=== PATIENT | female | born 1985 | race African-American/Black ===

== ENCOUNTER 2017-04-29 23:27 | Emergency (ER) | payer MEDICAID ==
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
[2017-04-30] MEDS ORDERED: HYDROCODONE/APAP 5/325 MG TAB ONE (00:54)
[2017-04-30 02:04] VITALS: O2SAT 99
[2017-04-30 02:06] VITALS: BP 116/67; TEMP 98
--- NOTE | 2017-04-30 08:13 | RAD REPORT ---
EXAM DESCRIPTION: RAD - Hand Left 3 View - 04/30/2017 12:04 am CLINICAL HISTORY: Trauma, hand pain COMPARISON: None. FINDINGS: Fracture is present involving the fourth metacarpal shaft. No dislocation seen.
== END 2017-04-30 01:21 | disposition home or self-care (01) ==
LOC: ER 23:27
PROC: 2W3DX1Z Immobilization of Left Lower Arm using Splint (ICD-10-PCS; principal; 2017-04-30)
DX: S62.325A Displaced fracture of shaft of fourth metacarpal bone, left hand, initial encounter for closed fracture (principal); X58.XXXA Exposure to other specified factors, initial encounter; Y92.89 Other specified places as the place of occurrence of the external cause; I10 Essential (primary) hypertension; Z91.040 Latex allergy status; Z91.048 Other nonmedicinal substance allergy status; F17.210 Nicotine dependence, cigarettes, uncomplicated
CPT/HCPCS: 99283

== ENCOUNTER 2017-06-17 23:06 | Emergency (ER) | payer MEDICAID, OTHER ==
[2017-06-18] MEDS ORDERED: NA CHLORIDE 0.9% 1,000 ML ONE (00:12)
[2017-06-18] MEDS ORDERED: GENTAMICIN 0.3% OPTH DROP 5ML ONE (00:12)
[2017-06-18 01:38] LABS: Calcium Oxalate Crystals- Ur FEW (NONE SEEN); Urine Bacteria 20-50 /HPF (<20); Urine Culture Reflex Order REFLEXED; Urine Mucus 1+ /HPF (NONE SEEN); Urine RBC <5 /HPF (NONE SEEN)
[2017-06-18 01:42] LABS: Urine Blood TRACE (NEG); Urine Glucose NEGATIVE (NEG); Urine Protein NEGATIVE (NEG); Urine Specific Gravity >1.030 (1.005-1.030)
[2017-06-18 02:16] LABS: BUN Blood Urea Nitrogen 10 mg/dL (6-20); Bicarbonate 24 mEq/L (21-31); Glucose Level 85 mg/dL (65-120); Potassium 3.7 mEq/L (3.6-5.0); Sodium Level 137 mEq/L (135-145)
[2017-06-18 02:17] LABS: Absolute Lymphocytes (CBC) 2.6 K/uL (0.7-4.9); Absolute Monocytes 0.6 K/uL (0.1-1.3); Absolute Neutrophil 6.3 K/uL (1.8-8.0); Basophils % 0.3 % (0-1.3); Eosinophils % 1.1 % (0-4.4); Hematocrit 35.6 % (36.0-45.0); MCH 29.3 pg (27.0-35.0); MCV 89.6 fL (80-100); MPV 8.6 fL (7.6-11.3); RBC Red Blood Cell Count 3.97 M/uL (3.86-4.86)
--- NOTE | 2017-06-18 02:23 | EDPHYS ---
Physician Documentation [facility] Name: Paola Castano Age: 31 yrs Sex: Female : 1985 Arrival Date: 06/17/2017 Time: 23:10 Bed 13 Private MD: ED Physician Kasey Villalobos HPI: 06/17 23:59 This 31 yrs old Black Female presents to ER via Ambulatory with complaints of Headache, snw Eye Problem. 23:59 The patient complains of pain to the top of head. The patient describes the headache as snw constant, throbbing. Associated signs and symptoms: Pertinent positives: nausea, diarrhea. Severity of symptoms: At its worst the pain was moderate. The symptoms are alleviated by nothing. It is unknown whether or not the patient has had similar symptoms in the past. 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 Notes "bumps" on eyelids x 1-2 months. 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 - Social history:: Smoking status: Patient uses tobacco products, 3-4 cigarettes a day. ROS: 23:51 ENT: Negative for injury, pain, and discharge, Neck: Negative for injury, pain, and snw swelling, Cardiovascular: Negative for chest pain, palpitations, and edema, Respiratory: Negative for shortness of breath, cough, wheezing, and pleuritic chest pain, Back: Negative for injury and pain, : Negative for injury, bleeding, discharge, and swelling, MS/Extremity: Negative for injury and deformity, Skin: Negative for injury, rash, and discoloration, Neuro: Negative for headache, weakness, numbness, tingling, and seizure. 23:51 Constitutional: Positive for malaise. 23:51 Eyes: Positive for bumps on eyelids. 23:51 Abdomen/GI: Positive for nausea and vomiting, diarrhea. Exam: 23:51 Constitutional: This is a well developed, well nourished patient who is awake, alert, snw and in no acute distress. Head/Face: Normocephalic, atraumatic. ENT: Nares patent. No nasal discharge, no septal abnormalities noted. Tympanic membranes are normal and external auditory canals are clear. Oropharynx with no redness, swelling, or masses, exudates, or evidence of obstruction, uvula midline. Mucous membranes moist. Neck: Trachea midline, no thyromegaly or masses palpated, and no cervical lymphadenopathy. Supple, full range of motion without nuchal rigidity, or vertebral point tenderness. No Meningismus. Chest/axilla: Normal chest wall appearance and motion. Nontender with no deformity. No lesions are appreciated. Cardiovascular: Regular rate and rhythm with a normal S1 and S2. No gallops, murmurs, or rubs. Normal PMI, no JVD. No pulse deficits. Respiratory: Lungs have equal breath sounds bilaterally, clear to auscultation and percussion. No rales, rhonchi or wheezes noted. No increased work of breathing, no retractions or nasal flaring. Abdomen/GI: Soft, non-tender, with normal bowel sounds. No distension or tympany. No guarding or rebound. No evidence of tenderness throughout. Back: No spinal tenderness. No costovertebral tenderness. Full range of motion. Skin: Warm, dry with normal turgor. Normal color with no rashes, no lesions, and no evidence of cellulitis. MS/ Extremity: Pulses equal, no cyanosis. Neurovascular intact. Full, normal range of motion. Neuro: Awake and alert, GCS 15, oriented to person, place, time, and situation. Cranial nerves II-XII grossly intact. Motor strength 5/5 in all extremities. Sensory grossly intact. Cerebellar exam normal. Normal gait. 23:51 Eyes: Periorbital structures: chalazion x 1 to each upper eyelid (x 1 month). Vital Signs: 23:34 BP 113 / 66; Pulse 80; Resp 18; Temp 98.7(O); Pulse Ox 98% on R/A; Weight 131.54 kg fc (R); Height 5 ft. 7 in. (170.18 cm) (R); Pain 6/10; 0507 00:00 BP 120 / 63; Pulse 67; Resp 16; Pulse Ox 100% on 15% Non-rebreather mask; bs1 01:20 BP 119 / 63; Pulse 68; Resp 17; Pulse Ox 99% on R/A; bs1 02:30 BP 115 / 63; Pulse 66; Resp 16; Temp 98.0(O); Pulse Ox 98% on R/A; Pain 0/10; bs1 06/17 23:34 Body Mass Index 45.42 (131.54 kg, 170.18 cm) fc MDM: 06/17 23:44 Patient medically screened. snw 06/18 03:42 Data reviewed: vital signs. ma2 06/17 23:57 Order name: Urine Culture snw 06/17 23:57 Order name: Urine Microscopic Only; Complete Time: 01:57 snw 06/17 23:57 Order name: CBC with Diff snw 06/17 23:57 Order name: Chem 7 snw 06/17 23:57 Order name: Urine Culture EDOR 06/18 01:01 Order name: Urine Dipstick--Ancillary (enter results); Complete Time: 01:57 em1 06/17 23:57 Order name: O2: 15L x 15 min (placed at 2356); Complete Time: 00:15 snw 06/17 23:57 Order name: Urine Dipstick-Ancillary (obtain specimen); Complete Time: 00:39 snw Administered Medications: 00:23 Drug: Gentamicin Drops 0.3 % 2 drops Route: Ophthalmic; Site: both eyes; bs1 00:39 Not Given (verbal order by ria, oral rehydration, unable to get IV access): NS bs1 0.9% 1000 ml IV at 1 bolus Per protocol; 1000 mL bolus Disposition: 03:41 Co-signature as Attending Physician, Kasey Villalobos MD. ma2 03:42 Co-signature as Attending Physician, Kasey Villalobos MD. ma2 Disposition: 06/18/17 02:22 Discharged to Home. Impression: Vomiting, unspecified, Diarrhea, unspecified, state, Chalazion right upper eyelid, Chalazion left upper eyelid. - Condition is Stable. - Discharge Instructions: Food Choices to Help Relieve Diarrhea, Adult, Chalazion, Diarrhea, Clear Liquid Diet, Nausea and Vomiting. - Prescriptions for Vigamox 0.5 % Ophthalmic Drops - instill 1 drop by OPHTHALMIC route every 8 hours for 7 days; 5 milliliter. - Work release form, Medication Reconciliation Form, Thank You Letter, Antibiotic Education, Prescription Opioid Use form. - Follow up: Emergency Department; When: As needed; Reason: Worsening of condition. Follow up: Private Physician; When: 1 - 2 days; Reason: Recheck today's complaints, Continuance of care, Re-evaluation by your physician. Signatures: Dispatcher [employer] EDMS Nataliia Lucas, ROCHELLE-C CITY BUS DRIVER-Csnw Caryl Bahena, RN RN Lexi Daly RN RN bs1 Kasey Villalobos MD MD ma2 Corrections: (The following items were deleted from the chart) 06/17 23:59 23:51 Abdomen/GI: Positive for nausea and vomiting, snw snw 06/18 02:45 02:22 06/18/2017 02:22 Discharged to Home. Impression: Vomiting, unspecified; Diarrhea, bs1 unspecified; state; Chalazion right upper eyelid; Chalazion left upper eyelid. Condition is Stable. Discharge Instructions: Food Choices to Help Relieve Diarrhea, Adult, Chalazion, Diarrhea, Clear Liquid Diet, Nausea and Vomiting. Prescriptions for Vigamox 0.5 % Ophthalmic Drops - instill 1 drop by OPHTHALMIC route every 8 hours for 7 days; 5 milliliter. and Forms are Work release form, Medication Reconciliation Form, Thank You Letter, Antibiotic Education, Prescription Opioid Use. Follow up: Emergency Department; When: As needed; Reason: Worsening of condition. Follow up: Private Physician; When: 1 - 2 days; Reason: Recheck today's complaints, Continuance of care, Re-evaluation by your physician. bs1
--- NOTE | 2017-06-18 02:23 | ER ---
Nurse's Notes [facility] Name: Paola Castano Age: 31 yrs Sex: Female : 1985 Arrival Date: 06/17/2017 Time: 23:10 Bed 13 Private MD: Diagnosis: Vomiting, unspecified;Diarrhea, unspecified; state;Chalazion right upper eyelid;Chalazion left upper eyelid Presentation: 06/17 23:30 Presenting complaint: Patient states: that she has had a headache since yesterday and fc has some "bumps" on both her eye lids. Positive for nausea and vomiting. Pt is 23 weeks preg and is seen by [facility] in [place]. Transition of care: patient was not received from another setting of care. Onset of symptoms was June 16, 2017. Care prior to arrival: Medication(s) given: Tylenol, last at 1100. 23:30 Method Of Arrival: Ambulatory 23:30 Acuity: LEWIS 3 fc 06/18 00:25 Initial Sepsis Screen: Does the patient meet any 2 criteria? No. Patient's initial bs1 sepsis screen is negative. Does the patient have a suspected source of infection? No. Patient's initial sepsis screen is negative. 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 - Social history:: Smoking status: Patient uses tobacco products, 3-4 cigarettes a day. Screenin/07 01:07 Abuse screen: Denies threats or abuse. Denies injuries from another. Nutritional bs1 screening: No deficits noted. Tuberculosis screening: No symptoms or risk factors identified. Fall Risk None identified. Assessment: 00:25 General: Appears in no apparent distress. uncomfortable, Behavior is anxious. Pain: bs1 Complains of pain in bilateral eyelids, head Pain does not radiate. Neuro: Level of Consciousness is awake, alert, obeys commands, Oriented to person, place, time, situation, Appropriate for age Personal Fitness Trainer are equal bilaterally Moves all extremities. Gait is steady. Neuro: Speech is normal, Facial symmetry appears normal, Pupils are PERRLA, Reports blurred vision dizziness, headache Denies difficulty swallowing, numbness. Neuro: Reports a syncopal episode. Cardiovascular: Denies chest pain, Heart tones S1 S2 present Capillary refill < 3 seconds Patient's skin is warm and dry. Respiratory: Airway is patent Trachea midline Respiratory effort is even, unlabored, Respiratory pattern is regular, symmetrical, Breath sounds are clear bilaterally. GI: Bowel sounds present X 4 quads. Reports nausea. : No deficits noted. No signs and/or symptoms were reported regarding the genitourinary system. EENT: Eyes bump noted to bilateral eyelids. Derm: Skin is intact, Skin is pink, warm \\T\\ dry. Musculoskeletal: Circulation, motion, and sensation intact. Capillary refill < 3 seconds, Range of motion: intact in all extremities. 01:10 Reassessment: Patient appears in no apparent distress at this time. Patient and/or bs1 family updated on plan of care and expected duration. Pain level reassessed. Patient is alert, oriented x 3, equal unlabored respirations, skin warm/dry/pink. Pending lab results, patient Drank 2 cups of water. 01:15 Reassessment: Called Inside lab, transferred to outside lab, spoke with Harpal in bs1 outside lab to page inside lab to come draw blood. 01:35 Reassessment: Called Job medical secretary to page inside lab again due to no one coming bs1 to draw labs. Patient does not want anyone to stick her again but will allow lab to come and draw with a butterfly needle. 01:45 Reassessment: Called inside lab again, transferred to outside lab, Harpal answered, bs1 paged lab again to come draw. 02:44 Reassessment: Patient appears in no apparent distress at this time. Patient and/or bs1 family updated on plan of care and expected duration. Pain level reassessed. Patient is alert, oriented x 3, equal unlabored respirations, skin warm/dry/pink. Patient states feeling better. Vital Signs: 06/17 23:34 BP 113 / 66; Pulse 80; Resp 18; Temp 98.7(O); Pulse Ox 98% on R/A; Weight 131.54 kg fc (R); Height 5 ft. 7 in. (170.18 cm) (R); Pain 6/10; 06/18 00:00 BP 120 / 63; Pulse 67; Resp 16; Pulse Ox 100% on 15% Non-rebreather mask; bs1 01:20 BP 119 / 63; Pulse 68; Resp 17; Pulse Ox 99% on R/A; bs1 02:30 BP 115 / 63; Pulse 66; Resp 16; Temp 98.0(O); Pulse Ox 98% on R/A; Pain 0/10; bs1 06/17 23:34 Body Mass Index 45.42 (131.54 kg, 170.18 cm) fc ED Course: 06/17 23:10 Patient arrived in ED. al2 23:32 Triage completed. fc 23:33 Arm band placed on Patient placed in an exam room, on a stretcher. fc 23:41 Lexi Daly, RN is Primary Nurse. bs1 23:41 Nataliia Lucas FNP-C [facility]. snw 23:41 Kasey Villalobos MD is Attending Physician. snw 06/18 00:39 Urine Culture Sent. bs1 01:08 Patient has correct armband on for positive identification. Bed in low position. Call bs1 light in reach. Side rails up X 1. Pulse ox on. NIBP on. 01:08 No provider procedures requiring assistance completed. Missed attempt(s): 22 gauge in bs1 right antecubital area. By Nurse Elliott. Missed attempt(s): 20 gauge in left antecubital area. By Sergio Reed. 02:44 Patient did not have IV access during this emergency room visit. bs1 Administered Medications: 00:23 Drug: Gentamicin Drops 0.3 % 2 drops Route: Ophthalmic; Site: both eyes; bs1 00:39 Not Given (verbal order by ria, oral rehydration, unable to get IV access): NS bs1 0.9% 1000 ml IV at 1 bolus Per protocol; 1000 mL bolus Outcome: 02:22 Discharge ordered by . bs1 02:44 Discharged to home ambulatory. bs1 02:44 Condition: stable 02:44 Discharge instructions given to patient, Instructed on discharge instructions, follow up and referral plans. medication usage, Demonstrated understanding of instructions, follow-up care, medications, Prescriptions given X 1. 02:45 Patient left the ED. bs1 Signatures: Nataliia Lucas, MATTHEWC AUTOCLAVE OPERATOR-Csnw Caryl Bahena RN RN Lexi Daly RN RN bs1 Colette Shoemaker Corrections: (The following items were deleted from the chart) 06/17 23:33 23:30 Presenting complaint: Patient states: that she has had a headache since yesterday fc and has some "bumps" on both her eye lids. Positive for nausea and vomiting. fc
[2017-06-18 03:05] VITALS: BP 115/63; TEMP 98; O2SAT 98
== END 2017-06-18 02:45 | disposition home or self-care (01) ==
LOC: ER 23:06
DX: O21.2 Late vomiting of pregnancy (principal); R19.7 Diarrhea, unspecified; H00.14 Chalazion left upper eyelid; H00.11 Chalazion right upper eyelid; O16.2 Unspecified maternal hypertension, second trimester; O99.332 Smoking (tobacco) complicating pregnancy, second trimester; Z3A.23 23 weeks gestation of pregnancy; Z91.040 Latex allergy status; Z91.048 Other nonmedicinal substance allergy status
CPT/HCPCS: 36415; 80048; 81003; 81015; 85025; 87086; 87088; 99284; J7030

== ENCOUNTER 2017-10-27 16:10 | Emergency (ER) | payer MEDICAID ==
--- OUTSIDE RECORDS SUMMARY | 2017-10-27 16:12 | XMS REPORT | Continuity of Care Document ---
:1985 Author Organization Interface Problems Problem Status Onset Classification Date Comments Source Date Reported Discharge 09/04/2016 [facility] Diagnosis: 7 [facility] bleeding Discharge 09/04/2016 [facility] Diagnosis: 7 [facility] Abdominal Center pain ABDOMINAL Active [facility] PAIN 7 [facility] Center Medications Medication Details Route Status Patient Ordering Order Source Instructions Provider Date Allergies, Adverse Reactions, Alerts Substance Category Reaction Severity Reaction Status Date Comments Source type Reported Latex Assertion Drug Active [facility] NKDA Assertion Drug Active [facility] Immunizations Immunization Date Given Site Status Last Comments Source Updated measles/mumps/rub 09/27/2010 [facility] Results Order Name Results Value Reference Date Interpretation Comments Source Range ENDOCRINOLOGY hCG Tot 13 mIU/mL 09/02 [facility] HEMATOLOGY WBC 9.2 K/CMM 3.7 - 10.4 09/02 [facility] HEMATOLOGY RBC 4.54 M/CMM 4.20 - 09/02 [facility] 5.40 /2016 [facility] HEMATOLOGY Hgb 12.6 g/dL 12.0 - 09/02 [facility] 16.0 [facility] HEMATOLOGY MCV 85.1 fL 80.0 - 09/02 [facility] 98.0 [facility] HEMATOLOGY Hct 38.6 % 36.0 - 09/02 [facility] 48.0 [facility] HEMATOLOGY MCHC 32.6 g/dL 32.0 - 09/02 [facility] 36.0 [facility] HEMATOLOGY MCH 27.7 pg 27.0 - 09/02 [facility] 31.0 [facility] HEMATOLOGY RDW 14.0 % 11.5 - 09/02 [facility] 14.5 [facility] HEMATOLOGY Platelet 238 K/CMM 133 - 450 09/[address] [place] [address] HEMATOLOGY MPV 8.0 fL 7.4 - 10.4 09/[address] [place] [address] HEMATOLOGY Monocytes 6.5 % 2.0 - 12.0 09/02 [facility] HEMATOLOGY Basophils 0.4 % 0.0 - 1.0 09/02 [facility] HEMATOLOGY Eosinophils 1.2 % 0.0 - 4.0 09/[address] HEMATOLOGY Segs-Bands # 6.0 K/CMM 1.5 - 8.1 09/02 [facility]2016 [facility] HEMATOLOGY Lymphocytes # 2.4 K/CMM 1.0 - 5.5 09/[address] HEMATOLOGY Monocytes # 0.6 K/CMM 0.0 - 0.8 09/02 [facility] HEMATOLOGY Eosinophils # 0.1 K/CMM 0.0 - 0.5 09/[address] HEMATOLOGY Segs 65.5 % 45.0 - 09/02 [facility] 75.0 [facility] HEMATOLOGY Lymphocytes 26.4 % 20.0 - 09/02 [facility] 40.0 [facility] URINE AND UA Sq Epi Few /LPF Few /LPF 09/[address] URINE AND UA WBC 6-10 /HPF None Seen 09/02 [facility] /HPF [address] [place] [address] URINE AND UA RBC >100 /HPF 0 - 2 09/02 [facility] [address] [place] [address] URINE AND UA Bacteria Occasional None Seen 09/02 [facility] /HPF /HPF [address] [place] [address] URINE AND Micro? Performed 09/02 [facility] (09/01/16 8:00 PM) [place] URINE AND UA Color Yellow Yellow 09/02 [facility] *NA* [place] (09/01/16 8:00 PM) URINE AND UA Spec Grav 1.030 <=1.030 09/02 [facility] [address] [place] [address] URINE AND UA Turbidity Cloudy Clear 09/02 [facility] Medical *ABN* Center (09/01/16 8:00 PM) URINE AND UA Leuk Est Trace Negative 09/02 [facility] *ABN* Center (09/01/16 8:00 PM) URINE AND UA Nitrite Negative Negative 09/02 [facility] (09/01/16 8:00 PM) [place] URINE AND UA 0.2 EU/dL 0.1 - 1.0 09/02 [facility] Urobilinogen /[address] [place] [address] URINE AND UA Ketones Negative Negative 09/02 [facility] Medical *NA* Center (09/01/16 8:00 PM) URINE AND UA Bili Small Negative 09/02 [facility] Medical *ABN* Center (09/01/16 8:00 PM) URINE AND UA Blood Large Negative 09/02 [facility] *ABN* Center (09/01/16 8:00 PM) URINE AND UA pH 6.0 5.0 - 8.0 09/[address] URINE AND UA Protein Trace Negative 09/02 [facility] Medical *ABN* [place] (09/01/16 8:00 PM) URINE AND UA Glucose Negative Negative 09/02 [facility] (09/01/16 8:00 PM) [place] URINE CHEM U Preg Negative Negative 09/02 [facility] (09/01/16 8:00 PM) [place] Vital Signs Vital Sign Value Date Comments Source Temperature Oral (F) 98.2 F 09/02/2016 [facility] Systolic (mm Hg) 124 09/02/2016 [facility] Diastolic (mm Hg) 71 09/02/2016 [facility] Heart Rate 79 09/02/2016 [facility] Respitory Rate 18 09/02/2016 [facility] Weight 129.008 09/02/2016 [facility] Systolic (mm Hg) 132 09/02/2016 [facility] Diastolic (mm Hg) 64 09/02/2016 [facility] Temperature Oral (F) 98.5 F 09/02/2016 [facility] Respitory Rate 20 09/02/2016 [facility] Heart Rate 85 09/02/2016 [facility] Encounters Location Location Encounter Encounter Reason Attending ADM DC Status Source Details Type Number For Provider Date Date [facility] [id number] [facility] 09/01 09/02 [facility] Rayo Mina /2016 [facility] Procedures Procedure Code Date Perfomer Comments Source
[2017-10-27 16:59] LABS: Absolute Monocytes 0.4 K/uL (0.1-1.3); Basophils % 0.5 % (0-1.3); Eosinophils % 1.6 % (0-4.4); Hematocrit 34.4 % (36.0-45.0); Lymphocytes % 30.6 % (15.3-44.8); MCH 29.9 pg (27.0-35.0); MCV 88.7 fL (80-100); MPV 8.1 fL (7.6-11.3); Monocytes % 6.5 % (3.3-12.3); RBC Red Blood Cell Count 3.88 M/uL (3.86-4.86)
[2017-10-27] MEDS ORDERED: MORPHINE 4 MG/ML SYR ONE ×3 (17:16→19:01)
[2017-10-27] MEDS ORDERED: ONDANSETRON 4 MG/2 ML VIAL ONE (17:17)
[2017-10-27 17:19] LABS: ALT/SGPT 14 U/L (12-78); AST/SGOT 12 U/L (15-37); Alkaline Phosphatase 85 U/L (45-117); BUN Blood Urea Nitrogen 17 mg/dL (7-18); Bicarbonate 28 mmol/L (21-32); Bilirubin Direct < 0.1 mg/dL (0-0.2); Bilirubin Total 0.2 mg/dL (0.2-1.0); Glucose Level 87 mg/dL (74-106); Lipase 174 U/L (73-393); Potassium 4.1 mmol/L (3.5-5.1); Protein, Total 7.1 g/dL (6.4-8.2); Sodium Level 140 mmol/L (136-145)
--- NOTE | 2017-10-27 17:50 | RAD REPORT ---
EXAM DESCRIPTION: CT - Abdomen Pelvis W Contrast - 10/27/2017 5:33 pm CLINICAL HISTORY: Abdominal pain with vomiting. section 16 days ago COMPARISON: none. TECHNIQUE: Computed axial tomography of the abdomen pelvis was obtained. 100 cc Isovue-300 was admin istered intravenously. Oral contrast was not requested which limits evaluation of bowel. All CT scans are performed using dose optimization technique as appropriate and may include automated exposure control or mA/KV adjustment according to patient size. FINDINGS: The liver, spleen, pancreas, adrenal and kidneys appear unremarkable. There is no evidence of diverticulitis. A uterus is seen without visualization of a significant abnormality. 3.7 centimeter fluid collection is present within the anterior subcutaneous fat of the periumbilical region midline. A loop of small bowel abuts the anterior abdominal wall just posterior to this Minimal amount free fluid is present within the pelvis IMPRESSION: 3.7 centimeter fluid collection within the anterior subcutaneous fat of the periumbilica l region may represent a small hematoma. Less likely this represents a dilated loop of small bowel wi thin a hernia. This should be correlated clinically. If the diagnosis remains uncertain then CT scan would with oral contrast and opacification of the small bowel would be recommended for further evalua tion uterus
--- NOTE | 2017-10-27 18:45 | EDPHYS ---
Physician Documentation [facility] Name: Paola Castano Age: 32 yrs Sex: Female : 1985 Arrival Date: 10/27/2017 Time: 16:19 Bed 20 Private MD: ED Physician Dallas Abbasi HPI: 10/27 16:45 This 32 yrs old Black Female presents to ER via EMS with complaints of Abdominal pain, pm1 Hernia. 16:45 The patient presents with abdominal pain in the periumbilical area. The symptoms do not pm1 radiate. Associated signs and symptoms: Pertinent negatives: nausea, vomiting, and diarrhea, chest pain, dysuria, fever, headache, shortness of breath. The symptoms are described as achy. Modifying factors: The symptoms are alleviated by nothing, the symptoms are aggravated by coughing. Severity of pain: in the emergency department the pain is actually worse. Patient presents to the emergency department with complaints of hernia pain. Delivered baby 16 days ago by at [facility]. Hernia was present prior to . 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 - Social history:: Smoking status: Patient/guardian denies using tobacco. - Ebola Screening: : Patient negative for fever greater than or equal to 101.5 degrees Fahrenheit, and additional compatible Ebola Virus Disease symptoms Patient denies exposure to infectious person Patient denies travel to an Ebola-affected area in the 21 days before illness onset No symptoms or risks identified at this time. ROS: 16:45 Constitutional: Negative for fever, chills, and weight loss, Eyes: Negative for injury, pm1 pain, redness, and discharge, ENT: Negative for injury, pain, and discharge, Neck: Negative for injury, pain, and swelling, Cardiovascular: Negative for chest pain, palpitations, and edema, Respiratory: Negative for shortness of breath, cough, wheezing, and pleuritic chest pain. 16:45 Back: Negative for injury and pain, : Negative for injury, bleeding, discharge, and swelling, MS/Extremity: Negative for injury and deformity, Skin: Negative for injury, rash, and discoloration, Neuro: Negative for headache, weakness, numbness, tingling, and seizure. 16:45 Abdomen/GI: Positive for abdominal pain, Negative for nausea, vomiting, and diarrhea. Exam: 16:45 Constitutional: This is a well developed, well nourished patient who is awake, alert, pm1 and in no acute distress. Head/Face: Normocephalic, atraumatic. Eyes: Pupils equal round and reactive to light, extra-ocular motions intact. Lids and lashes normal. Conjunctiva and sclera are non-icteric and not injected. Cornea within normal limits. Periorbital areas with no swelling, redness, or edema. ENT: Nares patent. No nasal discharge, no septal abnormalities noted. Tympanic membranes are normal and external auditory canals are clear. Oropharynx with no redness, swelling, or masses, exudates, or evidence of obstruction, uvula midline. Mucous membranes moist. Neck: Trachea midline, no thyromegaly or masses palpated, and no cervical lymphadenopathy. Supple, full range of motion without nuchal rigidity, or vertebral point tenderness. No Meningismus. Chest/axilla: Normal chest wall appearance and motion. Nontender with no deformity. No lesions are appreciated. Cardiovascular: Regular rate and rhythm with a normal S1 and S2. No gallops, murmurs, or rubs. No pulse deficits. Respiratory: Lungs have equal breath sounds bilaterally, clear to auscultation and percussion. No rales, rhonchi or wheezes noted. No increased work of breathing, no retractions or nasal flaring. 16:45 Back: No spinal tenderness. No costovertebral tenderness. Full range of motion. Skin: Warm, dry with normal turgor. Normal color with no rashes, no lesions, and no evidence of cellulitis. MS/ Extremity: Pulses equal, no cyanosis. Neurovascular intact. Full, normal range of motion. 16:45 Abdomen/GI: Inspection: obese Bowel sounds: normal, Palpation: soft, mild abdominal tenderness, paraumbilical hernia, rebound tenderness, is not appreciated, Hernia: noted in the paraumbilical area, incarceration, is not appreciated, tenderness, that is mild. 16:45 Neuro: Orientation: is normal, Motor: moves all fours. Vital Signs: 16:23 BP 135 / 71; Pulse 56; Resp 16; Pulse Ox 100% on R/A; Weight 135.17 kg; Height 5 ft. 9 em in. (175.26 cm); 16:27 Temp 98.9(O); em 19:23 BP 124 / 65; Pulse 57; Resp 16; Temp 98.6; Pulse Ox 100% ; Pain 0/10; tl1 16:23 Body Mass Index 44.01 (135.17 kg, 175.26 cm) em MDM: 16:21 Patient medically screened. pm1 18:30 ED course: Patient evaluated by Dr. Abbasi and reduction of possible hernia. After pm1 evaluation recommended admission to hospital with evaluation by general surgeon.. 18:30 Counseling: I had a detailed discussion with the patient and/or guardian regarding: the pm1 historical points, exam findings, and any diagnostic results supporting the discharge/admit diagnosis, lab results, radiology results, the need for further work-up and treatment in the hospital. 19:00 Physician consultation: Carlos Butler MD was contacted at 19:00, regarding consult, pm1 patient's condition, Patient can be discharged to follow up in the office with him. Viewed CT scan and radiologist impression. His impression is a small hematoma because there is no bowel involvement before or after the area of the paraumbilical hematoma. Patient can follow up in his office next week. 19:21 ED course: Patient's hematoma fully reduced on reexamination. I did not have to reduce pm1 it, patient likely relaxed after second dose of morphine and the hematoma self reduced. 19:22 Data reviewed: vital signs. Data interpreted: Pulse oximetry: on room air is 100 %. pm1 Interpretation: normal. Counseling: I had a detailed discussion with the patient and/or guardian regarding: the historical points, exam findings, and any diagnostic results supporting the discharge/admit diagnosis, lab results, radiology results, the need for outpatient follow up, Dr. Butler. 10/27 16:28 Order name: Basic Metabolic Panel; Complete Time: 17:22 pm1 10/27 16:28 Order name: CBC with Diff; Complete Time: 17:22 pm1 10/27 16:28 Order name: Creatinine for Radiology; Complete Time: 17:22 pm1 10/27 16:28 Order name: Hepatic Function; Complete Time: 17:22 pm1 10/27 16:28 Order name: Lipase; Complete Time: 17:22 pm1 10/27 18:26 Order name: Urine Dipstick--Ancillary (enter results); Complete Time: 19:37 ag 10/27 16:28 Order name: IV Saline Lock; Complete Time: 16:40 pm1 10/27 16:28 Order name: Labs collected and sent; Complete Time: 16:40 pm1 10/27 16:28 Order name: Urine Dipstick-Ancillary (obtain specimen); Complete Time: 18:25 pm1 10/27 16:28 Order name: CT Abd/Pelvis - W/Contrast; Complete Time: 18:07 pm1 Administered Medications: 17:28 Drug: morphine 4 mg Route: IVP; Site: right forearm; aa5 18:02 Follow up: Response: No adverse reaction; Pain is decreased em 17:28 Drug: Zofran 4 mg Route: IVP; Site: right forearm; aa5 18:02 Follow up: Response: No adverse reaction em 18:58 Drug: morphine 4 mg Route: IVP; Infused Over: 2 mins; Site: right forearm; em 19:26 Follow up: Response: No adverse reaction; Marked relief of symptoms; Pain is decreased tl1 Disposition: 10/27/17 19:14 Discharged to Home. Impression: Subcutaneous abdominal hematoma. - Condition is Stable. - Discharge Instructions: Abdominal Pain, Adult, Hematoma. - Medication Reconciliation Form, Thank You Letter, Prescription Opioid Use form. - Follow up: Emergency Department; When: As needed; Reason: Worsening of condition. Follow up: Carlos Butler MD; When: 2 - 3 days; Reason: Recheck today's complaints, Continuance of care, Re-evaluation by your physician. - Problem is new. - Symptoms have improved. Addendum: 10/29/2017 07:59 Co-signature as Attending Physician, Dallas Abbasi MD I agree with the assessment and w a plan of care. Signatures: Dispatcher [employer] EDAbner Cotton, CURVE CLEANER CURVE CLEANER Lisa Villeda RN RN aa5 China Lemus RN RN tl1 Jonathan Phillips, CLINIC COORDINATOR CLINIC COORDINATOR pm1 Dallas Abbasi MD MD pr Corrections: (The following items were deleted from the chart) 10/27 19:11 18:45 Hospitalization Ordered by Kasey Najera MD for Observation. Preliminary rg2 diagnosis is Unspecified abdominal pain - hernia versus hematoma. Bed requested for Telemetry/MedSurg (observation). Status is Observation. Condition is Stable. Problem is new. Symptoms have improved. UTI on Admission? No. pm1 19:42 19:14 10/27/2017 19:14 Discharged to Home. Impression: Subcutaneous abdominal hematoma. tl1 Condition is Stable. Forms are Medication Reconciliation Form, Thank You Letter, Antibiotic Education, Prescription Opioid Use. Follow up: Emergency Department; When: As needed; Reason: Worsening of condition. Follow up: Carlos Butler; When: 2 - 3 days; Reason: Recheck today's complaints, Continuance of care, Re-evaluation by your physician. Problem is new. Symptoms have improved. pm1
--- NOTE | 2017-10-27 18:45 | ER ---
Nurse's Notes [facility] Name: Paola Castano Age: 32 yrs Sex: Female : 1985 Arrival Date: 10/27/2017 Time: 16:19 Bed 20 Private MD: Diagnosis: Subcutaneous abdominal hematoma Presentation: 10/27 16:19 Presenting complaint: EMS states: ABD pain and nausea since 1000 today, pt is s/p em 16 days ago, developed hernia after , denies fever and vomiting, site healing well, no redness or drainage noted. Presenting complaint: EMS states: ABD pain and nausea since 1000 today, pt is s/p 16 days ago, developed hernia after , denies fever and vomiting, site healing well, no redness or drainage noted. Transition of care: patient was not received from another setting of care. Onset of symptoms was October 27, 2017. Risk Assessment: Do you want to hurt yourself or someone else? Patient reports no desire to harm self or others. Initial Sepsis Screen: Does the patient meet any 2 criteria? No. Patient's initial sepsis screen is negative. Does the patient have a suspected source of infection? No. Patient's initial sepsis screen is negative. Care prior to arrival: None. 16:19 Method Of Arrival: EMS: [facility] em 16:19 Acuity: LEWIS 3 aa5 Triage Assessment: 16:23 General: Appears in no apparent distress. uncomfortable, Behavior is calm, cooperative. em Pain: Complains of pain in umbilical area. RUG SIZER: 16:23 LMP N/A - Recent em Historical: - Allergies: 16:23 Latex, Natural Rubber; em - PMHx: 16:23 Hypertension; em - PSHx: 16:23 ; em - Immunization history:: Adult Immunizations up to date. - Social history:: Smoking status: Patient/guardian denies using tobacco. - Ebola Screening: : Patient negative for fever greater than or equal to 101.5 degrees Fahrenheit, and additional compatible Ebola Virus Disease symptoms Patient denies exposure to infectious person Patient denies travel to an Ebola-affected area in the 21 days before illness onset No symptoms or risks identified at this time. Screenin:26 Abuse screen: Denies threats or abuse. Nutritional screening: No deficits noted. em Tuberculosis screening: No symptoms or risk factors identified. Fall Risk None identified. Assessment: 16:27 General: Appears in no apparent distress. uncomfortable, obese, Behavior is em cooperative, anxious. Pain: Complains of pain in umbilical area Pain currently is 7 out of 10 on a pain scale. Neuro: Level of Consciousness is awake, alert, obeys commands, Oriented to person, place, time, situation. Cardiovascular: Capillary refill < 3 seconds Patient's skin is warm and dry. Respiratory: Airway is patent Respiratory effort is even, unlabored, Respiratory pattern is regular, symmetrical. GI: Abdomen is obese, Bowel sounds present X 4 quads. Abd is soft X 4 quads Abdomen is tender to palpation in umbilical area, right upper quadrant and left upper quadrant Reports nausea, Patient currently denies vomiting. : No signs and/or symptoms were reported regarding the genitourinary system. EENT: No signs and/or symptoms were reported regarding the EENT system. Derm: Skin is intact, Skin is pink, warm \T\ dry. Musculoskeletal: Range of motion: intact in all extremities. 16:27 Reassessment: I agree with assessment completed by Abner Avilez LVN . aa5 17:20 Reassessment: radiology dept. called and notified pt IV was not functioning and that pt em was in pain crying, provider notified, new medications ordered, inserted new IV site in right forearm, old IV d/c, taped and bleeding controlled, pt tolerated CT well. Reassessment: Patient appears in no apparent distress at this time. 18:07 Reassessment: Patient appears in no apparent distress at this time. Patient and/or em family updated on plan of care and expected duration. Pain level reassessed. Patient is alert, oriented x 3, equal unlabored respirations, skin warm/dry/pink. rates pain 2/10 Patient states feeling better. 18:38 Reassessment: Patient appears in no apparent distress at this time. Patient and/or em family updated on plan of care and expected duration. Pain level reassessed. Patient is alert, oriented x 3, equal unlabored respirations, skin warm/dry/pink. pt currently refuses pain medication, rates pain a 4/10, provider notified, medication will be on hold. Vital Signs: 16:23 BP 135 / 71; Pulse 56; Resp 16; Pulse Ox 100% on R/A; Weight 135.17 kg; Height 5 ft. 9 em in. (175.26 cm); 16:27 Temp 98.9(O); em 19:23 BP 124 / 65; Pulse 57; Resp 16; Temp 98.6; Pulse Ox 100% ; Pain 0/10; tl1 16:23 Body Mass Index 44.01 (135.17 kg, 175.26 cm) em ED Course: 16:19 Patient arrived in ED. em 16:21 Jonathan Phillips NP is PHCP. pm1 16:21 Dallas Abbasi MD is Attending Physician. pm1 16:23 Arm band placed on. em 16:26 Patient has correct armband on for positive identification. Placed in gown. Bed in low em position. Call light in reach. 16:26 No provider procedures requiring assistance completed. em 16:31 Abner Avilez LVN is Primary Nurse. em 16:37 Initial lab(s) drawn, by ia, sent to lab. Inserted saline lock: 20 gauge in right 5 antecubital area, using aseptic technique. Blood collected. 16:38 Warm blanket given. Pulse ox on. NIBP on. 5 16:39 Basic Metabolic Panel Sent. 5 16:40 CBC with Diff Sent. 5 16:40 Creatinine for Radiology Sent. 5 16:40 Hepatic Function Sent. 5 16:40 Lipase Sent. 5 16:43 Triage completed. aa5 17:20 IV discontinued, intact, bleeding controlled, No redness/swelling at site. Pressure em dressing applied. 17:25 Inserted saline lock: 22 gauge in right forearm, using aseptic technique. em 17:33 CT Abd/Pelvis - W/Contrast In Process Unspecified. EDMS 17:33 CT completed. Patient tolerated procedure well. Patient moved back from CT. sj 18:25 Urine collected: clean catch specimen, clear. em 18:43 Kasey Najera MD is Hospitalizing Provider. pm1 19:12 Carlos Butler MD is Referral Physician. pm1 19:25 IV discontinued, intact, bleeding controlled, No redness/swelling at site. Pressure tl1 dressing applied. Administered Medications: 17:28 Drug: morphine 4 mg Route: IVP; Site: right forearm; aa5 18:02 Follow up: Response: No adverse reaction; Pain is decreased em 17:28 Drug: Zofran 4 mg Route: IVP; Site: right forearm; aa5 18:02 Follow up: Response: No adverse reaction em 18:58 Drug: morphine 4 mg Route: IVP; Infused Over: 2 mins; Site: right forearm; em 19:26 Follow up: Response: No adverse reaction; Marked relief of symptoms; Pain is decreased tl1 Outcome: 18:45 Decision to Hospitalize by Provider. pm1 19:14 Discharge ordered by MD. pm1 19:25 Discharged to home ambulatory, with family. tl1 19:25 Condition: good 19:25 Discharge instructions given to patient, family, Instructed on discharge instructions, follow up and referral plans. Demonstrated understanding of instructions, follow-up care. 19:42 Patient left the ED. tl1 Signatures: Dispatcher [employer] Savannah Winter Edgar, AUTOMOBILE MECHANIC SUPERVISOR AUTOMOBILE MECHANIC SUPERVISOR em Lisa Keene RN RN aa5 China Lemus RN RN tl1 Jonathan Phillips NP HOTHOUSE WORKER pm1 Kassie Rodriguez [facility] Corrections: (The following items were deleted from the chart) 17:07 16:19 Presenting complaint: EMS states: ABD pain and nausea since 1000 today, pt is s/p aa5 16 days ago, developed hernia after bitch, denies fever and vomiting, site healing well, no redness or drainage noted em 18:07 17:30 Reassessment: Patient appears in no apparent distress at this time. Patient em and/or family updated on plan of care and expected duration. Pain level reassessed. Patient is alert, oriented x 3, equal unlabored respirations, skin warm/dry/pink. em
[2017-10-27 19:35] LABS: Urine Blood TRACE (NEG); Urine Glucose NEGATIVE (NEG); Urine Protein NEGATIVE (NEG); Urine Specific Gravity 1.015 (1.005-1.030)
[2017-10-27 19:56] VITALS: O2SAT 100
[2017-10-27 19:58] VITALS: BP 124/65; TEMP 98.6
== END 2017-10-27 19:42 | disposition home or self-care (01) ==
LOC: ER 16:10
DX: O99.43 Diseases of the circulatory system complicating the puerperium (principal); I62.00 Nontraumatic subdural hemorrhage, unspecified; Z91.040 Latex allergy status
CPT/HCPCS: 36415; 74177; 80048; 80076; 81003; 83690; 85025; 96374; 96375; 99284; J2405; Q9967

== ENCOUNTER 2018-01-06 18:50 | Emergency (ER) | payer MEDICAID ==
--- OUTSIDE RECORDS SUMMARY | 2018-01-06 18:51 | XMS REPORT | Continuity of Care Document ---
:1985 Author Organization Interface Problems Problem Status Onset Classification Date Comments Source Date Reported Discharge 09/04/2016 [facility] Diagnosis: [facility] bleeding Discharge 09/04/2016 [facility] Diagnosis: [facility] pain ABDOMINAL Active [facility] PAIN [facility] Medications Medication Details Route Status Patient Ordering Order Source Instructions Provider Date Allergies, Adverse Reactions, Alerts Substance Category Reaction Severity Reaction Status Date Comments Source type Reported Latex Assertion Drug Active [facility] Immunizations Immunization Date Given Site Status Last Comments Source Updated measles/mumps/rub 09/27/2010 [facility] Results Order Name Results Value Reference Date Interpretation Comments Source Range ENDOCRINOLOGY hCG Tot 13 mIU/mL 09/02 [facility] HEMATOLOGY WBC 9.2 K/CMM 3.7 - 10.4 09/02 [facility] HEMATOLOGY RBC 4.54 M/CMM 4.20 - 09/02 [facility] 5.40 /2016 [facility] HEMATOLOGY Hgb 12.6 g/dL 12.0 - 09/02 [facility] [address] [facility] HEMATOLOGY MCV 85.1 fL 80.0 - 09/02 [facility] [address] [facility] HEMATOLOGY Hct 38.6 % 36.0 - 09/[address] [facility] HEMATOLOGY MCHC 32.6 g/dL 32.0 - 09/02 [facility] [address] [facility] HEMATOLOGY MCH 27.7 pg 27.0 - 09/02 [facility] [address] [facility] HEMATOLOGY RDW 14.0 % 11.5 - 09/02 [facility] [address] [facility] HEMATOLOGY Platelet 238 K/CMM 133 - 450 09/[address] [place] [address] HEMATOLOGY MPV 8.0 fL 7.4 - 10.4 09/[address] [place] [address] HEMATOLOGY Monocytes 6.5 % 2.0 - 12.0 09/[address] [place] [address] HEMATOLOGY Basophils 0.4 % 0.0 - 1.0 09/[address] HEMATOLOGY Eosinophils 1.2 % 0.0 - 4.0 09/[address] HEMATOLOGY Segs-Bands # 6.0 K/CMM 1.5 - 8.1 09/[address] HEMATOLOGY Lymphocytes # 2.4 K/CMM 1.0 - 5.5 09/[address] HEMATOLOGY Monocytes # 0.6 K/CMM 0.0 - 0.8 09/[address] HEMATOLOGY Eosinophils # 0.1 K/CMM 0.0 - 0.5 09/[address] HEMATOLOGY Segs 65.5 % 45.0 - 09/02 [facility] [address] [facility] HEMATOLOGY Lymphocytes 26.4 % 20.0 - 09/02 [facility] [address] [facility] URINE AND UA Sq Epi Few /LPF Few /LPF 09/[address] URINE AND UA WBC 6-10 /HPF None Seen 09/02 [facility] /HPF /[address] [place] [address] URINE AND UA RBC >100 /HPF 0 - 2 09/[address] URINE AND UA Bacteria Occasional None Seen 09/02 [facility] /HPF /HPF [address] [place] [address] URINE AND Micro? Performed 09/[address] (09/01/16 8:00 PM) [place] URINE AND UA Color Yellow Yellow 09/02 [facility] [address] [place] [address] *NA* [place] (09/01/16 8:00 PM) URINE AND UA Spec Grav 1.030 <=1.030 09/[address] URINE AND UA Turbidity Cloudy Clear 09/02 [facility] [address] [place] [address] *ABN* Center (09/01/16 8:00 PM) URINE AND UA Leuk Est Trace Negative 09/02 [facility] *ABN* [place] (09/01/16 8:00 PM) URINE AND UA Nitrite Negative Negative 09/[address] (09/01/16 8:00 PM) [place] URINE AND UA 0.2 EU/dL 0.1 - 1.0 09/02 [facility] Urobilinogen /[address] [place] [address] URINE AND UA Ketones Negative Negative 09/02 [place] [address] Medical *NA* Center (09/01/16 8:00 PM) URINE AND UA Bili Small Negative 09/02 [facility] *ABN* Center (09/01/16 8:00 PM) URINE AND UA Blood Large Negative 09/02 [facility]* [place] (09/01/16 8:00 PM) URINE AND UA pH 6.0 5.0 - 8.0 09/[address] [facility] URINE AND UA Protein Trace Negative 09/02 [facility] *[facility]* [place] (09/01/16 8:00 PM) URINE AND UA Glucose Negative Negative 09/02 [facility] (09/01/16 8:00 PM) [place] URINE CHEM U Preg Negative Negative 09/02 [facility] (09/01/16 8:00 PM) [place] Vital Signs Vital Sign Value Date Comments Source Temperature Oral (F) 98.2 F 09/02/2016 [facility] Systolic (mm Hg) 124 09/02/2016 [facility] Diastolic (mm Hg) 71 09/02/2016 [facility] Heart Rate 79 09/02/2016 [facility] Respitory Rate 18 09/02/2016 [facility] Weight 129.008 09/02/2016 [facility] Systolic (mm Hg) 132 09/02/2016 [facility] Diastolic (mm Hg) 64 09/02/2016 [facility] Temperature Oral (F) 98.5 F 09/02/2016 [facility] Respitory Rate 20 09/02/2016 [facility] Heart Rate 85 09/02/2016 [facility] Encounters Location Location Encounter Encounter Reason Attending ADM DC Status Source Details Type Number For Provider Date Date [facility] [id number] [facility] 09/01 09/02 [facility] Rayo Goyal /2016 [facility] Procedures Procedure Code Date Perfomer Comments Source
[2018-01-06 20:24] LABS: Urine Blood TRACE (NEG); Urine Glucose TRACE (NEG); Urine Protein NEGATIVE (NEG); Urine Specific Gravity >1.030 (1.005-1.030); Urine pH 5.5 (5.0-7.0)
--- NOTE | 2018-01-06 20:31 | RAD REPORT ---
EXAM DESCRIPTION: RAD - Lumbar Spine 3 Views - 01/06/2018 8:26 pm CLINICAL HISTORY: PAIN Radiculopathy COMPARISON: No comparisons FINDINGS: Vertebral body heights appear maintained. No compression fracture noted. Disc spaces are m aintained. No spondylolysis or spondylolisthesis. IMPRESSION: Negative study.
--- NOTE | 2018-01-06 20:50 | ER ---
Nurse's Notes [facility] Name: Paola Castano Age: 32 yrs Sex: Female : 1985 Arrival Date: 01/06/2018 Time: 18:51 Bed 11 Private MD: Yaneth Peck Diagnosis: Low back pain;Sciatica, left side;Urinary tract infection, site not specified;Obesity, unspecified Presentation: 01/06 19:08 Presenting complaint: Patient states: Back pain for the past week and a half. She's aj1 taking ibuprofen and Tylenol but they aren't helping. Patient denies injury. Transition of care: patient was not received from another setting of care. Onset of symptoms was December 2017. Risk Assessment: Do you want to hurt yourself or someone else? Patient reports no desire to harm self or others. Initial Sepsis Screen: Does the patient meet any 2 criteria? No. Patient's initial sepsis screen is negative. Does the patient have a suspected source of infection? No. Patient's initial sepsis screen is negative. Care prior to arrival: None. 19:08 Method Of Arrival: Ambulatory aj1 19:08 Acuity: LEWIS 4 aj1 Triage Assessment: 19:09 General: Appears in no apparent distress. uncomfortable, Behavior is calm, cooperative, aj1 appropriate for age. Pain: Complains of pain in back Pain currently is 5 out of 10 on a pain scale. Neuro: Level of Consciousness is awake, alert, obeys commands. Cardiovascular: Patient's skin is warm and dry. Respiratory: Airway is patent Respiratory effort is even, unlabored, Respiratory pattern is regular, symmetrical. Musculoskeletal: Range of motion: intact in all extremities. 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 - Social history:: Smoking status: Patient uses tobacco products, smokes one-half pack cigarettes per day. - Ebola Screening: : Patient denies travel to an Ebola-affected area in the 21 days before illness onset. - Family history:: not pertinent. Screenin:11 Abuse screen: none noted. Nutritional screening: No deficits noted. Tuberculosis jl3 screening: No symptoms or risk factors identified. Fall Risk None identified. Assessment: 19:55 General: Appears uncomfortable, obese, unkempt, Behavior is calm, cooperative. General: jl3 Pt states has pain in lower left side of back/flank 1.5 weeks. Pt had baby 3 months ago, no complications. Area over L. flank is tender to touch.. Pain: Complains of pain in right low back. Neuro: No deficits noted. Level of Consciousness is awake, alert, obeys commands, Oriented to person, place, time, situation, Drafter Refrigeration are equal bilaterally Moves all extremities. Gait is shuffling, Speech is normal, Facial symmetry appears normal, Pupils are PERRLA, Intact. Vital Signs: 19:09 BP 122 / 86; Pulse 80; Resp 18; Temp 97.2; Pulse Ox 100% on R/A; Height 5 ft. 7 in. aj1 (170.18 cm) (R); Pain 5/10; 19:41 BP 130 / 84; Pulse 83; Resp 16; Pulse Ox 99% on R/A; mt ED Course: 18:51 Patient arrived in ED. mr 18:52 Yaneth Peck is Private Physician. mr 19:09 Triage completed. aj1 19:09 Arm band placed on Patient placed in an exam room. aj1 19:39 Juan Castro MD is Attending Physician. agustin 19:55 Abdon Horowitz, FRANCIA is Primary Nurse. jl3 20:26 Lumbar Spine (3 Views) XRAY In Process Unspecified. EDMS 20:26 X-ray completed. Patient tolerated procedure well. Patient moved back from radiology. sg4 20:48 Yaneth Peck is Referral Physician. agustin 21:11 No provider procedures requiring assistance completed. Patient did not have IV access jl3 during this emergency room visit. 21:12 Patient has correct armband on for positive identification. jl3 Administered Medications: 20:52 Drug: Motrin 600 mg Route: PO; jl3 21:10 Follow up: Response: No adverse reaction; Pain is decreased jl3 20:52 Drug: Carroll 10 mg-325 mg 1 tabs Route: PO; jl3 21:10 Follow up: Response: No adverse reaction; Pain is decreased jl3 20:53 Drug: Bactrim (160 mg-800 mg (DS) 1 tablet Route: PO; jl3 21:10 Follow up: Response: No adverse reaction; Pain is decreased jl3 Outcome: 20:49 Discharge ordered by MD. velez 21:12 Discharged to home ambulatory, with family. jl3 21:12 Condition: stable 21:12 Discharge instructions given to patient, family. 21:12 Patient left the ED. jl3 Signatures: Dispatcher [employer] EDAllison Sprague RN RN aj1 Juan Castro MD MD cha Rivera, Mary mr Lowman, John, RN RN jl3 Jabier, Brigitte Murphy [facility]
--- NOTE | 2018-01-06 20:50 | EDPHYS ---
Physician Documentation [facility] Name: Paola Castano Age: 32 yrs Sex: Female : 1985 Arrival Date: 01/06/2018 Time: 18:51 Bed 11 Private MD: Yaneth Peck ED Physician Juan Castro HPI: 01/06 20:45 This 32 yrs old Black Female presents to ER via Ambulatory with complaints of Back Pain.agustin 20:45 The patient presents with pain that is acute. The symptoms are located in the low back. agustin Onset: The symptoms/episode began/occurred 2 day(s) ago. The pain radiates to the left low back. Associated signs and symptoms: The patient has no apparent associated signs or symptoms. Modifying factors: The patient symptoms are alleviated by remaining still, rest. Severity of symptoms: At their worst the symptoms were mild, moderate, in the emergency department the symptoms are unchanged. The patient has not experienced similar symptoms in the past. 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 - Social history:: Smoking status: Patient uses tobacco products, smokes one-half pack cigarettes per day. - Ebola Screening: : Patient denies travel to an Ebola-affected area in the 21 days before illness onset. - Family history:: not pertinent. ROS: 20:45 Constitutional: Negative for fever, chills, and weight loss, Eyes: Negative for injury, agustin pain, redness, and discharge, ENT: Negative for injury, pain, and discharge, Neck: Negative for injury, pain, and swelling, Cardiovascular: Negative for chest pain, palpitations, and edema, Respiratory: Negative for shortness of breath, cough, wheezing, and pleuritic chest pain, Abdomen/GI: Negative for abdominal pain, nausea, vomiting, diarrhea, and constipation, : Negative for injury, bleeding, discharge, and swelling, MS/Extremity: Negative for injury and deformity, Skin: Negative for injury, rash, and discoloration, Neuro: Negative for headache, weakness, numbness, tingling, and seizure, Psych: Negative for depression, anxiety, suicide ideation, homicidal ideation, and hallucinations, Allergy/Immunology: Negative for hives, rash, and allergies, Endocrine: Negative for neck swelling, polydipsia, polyuria, polyphagia, and marked weight changes, Hematologic/Lymphatic: Negative for swollen nodes, abnormal bleeding, and unusual bruising. 20:45 Back: Positive for decreased range of motion, pain at rest, pain with movement, radiated pain, of the left low back. Exam: 20:45 Constitutional: This is a well developed, well nourished patient who is awake, alert, agustin and in no acute distress. Head/Face: Normocephalic, atraumatic. Eyes: Pupils equal round and reactive to light, extra-ocular motions intact. Lids and lashes normal. Conjunctiva and sclera are non-icteric and not injected. Cornea within normal limits. Periorbital areas with no swelling, redness, or edema. ENT: Nares patent. No nasal discharge, no septal abnormalities noted. Tympanic membranes are normal and external auditory canals are clear. Oropharynx with no redness, swelling, or masses, exudates, or evidence of obstruction, uvula midline. Mucous membranes moist. Neck: Trachea midline, no thyromegaly or masses palpated, and no cervical lymphadenopathy. Supple, full range of motion without nuchal rigidity, or vertebral point tenderness. No Meningismus. Chest/axilla: Normal chest wall appearance and motion. Nontender with no deformity. No lesions are appreciated. Cardiovascular: Regular rate and rhythm with a normal S1 and S2. No gallops, murmurs, or rubs. Normal PMI, no JVD. No pulse deficits. Respiratory: Lungs have equal breath sounds bilaterally, clear to auscultation and percussion. No rales, rhonchi or wheezes noted. No increased work of breathing, no retractions or nasal flaring. Abdomen/GI: Soft, non-tender, with normal bowel sounds. No distension or tympany. No guarding or rebound. No evidence of tenderness throughout. Skin: Warm, dry with normal turgor. Normal color with no rashes, no lesions, and no evidence of cellulitis. MS/ Extremity: Pulses equal, no cyanosis. Neurovascular intact. Full, normal range of motion. Neuro: Awake and alert, GCS 15, oriented to person, place, time, and situation. Cranial nerves II-XII grossly intact. Motor strength 5/5 in all extremities. Sensory grossly intact. Cerebellar exam normal. Normal gait. 20:45 Back: pain, that is mild, ROM is painful, normal spinal alignment noted, CVA tenderness, is absent, muscle spasm, is appreciated in the left low back. Vital Signs: 19:09 BP 122 / 86; Pulse 80; Resp 18; Temp 97.2; Pulse Ox 100% on R/A; Height 5 ft. 7 in. aj1 (170.18 cm) (R); Pain 5/10; 19:41 BP 130 / 84; Pulse 83; Resp 16; Pulse Ox 99% on R/A; mt MDM: 19:39 Patient medically screened. [facility] 01/06 19:41 Order name: Urine Culture [facility] 01/06 20:13 Order name: Urine Dipstick--Ancillary (enter results); Complete Time: 20:41 [facility] 01/06 19:41 Order name: Lumbar Spine (3 Views) XRAY; Complete Time: 20:41 [facility] 01/06 19:41 Order name: Urine Dipstick-Ancillary (obtain specimen); Complete Time: 19:58 [facility] 01/06 19:41 Order name: Urine Test (obtain specimen); Complete Time: 19:58 [facility] Administered Medications: 20:52 Drug: Motrin 600 mg Route: PO; jl3 21:10 Follow up: Response: No adverse reaction; Pain is decreased jl3 20:52 Drug: Lowell 10 mg-325 mg 1 tabs Route: PO; jl3 21:10 Follow up: Response: No adverse reaction; Pain is decreased jl3 20:53 Drug: Bactrim (160 mg-800 mg (DS) 1 tablet Route: PO; jl3 21:10 Follow up: Response: No adverse reaction; Pain is decreased jl3 Disposition: 01/06/18 20:49 Discharged to Home. Impression: Low back pain, Sciatica, left side, Urinary tract infection, site not specified, Obesity, unspecified. - Condition is Stable. - Discharge Instructions: Back Pain, Adult, Musculoskeletal Pain, Obesity, Adult, Sciatica, Urinary Tract Infection, Adult, Back Injury Prevention, Lgri-ko-Iiyw, Urinary Tract Infection, Adult, Grxq-nr-Fvqj, Back Pain, Adult, Wogo-nb-Njem, Sciatica, Asan-se-Kopb, Back Exercises, Akaf-uf-Mnzt, Back Exercises. - Prescriptions for Ibuprofen 600 mg Oral Tablet - take 1 tablet by ORAL route every 8 hours As needed take with food; 21 tablet. Skelaxin 800 mg Oral Tablet - take 1 tablet by ORAL route every 8 hours As needed; 21 tablet. Tylenol- Codeine #3 300-30 mg Oral Tablet - take 2 tablets by ORAL route every 6 hours As needed; 24 tablet. Bactrim DS 800- 160 mg Oral Tablet - take 1 tablet by ORAL route every 12 hours for 7 days; 14 tablet. - Work release form, Medication Reconciliation Form, Thank You Letter, Antibiotic Education, Prescription Opioid Use form. - Follow up: Yaneth Peck; When: 2 - 3 days; Reason: Recheck today's complaints, Continuance of care, Re-evaluation by your physician. - Problem is new. - Symptoms have improved. Signatures: Dispatcher [employer] EDAllison Sprague RN RN aj1 Juan Castro MD MD cha Lowman, John, RN RN jl3 Corrections: (The following items were deleted from the chart) 21:12 20:49 01/06/2018 20:49 Discharged to Home. Impression: Low back pain; Sciatica, left jl3 side; Urinary tract infection, site not specified; Obesity, unspecified. Condition is Stable. Forms are Medication Reconciliation Form, Thank You Letter, Antibiotic Education, Prescription Opioid Use. Follow up: Yaneth Peck; When: 2 - 3 days; Reason: Recheck today's complaints, Continuance of care, Re-evaluation by your physician. Problem is new. Symptoms have improved. agustin
[2018-01-06] MEDS ORDERED: SMZ./TMP. 800/160 MG TABLET ONE (20:59)
[2018-01-06] MEDS ORDERED: HYDROCODONE/APAP 10/325 TAB ONE (20:59)
[2018-01-06] MEDS ORDERED: IBUPROFEN 200 MG TAB PO ONE (21:00)
[2018-01-06 22:19] VITALS: TEMP 97.2
[2018-01-06 22:20] VITALS: BP 130/84; O2SAT 99
== END 2018-01-06 21:12 | disposition home or self-care (01) ==
LOC: ER 18:50
DX: M54.42 Lumbago with sciatica, left side (principal); N39.0 Urinary tract infection, site not specified; E66.9 Obesity, unspecified; F17.210 Nicotine dependence, cigarettes, uncomplicated
CPT/HCPCS: 72100; 81003; 87086; 87088; 99283

== ENCOUNTER 2018-12-14 16:48 | Emergency (ER) | payer MEDICAID ==
[2018-12-14] MEDS ORDERED: ONDANSETRON 4 MG/2 ML VIAL ONE (17:42)
[2018-12-14 17:53] LABS: Urine Blood 3+ (NEG); Urine Glucose NEGATIVE (NEG); Urine Protein NEGATIVE (NEG); Urine Specific Gravity 1.025 (1.005-1.030)
[2018-12-14 18:16] LABS: Basophils % 0.4 % (0-1.3); Lymphocytes % 25.5 % (15.3-44.8); MPV 8.1 fL (7.6-11.3); RBC Red Blood Cell Count 4.77 M/uL (3.86-4.86)
[2018-12-14 18:32] LABS: ALT/SGPT 12 U/L (12-78); AST/SGOT 8 U/L (15-37); Albumin 3.3 g/dL (3.4-5.0); Alkaline Phosphatase 79 U/L (45-117); BUN Blood Urea Nitrogen 10 mg/dL (7-18); Bicarbonate 25 mmol/L (21-32); Bilirubin Direct < 0.1 mg/dL (0-0.2); Bilirubin Total 0.2 mg/dL (0.2-1.0); Glucose Level 87 mg/dL (74-106); HCG, Quantitative 8 mIU/mL (1-3); Lipase 209 U/L (73-393); Potassium 3.8 mmol/L (3.5-5.1); Protein, Total 7.5 g/dL (6.4-8.2); Sodium Level 142 mmol/L (136-145)
[2018-12-14 18:42] LABS: Urine Bacteria 20-50 /HPF (<20)
[2018-12-14 18:43] LABS: Urine Culture Reflex Order REFLEXED; Urine Mucus 2+ /HPF (NONE SEEN); Urine RBC >50 /HPF (NONE SEEN)
--- NOTE | 2018-12-14 20:50 | RAD REPORT ---
EXAM DESCRIPTION: US - 1St Trimest Single 1St Fetus - 12/14/2018 8:30 pm CLINICAL HISTORY: with vaginal bleeding and abdominal pain COMPARISON: None. FINDINGS: The uterus is retroverted measuring 8 x 7 x 8 centimeters. The endometrial stripe measure s 3 millimeters. . A gestational sac is not seen. The right ovary is normal in size and echotexture. Left ovary was not seen secondary to overlying bow el gas An adnexal mass is not noted. No significant free fluid IMPRESSION: Nonvisualization of a gestational sac within the endometrium. These findings could represent an early intrauterine in which the gestational sac is not se en. and even an ectopic can also result in this appearance. This all should be cor related clinically and with serial beta HCG levels. Followup endovaginal sonogram in 1 week recommend ed
--- NOTE | 2018-12-14 21:09 | EDPHYS ---
Physician Documentation [facility] Name: Paola Castano Age: 33 yrs Sex: Female : 1985 Arrival Date: 12/14/2018 Time: 16:51 Bed 19 Private MD: ED Physician Leonid Miller HPI: 12/14 17:53 This 33 yrs old Black Female presents to ER via Ambulatory with complaints of Abdominal jmm Pain, Vaginal Bleeding. 17:53 The patient presents with abdominal pain left flank. Onset: The symptoms/episode jmm began/occurred gradually, 2 week(s) ago. The symptoms radiate to suprapubic area and left lower quadrant. The symptoms are described as achy. Modifying factors: The symptoms are alleviated by nothing, the symptoms are aggravated by movement. This is a 33 year old with a history of htn that presents to the ED with complaints of vomiting, left flank pain beginning approx 2 week ago. Patient states back pain has worsened today. Patient is currently on abx for UTI with no relief of symptoms. . 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 - Social history:: Smoking status: Patient uses tobacco products, smokes one-half pack cigarettes per day. - Ebola Screening: : No symptoms or risks identified at this time. ROS: 17:53 Constitutional: Negative for fever, chills, and weight loss, Cardiovascular: Negative jmm for chest pain, palpitations, and edema, Respiratory: Negative for shortness of breath, cough, wheezing, and pleuritic chest pain. 17:53 Abdomen/GI: Positive for abdominal pain. 17:53 Abdomen/GI: Positive for nausea and vomiting. 17:53 : Positive for urinary symptoms. 17:53 All other systems are negative. Exam: 17:53 Constitutional: This is a well developed, well nourished patient who is awake, alert, jmm and in no acute distress. Head/Face: atraumatic. Eyes: EOMI, no conjunctival erythema appreciated ENT: Moist Mucus Membranes Neck: Trachea midline, Supple Chest/axilla: Normal chest wall appearance and motion. Cardiovascular: Regular rate and rhythm. No edema appreciated Respiratory: Normal respirations, no respiratory distress appreciated 17:53 Abdomen/GI: Inspection: abdomen appears normal, Bowel sounds: normal, Palpation: abdomen is soft and non-tender, in all quadrants. 17:53 Back: pain, that is moderate, of the left low back and left mid back. 17:53 Skin: Appearance: Color: normal in color. 17:53 Neuro: Orientation: is normal, Mentation: is normal, Memory: is normal. 17:53 Psych: Behavior/mood is pleasant, cooperative. Vital Signs: 17:04 BP 134 / 76; Pulse 87; Resp 16; Temp 97.6; Pulse Ox 100% on R/A; Weight 152.86 kg; la1 18:58 BP 152 / 95; Pulse 89; Resp 18; Pulse Ox 99% on R/A; em 19:25 BP 118 / 63; Pulse 62; Resp 16 S; Temp 98.5(O); Pulse Ox 100% on R/A; Pain 0/10; cc3 21:10 BP 125 / 67; Pulse 68; Resp 15 S; Pulse Ox 100% on R/A; Pain 0/10; cc3 MDM: 17:27 Patient medically screened. [facility] 21:07 Data reviewed: vital signs, nurses notes. Counseling: I had a detailed discussion with shannan the patient and/or guardian regarding: the historical points, exam findings, and any diagnostic results supporting the discharge/admit diagnosis, lab results, radiology results, the need for outpatient follow up, to return to the emergency department if symptoms worsen or persist or if there are any questions or concerns that arise at home. ED course: Patient is alert and non toxic in appearance in the ED. Patient is advised to follow up with pcp and otherwise given strict return precautions. Patient understood and agrees with the plan of care. . 12/14 17:26 Order name: Urine Dipstick--Ancillary (enter results); Complete Time: 18:15 ms 12/14 17:26 Order name: Urine --Ancillary (enter results); Complete Time: 18:15 ms 12/14 17:32 Order name: Basic Metabolic Panel; Complete Time: 18:[address] [facility] 12/14 17:32 Order name: CBC with Diff; Complete Time: 18:[address] [facility] 12/14 17:32 Order name: Creatinine for Radiology; Complete Time: 18:[address] [facility] 12/14 17:32 Order name: Hepatic Function; Complete Time: 18:[address] [facility] 12/14 17:08 Order name: Urine Dipstick-Ancillary (obtain specimen); Complete Time: 17:[address] [facility] 12/14 17:08 Order name: Urine Test (obtain specimen); Complete Time: 17:[address] [facility] 12/14 17:32 Order name: Lipase; Complete Time: 18:[address] [facility] 12/14 17:32 Order name: HCG-Quantitative; Complete Time: 18:[address] [facility] 12/14 17:33 Order name: Urine Microscopic Only; Complete Time: 18:[address] [facility] 12/14 18:38 Order name: US 1st Trimest Single 1st Fetus; Complete Time: 21:[address] [facility] 12/14 20:04 Order name: Urine Culture [facility] 12/14 17:32 Order name: IV Saline Lock; Complete Time: 17:[address] [facility] 12/14 17:32 Order name: Labs collected and sent; Complete Time: 17:[address] [facility] Administered Medications: 17:50 Drug: Zofran 4 mg Route: IVP; Site: right antecubital; 18:21 Follow up: Response: No adverse reaction; Nausea is decreased jl7 Disposition: 12/15 07:06 Co-signature as Attending Physician, Leonid Miller MD. rn Disposition: 12/14/18 21:08 Discharged to Home. Impression: Threatened , Urinary tract infection, site not specified. - Condition is Stable. - Discharge Instructions: Threatened Miscarriage, Urinary Tract Infection, Adult. - Prescriptions for Zofran ODT 4 mg Oral tablet,disintegrating - place 1 tablet by TRANSLINGUAL route every 4-6 hours; 20 tablet. Augmentin 875- 125 mg Oral Tablet - take 1 tablet by ORAL route every 12 hours for 10 days; 20 tablet. - Medication Reconciliation Form, Thank You Letter, Antibiotic Education, Prescription Opioid Use form. - Follow up: Private Physician; When: 2 - 3 days; Reason: Recheck today's complaints, Continuance of care, Re-evaluation by your physician. Signatures: Dispatcher [employer] EDMS Arturo Murray PA PA m Jonelle Ugalde RN RN iw Leonid Miller MD MD rn Attema, Lee, RN RN la1 Halley Sears 3 Roxie Rivera RN jl7 Corrections: (The following items were deleted from the chart) 12/14 21:27 21:08 12/14/2018 21:08 Discharged to Home. Impression: Threatened ; Urinary cc3 tract infection, site not specified. Condition is Stable. Forms are Medication Reconciliation Form, Thank You Letter, Antibiotic Education, Prescription Opioid Use. Follow up: Private Physician; When: 2 - 3 days; Reason: Recheck today's complaints, Continuance of care, Re-evaluation by your physician. shannan
--- NOTE | 2018-12-14 21:09 | ER ---
Nurse's Notes [facility] Name: Paola Castano Age: 33 yrs Sex: Female : 1985 Arrival Date: 12/14/2018 Time: 16:51 Bed 19 Private MD: Diagnosis: Threatened ;Urinary tract infection, site not specified Presentation: 12/14 17:03 Presenting complaint: Patient states: I have been having LLQ abd pain, had a + la1 test and have had some spotting today. Transition of care: patient was not received from another setting of care. Onset of symptoms was December 14, 2018. Risk Assessment: Do you want to hurt yourself or someone else? Patient reports no desire to harm self or others. Initial Sepsis Screen: Does the patient meet any 2 criteria? No. Patient's initial sepsis screen is negative. Does the patient have a suspected source of infection? No. Patient's initial sepsis screen is negative. Care prior to arrival: None. 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 - Social history:: Smoking status: Patient uses tobacco products, smokes one-half pack cigarettes per day. - Ebola Screening: : No symptoms or risks identified at this time. Screenin:33 Abuse screen: Denies threats or abuse. Nutritional screening: No deficits noted. em Tuberculosis screening: No symptoms or risk factors identified. Fall Risk None identified. Assessment: 17:33 General: Appears in no apparent distress. comfortable, Behavior is calm, cooperative. em Pain: Complains of pain in left lower quadrant Pain currently is 7 out of 10 on a pain scale. Neuro: Level of Consciousness is awake, alert, obeys commands, Oriented to person, place, time, situation, Appropriate for age. Cardiovascular: Capillary refill < 3 seconds Patient's skin is warm and dry. Respiratory: Airway is patent Respiratory effort is even, unlabored, Respiratory pattern is regular, symmetrical, GI: Abdomen is round non-distended, obese, Bowel sounds present X 4 quads. Abd is soft X 4 quads Abdomen is tender to palpation in left lower quadrant. : Urine is cloudy. Derm: Skin is intact, is healthy with good turgor, Skin is pink, warm \T\ dry. Musculoskeletal: Capillary refill < 3 seconds, Range of motion: intact in all extremities. 18:22 Reassessment: Patient appears in no apparent distress at this time. Patient and/or em family updated on plan of care and expected duration. Pain level reassessed. Patient is alert, oriented x 3, equal unlabored respirations, skin warm/dry/pink. Patient states feeling better. Patient states symptoms have improved. 19:26 Reassessment: Patient appears in no apparent distress at this time. Patient and/or cc3 family updated on plan of care and expected duration. Pain level reassessed. Patient is alert, oriented x 3, equal unlabored respirations, skin warm/dry/pink. Received this female patient from morning shift [facility] as a case of vaginal bleeding, with IV cannula gauge 22 at the right ACV saline locked. Still for ultrasound as endorsed. Patient denies pain at this time. General: Appears in no apparent distress. comfortable, Behavior is calm, cooperative, appropriate for age. Pain: Complains of pain in suprapubic area. Neuro: Level of Consciousness is awake, alert, obeys commands, Oriented to person, place, time, situation, Appropriate for age. Cardiovascular: Denies chest pain, Heart tones S1 S2 present Capillary refill < 3 seconds in bilateral fingers Patient's skin is warm and dry. Respiratory: Airway is patent Respiratory effort is even, unlabored, Respiratory pattern is regular, symmetrical, Breath sounds are clear bilaterally. GI: Abdomen is round non-distended, obese, Bowel sounds present X 4 quads. Abd is soft X 4 quads Abdomen is tender to palpation in suprapubic area. : No signs and/or symptoms were reported regarding the genitourinary system. EENT: No signs and/or symptoms were reported regarding the EENT system. Derm: Skin is intact, is healthy with good turgor, Skin is normal, black. Musculoskeletal: Circulation, motion, and sensation intact. Range of motion: intact in all extremities. 19:45 Reassessment: Patient taken by plastic eye technician to their department by wheelchair. cc3 20:23 Reassessment: Patient appears in no apparent distress at this time. Patient and/or cc3 family updated on plan of care and expected duration. Pain level reassessed. Patient is alert, oriented x 3, equal unlabored respirations, skin warm/dry/pink. Patient came back from ultrasound department, awaiting result. Patient denies pain at this time. 21:20 Reassessment: Patient appears in no apparent distress at this time. Patient and/or cc3 family updated on plan of care and expected duration. Pain level reassessed. Patient is alert, oriented x 3, equal unlabored respirations, skin warm/dry/pink. JUSTIN Murray discharged the patient home with prescriptions given. IV cannula removed and patient left ER vitally stable and ambulatory with her friend. No valuables left in the patient's room. Patient denies pain at this time. Patient states feeling better. Patient states symptoms have improved. Vital Signs: 17:04 BP 134 / 76; Pulse 87; Resp 16; Temp 97.6; Pulse Ox 100% on R/A; Weight 152.86 kg; la1 18:58 BP 152 / 95; Pulse 89; Resp 18; Pulse Ox 99% on R/A; em 19:25 BP 118 / 63; Pulse 62; Resp 16 S; Temp 98.5(O); Pulse Ox 100% on R/A; Pain 0/10; cc3 21:10 BP 125 / 67; Pulse 68; Resp 15 S; Pulse Ox 100% on R/A; Pain 0/10; cc3 ED Course: 16:51 Patient arrived in ED. as 16:53 [facility] Murray [facility] 16:53 Leonid Miller MD is Attending Physician. [facility] 17:04 Triage completed. la1 17:05 Arm band placed on right wrist. la1 17:08 Abner Avilez LVN is Primary Nurse. em 17:33 Patient has correct armband on for positive identification. Bed in low position. Adult em w/ patient. 20:30 US 1st Trimest Single 1st Fetus In Process Unspecified. EDMS 21:20 No provider procedures requiring assistance completed. IV discontinued, intact, cc3 bleeding controlled, No redness/swelling at site. Pressure dressing applied. Administered Medications: 17:50 Drug: Zofran 4 mg Route: IVP; Site: right antecubital; iw 18:21 Follow up: Response: No adverse reaction; Nausea is decreased jl7 Outcome: 21:08 Discharge ordered by . shannan 21:20 Discharged to home ambulatory, with friend. cc3 21:20 Condition: stable 21:20 Discharge instructions given to patient, Instructed on discharge instructions, follow up and referral plans. medication usage, Demonstrated understanding of instructions, follow-up care, medications, Prescriptions given X 2. 21:27 Patient left the ED. cc3 Addendum: 12/18/2018 07:59 Addendum: Culture Results: Positive urine culture. No further action required. Bacteria i w sensitive to prescribed antibiotic. Signatures: Dispatcher [employer] EDMS Arturo Murray PA PA jmm Abner Avilez, EQUIPMENT MAINT TECH EQUIPMENT MAINT TECH Lydia Childers Irene, RN FRANCIA iw Eleazar Mancilla, RN RN Roxie Paez RN RN jl7 Halley Sears cc3 Corrections: (The following items were deleted from the chart) 08:03 07:59 Addendum: Culture Results: Positive urine culture. [facility]
[2018-12-14 21:35] VITALS: BP 118/63; TEMP 98.5; O2SAT 100
== END 2018-12-14 21:27 | disposition home or self-care (01) ==
LOC: ER 16:48
DX: O20.0 Threatened abortion (principal); O23.41 Unspecified infection of urinary tract in pregnancy, first trimester; F17.210 Nicotine dependence, cigarettes, uncomplicated; Z91.040 Latex allergy status
CPT/HCPCS: 87088; 85025; 87086; 80048; 36415; 81025; 80076; 84702; 87077; 87186; 83690; 76801; 96374; 99283; J2405; 81003; 81015

== ENCOUNTER 2019-01-19 15:28 | Emergency (ER) | payer MEDICAID ==
--- OUTSIDE RECORDS SUMMARY | 2019-01-19 15:30 | XMS REPORT ---
:1985 [facility] Address [address] [place] [address] Dr. Villarreal. [address] [place] [id number] Care Team Providers Name Role Phone Unavailable Unavailable Unavailable Problems This patient has no known problems. Allergies, Adverse Reactions, Alerts This patient has no known allergies or adverse reactions. Medications This patient has no known medications.
--- NOTE | 2019-01-19 16:24 | ER ---
Nurse's Notes [facility] Name: Paola Castano Age: 33 yrs Sex: Female : 1985 Arrival Date: 01/19/2019 Time: 15:35 Bed 28 Private MD: Yaneth Peck Diagnosis: Insect bite (nonvenomous) of lower back and pelvis;Insect bite (nonvenomous) of right hand Presentation: 01/19 15:35 Presenting complaint: EMS states: pt reports feeling burning and stinging sensation on sg middle of lower back, EMS state visualized a red linear line on the patient back, looks to be from an Asp but no visualization of the insect, VSS. Transition of care: patient was not received from another setting of care. Onset of symptoms was January 19, 2019. Risk Assessment: Do you want to hurt yourself or someone else? Patient reports no desire to harm self or others. Initial Sepsis Screen: Does the patient meet any 2 criteria? No. Patient's initial sepsis screen is negative. Does the patient have a suspected source of infection? No. Patient's initial sepsis screen is negative. Care prior to arrival: None. 15:35 Method Of Arrival: EMS: [facility] 15:35 Acuity: LEWIS 4 sg NURSING RESIDENT: 16:15 LMP N/A - iw Historical: - Allergies: 15:38 Latex, Natural Rubber; sg - PMHx: 15:38 Hypertension; sg - Immunization history:: Adult Immunizations unknown. - Social history:: Smoking status: Patient/guardian denies using tobacco. - Ebola Screening: : Patient negative for fever greater than or equal to 101.5 degrees Fahrenheit, and additional compatible Ebola Virus Disease symptoms Patient denies exposure to infectious person Patient denies travel to an Ebola-affected area in the 21 days before illness onset No symptoms or risks identified at this time. Screenin:00 Fall Risk None identified. iw 16:04 Abuse screen: Denies threats or abuse. Denies injuries from another. Nutritional iw screening: No deficits noted. Tuberculosis screening: No symptoms or risk factors identified. Assessment: 16:04 General: Appears in no apparent distress. Behavior is calm, cooperative. Pain: Denies iw pain. Neuro: Level of Consciousness is awake, alert, obeys commands, Oriented to person, place, time, situation. Derm: Skin is intact, is healthy with good turgor, Skin is pink, warm \T\ dry. Vital Signs: 15:36 BP 142 / 60; Pulse 77; Resp 17; Temp 98.2; Pulse Ox 100% on R/A; Pain 10/10; sg 15:54 BP 122 / 82; Pulse 78; Resp 18; Pulse Ox 99% on R/A; sg ED Course: 15:35 Patient arrived in ED. sg 15:35 Yaneth Peck is Private Physician. sg 15:36 Triage completed. sg 15:38 Arm band placed on. sg 15:51 Jonelle Ugalde, RN is Primary Nurse. 15:53 Arturo Murray PA is PHCP. [facility] 15:53 Karlo Kiser MD is Attending Physician. [facility] 16:11 PHCP role handed off by Arturo Murray PA pm1 16:11 Jonathan Phillips NP is PHCP. pm1 16:30 Patient has correct armband on for positive identification. iw 16:32 No provider procedures requiring assistance completed. Patient did not have IV access iw during this emergency room visit. Administered Medications: No medications were administered Outcome: 16:23 Discharge ordered by MD. pm1 16:32 Discharged to home ambulatory, with family. iw 16:32 Condition: good 16:32 Discharge instructions given to patient, Instructed on discharge instructions, follow up and referral plans. Demonstrated understanding of instructions, follow-up care. 16:33 Patient left the ED. iw Signatures: Varinder Young RN RN Arturo Murray PA PA [facility] Jonelle Ugalde RN RN Jonathan Phillips NP CORROSION CONTROL TECHNICIAN pm1
--- NOTE | 2019-01-19 16:24 | EDPHYS ---
Physician Documentation [facility] Name: Paola Castano Age: 33 yrs Sex: Female : 1985 Arrival Date: 01/19/2019 Time: 15:35 Bed 28 Private MD: Yaneth Peck ED Physician Karlo Kiser HPI: 01/19 16:22 This 33 yrs old Black Female presents to ER via EMS with complaints of Insect Bite. pm1 16:22 The patient's rash thought to be caused by insect bites. The rash is located on the pm1 right low back. The rash can be described as raised. Onset: The symptoms/episode began/occurred just prior to arrival. Associated signs and symptoms: Pertinent positives: burning sensation, Pertinent negatives: difficulty breathing, fever, itching, nausea, swelling of lips, swelling of throat, swelling of tongue, vomiting. Severity of symptoms: in the emergency department the symptoms have improved markedly, Pain is currently a 0 / 10. Treatment given at home: none. The patient has not experienced similar symptoms in the past. The patient has not recently seen a physician. 16:22 possible asp sting to right lower back causing electric-like searing pain radiating pm1 down right leg. Pain has now resolved. 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 - Social history:: Smoking status: Patient/guardian denies using tobacco. - Ebola Screening: : Patient negative for fever greater than or equal to 101.5 degrees Fahrenheit, and additional compatible Ebola Virus Disease symptoms Patient denies exposure to infectious person Patient denies travel to an Ebola-affected area in the 21 days before illness onset No symptoms or risks identified at this time. ROS: 16:22 Constitutional: Negative for fever, chills, and weight loss, Eyes: Negative for injury, pm1 pain, redness, and discharge, ENT: Negative for injury, pain, and discharge, Neck: Negative for injury, pain, and swelling, Cardiovascular: Negative for chest pain, palpitations, and edema, Respiratory: Negative for shortness of breath, cough, wheezing, and pleuritic chest pain, Abdomen/GI: Negative for abdominal pain, nausea, vomiting, diarrhea, and constipation, Back: Negative for injury and pain, MS/Extremity: Negative for injury and deformity. 16:22 Neuro: Negative for headache, weakness, numbness, tingling, and seizure. 16:22 Skin: Positive for rash, of the right low back. Exam: 16:22 Constitutional: This is a well developed, well nourished patient who is awake, alert, pm1 and in no acute distress. Head/Face: Normocephalic, atraumatic. Chest/axilla: Normal chest wall appearance and motion. Nontender with no deformity. No lesions are appreciated. Cardiovascular: Regular rate and rhythm with a normal S1 and S2. No gallops, murmurs, or rubs. Normal PMI, no JVD. No pulse deficits. Respiratory: Lungs have equal breath sounds bilaterally, clear to auscultation and percussion. No rales, rhonchi or wheezes noted. No increased work of breathing, no retractions or nasal flaring. Back: No spinal tenderness. No costovertebral tenderness. Full range of motion. 16:22 Skin: Appearance: normal except for affected area, consistent with single 2 cm x 1 cm wheal, on the right low back. 16:22 Neuro: Orientation: is normal, Motor: is normal, moves all fours, Sensation: is normal, no obvious gross deficits, Gait: is steady, at a normal pace, without difficulty. Vital Signs: 15:36 BP 142 / 60; Pulse 77; Resp 17; Temp 98.2; Pulse Ox 100% on R/A; Pain 10/10; sg 15:54 BP 122 / 82; Pulse 78; Resp 18; Pulse Ox 99% on R/A; sg MDM: 16:22 Patient medically screened. pm1 16:22 Data reviewed: vital signs. Data interpreted: Pulse oximetry: on room air is 99 %. pm1 Interpretation: normal. Counseling: I had a detailed discussion with the patient and/or guardian regarding: the historical points, exam findings, and any diagnostic results supporting the discharge/admit diagnosis, the need for outpatient follow up, to return to the emergency department if symptoms worsen or persist or if there are any questions or concerns that arise at home. Administered Medications: No medications were administered Disposition: 01/20 09:04 Co-signature as Attending Physician, Karlo Kiser MD I agree with the assessment and kdr plan of care. Disposition: 01/19/19 16:23 Discharged to Home. Impression: Insect bite (nonvenomous) of lower back and pelvis, Insect bite (nonvenomous) of right hand. - Condition is Stable. - Discharge Instructions: Insect Bite. - Medication Reconciliation Form, Thank You Letter, Antibiotic Education, Prescription Opioid Use form. - Follow up: Emergency Department; When: As needed; Reason: Worsening of condition. Follow up: Private Physician; When: 2 - 3 days; Reason: Recheck today's complaints, Continuance of care, Re-evaluation by your physician. - Problem is new. - Symptoms have improved. Signatures: Varinder Young RN RN sg Karlo Kiser MD MD kdr Jonelle Ugalde RN RN iw Jonathan Phillips, LINE PILOT LINE PILOT pm1 Corrections: (The following items were deleted from the chart) 01/19 16:33 16:23 01/19/2019 16:23 Discharged to Home. Impression: Insect bite (nonvenomous) of iw lower back and pelvis; Insect bite (nonvenomous) of right hand. Condition is Stable. Forms are Medication Reconciliation Form, Thank You Letter, Antibiotic Education, Prescription Opioid Use. Follow up: Emergency Department; When: As needed; Reason: Worsening of condition. Follow up: Private Physician; When: 2 - 3 days; Reason: Recheck today's complaints, Continuance of care, Re-evaluation by your physician. Problem is new. Symptoms have improved. pm1
[2019-01-19 18:27] VITALS: TEMP 98.2
[2019-01-19 18:30] VITALS: BP 122/82; O2SAT 99
== END 2019-01-19 16:33 | disposition home or self-care (01) ==
LOC: ER 15:28
DX: S30.860A Insect bite (nonvenomous) of lower back and pelvis, initial encounter (principal); S60.561A Insect bite (nonvenomous) of right hand, initial encounter; I10 Essential (primary) hypertension; Z91.040 Latex allergy status; Z91.048 Other nonmedicinal substance allergy status
CPT/HCPCS: 99283

== ENCOUNTER 2019-02-07 14:27 | Emergency (ER) | payer MEDICAID ==
--- OUTSIDE RECORDS SUMMARY | 2019-02-07 14:29 | XMS REPORT ---
:1985 [facility] Address [address] [place] [address] Dr. Horner [address] [place] [id number] Care Team Providers Name Role Phone Unavailable Unavailable Unavailable Problems This patient has no known problems. Allergies, Adverse Reactions, Alerts This patient has no known allergies or adverse reactions. Medications This patient has no known medications.
[2019-02-07 15:44] LABS: Urine Blood NEGATIVE (NEG); Urine Glucose NEGATIVE (NEG); Urine Protein NEGATIVE (NEG)
--- NOTE | 2019-02-07 16:55 | RAD REPORT ---
EXAM DESCRIPTION: Dre Nicole (2 Views)02/07/2019 4:04 pm CLINICAL HISTORY: Chest pain COMPARISON: 2017 FINDINGS: The lungs appear clear of acute infiltrate. The heart is normal size IMPRESSION: No acute abnormalities displayed
--- NOTE | 2019-02-07 17:04 | ER ---
Nurse's Notes [facility] Name: Paola Castano Age: 33 yrs Sex: Female : 1985 Arrival Date: 02/07/2019 Time: 14:29 Bed 11 Private MD: Diagnosis: Cough Presentation: 02/07 14:31 Presenting complaint: Substernal chest pain, productive cough with brownish sputum, hb nausea, and SOB x 3-4 days. Vomit x 1 yesterday. Denies fever. Transition of care: patient was not received from another setting of care. Onset of symptoms was February 04, 2019. Risk Assessment: Do you want to hurt yourself or someone else? Patient reports no desire to harm self or others. Initial Sepsis Screen: Does the patient meet any 2 criteria? No. Patient's initial sepsis screen is negative. Does the patient have a suspected source of infection? No. Patient's initial sepsis screen is negative. Care prior to arrival: None. 14:31 Method Of Arrival: Ambulatory hb 14:31 Acuity: LEWIS 3 hb PLATE HANGER: 14:34 LMP 01/31/2019 hb Historical: - Allergies: 14:34 Latex, Natural Rubber; hb - Home Meds: 14:34 None [Active]; hb - PMHx: 14:34 Hypertension; hb - PSHx: 14:34 ; hb - Immunization history:: Adult Immunizations up to date. - Social history:: Smoking status: Patient uses tobacco products, smokes one pack cigarettes per day. - Ebola Screening: : No symptoms or risks identified at this time. Screenin:18 Abuse screen: Denies threats or abuse. Denies injuries from another. Nutritional ch screening: No deficits noted. Tuberculosis screening: No symptoms or risk factors identified. Fall Risk None identified. Assessment: 15:18 Reassessment: Patient appears in no apparent distress at this time. Patient and/or ch family updated on plan of care and expected duration. Pain level reassessed. Patient is alert, oriented x 3, equal unlabored respirations, skin warm/dry/pink. General: Appears in no apparent distress. comfortable, Behavior is calm, cooperative, appropriate for age. Pain: Complains of pain in mid-sternal area Pain does not radiate. Pain currently is 9 out of 10 on a pain scale. Pain began gradually, 2-3 days ago. Neuro: No deficits noted. Cardiovascular: Heart tones S1 S2 present Capillary refill < 3 seconds in bilateral fingers Clubbing of nail beds is absent Pulses are all present. Edema is absent. Respiratory: Reports cough that is productive, brown sputum pain with cough Airway is patent Respiratory effort is even, unlabored, pt lungs are slightly dminished, pt will not take a deep breath, states it hurts too much. GI: No signs and/or symptoms were reported involving the gastrointestinal system. : No deficits noted. Reports possible , just ended her period but home tests came back positive. 16:15 Reassessment: Patient appears in no apparent distress at this time. Patient and/or hb family updated on plan of care and expected duration. Pain level reassessed. Patient is alert, oriented x 3, equal unlabored respirations, skin warm/dry/pink. 17:32 Reassessment: Patient appears in no apparent distress at this time. Patient and/or hb family updated on plan of care and expected duration. Pain level reassessed. Patient is alert, oriented x 3, equal unlabored respirations, skin warm/dry/pink. Vital Signs: 14:33 BP 132 / 90; Pulse 86; Resp 16; Temp 97.4; Pulse Ox 100% on R/A; Weight 145.15 kg; hb Height 5 ft. 7 in. (170.18 cm); Pain 4/10; 14:33 Body Mass Index 50.12 (145.15 kg, 170.18 cm) hb ED Course: 14:29 Patient arrived in ED. as 14:33 Triage completed. hb 14:33 Arm band placed on. hb 14:38 EKG completed in triage. Results shown to MD. hb 15:11 Lucina Reardon, FRANCIA is Primary Nurse. ch 15:12 Eleazar Mancilla FNP-C is PHCP. la1 15:12 Karlo Kiser MD is Attending Physician. la1 15:18 No apparent distress. Resting quietly. ch 15:18 Patient has correct armband on for positive identification. Bed in low position. Call light in reach. Adult w/ patient. 15:18 No provider procedures requiring assistance completed. Patient maintains SpO2 ch saturation greater than 95% on room air. 16:03 Chest Pa And Lat (2 Views) XRAY In Process Unspecified. EDMS 17:32 Patient did not have IV access during this emergency room visit. hb Administered Medications: 17:31 Drug: Tylenol #3 (300 mg-30 mg) 1 tablet Route: PO; hb 17:32 Follow up: Response: Medication administered at discharge. hb 17:31 Drug: Motrin 600 mg Route: PO; hb 17:32 Follow up: Response: Medication administered at discharge. hb Outcome: 16:59 Discharge ordered by . la1 17:32 Discharged to home ambulatory, with family. hb 17:32 Condition: stable 17:32 Discharge instructions given to patient, Instructed on discharge instructions, follow up and referral plans. medication usage, Demonstrated understanding of instructions, follow-up care, medications. 17:32 Patient left the ED. hb Signatures: Dispatcher [employer] EDDC Lucina Reardon, RN RN Lydia Juarez Lee, RUG DESIGNER-C RUG DESIGNER-Cla1 Fani Colon RN RN hb
--- NOTE | 2019-02-07 17:04 | EDPHYS ---
Physician Documentation [facility] Name: Paola Castano Age: 33 yrs Sex: Female : 1985 Arrival Date: 02/07/2019 Time: 14:29 Bed 11 Private MD: ED Physician Karlo Kiser HPI: 02/07 15:49 This 33 yrs old Black Female presents to ER via Ambulatory with complaints of Chest la1 Pain, Shortness Of Breath. 15:49 The patient or guardian reports cough, that is intermittent. Onset: The la1 symptoms/episode began/occurred 4 day(s) ago. Severity of symptoms: At their worst the symptoms were mild. Modifying factors: The symptoms are alleviated by nothing, the symptoms are aggravated by nothing. Associated signs and symptoms: Pertinent positives: vomiting, Pertinent negatives: diarrhea, ear ache, fever. The patient has not experienced similar symptoms in the past. son and also ill with similar symptoms. 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 - Social history:: Smoking status: Patient uses tobacco products, smokes one pack cigarettes per day. - Ebola Screening: : No symptoms or risks identified at this time. ROS: 15:50 Constitutional: + chills la1 15:50 Eyes: Negative for injury, pain, redness, and discharge, ENT: Negative for injury, pain, and discharge, Neck: Negative for injury, pain, and swelling, Cardiovascular: Negative for chest pain, palpitations, and edema, Respiratory: Negative for shortness of breath, cough, wheezing, and pleuritic chest pain, Back: Negative for injury and pain, : Negative for injury, bleeding, discharge, and swelling, MS/Extremity: Negative for injury and deformity, Neuro: Negative for headache, weakness, numbness, tingling, and seizure. 15:50 Respiratory: Positive for cough. 15:50 Abdomen/GI: Positive for vomiting. Exam: 15:50 Constitutional: This is a well developed, well nourished patient who is awake, alert, la1 and in no acute distress. Head/Face: Normocephalic, atraumatic. Eyes: Pupils equal round and reactive to light, extra-ocular motions intact. Periorbital areas with no swelling, redness, or edema. ENT: Mucous membranes moist. Neck: Trachea midline, no thyromegaly or masses palpated, and no cervical lymphadenopathy. Supple, full range of motion without nuchal rigidity, or vertebral point tenderness. No Meningismus. Chest/axilla: Normal chest wall appearance and motion. Nontender with no deformity. Small hard, elevated bump above sternum without surrounding cellulitis or erythema, not painful. Cardiovascular: Regular rate and rhythm with a normal S1 and S2. No gallops, murmurs, or rubs. Normal PMI, no JVD. No pulse deficits. Respiratory: Lungs have equal breath sounds bilaterally, clear to auscultation and No rales, rhonchi or wheezes noted. No increased work of breathing, no retractions or nasal flaring. Abdomen/GI: Soft, non-tender, with normal bowel sounds. No distension or tympany. No guarding or rebound. No evidence of tenderness throughout. Back: No spinal tenderness. No costovertebral tenderness. Full range of motion. MS/ Extremity: Pulses equal, no cyanosis. Neurovascular intact. Full, normal range of motion. Vital Signs: 14:33 BP 132 / 90; Pulse 86; Resp 16; Temp 97.4; Pulse Ox 100% on R/A; Weight 145.15 kg; hb Height 5 ft. 7 in. (170.18 cm); Pain 4/10; 14:33 Body Mass Index 50.12 (145.15 kg, 170.18 cm) hb MDM: 15:12 Patient medically screened. la1 16:59 Data reviewed: vital signs, nurses notes, lab test result(s), EKG, radiologic studies, la1 I have discussed the patient's presentation/case with the attending Emergency Department Physician; and as a result, I will discharge patient. Data interpreted: Pulse oximetry: on room air is 100 %. Interpretation: normal. Test interpretation: by ED physician or midlevel provider: ECG, plain radiologic studies. Counseling: I had a detailed discussion with the patient and/or guardian regarding: the historical points, exam findings, and any diagnostic results supporting the discharge/admit diagnosis, lab results, radiology results, the need for outpatient follow up, a family practitioner, to return to the emergency department if symptoms worsen or persist or if there are any questions or concerns that arise at home, smoking cessation. 17:00 Special discussion: Based on the patient's history, exam, and Dx evaluation, there is la1 no indication for emergent intervention or inpatient Tx. It is understood by the patient/guardian that if the Sx's persist or worsen they need to return immediately for re-evaluation. Based on the history and exam findings, there is no indication for further emergent testing or inpatient evaluation. I discussed with the patient/guardian the need to see the primary care provider for further evaluation of the symptoms. I discussed with the patient/guardian that the patient's current presentation does not indicate dosing of antibiotics. They should follow-up with their primary care provider and return if the symptoms persist or progress. 02/07 15:30 Order name: Flu; Complete Time: 16:10 la1 02/07 15:37 Order name: Urine Dipstick--Ancillary (enter results); Complete Time: 16:10 hb 02/07 15:37 Order name: Urine --Ancillary (enter results); Complete Time: 16:10 hb 02/07 15:40 Order name: Chest Pa And Lat (2 Views) XRAY; Complete Time: 16:58 la1 02/07 15:38 Order name: EKG Electrocardiogram EDMS Administered Medications: 17:31 Drug: Tylenol #3 (300 mg-30 mg) 1 tablet Route: PO; hb 17:32 Follow up: Response: Medication administered at discharge. hb 17:31 Drug: Motrin 600 mg Route: PO; hb 17:32 Follow up: Response: Medication administered at discharge. hb Disposition: 17:51 Co-signature as Attending Physician, Karlo Kiser MD I agree with the assessment and kdr plan of care. Disposition: 02/07/19 16:59 Discharged to Home. Impression: Cough. - Condition is Stable. - Discharge Instructions: Acute Bronchitis, Adult, Allergies, Adult, Cough, Adult. - Medication Reconciliation Form, Thank You Letter form. - Follow up: Private Physician; When: 2 - 3 days; Reason: Recheck today's complaints, Re-evaluation by your physician. Follow up: Emergency Department; When: As needed; Reason: Trouble breathing, Worsening of condition. - Problem is new. - Symptoms are unchanged. Signatures: Dispatcher [employer] EDMS Karlo Kiser MD MD kdr Attema, Lee, WIG DRESSER-C WIG DRESSER-Cla1 Fani Colon, RN RN hb Corrections: (The following items were deleted from the chart) 17:32 16:59 02/07/2019 16:59 Discharged to Home. Impression: Cough. Condition is Stable. hb Forms are Medication Reconciliation Form, Thank You Letter, Antibiotic Education, Prescription Opioid Use. Follow up: Private Physician; When: 2 - 3 days; Reason: Recheck today's complaints, Re-evaluation by your physician. Follow up: Emergency Department; When: As needed; Reason: Trouble breathing, Worsening of condition. Problem is new. Symptoms are unchanged. la1
[2019-02-07] MEDS ORDERED: IBUPROFEN 200 MG TAB PO ONE (17:30)
[2019-02-07] MEDS ORDERED: CODEINE 30MG/APAP 300MG TAB ONE (17:31)
[2019-02-07 17:57] VITALS: BP 132/90; TEMP 97.4; O2SAT 100
--- NOTE | 2019-02-09 11:48 | EKG ---
Test Date: 2019-02-07 Test Time: 14:39:03 Gelatin Maker Utility: NIKITA MEASUREMENT RESULTS: Intervals: Rate: 85 SD: 152 QRSD: 92 QT: 368 QTc: 437 [place]: P: 17 SD: 152 QRS: 10 T: 10 INTERPRETIVE STATEMENTS: Normal sinus rhythm Normal ECG Compared to ECG 03/30/2016 14:56:09 No significant changes Electronically Signed On 02-09-19 11:42:37 HORSEBACK EXCAVATOR by Juan Turk
== END 2019-02-07 17:32 | disposition home or self-care (01) ==
LOC: ER 14:27
DX: R05 Cough (principal); I10 Essential (primary) hypertension; F17.210 Nicotine dependence, cigarettes, uncomplicated; Z91.040 Latex allergy status; Z91.048 Other nonmedicinal substance allergy status
CPT/HCPCS: 71046; 81003; 81025; 87804; 93005; 99284

== ENCOUNTER 2019-04-23 04:42 | Emergency (ER) | payer MEDICAID ==
--- OUTSIDE RECORDS SUMMARY | 2019-04-23 04:44 | XMS REPORT ---
:1985 [facility] Address [address] [place] [address] Dr. Horner [address] [place] [id number] Care Team Providers Name Role Phone Unavailable Unavailable Unavailable Problems This patient has no known problems. Allergies, Adverse Reactions, Alerts This patient has no known allergies or adverse reactions. Medications This patient has no known medications.
--- OUTSIDE RECORDS SUMMARY | 2019-04-23 04:46 | XMS REPORT | Summary of Care ---
:1985 Author Organization [facility] Address [address] [place] [id number] Care Team Providers Name Role Phone Eleazar Mancilla Medicaid Hmo Chuyita Mendosa SYSTEMS SECURITY CONSULTANT Primary Care Provider Eleazar Mancilla Insurance Hmo Reason for Referral MRI/CAT Scan (STAT) Status Reason Specialty Diagnoses / Referred By Referred To Procedures Contact Contact New Request Diagnostic Diagnoses Left-sided chest wall pain Acute left flank pain Benton Price, Radiology Procedures CT ABDOMEN PELVIS WO CONTRAST MD March [facility] [id number] [place] [id number] Reason for Visit Reason Comments Rib Pain Auth/Cert Status Reason Specialty Diagnoses / Referred By Referred To Procedures Contact Contact Emergency [facility] [address] [place] [address] [place] [address] Encounter Details Date Type Department Care Team Description 02/26/2019 - Emergency [facility] Benton Price, Urinary tract infection without hematuria, site unspecified (Primary Dx); 02/27/2019 Department Left-sided chest wall pain; [address] [place] [address] Dr [facility] [place] [address] [id number] [place] [address] [phone] Allergies Active Allergy Reactions Severity Noted Date Comments Latex Swelling Medium 10/04/2013 Genital area swelling and hives documented as of this encounter (statuses as of 02/27/2019) Medications Medication Sig Dispensed Refills Start Date End Date Status multivitamin Take 1 tablet by 0 05/29/2018 Active tabletIndications: mouth daily. ASCUS with positive high risk HPV cervical Nitrofurantoin&Nit. Take 1 capsule 14 capsule 0 12/11/2018 Active Macrocryst (MACROBID) by mouth 2 (two) 100 mg times daily. capsuleIndications: Generalized abdominal pain, Urinary tract infection without hematuria, site unspecified cephALEXin (KEFLEX) Take 1 capsule 14 capsule 0 02/27/2019 03/06/2019 Active 500 mg by mouth 2 (two) capsuleIndications: times daily for Acute left flank 7 days. pain, Urinary tract infection without hematuria, site unspecified documented as of this encounter (statuses as of 02/27/2019) Active Problems Problem Noted Date Class 3 obesity due to excess calories with body mass index (BMI) of 45.0 to 49.9 in adult Trichomonal vaginitis during 03/29/2017 Cervical high risk human papillomavirus (HPV) DNA test positive 03/14/2017 Overview: Needs Colposcopy ASCUS and HPV+ Atypical squamous cells of undetermined significance (ASCUS) on 03/08/2017 Papanicolaou smear of cervix Overview: Needs Colposcopy ASCUS and HPV+ Chlamydia 03/05/2017 Overview: NERIS neg HSV-2 infection complicating , third trimester 10/03/2013 Overview: Patient notified clinic of history of HSV with possible out break starting on due date (was seen on initial visit then at [id number] - no lesions noted on exam). Advised patient to start suppressive therapy but if she goes into labor with lesions she will need a c/s. Tobacco use disorder 04/01/2013 documented as of this encounter (statuses as of 02/27/2019) Resolved Problems Problem Noted Date Resolved Date care and examination immediately after delivery 10/31/20172017 Disruption of wound, 10/22/2017 10/31/2017 delivery delivered 10/10/2017 10/22/2017 39 weeks gestation of 10/09/2017 10/22/2017 Desires (vaginal after ) trial 10/04/2017 10/22/2017 Threatened labor at term 10/04/2017 10/22/2017 Supervision of high risk in third trimester 09/18/2017 10/22/2017 30 weeks gestation of 08/10/2017 08/16/2017 Pelvic pressure in , antepartum, third trimester 08/10/20172017 27 weeks gestation of 07/19/2017 08/07/2017 Depression affecting in third trimester, 07/19/2017 08/16/2017 antepartum Nausea & vomiting 07/19/2017 08/16/2017 Multiparity 05/07/2017 10/22/2017 Supervision of high risk , antepartum, first 03/05/2017 05/07/2017 trimester Previous delivery affecting , antepartum 03/05/20172017 Overview: Due to outbreak of HSV at term Morbid obesity 01/06/2014 03/02/2017 Depression 01/06/2014 09/18/2017 Screening for STDs (sexually transmitted diseases) 01/06/2014 03/02/2017 Encounter for routine gynecological examination 01/06/2014 03/02/2017 Overview: ICD10 Diagnosis 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 HSV-2 infection 01/06/2014 08/16/2017 General counseling and advice for contraceptive management 01/06/20142017 Overview: ICD10 Diagnosis 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 [employer] History of trauma 01/06/2014 09/18/2017 Anemia of mother in , condition 10/27/2013 01/06/2014 HSV (herpes simplex virus) anogenital infection 10/04/2013 01/06/2014 Chronic hypertension complicating or reason for care during 10/04/20132013 Insufficient care 10/04/2013 10/10/2013 delivery delivered 10/04/2013 01/06/2014 Maternal gonorrhea, antepartum 04/02/2013 01/06/2014 Chlamydia trachomatis infection of lower genitourinary sites 04/02/201301/06 Obese 04/01/2013 01/06/2014 documented as of this encounter (statuses as of 02/27/2019) Immunizations Name Administration Dates Next Due Influenza Virus Vaccine 10/15/2017 Rubella 02/21/2010 TDAP (ADACEL) VACCINE 07/24/2017 Td 02/12/2002 Tdap 10/06/2013 Varicella (varivax)(chicken pox) 09/08/2008 documented as of this encounter Social History Tobacco Use Types Packs/Day Years Used Date Current Every Day Smoker Cigarettes 0.5 14 Smokeless Tobacco: Never Used Comments: has smoked 2 cigarettes since delivery-trying to quit Alcohol Use Drinks/Week oz/Week Comments Yes quit drinking on new years tory Sex Assigned at Date Recorded Not on file Job Start Date Occupation Industry Not on file Not on file Not on file Travel History Travel Start Travel End No recent travel history available. documented as of this encounter Last Filed Vital Signs Vital Sign Reading Time Taken Comments Blood Pressure 118/55 02/27/2019 12:00 AM FORGE OPERATOR HELPER Pulse 80 02/27/2019 12:00 AM FORGE OPERATOR HELPER Temperature 37.9 C (100.3 F) 02/26/2019 9:47 PM FORGE OPERATOR HELPER Respiratory Rate 16 02/27/2019 12:00 AM FORGE OPERATOR HELPER Oxygen Saturation 98% 02/27/2019 12:00 AM FORGE OPERATOR HELPER Inhaled Oxygen Concentration - - Weight 154.2 kg (340 lb) 02/26/2019 9:47 PM FORGE OPERATOR HELPER Height 170.2 cm (5' 7") 02/26/2019 9:47 PM FORGE OPERATOR HELPER Body Mass Index 53.25 02/26/2019 9:47 PM FORGE OPERATOR HELPER documented in this encounter Discharge Instructions Benton Coreas MD - 02/27/2019 DIAGNOSIS Diagnoses that have been ruled out: None Diagnoses that are still under consideration: None Final diagnoses: Acute left flank pain NO LIFE-THREATENING FINDINGS ON TODAY'S EXAM. PROCEDURES IN THE ER TODAY: Orders Placed This Encounter Procedures CT ABDOMEN PELVIS WO CONTRAST URINALYSIS POCT TEST CBC WITH DIFF BASIC METABOLIC PANEL (NA, K, CL, CO2, GLUCOSE, BUN, CREATININE, CA) CBC WITH DIFFERENTIAL MEDICATIONS ADMINISTERED IN THE ER TODAY: Orders Placed This Encounter Medications cefTRIAXone (ROCEPHIN) 1,000 mg in NaCl 0.9% (NS) 50 mL MINI-BAG YOUR PRESCRIPTIONS AND [id number] MEDICATION RECOMMENDATIONS: Keflex SPECIAL CARE INSTRUCTIONS: Follow up with PCP Return to the ED if worsening of symptoms. FOLLOW-UP RECOMMENDATIONS: RECOMMEND FOLLOW-UP WITH A PRIMARY CARE PROVIDER OR SPECIALIST IN 2-5 DAYS, ESPECIALLY IF NO IMPROVEMENT IN SYMPTOMS. TO FOLLOW-UP WITHIN THE [facility], TRY THESE OPTIONS (CLINIC APPOINTMENTS AVAILABLE ON EGIO-RL-RILT BASIS): 1. SCHEDULE AN APPOINTMENT ONLINE AT [email or web address] 2. OR CALL THE [facility] AT OR 3. OR CALL YOUR [facility] PHYSICIAN'S OFFICE DIRECTLY IF YOU ARE ALREADY AN ESTABLISHED [facility] PATIENT. OR, YOU MAY FOLLOW-UP WITH A PROVIDER OF YOUR CHOICE, SUCH : 1. A PHYSICIAN OF YOUR CHOICE 2. [facility], . LOCATIONS IN [facility] 3. [facility], [address] [place], [place]; RETURN TO ER FOR WORSENING OF SYMPTOMS. AttachmentsThe following attachments cannot be sent through Care Everywhere.Bladder Infection, Female (Adult) (Tanzanian)documented in this encounter Plan of Treatment Date Type Specialty Care Team Description 06/02/2019 Office Visit OB Satellites G[place] [place], [facility] [address] [place] [address] Health Maintenance Due Date Last Done Comments PNEUMOCOCCAL 0-64 YEARS COMBINED 09/21/1993 SERIES (1 of 1 - PPSV23) INFLUENZA VACCINE (#1) 2018 10/15/2017 PAP SMEAR 05/29/2021 05/29/2018, 03/02/2017, 04/01/2013, Additional history exists DTaP,Tdap,and Td Vaccines (4 - Td) 07/25/2027 07/24/2017, 10/06/2013, 02/12/2002 documented as of this encounter Procedures Procedure Name Priority Date/Time Associated Comments Diagnosis CBC WITH DIFFERENTIAL STAT 02/26/2019 11:50 Left-sided chest Results for this PM FORGE OPERATOR HELPER wall pain procedure are in Acute left flank the results pain section. CBC WITH DIFFERENTIAL STAT 02/26/2019 11:50 Left-sided chest Results for this PM FORGE OPERATOR HELPER wall pain procedure are in Acute left flank the results pain section. BASIC METABOLIC PANEL STAT 02/26/2019 11:50 Left-sided chest Results for this (NA, K, CL, CO2, PM FORGE OPERATOR HELPER wall pain procedure are in GLUCOSE, BUN, Acute left flank the results CREATININE, CA) pain section. CT ABDOMEN PELVIS WO STAT 02/26/2019 11:40 Left-sided chest Results for this CONTRAST PM FORGE OPERATOR HELPER wall pain procedure are in Acute left flank the results pain section. POCT TEST NIKI 02/26/2019 10:07 Left-sided chest Results for this PM FORGE OPERATOR HELPER wall pain procedure are in the results section. URINALYSIS STAT 02/26/2019 10:07 Left-sided chest Results for this PM FORGE OPERATOR HELPER wall pain procedure are in the results section. CONSENT/REFUSAL FOR Routine 02/26/2019 9:37 DIAGNOSIS AND PM FORGE OPERATOR HELPER TREATMENT documented in this encounter Results CBC WITH DIFFERENTIAL (02/26/2019 11:50 PM FORGE OPERATOR HELPER) WBC 8.58 4.30 - 11.10 [facility] 10*3/L [facility] RBC 4.72 3.93 - 5.25 [facility] 10*6/L [facility] HGB 12.3 11.6 - 15.0 [facility] g/dL [facility] HCT 40.3 35.7 - 45.2 % [facility] MCV 85.4 80.6 - 95.5 fL [facility] MCH 26.1 25.9 - 32.8 pg [facility] MCHC 30.5 (L) 31.6 - 35.1 [facility] g/dL [facility] RDW-SD 43.3 39.0 - 49.9 fL [facility] RDW-CV 13.8 12.0 - 15.5 % [facility] PLT 219 166 - 358 [facility] 10*3/L [facility] MPV 9.8 9.5 - 12.9 fL [facility] NRBC/100 WBC 0.0 0.0 - 10.0 /100 [facility] WBCs [facility] NRBC x10^3 <0.01 10*3/L [facility] GRAN MAT (NEUT) % 74.7 % [facility] IMM GRAN % 0.30 % [facility] LYMPH % 19.3 % [facility] MONO % 4.8 % [facility] EOS % 0.7 % [facility] BASO % 0.2 % [facility] GRAN MAT x10^3(ANC) 6.40 1.88 - 7.09 [facility] 10*3/uL [facility] IMM GRAN x10^3 0.03 0.00 - 0.06 [facility] 10*3/uL [facility] LYMPH x10^3 1.66 1.32 - 3.29 [facility] 10*3/uL [facility] MONO x10^3 0.41 0.33 - 0.92 [facility] 10*3/uL [facility] EOS x10^3 0.06 0.03 - 0.39 [facility] 10*3/uL [facility] BASO x10^3 <0.03 0.01 - 0.07 [facility] 10*3/uL [facility] Specimen Blood - VENOUS Performing Organization Address City/State/Zipcode Phone Number [facility] CLIA: [id number], [address] [place] [address] BASIC METABOLIC PANEL (NA, K, CL, CO2, GLUCOSE, BUN, CREATININE, CA) (2019 11:50 PM FORGE OPERATOR HELPER) NA 140 135 - 145 [facility] mmol/L [facility] K 3.8 3.5 - 5.0 [facility] mmol/L [facility] CL 107 98 - 108 mmol/L [facility] CO2 TOTAL 22 (L) 23 - 31 mmol/L [facility] AGAP 11 2 - 16 [facility] BUN 10 7 - 23 mg/dL [facility] GLUCOSE 94 70 - 110 mg/dL [facility] CREATININE 0.94 0.50 - 1.04 [facility] mg/dL [facility] CALCIUM 9.2 8.6 - 10.6 [facility] mg/dL [facility] eGFR Calculation 69.5 mL/min/1.73m2 [facility] (Non-) [facility] eGFR Calculation 84.2 mL/min/1.73m2 [facility] () [facility] Specimen Blood - VENOUS Narrative Performed At Association of Glomerular Filtration Rate (GFR) [facility] and Staging of Kidney Disease* + + +- + | GFR (mL/min/1.73 m2) | With Kidney Damage | Without Kidney Damage + + +- + | >90 | Stage one | Normal + + +- + | 60-89 | Stage two | Decreased GFR + + +- + | 30-59 | Stage three | Stage three + + +- + | 15-29 | Stage four | Stage four + + +- + | <15 (or dialysis) | Stage five | Stage five + + +- + *Each stage assumes the associated GFR level has been in effect for at least three months. Stages 1 to 5, with or without kidney disease, indicate chronic kidney disease. Notes: Determination of stages one and two (with eGFR >59mL/min/1.73 m2) requires estimation of kidney damage for at least three months as defined by structural or functional abnormalities of the kidney, manifested by either: Pathological abnormalities or Markers of kidney damage (including abnormalities in the composition of the blood or urine or abnormalities in imaging tests). Performing Organization Address City/State/Zipcode Phone Number [facility] CLIA: [id number], [address] [place] [address] ABDOMEN PELVIS WO CONTRAST (02/26/2019 11:40 PM FORGE OPERATOR HELPER) Specimen Impressions Performed At 1. No acute intraabdominal pathology. PACS/VR/DOSE 2. Small fat-containing umbilical hernia with some stranding of the fat noted within the hernia. Correlate for symptoms of pain at this site. RL: [id number] AFC: [id number] End of Report Narrative Performed At EXAM: CT ABDOMEN PELVIS WO CONTRAST PACS/VR/DOSE ORDERING PHYSICIAN: BENTON PRICE HISTORY: Abdominal Pain. COMPARISON: none TECHNIQUE: CT of the abdomen and pelvis without IV contrast. Coronal and sagittal reformatted images were obtained. CT performed according to ALARA principles. CT OF THE ABDOMEN WITHOUT CONTRAST: Minimal left basilar atelectasis present. Evaluation of the solid organs is limited by the lack of IV contrast. Calcified granulomas are seen in the liver and the spleen. The gallbladder is normal. The pancreas is normal. The adrenals are normal. No renal or ureteral stone. No hydronephrosis. The intraabdominal large and small bowel are normal. Appendix is not visualized. The intra-abdominal vasculature is normal. There is no free air, free fluid, or pathologic lymphadenopathy. CT OF THE PELVIS WITHOUT CONTRAST: The rectum and sigmoid are normal. The distal ureters and bladder are normal. There is no free fluid or pathologic lymphadenopathy in the pelvis. Uterus and adnexa appear unremarkable. Fat-containing umbilical hernia with minimal stranding noted. There is some nonspecific soft tissue attenuation at the base of the hernia. Neck of the hernia measures approximately 14 mm in transverse diameter and 17 mm in the craniocaudal dimension. Osseous structures are unremarkable. Procedure Note [facility], Radiant Results Inft User - 02/26/2019 11:55 PM FORGE OPERATOR HELPER EXAM: CT ABDOMEN PELVIS WO CONTRAST ORDERING PHYSICIAN: BENTON PRICE HISTORY: Abdominal Pain. COMPARISON: none TECHNIQUE: CT of the abdomen and pelvis without IV contrast. Coronal and sagittal reformatted images were obtained. CT performed according to ALARA principles. CT OF THE ABDOMEN WITHOUT CONTRAST: Minimal left basilar atelectasis present. Evaluation of the solid organs is limited by the lack of IV contrast. Calcified granulomas are seen in the liver and the spleen. The gallbladder is normal. The pancreas is normal. The adrenals are normal. No renal or ureteral stone. No hydronephrosis. The intraabdominal large and small bowel are normal. Appendix is not visualized. The intra-abdominal vasculature is normal. There is no free air, free fluid, or pathologic lymphadenopathy. CT OF THE PELVIS WITHOUT CONTRAST: The rectum and sigmoid are normal. The distal ureters and bladder are normal. There is no free fluid or pathologic lymphadenopathy in the pelvis. Uterus and adnexa appear unremarkable. Fat-containing umbilical hernia with minimal stranding noted. There is some nonspecific soft tissue attenuation at the base of the hernia. Neck of the hernia measures approximately 14 mm in transverse diameter and 17 mm in the craniocaudal dimension. Osseous structures are unremarkable. IMPRESSION 1. No acute intraabdominal pathology. 2. Small fat-containing umbilical hernia with some stranding of the fat noted within the hernia. Correlate for symptoms of pain at this site. RL: [id number] AFC: [id number] End of Report Performing Organization Address City/State/Zipcode Phone Number PACS/VR/DOSE POCT TEST (02/26/2019 10:07 PM FORGE OPERATOR HELPER) POCT PREG negative On board controls acceptable present with C Line POCT PREG LOT # [id number] POCT PREG TEST DATE 09/11/2020 Specimen Urine - URINE, CLEAN CATCH URINALYSIS (02/26/2019 10:07 PM FORGE OPERATOR HELPER) APPEARANCE Slightly Cloudy (A) Clear [facility] COLOR Yellow Yellow [facility] PH 6.0 4.8 - 8.0 [facility] SP GRAVITY 1.015 1.003 - 1.030 [facility] GLU U QUAL Negative Negative [facility] BLOOD Large (A) Negative [facility] KETONES Negative Negative [facility] PROTEIN Trace (A) Negative [facility] UROBILIN 0.2 mg/dL 0-1.0 mg/dL [facility] BILIRUBIN Negative Negative [facility] NITRITE Positive (A) Negative [facility] LEUK BREANA Large (A) Negative [facility] RBC/HPF 50 (H) 0 - 3 HPF [facility] WBC/HPF 150 (H) 0 - 5 HPF [facility] BACTERIA Many (A) Negative [facility] AMORPHOUS Few (A) Rare HPF [facility] Specimen Urine - URINE, CLEAN CATCH Performing Organization Address City/State[facility] Phone Number [facility] CLIA: [id number], [address] [place] [address] documented in this encounter Visit Diagnoses Diagnosis Urinary tract infection without hematuria, site unspecified - Primary Left-sided chest wall pain Painful respiration Acute left flank pain Abdominal pain, unspecified site documented in this encounter Administered Medications Medication Order MAR Action Action Date Dose Rate Site cefTRIAXone (ROCEPHIN) 1,000 mg Given 02/27/2019 12:01 AM FORGE OPERATOR HELPER 1,000 mg in NaCl 0.9% (NS) 50 mL MINI-BAG 1,000 mg, IV Piggyback, ONCE, 1 dose, Nicole 02/27/19 at 0015, 50 mL, Reason for Anti-Infective: Documented Infection, Documented Infection Site: Urine, Duration of Therapy: 7 days documented in this encounter Insurance Payer Benefit Plan / Subscriber ID Effective Phone Address Type Group Dates FERNANDEZ PRESLEY xxxxxxxxx 2017-Bk [place] [id number] MANAGED MEDICAID [place], [place] (Home) [address] [place] [address] documented as of this encounter Advance Directives Name Relationship Healthcare Agent Communication Relationship Ramya Cherylosvaldo Sepulveda Mother Primary healthcare agent
--- NOTE | 2019-04-23 05:23 | ER ---
Nurse's Notes [facility] Name: Paola Castano Age: 33 yrs Sex: Female : 1985 Arrival Date: 04/23/2019 Time: 04:44 Bed 13 Private MD: Diagnosis: Dental caries Presentation: 04/22 04:58 Chief complaint: Patient states: i have foul smelling vaginal discharge, LLQ pain, mg2 diarrhea and nausea for 3 days, i also have toothache for awhile now, i took motrin 600 mg \T\ 1200 mn but its not helping. Coronavirus screen: The patient has NOT traveled to a country currently being monitored by the [facility] within the last 14 days. Proceed with normal triage procedures. The patient has NOT had contact with any known and/or suspected case of coronavirus. Proceed with normal triage procedures. Ebola Screen: No symptoms or risks identified at this time. Initial Sepsis Screen: Does the patient meet any 2 criteria? No. Patient's initial sepsis screen is negative. Does the patient have a suspected source of infection? No. Patient's initial sepsis screen is negative. Risk Assessment: Do you want to hurt yourself or someone else? Patient reports no desire to harm self or others. 04:58 Method Of Arrival: Ambulatory mg2 04:58 Acuity: LEWIS 4 mg2 05:20 Onset of symptoms was April 2019. 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 - Social history:: Smoking status: Patient reports the use of cigarette tobacco products, smokes one-half pack cigarettes per day, Patient/guardian denies using alcohol, street drugs, IV drugs. Screenin:04 Abuse screen: Denies threats or abuse. Denies injuries from another. Nutritional mg2 screening: No deficits noted. Tuberculosis screening: No symptoms or risk factors identified. Fall Risk None identified. Assessment: 05:02 General: Appears in no apparent distress. comfortable, Behavior is calm, cooperative. mg2 Pain: Complains of pain in abdomen. Neuro: Level of Consciousness is awake, alert, obeys commands, Oriented to person, place, time, situation. Cardiovascular: Capillary refill < 3 seconds Patient's skin is warm and dry. Respiratory: Airway is patent Respiratory effort is even, unlabored, Respiratory pattern is regular, symmetrical. GI: Bowel sounds Abd is soft and non tender Reports lower abdominal pain, diarrhea, nausea. : Reports vaginal dc. EENT: No signs and/or symptoms were reported regarding the EENT system. Derm: Skin is intact, is healthy with good turgor, Skin is pink, warm \T\ dry. normal. Musculoskeletal: Circulation, motion, and sensation intact. Capillary refill < 3 seconds. Vital Signs: 04:58 BP 135 / 86; Pulse 88; Resp 18; Temp 98.4; Pulse Ox 100% on R/A; Weight 146.96 kg; mg2 Height 5 ft. 7 in. (170.18 cm); 04:58 Body Mass Index 50.75 (146.96 kg, 170.18 cm) mg2 ED Course: 04:44 Patient arrived in ED. ds1 04:58 Allan Mccall MD is Attending Physician. tw4 04:58 Robbie Lee, FRANCIA is Primary Nurse. mg2 05:01 Triage completed. mg2 05:01 Arm band placed on. mg2 05:04 Patient has correct armband on for positive identification. Door closed. Warm blanket mg2 given. 05:21 No provider procedures requiring assistance completed. Patient did not have IV access mg2 during this emergency room visit. Administered Medications: No medications were administered Outcome: 05:21 Discharge ordered by . tw4 05:21 Medical screen evaluation completed per provider. Patient declined treatment. mg2 05:21 Condition: stable 05:21 Discharge instructions given to patient, Instructed on discharge instructions, Demonstrated understanding of instructions. 05:22 Patient left the ED. mg2 Signatures: Vanessa Cooper ds1 Allan Mccall MD MD tw4 Robbie Lee, RN RN mg2 Corrections: (The following items were deleted from the chart) 05:21 04:58 Acuity: LEWIS 3 mg2 mg2
--- NOTE | 2019-04-23 05:24 | EDPHYS ---
Physician Documentation [facility] Name: Paola Castano Age: 33 yrs Sex: Female : 1985 Arrival Date: 04/23/2019 Time: 04:44 Bed 13 Private MD: ED Physician Allan Mccall HPI: 04/22 05:10 This 33 yrs old Black Female presents to ER via Ambulatory with complaints of Abdominal tw4 Pain, Toothache. 05:10 The patient presents with broken tooth/teeth, pain. The problem is located in the lower tw4 right third molar. Onset: The symptoms/episode began/occurred 3 day(s) ago. Duration: The symptoms are continuous. Modifying factors: The symptoms are alleviated by nothing, the symptoms are aggravated by nothing. Associated signs and symptoms: The patient has no apparent associated signs or symptoms. Severity of symptoms: At their worst the symptoms were moderate, in the emergency department the symptoms. The patient has not experienced similar symptoms in the past. 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 - Social history:: Smoking status: Patient reports the use of cigarette tobacco products, smokes one-half pack cigarettes per day, Patient/guardian denies using alcohol, street drugs, IV drugs. ROS: 05:10 Constitutional: Negative for fever, chills, and weight loss, Eyes: Negative for injury, tw4 pain, redness, and discharge. 05:10 Cardiovascular: Negative for chest pain, palpitations, and edema, Respiratory: Negative for shortness of breath, cough, wheezing, and pleuritic chest pain, Back: Negative for injury and pain, MS/Extremity: Negative for injury and deformity, Skin: Negative for injury, rash, and discoloration, Neuro: Negative for headache, weakness, numbness, tingling, and seizure. 05:10 ENT: Positive for dental pain. 05:10 Abdomen/GI: Positive for abdominal pain, Negative for nausea and vomiting, nausea, vomiting, and diarrhea, nausea, vomiting, diarrhea, constipation, abdominal cramps, abdominal distension, anorexia, dysphagia, hematemesis, black/tarry stool, rectal pain, rectal bleeding. 05:10 : Positive for vaginal discharge. Exam: 05:10 Constitutional: This is a well developed, well nourished patient who is awake, alert, tw4 and in no acute distress. Head/Face: Normocephalic, atraumatic. 05:10 Chest/axilla: Normal chest wall appearance and motion. Nontender with no deformity. No lesions are appreciated. Cardiovascular: Regular rate and rhythm with a normal S1 and S2. No gallops, murmurs, or rubs. Normal PMI, no JVD. No pulse deficits. Respiratory: Lungs have equal breath sounds bilaterally, clear to auscultation and percussion. No rales, rhonchi or wheezes noted. No increased work of breathing, no retractions or nasal flaring. Abdomen/GI: Soft, non-tender, with normal bowel sounds. No distension or tympany. No guarding or rebound. No evidence of tenderness throughout. Skin: Warm, dry with normal turgor. Normal color with no rashes, no lesions, and no evidence of cellulitis. MS/ Extremity: Pulses equal, no cyanosis. Neurovascular intact. Full, normal range of motion. Neuro: Awake and alert, GCS 15, oriented to person, place, time, and situation. Cranial nerves II-XII grossly intact. Motor strength 5/5 in all extremities. Sensory grossly intact. Cerebellar exam normal. Normal gait. 05:10 ENT: Mouth: Dental exam: dental caries, that is moderate, specifically in the lower right second molar (#31) and lower right third molar (#32). Vital Signs: 04:58 BP 135 / 86; Pulse 88; Resp 18; Temp 98.4; Pulse Ox 100% on R/A; Weight 146.96 kg; mg2 Height 5 ft. 7 in. (170.18 cm); 04:58 Body Mass Index 50.75 (146.96 kg, 170.18 cm) mg2 MDM: 04:58 Patient medically screened. tw4 05:20 Differential diagnosis: dental caries, gingivitis. Data reviewed: vital signs, nurses tw4 notes. Medical screen evaluation completed. EMTALA emergency medical condition absent. Special discussion: I discussed with the patient/guardian in detail that at this point there is no indication for admission to the hospital. It is understood, however, that if the symptoms persist or worsen the patient needs to return immediately for re-evaluation. Based on the history and exam findings, there is no indication for further emergent testing or inpatient evaluation. I discussed with the patient/guardian the need to see a dentist for further evaluation of the symptoms. Administered Medications: No medications were administered Disposition: 04/23/19 05:21 Discharged to Home. Impression: Dental caries. - Condition is Stable. - Discharge Instructions: Dental Pain. - Medication Reconciliation Form, Thank You Letter, Antibiotic Education, Prescription Opioid Use form. - Follow up: Private Physician; When: Upon discharge from the Emergency Department; Reason: Recheck today's complaints, Continuance of care. - Problem is new. - Symptoms are unchanged. Signatures: Allan Mccall MD MD tw4 Robbie Lee, RN RN mg2 Corrections: (The following items were deleted from the chart) 05:22 05:21 04/23/2019 05:21 Discharged to Home. Impression: Dental caries. Condition is mg2 Stable. Forms are Medication Reconciliation Form, Thank You Letter, Antibiotic Education, Prescription Opioid Use. Follow up: Private Physician; When: Upon discharge from the Emergency Department; Reason: Recheck today's complaints, Continuance of care. Problem is new. Symptoms are unchanged. tw4
[2019-04-23 05:29] VITALS: BP 135/86; TEMP 98.4; O2SAT 100
== END 2019-04-23 05:22 | disposition home or self-care (01) ==
LOC: ER 04:42
DX: K02.9 Dental caries, unspecified (principal); Z91.040 Latex allergy status
CPT/HCPCS: 99281

== ENCOUNTER 2019-08-07 23:37 | Emergency (ER) | payer MEDICAID ==
--- OUTSIDE RECORDS SUMMARY | 2019-08-07 23:40 | XMS REPORT | Continuity of Care Document ---
:1985 Author Organization [facility] Care Team Providers Name Role Phone [facility] Unavailable Un available Problems Problem Status Onset Classification Date Comments Sourc e Date Reported Abnormal 09/04/2016 [facility] uterine and 7 [facility] vaginal [facility] bleeding, unspecified Un[place] [facility] [place]OM[place] [facility] Medications No Data Provided for This Section Allergies, Adverse Reactions, Alerts Substance Category Reaction Severity Reaction Status Date Comments S ource type Reported Latex Assertion Drug Active [facility] Immunizations Immunization Date Given Site Status Last Comments Source Updated measles/mumps/rub 09/27/2010 Right arm completed Asa Hanson [place] shaylee virus [facility] vaccine Center Results Order Name Results Value Reference Date Interpretation Comments Claudine rce Range ENDOCRINOLOGY hCG Tot 13 09/02 [facility] HEMATOLOGY WBC 9.2 3.7 - 10.4 09/02 [facility] HEMATOLOGY RBC 4.54 4.20 - 09/02 [facility] 5.40 /2016 [facility] HEMATOLOGY Hgb 12.6 12.0 - 09/02 [facility] 16.0 [facility] HEMATOLOGY MCV 85.1 80.0 - 09/02 [facility] 98.0 [facility] HEMATOLOGY Hct 38.6 36.0 - 09/02 [place] 48.0 [facility] HEMATOLOGY MCHC 32.6 32.0 - 09/02 [place] 36.0 [facility] HEMATOLOGY MCH 27.7 27.0 - 09/02 [facility] 31.0 [facility] HEMATOLOGY RDW 14.0 11.5 - 09/02 [facility] 14.5 [facility] HEMATOLOGY Platelet 238 133 - 450 09/02 2016 [facility] HEMATOLOGY MPV 8.0 7.4 - 10.4 09/[address] HEMATOLOGY Monocytes 6.5 2.0 - 12.0 09/[address] HEMATOLOGY Basophils 0.4 0.0 - 1.0 09/02 [facility] HEMATOLOGY Eosinophils 1.2 0.0 - 4.0 09/02 [place] [facility] HEMATOLOGY Segs-Bands # 6.0 1.5 - 8.1 09/02 [place] [facility] HEMATOLOGY Lymphocytes # 2.4 1.0 - 5.5 09/02 [facility] HEMATOLOGY Monocytes # 0.6 0.0 - 0.8 09/02 [facility] HEMATOLOGY Eosinophils # 0.1 0.0 - 0.5 09/02 [place] [facility] HEMATOLOGY Segs 65.5 45.0 - 09/02 [place] 75.0 [facility] HEMATOLOGY Lymphocytes 26.4 20.0 - 09/02 [facility] 40.0 [facility] URINE AND UA Sq Epi Few /LPF Few /LPF 09/02 [facility] [address] [place] [address] URINE AND UA WBC 6-10 /HPF None Seen 09/02 [facility] /HPF /[address] [place] [address] URINE AND UA RBC >100 /HPF 0 - 2 09/02 [facility] STOOL [address] [place] [address] URINE AND UA Bacteria Occasional None Seen 09/02 [facility] STOOL /HPF /HPF /2016 [facility] URINE AND Micro? Performed 09/02 [facility] (09/01/16 8:00 PM) [facility] URINE AND UA Color Yellow Yellow 09/02 [facility] *NA* /2016 [facility] (09/01/16 8:00 PM) [place] URINE AND UA Spec Grav 1.030 <=1.030 09/02 [facility] [address] [place] [address] URINE AND UA Turbidity Cloudy Clear 09/02 [facility] *ABN* /2016 [facility] (09/01/16 8:00 PM) [place] URINE AND UA Leuk Est Trace Negative 09/02 [facility] *ABN* /2016 [facility] (09/01/16 8:00 PM) [place] URINE AND UA Nitrite Negative Negative 09/02 [facility] (09/01/16 8:00 PM) [facility] URINE AND UA 0.2 0.1 - 1.0 09/02 [facility] Urobilinogen /[address] [place] [address] URINE AND UA Ketones Negative Negative 09/02 [facility] *NA* /2016 [facility] (09/01/16 8:00 PM) Center URINE AND UA Bili Small Negative 09/02 [facility] STOOL *ABN* /2016 Medical (09/01/16 8:00 PM) Center URINE AND UA Blood Large Negative 09/02 [facility] *ABN* Medical (09/01/16 8:00 PM) [place] URINE AND UA pH 6.0 5.0 - 8.0 09/02 [facility] /2016 [facility] Center URINE AND UA Protein Trace Negative 09/02 [facility] *ABN* Medical (09/01/16 8:00 PM) [place] URINE AND UA Glucose Negative Negative 09/02 [facility] (09/01/16 8:00 PM) [facility] URINE CHEM U Preg Negative Negative 09/02 [facility] (09/01/16 8:00 PM) /2016 [facility] Pathology Reports No Data Provided for This Section Diagnostic Reports No Data Provided for This Section Consultation Notes No Data Provided for This Section Discharge Summaries No Data Provided for This Section History and Physicals No Data Provided for This Section Vital Signs Vital Sign Value Date Comments Source Temperature Oral (F) 98.2 F 09/02/2016 [facility] Systolic (mm Hg) 124 09/02/[address] [facility] Diastolic (mm Hg) 71 09/02/2016 [facility] Heart Rate 79 09/02/2016 [facility] Respitory Rate 18 09/02/2016 [facility] Weight 129.008 09/02/2016 [facility] Systolic (mm Hg) 132 09/02/[address] [facility] Diastolic (mm Hg) 64 09/02/2016 [facility] Temperature Oral (F) 98.5 F 09/02/2016 [facility] Respitory Rate 20 09/02/2016 [facility] Heart Rate 85 09/02/2016 [facility] Encounters Location Location Encounter Encounter Reason Attending ADM DC Stat us Source Details Type Number For Provider Date [facility] [id number] [facility] 09/01 09/02 [facility] Rayo Minali /2016 [facility] Procedures No Data Provided for This Section Assessment and Plan No Data Provided for This Section Plan of Care No Data Provided for This Section Social History Social History Date Source Social History TypeResponse 09/02/2016 [facility] Smoking Status Never smoker; Exposure to Tobacco Smoke None; Cigarette Smoking Last 365 Days No; Reg Smoking Cessation Counseling No Family History No Data Provided for This Section Advance Directives No Data Provided for This Section Functional Status No Data Provided for This Section
--- OUTSIDE RECORDS SUMMARY | 2019-08-07 23:41 | XMS REPORT | Continuity of Care Document ---
:1985 Author Organization [facility] t Address [address] [place] [address] Care Team Providers Name Role Phone Fred Lord Attending Clinician Lexus Goyal Attending Clinician Problems Condition Condition Condition Status Onset Resolution Last Treating Co mments Source Name Details Category Date Date Treatment Clinician Date ABDOMINAL Diagnosis Active 2016-09-03 [facility] PAIN 09-01 05:29:00 l 00:00: Rayo ABDOMINAL 00 PAIN Active 09/01/2016 [facility] Abnormal Problem 2016-09-04 2016-09-04 Mem[facility] uterine 09-01 05:32:09 05:32:09 l and Abnormal 05:00: Filipe n vaginal uterine 00 bleeding, and unspecifie vaginal d bleeding, unspecifie d 09/01/2016 09/04/2016 [facility] Unspecifie Problem 2016-09-04 2016-09-04 Memoria d 09-01 05:32:09 05:32:09 l abdominal 05:00: Rayo pain Unspecifie 00 d abdominal pain 09/01/2016 09/04/2016 [facility] Allergies, Adverse Reactions, Alerts Allergy Allergy Status Severity Reaction(s) Onset Inactive Treating Comm ents Source Name Type Date Date Clinician Latex Latex Active Katherine Cade Social History Smoking Status Start Date Stop Date Source Social History [facility] Medications This patient has no known medications. Vital Signs Vital Name Observation Time Observation Value Comments Source Temperature Oral (F) 2016-09-02 02:19:00 98.2 F [facility] Systolic (mm Hg) 2016-09-02 02:19:00 [place] Diastolic (mm Hg) 2016-09-02 02:19:00 [facility] [place] Heart Rate 2016-09-02 02:19:00 [facility] Respitory Rate 2016-09-02 02:19:00 [facility] Weight 2016-09-02 00:00:00 [facility] Systolic (mm Hg) 2016-09-02 00:00:00 Kris [facility] [place] Diastolic (mm Hg) 2016-09-02 00:00:00 [facility] [place] Temperature Oral (F) 2016-09-02 00:00:00 98.5 F [facility] Respitory Rate 2016-09-02 00:00:00 [facility] [place] Heart Rate 2016-09-02 00:00:00 [facility] Procedures This patient has no known procedures. 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 [id number] MATERNAL [id number] & CHILD 107 [facility] 2016-09-01 2016-09-01 Outpatient MATI Goyal [facility] [id number] 18:55:00 21:20:00 Alonzo Alberts 00 Results Test Description Test Time Test Comments Results Result Comments Source ENDOCRINOLOGY 2016-09-02 13 [facility] 01:16:00 HEMATOLOGY 2016-09-02 9.2 [facility] 01:16:00 HEMATOLOGY 2016-09-02 4.54 [facility] 01:16:00 HEMATOLOGY 2016-09-02 12.6 [facility] 01:16:00 HEMATOLOGY 2016-09-02 85.1 [facility] 01:16:00 HEMATOLOGY 2016-09-02 38.6 [facility] 01:16:00 HEMATOLOGY 2016-09-02 32.6 [facility] 01:16:00 HEMATOLOGY 2016-09-02 01:16:00 Test Item Value Reference Range Interpretation Comme nts MCH (test code = MCH) 27.7 pg 27.0-31.0 [facility] [id number] 01:16:0014.0[facility] 2016-09-02 01:16:78958Dxnwxnrh PkgfvupHMPGRPDUBV1190-50-94 01:16:008.0[facility] DcivuhhSDTYQRASKM0977-90-01 01:16:006.5[facility] BjhlztsNUXAKRVLNC5005-01-92 01:16:000.4[facility] PewxwbaVOZRTVCSZN1189-92-21 01:16:001.2[facility] [id number] 01:16:006.0[facility] HjnxytvVAYVWJQUPT5034-71-80 01:16:002.4 [facility] [id number] 01:16:000.6[facility] 2016-09-02 01:16:000.1[facility] BnupmsaBUHQKUNLIU6983-97-09 01:16:0065.5[facility] XjcgggdLDGAFRZCNM2281-59-73 01:16:0026.4[facility] 2016-09-02 01:00:00Performed (09/01/16 8:00 PM)[facility] 2016-09-02 01:00:00Yellow *NA*(09/01/16 8:00 PM)[facility] 2016-09-02 01:00:00 Test Item Value Reference Range Interpretation Comments UA Spec Grav (test code = UA Spec 1.030 1 Grav) [facility] [id number] 01:00:00Cloudy *ABN*(09/01/16 8:00 PM) [facility] [id number] 01:00:00Trace *ABN*(09/01/16 8:00 PM) [facility] [id number] 01:00:00Negative (09/01/16 8:00 PM) [facility] [id number] 01:00:000.2[facility] [id number] 01:00:00Negative *NA*(09/01/16 8:00 PM)[facility] [id number] 01:00:00Small *ABN*(09/01/16 8:00 PM)[facility] [id number] 01:00:00Large *ABN*(09/01/16 8:00 PM)[facility] [id number] 01:00:00 Test Item Value Reference Range Interpretation Comments UA pH (test code = UA pH) 6.0 1 5.0-8.0 [facility] [id number] 01:00:00Trace *ABN*(09/01/16 8:00 PM) [facility] [id number] 01:00:00Negative (09/01/16 8:00 PM) [facility] [id number] 01:00:00Negative (09/01/16 8:00 PM)[facility]
[2019-08-08 00:18] LABS: Urine Blood NEGATIVE (NEG); Urine Glucose NEGATIVE (NEG); Urine Protein TRACE (NEG); Urine Specific Gravity >1.030 (1.005-1.030)
[2019-08-08] MEDS ORDERED: PROMETHAZINE INJ 25 MG/ML AMP ONE (00:35)
[2019-08-08] MEDS ORDERED: NA CHLORIDE 0.9% 1,000 ML ONE (00:35)
[2019-08-08 00:42] LABS: Absolute Lymphocytes (CBC) 2.7 K/uL (0.7-4.9); Basophils % 0.6 % (0-1.3); Hematocrit 40.8 % (36.0-45.0); Lymphocytes % 22.5 % (15.3-44.8); RBC Red Blood Cell Count 4.92 M/uL (3.86-4.86)
[2019-08-08 00:55] LABS: Potassium 3.4 mmol/L (3.5-5.1)
--- NOTE | 2019-08-08 01:36 | ER ---
Nurse's Notes [facility] Name: Paola Castano Age: 33 yrs Sex: Female : 1985 Arrival Date: 08/07/2019 Time: 23:40 Bed 15 Private MD: Diagnosis: Other abdominal pain;Discomfort of ;Nausea Presentation: 08/06 23:46 Chief complaint: Patient states: left sided pain and lower pelvic pain that began lp1 yesterday; States having positive test at home; Denies any vaginal bleeding or discharge at this time; States similar symptoms with previous miscarriage. Coronavirus screen: Patient denies a cough. Patient denies shortness of breath or difficulty breathing. Patient denies measured and/or subjective temperature greater than 100.4F prior to today's visit. Patient denies travel on a cruise ship or to a country the [facility] currently lists as an affected area. Patient denies contact with known and/or suspected case of COVID-19. Ebola Screen: No symptoms or risks identified at this time. Risk Assessment: Do you want to hurt yourself or someone else? Patient reports no desire to harm self or others. Onset of symptoms was August 06, 2019. 23:46 Method Of Arrival: Ambulatory lp1 23:46 Acuity: LEWIS 3 lp1 23:49 Initial Sepsis Screen: Does the patient meet any 2 criteria? No. Patient's initial lp1 sepsis screen is negative. Does the patient have a suspected source of infection? No. Patient's initial sepsis screen is negative. 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 - Social history:: Smoking status: Patient reports the use of cigarette tobacco products, smokes one-half pack cigarettes per day. Screenin:49 Abuse screen: Denies threats or abuse. Denies injuries from another. Nutritional lp1 screening: No deficits noted. Tuberculosis screening: No symptoms or risk factors identified. Fall Risk None identified. Assessment: 08/07 00:15 General: Appears in no apparent distress. comfortable, Behavior is calm, cooperative. mg2 Pain: Complains of pain in left lower quadrant Pain does not radiate. Pain currently is 5 out of 10 on a pain scale. Quality of pain is described as aching, Pain began gradually, 2-3 days ago. Is intermittent. Neuro: Level of Consciousness is awake, alert, obeys commands, Oriented to person, place, time, situation. Cardiovascular: Capillary refill < 3 seconds Patient's skin is warm and dry. Respiratory: Airway is patent Respiratory effort is even, unlabored, Respiratory pattern is regular, symmetrical. GI: Bowel sounds present X 4 quads. Abd is soft Reports lower abdominal pain, nausea. EENT: No signs and/or symptoms were reported regarding the EENT system. Derm: Skin is intact, is healthy with good turgor, Skin is pink, warm \T\ dry. normal. Musculoskeletal: Circulation, motion, and sensation intact. Capillary refill < 3 seconds. Vital Signs: 08/06 23:49 BP 130 / 81; Pulse 94; Resp 18; Temp 98.6(O); Pulse Ox 98% on R/A; Weight 146.96 kg lp1 (R); Height 5 ft. 7 in. (170.18 cm); Pain 6/10; 08/07 00:40 Pulse 79; Resp 18; Pulse Ox 100% on R/A; mg2 00:56 BP 133 / 80; mg2 02:03 BP 125 / 78; Pulse 80; Resp 18; Temp 98.5; Pulse Ox 100% on R/A; mg2 08/06 23:49 Body Mass Index 50.75 (146.96 kg, 170.18 cm) lp1 ED Course: 08/06 23:40 Patient arrived in ED. cf2 23:48 Triage completed. lp1 23:48 Arm band placed on left wrist. lp1 23:54 Meme Cardona FNP-C [facility] kb 23:54 Allan Mccall MD is Attending Physician. kb 08/07 00:02 Robbie Lee, RN is Primary Nurse. mg2 00:16 Patient has correct armband on for positive identification. Door closed. Warm blanket mg2 given. 00:16 No provider procedures requiring assistance completed. mg2 00:22 Inserted saline lock: 20 gauge in left antecubital area, using aseptic technique. Blood mw2 collected. 02:03 IV discontinued, intact, bleeding controlled, No redness/swelling at site. Pressure mg2 dressing applied. Administered Medications: 00:36 Drug: NS 0.9% 1000 ml Route: IV; Rate: 1000 ml; Site: left antecubital; mg2 02:04 Follow up: Response: No adverse reaction; IV Status: Completed infusion; IV Intake: mg2 1000ml 00:36 Drug: Phenergan 6.25 mg Route: IVP; Site: left antecubital; mg2 00:57 Follow up: Response: No adverse reaction mg2 01:40 Drug: Tylenol 1000 mg Route: PO; mg2 01:40 Follow up: Response: No adverse reaction; Medication administered at discharge. mg2 Intake: 02:04 IV: 1000ml; Total: 1000ml. mg2 Outcome: 01:34 Discharge ordered by . tw4 02:03 Discharged to home ambulatory. mg2 02:03 Condition: good 02:03 Discharge instructions given to patient, Instructed on discharge instructions, follow up and referral plans. medication usage, Demonstrated understanding of instructions, follow-up care, medications, Prescriptions given X 1. 02:04 Patient left the ED. mg2 Signatures: Meme Cardona, ROCHELLE-C TELEGRAPH DISPATCHER-Ev Salazar RN RN lp1 Allan Mccall MD MD tw4 Osmin Osorio mw2 Robbie Lee RN RN mg2 Gracy Guadalupe cf2
--- NOTE | 2019-08-08 01:36 | EDPHYS ---
Physician Documentation [facility] Name: Paola Castano Age: 33 yrs Sex: Female : 1985 Arrival Date: 08/07/2019 Time: 23:40 Bed 15 Private MD: ED Physician Allan Mccall HPI: 08/07 00:06 This 33 yrs old Black Female presents to ER via Ambulatory with complaints of Abdominal kb Pain, Abdominal Cramping, Possibly . 00:06 The patient has not recently seen a physician. kb 00:06 The patient presents to the emergency department with abdominal pain, that started 2 kb day(s) ago, nausea and vomiting, that started 3 minute(s) ago. course: care: none. Previous pregnancies: in previous pregnancies patient has had. Associated signs and symptoms: Pertinent positives: abdominal pain, nausea, vomiting, Pertinent negatives: chest pain, diarrhea, dysuria, fever, frequency, ruptured membranes, seizure, shortness of breath, vaginal bleeding, vaginal discharge. The patient has not experienced similar symptoms in the past. Pt reports nausea and vomiting for 3 days, left abd pain for 2 days. 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 - Social history:: Smoking status: Patient reports the use of cigarette tobacco products, smokes one-half pack cigarettes per day. ROS: 08/07 00:06 Constitutional: Negative for fever, chills, and weight loss, Neck: Negative for injury, kb pain, and swelling, Cardiovascular: Negative for chest pain, palpitations, and edema, Respiratory: Negative for shortness of breath, cough, wheezing, and pleuritic chest pain, Back: Negative for injury and pain, MS/Extremity: Negative for injury and deformity, Skin: Negative for injury, rash, and discoloration, Neuro: Negative for headache, weakness, numbness, tingling, and seizure. Abdomen/GI: Positive for abdominal pain, nausea and vomiting, Negative for diarrhea, constipation, abdominal cramps, abdominal distension, anorexia. Exam: 00:06 Constitutional: This is a well developed, well nourished patient who is awake, alert, kb and in no acute distress. Head/Face: Normocephalic, atraumatic. Chest/axilla: Normal chest wall appearance and motion. Nontender with no deformity. No lesions are appreciated. Cardiovascular: Regular rate and rhythm with a normal S1 and S2. No gallops, murmurs, or rubs. Normal PMI, no JVD. No pulse deficits. Respiratory: Lungs have equal breath sounds bilaterally, clear to auscultation and percussion. No rales, rhonchi or wheezes noted. No increased work of breathing, no retractions or nasal flaring. Back: No spinal tenderness. No costovertebral tenderness. Full range of motion. Skin: Warm, dry with normal turgor. Normal color with no rashes, no lesions, and no evidence of cellulitis. MS/ Extremity: Pulses equal, no cyanosis. Neurovascular intact. Full, normal range of motion. Neuro: Awake and alert, GCS 15, oriented to person, place, time, and situation. Cranial nerves II-XII grossly intact. Motor strength 5/5 in all extremities. Sensory grossly intact. Cerebellar exam normal. Normal gait. 00:06 Abdomen/GI: Inspection: obese Bowel sounds: normal, in all quadrants, Palpation: soft, in all quadrants, moderate abdominal tenderness, in the left upper quadrant and left lower quadrant. Vital Signs: 08/06 23:49 BP 130 / 81; Pulse 94; Resp 18; Temp 98.6(O); Pulse Ox 98% on R/A; Weight 146.96 kg lp1 (R); Height 5 ft. 7 in. (170.18 cm); Pain 6/10; 08/07 00:40 Pulse 79; Resp 18; Pulse Ox 100% on R/A; mg2 00:56 BP 133 / 80; mg2 02:03 BP 125 / 78; Pulse 80; Resp 18; Temp 98.5; Pulse Ox 100% on R/A; mg2 08/06 23:49 Body Mass Index 50.75 (146.96 kg, 170.18 cm) lp1 MDM: 08/06 23:54 Patient medically screened. 08/07 00:05 Data reviewed: vital signs, nurses notes. Data interpreted: Pulse oximetry: on room air kb is 98 %. Interpretation: normal. 00:40 Transition of care: After a detail discussion of the patient's case, care is kb transferred to Allan Mccall MD. 08/07 00:05 Order name: Quantitative Hcg; Complete Time: 00:59 kb 08/07 00:59 Interpretation: Normal except: HCGQ 80. [facility] 08/07 00:05 Order name: Abo/rh Typing; Complete Time: 00:59 kb 08/07 01:00 Interpretation: Within normal limits. [facility] 08/07 00:05 Order name: Basic Metabolic Panel; Complete Time: 00:59 kb 08/07 01:00 Interpretation: Normal except: K 3.4; CL 113; GFR 84. [facility] 08/07 00:05 Order name: CBC with Diff; Complete Time: 00:59 kb 08/07 01:00 Interpretation: Normal except: WBC 11.9; RBC 4.92; MCH 26.6. [facility] 08/07 00:12 Order name: Urine Dipstick--Ancillary (enter results); Complete Time: 00:19 mt 08/07 00:12 Order name: Urine --Ancillary (enter results); Complete Time: 00:19 mt 08/07 01:00 Interpretation: Within normal limits: URINE PREG POS; USPGR >1.030. [facility] 08/06 23:47 Order name: Urine Test (obtain specimen); Complete Time: 00:08 kb 08/06 23:47 Order name: Urine Dipstick-Ancillary (obtain specimen); Complete Time: 00:08 kb 08/07 00:05 Order name: IV Saline Lock; Complete Time: 00:24 kb 08/07 00:05 Order name: Labs collected and sent; Complete Time: 00:24 kb 08/07 00:05 Order name: NPO; Complete Time: 00:07 kb Administered Medications: 00:36 Drug: NS 0.9% 1000 ml Route: IV; Rate: 1000 ml; Site: left antecubital; mg2 02:04 Follow up: Response: No adverse reaction; IV Status: Completed infusion; IV Intake: mg2 1000ml 00:36 Drug: Phenergan 6.25 mg Route: IVP; Site: left antecubital; mg2 00:57 Follow up: Response: No adverse reaction mg2 01:40 Drug: Tylenol 1000 mg Route: PO; mg2 01:40 Follow up: Response: No adverse reaction; Medication administered at discharge. mg2 Disposition: 03:52 Co-signature as Attending Physician, Allan Mccall MD I agree with the assessment and tw4 plan of care. Disposition: 08/08/19 01:34 Discharged to Home. Impression: Other abdominal pain, Discomfort of , Nausea. - Condition is Stable. - Discharge Instructions: Abdominal Pain During , Nausea, Adult. - Prescriptions for Zofran 4 mg Oral Tablet - take 1 tablet by ORAL route every 12 hours As needed; 6 tablet. - Medication Reconciliation Form, Thank You Letter, Antibiotic Education, Prescription Opioid Use form. - Follow up: Private Physician; When: Upon discharge from the Emergency Department; Reason: Recheck today's complaints, Continuance of care, Re-evaluation by your physician. - Problem is new. - Symptoms have improved. Signatures: Dispatcher [employer] EDNY Meme Cardona, ROCHELLE-C HARDWOOD FLOOR FINISHER-CkEv Perry RN RN lp1 Allan Mccall MD MD tw4 Robbie Lee RN RN mg2 Corrections: (The following items were deleted from the chart) 01:36 01:34 08/08/2019 01:34 Discharged to Home. Impression: Other abdominal pain; Discomfort tw4 of . Condition is Stable. Forms are Medication Reconciliation Form, Thank You Letter, Antibiotic Education, Prescription Opioid Use. Follow up: Private Physician; When: Upon discharge from the Emergency Department; Reason: Recheck today's complaints, Continuance of care, Re-evaluation by your physician. Problem is new. Symptoms have improved. tw4 02:04 01:36 08/08/2019 01:34 Discharged to Home. Impression: Other abdominal pain; Discomfort mg2 of ; Nausea. Condition is Stable. Discharge Instructions: Abdominal Pain During . Forms are Medication Reconciliation Form, Thank You Letter, Antibiotic Education, Prescription Opioid Use. Follow up: Private Physician; When: Upon discharge from the Emergency Department; Reason: Recheck today's complaints, Continuance of care, Re-evaluation by your physician. Problem is new. Symptoms have improved. tw4
[2019-08-08] MEDS ORDERED: ACETAMINOPHEN 500 MG TAB ONE (01:48)
[2019-08-08 02:15] VITALS: O2SAT 100
[2019-08-08 02:17] VITALS: BP 125/78; TEMP 98.5
== END 2019-08-08 02:04 | disposition home or self-care (01) ==
LOC: ER 23:37
DX: O26.891 Other specified pregnancy related conditions, first trimester (principal); R10.9 Unspecified abdominal pain; R11.0 Nausea; F17.210 Nicotine dependence, cigarettes, uncomplicated
CPT/HCPCS: 96361; 85025; 80048; 36415; 86900; 81025; 86901; 84702; 81003; 96374; 99284; J2550; J7030

== ENCOUNTER 2019-11-05 19:01 | Emergency (ER) | payer MEDICAID ==
--- OUTSIDE RECORDS SUMMARY | 2019-11-05 19:03 | XMS REPORT | Continuity of Care Document ---
:[address] [facility] t Address [address] [place] [address] Care Team Providers Name Role Phone Kishor BARBER, S Attending Clinician Crissy JOSEPH, R Attending Clinician Deondre BYRD, R Attending Clinician Lexus Goyal Attending Clinician Problems Condition Condition Condition Status Onset Resolution Last Treating Co mments Source Name Details Category Date Date Treatment Clinician Date ABDOMINAL Diagnosis Active 2016-09-03 Memoria PAIN 09-01 05:29:00 l 00:00: Boon ABDOMINAL 00 PAIN Active 09/01/2016 [facility] Abnormal Problem 2016-09-04 2016-09-04 Memoria uterine 09-01 05:32:09 05:32:09 l and Abnormal 05:00: Filipe n vaginal uterine 00 bleeding, and unspecifie vaginal d bleeding, unspecifie d 09/01/2016 09/04/2016 [facility] Unspecifie Problem 2016-09-04 2016-09-04 Memoria d 09-01 05:32:09 05:32:09 l abdominal 05:00: Rayo pain Unspecifie 00 d abdominal pain 09/01/2016 09/04/2016 [facility] Allergies, Adverse Reactions, Alerts Allergy Allergy Status Severity Reaction(s) Onset Inactive Treating Comm ents Source Name Type Date Date Clinician Latex Latex Active [facility] Social History Smoking Status Start Date Stop Date Source Social History [facility] Medications This patient has no known medications. Vital Signs Vital Name Observation Time Observation Value Comments Source Temperature Oral (F) 2016-09-02 02:19:00 98.2 F [facility] Systolic (mm Hg) 2016-09-02 02:19:00 Kris rial Rayo Diastolic (mm Hg) 2016-09-02 02:19:00 Mem o[facility] Heart Rate 2016-09-02 02:19:00 [facility] Respitory Rate 2016-09-02 02:19:00 [facility] al [facility] Weight 2016-09-02 00:00:00 [facility] Systolic (mm Hg) 2016-09-02 00:00:00 Kris rial [facility]on Diastolic (mm Hg) 2016-09-02 00:00:00 Mem o[facility] Temperature Oral (F) 2016-09-02 00:00:00 98.5 F [facility] Respitory Rate 2016-09-02 00:00:00 [facility] Heart Rate 2016-09-02 00:00:00 [facility] Procedures This patient has no known procedures. 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 [id number] Visit [facility] [id number] MATERNAL [id number] & CHILD [address] [place] [address] 2016-09-01 2016-09-01 Outpatient Jyotsna [facility] [id number] 18:55:00 21:20:00 Alonzo Alberts 00 Results Test Description Test Time Test Comments Results Result Comments Source ENDOCRINOLOGY 2016-09-02 13 [facility] 01:16:00 HEMATOLOGY 2016-09-02 9.2 [facility] Gabi [...] code = MCH) 27.7 pg 27.0-31.0 [facility] [id number] 01:16:0014.0[facility] 2016-09-02 01:16:33736Wenubmsp [id number] 01:16:008.0[facility] OzblbisDFPGOPEXRW0345-09-10 01:16:006.5[facility] [id number] 01:16:000.4[facility] LucsntmLMTGEDZBQP7175-09-33 01:16:001.2[facility] [id number] 01:16:006.0[facility] GhgprueSFUHQSHOXL9241-33-55 01:16:002.4 [facility] TyldlciVVFHRWFYQG1046-60-54 01:16:000.6[facility] 2016-09-02 01:16:000.1[facility] [id number] 01:16:0065.5[facility] PkrzpgxSPBRMTBBTP0899-01-43 01:16:0026.4[facility] STOOL 2016-09-02 01:00:00Performed (09/01/16 8:00 PM)[facility] 2016-09-02 01:00:00Yellow *NA*(09/01/16 8:00 PM)[facility] 2016-09-02 01:00:00 Test Item Value Reference Range Interpretation Comments UA Spec Grav (test code = UA Spec 1.030 1 Grav) [facility] [id number] 01:00:00Cloudy *ABN*(09/01/16 8:00 PM) [facility] [id number] 01:00:00Trace *ABN*(09/01/16 8:00 PM) [facility] [id number] 01:00:00Negative (09/01/16 8:00 PM) [facility] [id number] 01:00:000.2[facility] [id number] 01:00:00Negative *NA*(09/01/16 8:00 PM)[facility] [id number] 01:00:00Small *ABN*(09/01/16 8:00 PM)[facility] [id number] 01:00:00Large *ABN*(09/01/16 8:00 PM)[facility] [id number] 01:00:00 Test Item Value Reference Range Interpretation Comments UA pH (test code = UA pH) 6.0 1 5.0-8.0 [facility] [id number] 01:00:00Trace *ABN*(09/01/16 8:00 PM) [facility] [id number] 01:00:00Negative (09/01/16 8:00 PM) [facility] [id number] 01:00:00Negative (09/01/16 8:00 PM)[facility]
--- OUTSIDE RECORDS SUMMARY | 2019-11-05 19:03 | XMS REPORT | Continuity of Care Document ---
:1985 Author Organization [employer] Care Team Providers Name Role Phone [employer] Unavailable Un available Problems Problem Status Onset Classification Date Comments Sourc e Date Reported Abnormal 09/04/2016 [facility] uterine and 7 [facility] vaginal Center bleeding, [...] measles/mumps/rub 09/27/2010 Right arm completed Asa Hanson [place] shaylee virus [facility] vaccine Center Results Order Name Results Value Reference Date Interpretation Comments Claudine rce Range ENDOCRINOLOGY hCG Tot 13 09/02 [place] HEMATOLOGY WBC 9.2 3.7 - 10.4 09/02 [place] HEMATOLOGY RBC 4.54 4.20 - 09/02 [facility] 5.40 /2016 [place] HEMATOLOGY Hgb 12.6 12.0 - 09/02 [facility] 16.0 [place] HEMATOLOGY MCV 85.1 80.0 - 09/02 [facility] 98.0 [place] HEMATOLOGY Hct 38.6 36.0 - 09/02 [place] 48.0 [place] HEMATOLOGY MCHC 32.6 32.0 - 09/02 [place] 36.0 [place] HEMATOLOGY MCH 27.7 27.0 - 09/02 [facility] 31.0 [place] HEMATOLOGY RDW 14.0 11.5 - 09/02 [facility] 14.5 [place] HEMATOLOGY Platelet 238 133 - 450 09/02 2016 [place] HEMATOLOGY MPV 8.0 7.4 - 10.4 09/[address] HEMATOLOGY Monocytes 6.5 2.0 - 12.0 09/[address] HEMATOLOGY Basophils 0.4 0.0 - 1.0 09/02 [place] HEMATOLOGY Eosinophils 1.2 0.0 - 4.0 09[place] HEMATOLOGY Segs-Bands # 6.0 1.5 - 8.1 09/02 [place] HEMATOLOGY Lymphocytes # 2.4 1.0 - 5.5 09/02 [facility] [place] HEMATOLOGY Monocytes # 0.6 0.0 - 0.8 [facility] [place] [facility] Eosinophils # 0.1 0.0 - 0.5 09[place]02 [place] HEMATOLOGY Segs 65.5 45.0 - 09/02 [place] 75.0 [place] HEMATOLOGY Lymphocytes 26.4 20.0 - 09/02 [facility] 40.0 [place] URINE AND UA Sq Epi Few /LPF Few /LPF 09/02 [facility] [address] [place] [address] URINE AND UA WBC 6-10 /HPF None Seen 09/02 [facility] /HPF /[address] [place] [address] URINE AND UA RBC >100 /HPF 0 - 2 09/02 [facility] STOOL [address] [place] [address] URINE AND UA Bacteria Occasional None Seen 09/02 [facility] STOOL /HPF /HPF /2016 [place] URINE AND Micro? Performed 09/02 [facility] (09/01/16 8:00 PM) [facility] URINE AND UA Color Yellow Yellow 09/02 [facility] *NA* /2016 [facility] (09/01/16 8:00 PM) [place] URINE AND UA Spec Grav 1.030 <=1.030 09/02 [facility] [address] [place] [address] URINE AND UA Turbidity Cloudy Clear 09/02 [facility] *ABN* /2016 [facility] (09/01/16 8:00 PM) [place] URINE AND UA Leuk Est Trace Negative 09/02 [facility] *ABN* /2016 [facility] (09/01/16 8:00 PM) [place] URINE AND UA Nitrite Negative Negative 09/02 [facility] (09/01/16 8:00 PM) [facility] URINE AND UA 0.2 0.1 - 1.0 09/02 [facility] Urobilinogen /[address] [place] [address] URINE AND UA Ketones Negative Negative 09/02 [facility] *NA* /2016 [facility] (09/01/16 8:00 PM) Center URINE AND UA Bili Small Negative 09/02 [facility] STOOL *ABN* /2016 Medical (09/01/16 8:00 PM) Center URINE AND UA Blood Large Negative 09/02 [facility] *ABN* Medical (09/01/16 8:00 PM) [place] URINE AND UA pH 6.0 5.0 - 8.0 09/02 [facility] /2016 [facility] Center URINE AND UA Protein Trace Negative 09/02 [facility] *ABN* Medical (09/01/16 8:00 PM) [place] URINE AND UA Glucose Negative Negative 09/02 [facility] (09/01/16 8:00 PM) [facility] URINE CHEM U Preg Negative Negative 09/02 [facility] (09/01/16 8:00 PM) /2016 [facility] Pathology Reports No Data Provided for This Section Diagnostic Reports No Data Provided for This Section Consultation Notes No Data Provided for This Section Discharge Summaries No Data Provided for This Section History and Physicals No Data Provided for This Section Vital Signs Vital Sign Value Date Comments Source Temperature Oral (F) 98.2 F 09/02/2016 [facility] Systolic (mm Hg) 124 09/02/2016 [facility] Diastolic (mm Hg) 71 09/02/2016 [facility] Heart Rate 79 09/02/2016 [facility] Respitory Rate 18 09/02/2016 [facility] Weight 129.008 09/02/2016 [facility] Systolic (mm Hg) 132 09/02/2016 [facility] Diastolic (mm Hg) 64 09/02/2016 [facility] Temperature Oral (F) 98.5 F 09/02/2016 [facility] Respitory Rate 20 09/02/2016 [facility] Heart Rate 85 09/02/2016 [facility] Encounters Location Location Encounter Encounter Reason Attending ADM DC Stat us Source Details Type Number For Provider Date Date [facility] [id number] [place] 09/01 09/02 [facility] Rayo Minali /2016 [facility] Procedures No Data Provided for This Section Assessment and Plan No Data Provided for This Section Plan of Care No Data Provided for This Section Social History Social History Date Source Social History TypeResponse 09/02/2016 [facility] Smoking Status Never smoker; Exposure to Tobacco Smoke None; Cigarette Smoking Last 365 Days No; Reg Smoking Cessation Counseling No Family History No Data Provided for This Section Advance Directives No Data Provided for This Section Functional Status No Data Provided for This Section
--- OUTSIDE RECORDS SUMMARY | 2019-11-05 19:04 | XMS REPORT | Summary of Care ---
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 BANK (08/20/2019 4:14 PM CDT) Pathologist Sig nature ABO & RH O POSITIVE LAB Comment: Performed at [facility] Laboratory Services - [facility] Blood Bank [address] [place] [address] Toll Free: [phone] CLIA No. [id number] IAT Negative LAB Comment: Performed at [facility] Laboratory Services - [facility] Blood [place] [address] Toll Free: [phone] CLIA No. [id number] Specimen Blood - VENOUS Performing Organization Address [facility] Phone Number [facility] HIV 1/2 AG-AB WITH REFLEX (08/20/2019 4:14 PM CDT) Pathologist Sig [facility] HIV 1/2 Ag-Ab with Negative Negative [facility] Reflex SERVICES HIV Semi-quantitative 0.12 [facility] Specimen Blood - ARM, RIGHT Narrative Performed At Non-reactive for HIV-1 antigen and HIV-1/HIV-2 antibod ies. [facility] No laboratory evidence of HIV infection. Repeat in 2-4 weeks if acute HIV infection is suspected. Performing Organization Address City/[facility] Phone Number [facility] CLIA: [id number], [address] [place] [address] 555 [facility] HEPATITIS B SURFACE ANTIGEN (08/20/2019 4:14 PM CDT) Pathologist Sig nature HBsAg Negative Negative [facility] HBsAg 0.09 [facility] Semi-Quantitative SERVICES Specimen Blood - ARM, RIGHT Performing Organization Address City/[facility]/Zipcode Phone Number [facility] CLIA: [id number], [address] [place] [address] 555 [facility] SARS-COV-2 IGG (08/20/2019 4:14 PM CDT) Pathologist Sig nature CoV-2 IgG NegativeComment: Negative [facility] Negative result does SERVICES not rule out acute SARS-CoV-2 infection. Clinical correlation as well as molecular diagnostic test are recommended to rule out acute infection if clinically indicated. Specimen Blood - ARM, RIGHT Narrative Performed At This test has been approved by FDA for emergency use. [facility] Performing Organization Address City/State/Zipcode Phone Number [facility] CLIA: [id number], [address] [place], [place] [address] [address] [facility] POCT URINALYSIS W/O SPECIFIC GRAVITY (08/20/2019 3:01 PM CDT) Pathologist Sig nature POCT PH U 5 5 - 8 mg/dl POCT U LEUK EST 1+ Negative - Negative POCT U NIT Neg Negative - Negative POCT U PROT Trace Negative - Negative POCT U GLU Neg Negative - Negative POCT U KETONE None Negative - Negative POCT U BLD Large Negative - Negative Specimen Urine - URINE, CLEAN CATCH POCT TEST (08/20/2019 3:01 PM CDT) Pathologist Sig nature POCT PREG Positive On board controls acceptable Yes with C Line POCT PREG LOT # POCT PREG TEST DATE Specimen Urine - URINE, CLEAN CATCH documented in this encounter Visit Diagnoses Diagnosis Supervision of high risk , ante - Primary Previous delivery affecting pre gnancy, antepartum Previous delivery, antepartum c ondition or complication History of depression Personal history of other mental disorde r History of hypertension Personal history of other diseases of ci rculatory system HSV-2 (herpes simplex virus 2) infection Herpes simplex without mention of compli cation Multiparity Morbid obesity BMI 50.0-59.9, adult Body Mass Index 50.0-59.9, adult documented in this encounter Insurance Payer Benefit Plan / Subscriber ID Effective Phone Address T ype Group Dates FERNANDEZ PRESLEY xxxxxxxxx 2017-Bk [place] Medic [place] [address] MANAGED MEDICAID [place] documented as of this encounter Advance Directives Name Relationship Healthcare Agent Communication Relationship Ramya Cherylosvaldo Sepulveda Mother Primary healthcare agent
--- OUTSIDE RECORDS SUMMARY | 2019-11-05 19:04 | XMS REPORT | Summary of Care ---
:1985 Author Organization [facility] - [facility] Address [address] [place] [address] Care Team Providers Name Role Phone Attema Medicaid Hmo Aubree Mendosa Primary Care Provider Attema Insurance Hmo Reason for Referral Radiology Services (STAT) Status Reason Specialty Diagnoses / Referred By Referred To Procedures Contact Contact New Request Diagnostic Diagnoses Spotting during Stephany Dc, Radiology Procedures US FIRST TRIMESTER LESS THAN 14 WEEKS WITH TRANSVAGINAL PAC [address] [place] [address] [place] [address] Reason for Visit Reason Comments Vaginal Bleeding Auth/Cert Status Reason Specialty Diagnoses / Referred By Referred To Procedures Contact Contact Emergency Medicine Diagnoses VAGINAL BLEEDING [facility] [address] [place] [address] Fax: Encounter Details Date Type Department Care Team Description 08/19/2019 - Emergency [facility]-Emergency Stephany Dc, Subchorioni c hematoma, antepartum, single or unspecified fetus (Primary Dx); 08/20/2019 Department PAC Spotting during ; [address] [place] [address] [place] [address] [place], [place] [id number] Allergies Active Allergy Reactions Severity Noted Date Comments Latex Swelling Medium 10/04/2013 Genital area sw elling and hives documented as of this encounter (statuses as of 08/20/2019) Medications Medication Sig Dispensed Refills Start Date End Date Status multivitamin Take 1 tablet by 0 05/29/2018 Active tabletIndications: mouth daily. ASCUS with positive high risk HPV cervical Nitrofurantoin&Nit. Take 1 capsule by 14 capsule 0 12/11/2018 Active Macrocryst (MACROBID) mouth 2 (two) 100 mg times daily. capsuleIndications: Generalized abdominal pain, Urinary tract infection without hematuria, site unspecified ibuprofen 800 mg Take 1 tablet by 30 tablet 0 04/23/2019 Active tabletIndications: mouth every 8 Dental caries, Poor (eight) hours as dentition needed for Pain (scale 4-6). acetaminophen-codeine Take 1-2 tablets 20 tablet 0 04/23/2019 Active 300-30 mg by mouth every 6 tabletIndications: (six) hours as Dental caries, Poor needed for Pain dentition (scale 4-6). amoxicillin 500 mg Take 1 capsule by 30 capsule 0 04/23/2019 Active capsuleIndications: mouth 3 (three) Dental caries, Poor times daily. dentition documented as of this encounter (statuses as of 08/20/2019) Active Problems Problem Noted Date Class 3 obesity due to excess calories with body mass index (BMI) of 45.0 05/07/2017 to 49.9 in adult Trichomonal vaginitis during 03/29/2017 Cervical high risk human papillomavirus (HPV) DNA test positive 03/14/2017 Overview: Needs Colposcopy ASCUS and HPV+ Atypical squamous cells of undetermined significance ( ASCUS) on 03/08/2017 Papanicolaou smear of cervix Overview: Needs Colposcopy ASCUS and HPV+ Chlamydia 03/05/2017 Overview: NERIS neg HSV-2 infection complicating , third trimeste r [...] as of this encounter (statuses as of 08/20/2019) Resolved Problems Problem Noted Date Resolved Date care and examination immediately after delivery 0 10/31/2017 10/31/2017 Disruption of wound, 10/22/2017 10/31/2017 delivery delivered 10/10/2017 10/22/2017 39 weeks gestation of 10/09/2017 10/23/19 18 Desires (vaginal after ) trial 10/04/2017 10/22/2017 Threatened labor at term 10/04/2017 10/22/2017 Supervision of high risk in third trimester 201710/22/2017 30 weeks gestation of 08/10/2017 08/17/19 18 Pelvic pressure in , antepartum, third trimester 10/22/2017 27 weeks gestation of 07/19/2017 08/08/19 18 Depression affecting in third trimester, 8 08/16/2017 antepartum Nausea & vomiting 07/19/2017 08/16/2017 Multiparity 05/07/2017 10/22/2017 Supervision of high risk , antepartum, first 201705/07/2017 trimester Previous delivery affecting , antepartum 0 03/05/2017 10/22/2017 Overview: Due to outbreak of HSV at term Morbid obesity 01/06/2014 03/02/2017 Depression 01/06/2014 09/18/2017 Screening for STDs (sexually transmitted diseases) 4 03/02/2017 Encounter for routine gynecological examination 01/06/2014 03/02/2017 Overview: ICD10 Diagnosis Term Quality Officer Utility HSV-2 infection 01/06/2014 08/16/2017 General counseling and advice for contraceptive management 1 03/08/2013 03/02/2017 Overview: ICD10 Diagnosis Term Quality Officer Utility History of trauma 01/06/2014 09/18/2017 Anemia of mother in , condition 10/28/19 14 01/06/2014 HSV (herpes simplex virus) anogenital infection 10/04/2013 01/06/2014 Chronic hypertension complicating or reason for care during 10/04/2013 10/10/2013 Insufficient care 10/04/2013 10/10/2013 delivery delivered 10/04/2013 01/06/2014 Maternal gonorrhea, antepartum 04/02/2013 11/25/201 4 Chlamydia trachomatis infection of lower genitourinary sites 04/02/2013 01/06/2014 Obese 04/01/2013 01/06/2014 documented as of this encounter (statuses as of 08/20/2019) Immunizations Name Administration Dates Next Due Influenza [...] Sign Reading Time Taken Comments Blood Pressure 142/85 08/19/2019 11:58 PM CDT Pulse 80 08/19/2019 11:58 PM CDT Temperature 37.5 C (99.5 F) 08/19/2019 11:58 PM CDT Respiratory Rate 18 08/19/2019 11:58 PM CDT Oxygen Saturation 99% 08/19/2019 11:58 PM CDT Inhaled Oxygen Concentration - - Weight 145.2 kg (320 lb) 08/19/2019 11:58 PM CDT Height - - Body Mass Index 50.12 04/23/2019 2:16 PM CDT documented in this encounter Discharge Instructions InstructionsStephany Dc, NATALI - 08/20/2019Avoid strenuous activity such as heavy lifting and exercise for the next few days, and avoid sexual intercourse or the use of tampons until your vaginal bleeding stops. Follow up with your OB in 2 daysfor repeat lab work. Take Tylenol as needed if you are having pain. Return to the ER if you feel like you are having heavy vaginal bleeding such as soaking 1-2 pads/hour or if you are having shortness of breath, severe abdominal pain or dizziness/lightheadedness with your bleeding. documented in this encounter Plan of Treatment Date Type Specialty Care Team Description 08/20/2019 Office Visit OB Satellites 3, Ang-Rmchp Room 08/20/2019 Initial Visit OB Satellites Mendosa Aubree ryan Mak, POLICY DIRECTOR [address] [place], [place] [address] [phone] Name Type Priority Associated Diagnoses Date/Ti me US FIRST IMAGING STAT Spotting during 2019 2:28 AM TRIMESTER LESS THAN 14 CDT WEEKS WITH TRANSVAGINAL Health Maintenance Due Date Last Done Comments PNEUMOCOCCAL 0-64 YEARS COMBINED 09/21/1993 SERIES (1 of 1 - PPSV23) INFLUENZA VACCINE (#1) 2019 10/15/2017 Depression Screening 12/11/2019 12/10/2018 PAP SMEAR 05/29/2021 05/29/2018, 03/02/2017, 04/01/2013, Additional history exists DTaP,Tdap,and Td Vaccines (4 - Td) 07/25/2027 07/24/2017, 0 10/06/2013, 02/12/2002 documented as of this encounter Procedures Procedure Name Priority Date/Time Associated Comments Diagnosis TOTAL BETA HCG ASSAY STAT 08/20/2019 1:16 Spotting during Results for this AM CDT procedure are i n the results section. COMP. METABOLIC PANEL STAT 08/20/2019 1:16 Spotting during Results for this (24571) AM CDT procedure are i n the results section. CBC WITH DIFFERENTIAL STAT 08/20/2019 12:20 Spotting during Results for this AM CDT procedure are i n the results section. URINALYSIS STAT 08/20/2019 12:20 Spotting during Results for this AM CDT procedure are i n the results section. CBC WITH DIFFERENTIAL STAT 08/20/2019 12:20 Spotting during Results for this AM CDT procedure are i n the results section. POCT TEST NIKI 08/20/2019 12:17 Spotting during R esults for this AM CDT procedure are i n the results section. ASSIGNMENT OF Routine 08/19/2019 11:50 BENEFITS PM CDT NOTICE OF PRIVACY Routine 08/19/2019 11:50 PRACTICES PM CDT CONSENT/REFUSAL FOR Routine 08/19/2019 11:49 DIAGNOSIS AND PM CDT TREATMENT documented in this encounter Results COMP. METABOLIC PANEL (06347) (08/20/2019 1:16 AM CDT) Pathologist [facility] NA 138 135 - 145 [facility] mmol/L [facility] K 4.3 3.5 - 5.0 [facility] mmol/L [facility] CL 110 (H) 98 - 108 mmol/L [facility] CO2 TOTAL 20 (L) 23 - 31 mmol/L [facility] AGAP 8 2 - 16 [facility] BUN 10 7 - 23 mg/dL [facility] GLUCOSE 96 70 - 110 mg/dL [facility] CREATININE 0.69 0.50 - 1.04 [facility] mg/dL [facility] TOTAL BILI 0.1 0.1 - 1.1 mg/dL [facility] CALCIUM 9.2 8.6 - 10.6 [facility] mg/dL [facility] T PROTEIN 7.2 6.3 - 8.2 g/dL [facility] ALBUMIN 3.9 3.5 - 5.0 g/dL [facility] ALK PHOS 62 34 - 122 U/L [facility] ALTv 12 5 - 35 U/L [facility] AST(SGOT) 18 13 - 40 U/L [facility] eGFR Calculation 99.2 mL/min/1.73m2 [facility] [place]) eGFR Calculation 120.3 mL/min/1.73m2 [facility] () [facility] Specimen Blood - VENOUS Narrative Performed At Association of Glomerular Filtration Rate (GFR) [facility] and Staging of Kidney Disease* + [...] abnormalities in imaging tests). Performing Organization Address [facility]/Zipcode Phone Number [facility] CLIA: [id number], [address] [place] [address] TOTAL BETA HCG ASSAY (08/20/2019 1:16 AM CDT) Pathologist Sig [employer] BETA HCG 10,153.00 Non- female [facility] and male patients: HOSPITAL LABORATORY <5 mIU/mL Specimen Blood - VENOUS Narrative Performed At [facility]ORY Gestational Age Range (mIU/mL) 1-10 Weeks [id number] 11-15 Weeks [id number] 16-22 Weeks [id number] 23-40 Weeks [id number] Biotin has been reported to cause a negative bias, interpret results relative to patient's use of biotin. Performing Organization Address [facility]/Zipcode Phone Number [facility] CLIA: [id number], [address] [place] [address] CBC WITH DIFFERENTIAL (08/20/2019 12:20 AM CDT) [facility] [employer] WBC 9.20 4.30 - 11.10 [facility] 10*3/L [facility] RBC 4.64 3.93 - 5.25 [facility] 10*6/L [facility] HGB 12.6 11.6 - 15.0 [facility] g/dL [facility] HCT 39.7 35.7 - 45.2 % [facility] MCV 85.6 80.6 - 95.5 fL [facility] MCH 27.2 25.9 - 32.8 pg [facility] MCHC 31.7 31.6 - 35.1 [facility] g/dL [facility] RDW-SD 45.0 39.0 - 49.9 fL [facility] RDW-CV 14.5 12.0 - 15.5 % [facility] PLT 283 166 - 358 [facility] 10*3/L HOSPITAL LABORATORY MPV 9.7 9.5 - 12.9 fL [facility] NRBC/100 WBC 0.0 0.0 - 10.0 /100 [facility] WBCs [facility] NRBC x10^3 <0.01 10*3/L [facility] GRAN MAT (NEUT) % 55.7 % [facility] IMM GRAN % 0.30 % [facility] LYMPH % 32.4 % [facility] MONO % 5.8 % [facility] EOS % 5.4 % [facility] BASO % 0.4 % [facility] GRAN MAT x10^3(ANC) 5.12 1.88 - 7.09 [facility] 10*3/uL HOSPITAL LABORATORY IMM GRAN x10^3 0.03 0.00 - 0.06 [facility] 10*3/uL HOSPITAL LAB[facility]ATORY LYMPH x10^3 2.98 1.32 - 3.29 [facility] 10*3/uL HOSPITAL LAB[facility]ATORY MONO x10^3 0.53 0.33 - 0.92 [facility] 10*3/uL HOSPITAL LAB[facility]ATORY EOS x10^3 0.50 (H) 0.03 - 0.39 [facility] 10*3/uL HOSPITAL LAB[facility]ORY BASO x10^3 0.04 0.01 - 0.07 [facility] 10*3/uL HOSPITAL LABORATORY Specimen Blood - VENOUS Performing Organization Address City/State/Zipcode Phone Number [facility] CLIA: [id number], [address] [place], [place] [address] URINALYSIS (08/20/2019 12:20 AM CDT) Pathologist Sig nature APPEARANCE Clear Clear [facility] COLOR Yellow Yellow [facility] PH 6.0 4.8 - 8.0 [facility] SP GRAVITY 1.024 1.003 - 1.030 [facility] GLU U QUAL Normal Normal [facility] BLOOD 1+ (A) Negative [facility] KETONES Negative Negative [facility] PROTEIN Negative Negative [facility] UROBILIN Normal Normal [facility] BILIRUBIN Negative Negative [facility] NITRITE Negative Negative [facility] LEUK BREANA Negative Negative [facility] RBC/HPF 14 (H) 0 - 3 HPF [facility] WBC/HPF 1 0 - 5 HPF [facility] BACTERIA Few (A) Negative [facility] MUCOUS Moderate (A) Negative LPF [facility] SQ EPITH 3 HPF [facility] Specimen Urine - URINE, CLEAN CATCH Performing Organization Address City/State/Zipcode Phone Number [facility] CLIA: [id number], [address] [place], [place] [address] POCT TEST (08/20/2019 12:17 AM CDT) Pathologist Sig nature POCT PREG positive On board controls acceptable present with C Line POCT PREG LOT # [id number] POCT PREG TEST DATE 09-11-2020 Specimen Urine - URINE, CLEAN CATCH documented in this encounter Visit Diagnoses Diagnosis Subchorionic hematoma, antepartum, singl e or unspecified fetus - Primary Spotting during Spotting complicating , unspeci fied as to episode of care or not applicable Vaginal bleeding during documented in this encounter Insurance Payer Benefit Plan / Subscriber ID Effective Phone Address T ype Group Dates FERNANDEZ PRESLEY xxxxxxxxx 2017-Bk [place] Medic [facility] [address] MANAGED MEDICAID [place] documented as of this encounter Advance Directives Name Relationship Healthcare Agent Communication Relationship Ramya Cherylosvaldo Sepulveda Mother Primary healthcare agent "
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
--- OUTSIDE RECORDS SUMMARY | 2019-11-05 19:05 | XMS REPORT | Summary of Care ---
:1985 Author Organization [facility] Address [address] [place] [address] Care Team Providers Name Role Phone Attema Medicaid Hmo Aubree Mendosa Primary Care Provider Attema Insurance Hmo Encounter Details Date Type Department Care Team Description 09/23/2019 Abstract [facility]- A Chuyita Keane, HOSPITAL LABORATORY TECHNICIAN [address] [facility] [address] [place] [address] [address] [place] [address] [phone] Allergies Active Allergy Reactions Severity Noted Date Comments Latex Swelling Medium 10/04/2013 Genital area sw elling and hives documented as of this encounter (statuses as of 09/23/2019) Medications Medication Sig Dispensed Refills Start Date End Date Status proMETHazine 25 mg Take 1 tablet by 30 tablet 1 09/15/2019 Active tabletIndications: mouth every 6 Nausea and vomiting in (six) hours as needed for Nausea and Vomiting (N/V). documented as of this encounter (statuses as of 09/23/2019) Active Problems Problem Noted Date History of [...] Yes 04/15/2020 Based on Ultrasound, [facility] in [facility] ER on 08/20/2019 documented as of this encounter (statuses as of 09/23/2019) Resolved Problems Problem Noted Date Resolved Date [...] examination 01/06/2014 03/02/2017 Overview: ICD10 Diagnosis Term Religious Education Teacher Utility HSV-2 (herpes simplex virus 2) infection 01/06/2014 09/15/2019 General counseling and advice for contraceptive management 1 03/08/2013 03/02/2017 Overview: ICD10 Diagnosis Term Religious Education Teacher Utility History of trauma 01/06/2014 09/18/2017 Anemia [...] as of this encounter (statuses as of 09/23/2019) Immunizations Name Administration Dates Next Due Influenza [...] Yes 04/15/2020 Based on Ultrasound, [facility] in [facility] ER on 08/20/2019 Sex Assigned at Date Recorded Not on file documented as of this encounter Last Filed Vital Signs Not on filedocumented in this encounter Plan of Treatment Health Maintenance Due Date Last Done Comments [...] Results Not on filedocumented in this encounter Insurance Payer Benefit Plan / Subscriber ID Effective Phone Address T [facility] Group Dates FERNANDEZ SNELLINA [id number] 2017-Bk [place] Medic [place] [id number] MANAGED MEDICAID [place] documented as of this encounter Advance Directives Name Relationship Healthcare Agent Communication Relationship Ramya Sepulveda Mother Health Care Agent
--- OUTSIDE RECORDS SUMMARY | 2019-11-05 19:05 | XMS REPORT | Summary of Care ---
:1985 Author Organization [facility] Address [address] [place] [address] Care Team Providers Name Role Phone Attema Medicaid Hmo Aubree Mendosa Primary Care Provider Attema Insurance Hmo Reason for Visit Reason Comments ULTRASOUND (Routine) Status Reason Specialty Diagnoses / Referred By Referred To Procedures Contact Contact Closed Maternal Diagnoses Supervision of high risk , antepartum Chuyita Mendosa Medicine Procedures CONSULT MATERNAL MEDICINE ULTRASOUND Preferred Location: ROCHELLE Perry [address] [place] [address] Encounter Details Date Type Department Care Team Description 2019 Imp[facility] e size-date discrepancy in first trimester; Ultrasound- Stephon Koutrouvelis, Uterine scar from previous c esarean delivery affecting [address] Lino Young MD [place], [place] [address] [facility] [id number] [place] [address] Allergies Active Allergy Reactions Severity Noted Date Comments Latex Swelling Medium 10/04/2013 Genital area sw elling and hives documented as of this encounter (statuses as of 2019) Medications Medication Sig Dispensed Refills Start Date End Date Status proMETHazine 25 mg Take 1 tablet by 30 tablet 1 09/15/2019 Active tabletIndications: mouth every 6 Nausea and vomiting in (six) hours as needed for Nausea and Vomiting (N/V). documented as of this encounter (statuses as of 2019) Active Problems Problem Noted Date History of [...] Yes 04/15/2020 Based on Ultrasound, [facility] in [facility] ER on 08/20/2019 documented as of this encounter (statuses as of 2019) Resolved Problems Problem Noted Date Resolved Date [...] examination 01/06/2014 03/02/2017 Overview: ICD10 Diagnosis Term Community Liaison Utility HSV-2 (herpes simplex virus 2) infection 01/06/2014 09/15/2019 General counseling and advice for contraceptive management 1 03/08/2013 03/02/2017 Overview: ICD10 Diagnosis Term Community Liaison Utility History of trauma 01/06/2014 09/18/2017 Anemia [...] as of this encounter (statuses as of 2019) Immunizations Name Administration Dates Next Due Influenza [...] Yes 04/15/2020 Based on Ultrasound, [facility] in [facility] ER on 08/20/2019 Sex Assigned [...] filedocumented in this encounter Visit Diagnoses Diagnosis Uterine size-date discrepancy in first t rimester Uterine size date discrepancy, antepartu m condition or complication Uterine scar from previous deli very affecting Previous delivery, unspecified as to episode of care or not applicable documented in this encounter Insurance Payer Benefit Plan / Subscriber ID Effective Phone Address T ype Group Dates FERNANDEZ PRESLEY [id number] 2017-Bk [address] Medic [place] [phone] MA[place]GED MEDICAID [place] documented as of this encounter Advance Directives Name Relationship Healthcare Agent Communication Relationship Ramyara Cheryl Watsonles Mother Health Care Agent
--- OUTSIDE RECORDS SUMMARY | 2019-11-05 19:05 | XMS REPORT | Summary of Care ---
:1985 Author Organization [facility] Address [address] [place] [address] Care Team Providers Name Role Phone Attema Medicaid Hmo Aubree Mendosa Primary Care Provider Attema Insurance Hmo Reason for Referral (Routine) Status Reason Specialty Diagnoses / Referred By Referred To Procedures Contact Contact New Request Maternal Diagnoses Supervision of high risk , antepartum Chuyita Mendosa Medicine Procedures CONSULT MATERNAL MEDICINE ULTRASOUND RROCHELLE [address] [place] [address] Reason for Visit Reason Comments ROUTINE VISIT Encounter Details Date Type Department Care Team Description 10/24/2019 Routine [facility] RMP- Chuyita Mendosa upervision of high risk , antepartum (Primary Dx); Visit Stephon RROCHELLE Previous delivery affecting pre gnancy, antepartum; [address] [place] [address] ; [address] [place] HSV-2 (herpes simplex virus 2) infection ; [place], [place] Multiparity; [phone] Nausea and vomiting in ; [phone] Bipolar 1 disorder; [phone] History of depr ession; (Fax) Morbid obesity; BMI 50.0-59.9, adult; Maternal tobacc o use in second trimester Allergies Active Allergy Reactions Severity Noted Date Comments Latex Swelling Medium 10/04/2013 Genital area sw elling and hives documented as of this encounter (statuses as of 10/24/2019) Medications Medication Sig Dispensed Refills Start Date End Date Status proMETHazine 25 mg Take 1 tablet 30 tablet 1 10/24/2019 Active tabletIndications: by mouth every Nausea and vomiting 6 (six) hours in as needed for Nausea and Vomiting (N/V). proMETHazine 25 mg Take 1 tablet 30 tablet 1 09/15/20192019 Discontinued tabletIndications: by mouth every Nausea and vomiting 6 (six) hours in as needed for Nausea and Vomiting (N/V). documented as of this encounter (statuses as of 10/24/2019) Active Problems Problem Noted Date Bipolar 1 disorder 10/24/2019 First trimester 10/24/2019 History of herpes genitalis 09/15/2019 History of depression 08/20/2019 BMI 50.0-59.9, adult 08/20/2019 Supervision of high risk , antepartum 018 Nausea and vomiting in 07/19/2017 Class 3 obesity due to excess calories [...] HSV-2 (herpes simplex virus 2) infection 01/06/2014 Chronic hypertension affecting 10/04/2013 Tobacco use disorder 04/01/2013 Estimated Date of Delivery Comments Yes 04/15/2020 Based on Ultrasound, [facility] in [facility] ER on 08/20/2019 documented as of this encounter (statuses as of 10/24/2019) Resolved Problems Problem Noted Date Resolved Date History of hypertension 08/20/2019 09/15/2019 care and [...] affecting in third trimester, 8 08/16/2017 antepartum Trichomonal vaginitis during 03/29/2017 0 09/15/2019 Chlamydia 03/05/2017 09/15/2019 Overview: NERIS neg Supervision of high risk , antepartum, first trimes ter 03/05/2017 05/07/2017 Depression 01/06/2014 09/18/2017 Screening for STDs (sexually transmitted diseases) 4 03/02/2017 Encounter for routine gynecological examination 01/06/2014 03/02/2017 Overview: ICD10 Diagnosis Term Hair Spinning Machine Operator Utility General counseling and advice for contraceptive management 1 03/08/2013 03/02/2017 Overview: ICD10 Diagnosis Term Hair Spinning Machine Operator Utility History of trauma 01/06/2014 09/18/2017 Anemia of mother in , condition 10/28/19 14 01/06/2014 HSV (herpes simplex virus) anogenital infection 10/04/2013 01/06/2014 Insufficient care 10/04/2013 10/10/2013 delivery delivered 10/04/2013 [...] as of this encounter (statuses as of 10/24/2019) Immunizations Name Administration Dates Next Due Influenza [...] Yes 04/15/2020 Based on Ultrasound, [facility] in [facility] ER on 08/20/2019 Sex Assigned at Date Recorded Not on file COVID-19 Exposure Response Date Recorded In the last month, have you been in contact with No / Unsure 10/24/2019 9:51 AM CDT someone who was confirmed or suspected to have Coronavirus / COVID-19? documented as of this encounter Last Filed Vital Signs Vital Sign Reading Time Taken Comments Blood Pressure 139/83 10/24/2019 9:51 AM CDT Pulse 87 10/24/2019 9:51 AM CDT Temperature 37.1 C (98.8 F) 10/24/2019 9:51 AM CDT Respiratory Rate 16 10/24/2019 9:51 AM CDT Oxygen Saturation - - Inhaled Oxygen Concentration - - Weight 155.4 kg (342 lb 9.6 oz) 10/24/2019 9:51 AM CDT Height 170.2 cm (5' 7") 10/24/2019 9:51 AM CDT Body Mass Index 53.66 10/24/2019 9:51 AM CDT documented in this encounter Progress Notes Chuyita Mendosa, ROCHELLE - 10/24/2019 9:15 AM CDT Chief complaint: Chief Complaint Patient presents with ROUTINE VISIT HPI CC: Follow Up Visit Paola Castano is a 34 year old, , Black or , /White female. Patient's last menstrual period was 07/12/2019 (approximate). She is 15w1d with an intrauterine . Her estimated date of delivery is 04/15/2020, by Ultrasound. She complains of nausea and vomiting. She reports +FM and denies contractions, LOF and bleeding today. Patient denies current or past physical, sexual or emotional abuse. Histories OB History Para Term AB Living [...] kg) F NORMAL SPONT EPIDURAL RAMILA 1 SAB 2005 Past Medical History: Diagnosis Date ADHD (attention deficit hyperactivity disorder) Bipolar 1 disorder Depression 01/06/2014 started on latuda managed by [facility] Genital herpes Hsv 2, no [...] Kaiser MD; Location: LABOR AND DELIVERY - ANNEX SECTION N/A 10/10/2017 Surgeon: Guicho Kaiser MD; Location: Labor and Delivery - [place] Social History Socioeconomic History Marital status: Spouse name: Not on file Number of children: Not on file Years of education: Not on file Highest education level: Not on file Occupational History Not on file Social Needs Financial resource strain: Not on file Food insecurity Worry: Not on file Inability: Not on file Transportation needs Medical: Not on file Non-medical: Not on [...] None Comment: last intercourse: 08/06/2019 Lifestyle Physical activity Days per week: Not on file Minutes per session: Not on file Stress: Not on file Relationships Social connections Talks on phone: Not on file Gets together: Not on file Attends jehovah's witness service: Not on file Active member of club or organization: Not on file Attends meetings of clubs or organizations: Not on file Relationship status: Not on file Intimate partner violence Fear of current or ex partner: Not on file Emotionally abused: Not on file Physically abused: Not on file Forced sexual activity: Not on file Other Topics Concern Not on file Social History Narrative Pt denies current or physical, sexual or emotional abuse. Pt states she feels safe at home. No pets in the home. Shinto preference Hinduism. Patient lives with two children. Social History Substance and Sexual Activity Sexual Activity Yes Partners: Male control/protection: None Comment: last intercourse: 08/06/2019 Labs Labs are pending. Radiology Radiology pending. Allergies Paola is allergic to latex. Medications Paola has a current medication list which includes the following prescription(s): promethazine. Review of Systems Constitutional: Negative for activity change, appetite change, fatigue, unexpected weight change, weight gain and weight loss. HENT: Negative for sore throat. Eyes: Negative for visual disturbance. Respiratory: Negative for cough and shortness of breath. Breasts: Negative for discharge, mass, pain and unequal size. Cardiovascular: Negative for chest pain, palpitations and leg swelling. Gastrointestinal: Positive for nausea and vomiting. Negative for abdominal pain, anal bleeding, blood in stool, constipation, diarrhea and rectal pain. Genitourinary: Negative for bladder incontinence, dysuria, urgency, [...] intolerance, weight gain and weight loss. BP 139/83 (BP Location: Right arm, Patient Position: Sitting, BP CUFF SIZE: Adult Medium) | Pulse 87 | Temp 37.1 C (98.8 F) (Oral) | Resp 16 | Ht 5' 7" (1.702 m) | Wt 342 lb 9.6 oz (155.4 kg)| LMP 07/12/2019 (Approximate) | BMI 53.66 kg/m Pregravid BMI: 52.93 Physical Exam PHYSICAL: General Exam: Neurological: Normal Abdomen: Normal Extremities: Normal Pelvic Exam: Uterus: 16cm Weeks Assessment/Plan Supervision of high risk , antepartum (primary encounter diagnosis) Previous delivery affecting , antepartum Second trimester HSV-2 (herpes simplex virus 2) infection Multiparity Comment: Routine Visit Plan: POCT URINALYSIS W SPECIFIC GRAVITY, CONSULT MATERNAL MEDICINE ULTRASOUND, QUAD SCRN Denies zika virus risk, signs and symptoms such as fever,rash,joint pain, conjunctivitis (red eyes), muscle pain, headaches; outside [place] travel to areas affected by zika, and FOB exposure to zika.Educated on use of mosquito repellent. Covid x12 screening done, screening results are negative. Nausea and vomiting in Comment: patient still complains if symptoms Plan: Phenergan ordered Bipolar 1 disorder History of depression Comment: patient denies complains at this visit Plan: will continue to monitor Morbid obesity BMI 50.0-59.9, adult Comment: BMI: 53.66 Plan: Patient encouraged to limit weight gain and advised to eat healthy diet, fruits, vegetables, increased fiber and water intake and protein low in fat. Encouraged exercise for 30 min everyday; begin regimen with caution to prevent injury. Encouraged to decrease BMI to <25. Maternal tobacco use in second trimester Comment: current smoker Plan: smoking cessation discussed. Return to clinic in 4 weeks. Discussed treatment options. Medications as ordered. Reviewed patient instructions and provided printed copy. This visit did not involve counseling and coordination that comprised more than 50% of the visit time. ROCHELLE Matt 10/24/2019 10:27 AM documented in this encounter Plan of Treatment Name Type Priority Associated Diagnoses Order S chedule QUAD SCRN LAB Routine Supervision of high risk Exp ected: 10/24/2019, , antepartum s: 10/23/2020 Health Maintenance Due Date Last Done Comments [...] Name Priority Date/Time Associated Diagnosis Comme nts POCT URINALYSIS Routine 10/24/2019 Supervision of high risk Results for this , antepartum proced ure are in the results section . documented in this encounter Results POCT URINALYSIS W SPECIFIC GRAVITY (10/24/2019) Pathologist Sig nature POCT U SP GRAV . 1.005 - 1.025 mg/dl POCT PH U . 5 - 8 mg/dl POCT U LEUK EST . Negative - Negative POCT U NIT . Negative - Negative POCT U PROT trace Negative - Negative POCT U GLU neg Negative - Negative POCT U KETONE . Negative - Negative POCT U UROBILI . 0.2 - 1 mg/dl POCT U BILI . Negative - Negative POCT U BLD . Negative - Negative POCT U COLOR POCT U APPEAR Specimen Urine - URINE, CLEAN CATCH documented in this encounter Visit Diagnoses Diagnosis Supervision of high risk , ante - Primary Previous delivery affecting pre gnancy, antepartum Previous delivery, antepartum c ondition or complication Second trimester HSV-2 (herpes simplex virus 2) infection Herpes simplex without mention of compli cation Multiparity Nausea and vomiting in Unspecified vomiting of , unspe cified as to episode of care Bipolar 1 disorder Bipolar I disorder, most recent episode (or current) unspecified History of depression Personal history of other mental disorde r Morbid obesity BMI 50.0-59.9, adult Body Mass Index 50.0-59.9, adult Maternal tobacco use in second trimester documented in this encounter Insurance Payer Benefit Plan / Subscriber ID Effective Phone Address T e Group Dates FERNANDEZ PRESLEY [id number] 2017-Bk [place] [facility] [place] [address] MANAGED MEDICAID [place], [place]ICAID [place] documented as of this encounter Advance Directives Name Relationship Healthcare Agent Communication Relationship Ramya Sepulveda Mother Health Care Agent
--- OUTSIDE RECORDS SUMMARY | 2019-11-05 19:06 | XMS REPORT | Summary of Care ---
:1985 Author Organization [facility] Address [address] [place] [address] Care Team Providers Name Role Phone Attema Medicaid Hmo Aubree Mendosa Primary Care Provider Attema Insurance Hmo Reason for Referral (Routine) Status Reason Specialty Diagnoses / Referred By Referred To Procedures Contact Contact New Request Maternal Diagnoses Supervision of high risk , antepartum Chuyita Mendosa Medicine Procedures CONSULT MATERNAL MEDICINE ULTRASOUND RROCHELLE [address] [place] [address] Reason for Visit Reason Comments ROUTINE VISIT Encounter Details Date Type Department Care Team Description 10/24/2019 Routine [facility] RMP- Chuyita Mendosa upervision of high risk , antepartum (Primary Dx); Visit Stephon RROCHELLE Previous delivery affecting pre gnancy, antepartum; [address] [place] [address] ; [address] [place] HSV-2 (herpes simplex virus 2) infection ; [place], [place]; [phone] Nausea and vomiting in ; [phone] Bipolar 1 disorder; [phone] History of depr ession; (Fax) Morbid obesity; [...] Yes 04/15/2020 Based on Ultrasound, [facility] in [facility] ER on 08/20/2019 documented as of this [...] examination 01/06/2014 03/02/2017 Overview: ICD10 Diagnosis Term Friction Saw Operator Utility General counseling and advice for contraceptive management 1 03/08/2013 03/02/2017 Overview: ICD10 Diagnosis Term Friction Saw Operator Utility History of trauma 01/06/2014 09/18/2017 [...] Yes 04/15/2020 Based on Ultrasound, [facility] in [facility] ER on 08/20/2019 Sex Assigned at Date [...] 01/06/2014 started on latuda managed by [facility] Genital herpes Hsv 2, no outbreak [...] Kaiser MD; Location: Labor and Delivery - [place] Social History Socioeconomic History Marital status: Spouse [...] at home. No pets in the home. Hinduism preference Pentecostalism. Patient lives with two children. Social History [...] Address T e Group Dates FERNANDEZ PRESLEY [id number] 2017-[place] [address] MANAGED MEDICAID [place] documented as of this encounter Advance Directives Name Relationship Healthcare Agent Communication Relationship Ramya Sepulveda Mother Health Care Agent
--- OUTSIDE RECORDS SUMMARY | 2019-11-05 19:06 | XMS REPORT | Summary of Care ---
:1985 Author Organization [facility] Address [address] [place] [address] Care Team Providers Name Role Phone Attema Medicaid Hmo Aubree Mendosa Primary Care Provider Attema Insurance Hmo Reason for Visit Reason Comments Abdominal Pain Vomiting Auth/Cert Status Reason Specialty Diagnoses / Referred By Referred To Procedures Contact Contact Emergency Medicine Diagnoses 15WK ABDOMINAL PAIN [facility] [address] [place] [address] Fax: Encounter Details Date Type Department Care Team Description 10/28/2019 Emergency [facility] Kirill Iverson MD [address] [phone] Nausea and vomiting in (Primar y Dx); Department Moraima Woodward EMNP [address] [id number] Reducible umbilical hernia [address] [facility] [address] [place], [place] [phone] Allergies Active Allergy Reactions Severity Noted Date Comments Latex Swelling Medium 10/04/2013 Genital area sw elling and hives documented as of this encounter (statuses as of 10/28/2019) Medications Medication Sig Dispensed Refills Start Date End Date Status proMETHazine 25 mg Take 1 tablet by 30 tablet 1 10/24/2019 Active tabletIndications: mouth every 6 Nausea and vomiting in (six) hours as needed for Nausea and Vomiting (N/V). multivitamin Take 1 tablet by 0 Active tablet mouth daily. lurasidone (LATUDA) 20 Take 1 tablet by 0 Active mg tablet mouth daily. documented as of this encounter (statuses as of 10/28/2019) Active Problems Problem Noted Date Bipolar 1 [...] Yes 04/15/2020 Based on Ultrasound, [facility] in [facility] ER on 08/20/2019 documented as of this encounter (statuses as of 10/28/2019) Resolved Problems Problem Noted Date Resolved Date [...] examination 01/06/2014 03/02/2017 Overview: ICD10 Diagnosis Term Systems Developer Utility General counseling and advice for contraceptive management 1 03/08/2013 03/02/2017 Overview: ICD10 Diagnosis Term Systems Developer Utility History of trauma 01/06/2014 09/18/2017 Anemia [...] as of this encounter (statuses as of 10/28/2019) Immunizations Name Administration Dates Next Due Influenza [...] Yes 04/15/2020 Based on Ultrasound, [facility] in [facility] ER on 08/20/2019 Sex Assigned at Date Recorded Not on file COVID-19 Exposure Response Date Recorded In the last month, have you been in contact with No / Unsure 10/28/2019 12:55 AM CDT someone who was confirmed or suspected to have Coronavirus / COVID-19? documented as of this encounter Last Filed Vital Signs Vital Sign Reading Time Taken Comments Blood Pressure 146/83 10/28/2019 1:04 AM CDT Pulse 93 10/28/2019 1:04 AM CDT Temperature 37.3 C (99.1 F) 10/28/2019 1:04 AM CDT Respiratory Rate 12 10/28/2019 1:04 AM CDT Oxygen Saturation 98% 10/28/2019 1:04 AM CDT Inhaled Oxygen Concentration - - Weight 155.1 kg (342 lb) 10/28/2019 1:04 AM CDT Height - - Body Mass Index 53.56 10/24/2019 9:51 AM CDT documented in this encounter Discharge Instructions Moraima Gonzalez EMNP - 10/28/2019NO LIFE-THREATENING FINDINGS ON TODAY'S EXAM. SPECIAL INSTRUCTIONS: 1. Continue phenergan as previously prescribed 2. George soft diet 3. Follow up with your OBGYN 4. As far as your hernia, it is likely to get worse as your develops, recommend holding area firmly when getting up, sitting up or even having bowel movement. Address your hernia with your OBGYN as needed. FOLLOW-UP RECOMMENDATIONS: RECOMMEND FOLLOW-UP WITH A PRIMARY CARE PROVIDER OR SPECIALIST IN 2-5 DAYS, ESPECIALLY IF NO IMPROVEMENT IN SYMPTOMS. TO FOLLOW-UP WITHIN THE [facility], TRY THESE OPTIONS (CLINIC APPOINTMENTS AVAILABLE ON [id number] BASIS): 1. SCHEDULE AN APPOINTMENT ONLINE AT WWW.[facility] 2. OR CALL THE [facility]ESS [facility] AT OR 3. OR CALL YOUR [facility] PHYSICIAN'S OFFICE DIRECTLY IF YOU ARE ALREADY AN ESTABLISHED [facility] PATIENT. OR, YOU MAY FOLLOW-UP WITH A PROVIDER OF YOUR CHOICE, SUCH : 1. A PHYSICIAN OF YOUR CHOICE 2. [facility], . LOCATIONS IN [facility] 3. [facility], [address] [place], [place]; [phone] RETURN TO ER FOR WORSENING OF SYMPTOMS. AttachmentsThe following attachments cannot be sent through Care Everywhere. Vomiting or Diarrhea (Adult), Diet for (Azerbaijani)Vomiting and Diarrhea,Self- Care for (Azerbaijani)Hernia (Adult) (Azerbaijani)documented in this encounter ED Notes Glen Ruiz RN - 10/28/2019 1:01 AM CDTReason for ED visit: Pt presents with c/o abd pain, that started at 7am yesterday (10/27/2019). Pt states she has a hernia, and she "tried to push it in." Pt states she has been vomiting as well. Pt is 15 weeks , G85P, EDC: 04/15/2020, patient's OB is [facility]. PMH: HTN, umbilical hernia Meds: PNV, latuda Previous treatment: Tylenol 1g, 5 hours SILO TENDER documented in this encounter Miscellaneous Notes ED Nurse Note - Glen Ruiz RN - 10/28/2019 2:06 AM CDTPt is alert and follows commands. Written instructions were printed and reviewed with the patient. No new prescriptions were given. Instructed patient to return if symptoms became worse. Pt verbalized understanding and discharge sheet was signed. documented in this encounter Plan of Treatment Date Type Specialty Care Team Description 11/20/2019 Routine Visit OB Myahs Chuyita Mendosa, LOG FEEDER [address] [place], [place] [address] [phone] 11/27/2019 Balance Sheet Analyst Visit Maternal Medicine Health Maintenance Due Date Last Done Comments [...] Procedure Name Priority Date/Time Associated Comments Diagnosis URINALYSIS STAT 10/28/2019 1:20 AM Nausea and vomiting R esults for this CDT in procedure are i n the results section. NOTICE OF PRIVACY Routine 10/28/2019 12:58 AM PRACTICES CDT CONSENT/REFUSAL FOR Routine 10/28/2019 12:57 AM DIAGNOSIS AND CDT TREATMENT documented in this encounter Results URINALYSIS (10/28/2019 1:20 AM CDT) Pathologist Sig nature APPEARANCE Cloudy (A) Clear [facility] COLOR Yellow Yellow [facility] PH 6.0 4.8 - 8.0 [facility] SP GRAVITY 1.027 1.003 - 1.030 [facility] GLU U QUAL Normal Normal [facility] BLOOD Negative Negative [facility] KETONES 5 mg/dL (A) Negative [facility] PROTEIN 30 mg/dL (A) Negative [facility] UROBILIN Normal Normal [facility] BILIRUBIN Negative Negative [facility] NITRITE Negative Negative [facility] LEUK BREANA 75/uL (A) Negative [facility] RBC/HPF 7 (H) 0 - 3 HPF [facility] WBC/HPF 10 (H) 0 - 5 HPF [facility] BACTERIA Few (A) Negative [facility] MUCOUS Slight (A) Negative LPF [facility] SQ EPITH 21 HPF [facility] Specimen Urine - URINE, CLEAN CATCH Performing Organization Address City/State/Zipcode Phone Number [facility] CLIA: [id number] [place] [address] documented in this encounter Visit Diagnoses Diagnosis Nausea and vomiting in - Prima ry Unspecified vomiting of , unspe cified as to episode of care Reducible umbilical hernia documented in this encounter Administered Medications Medication Order MAR Action Action Date Dose Rate Site proMETHazine (PHENERGAN) tablet 25 Given 10/28/2019 1:19 AM CDT 25 mg mg 25 mg, Oral, ONCE, 1 dose, 10/28/19 at 0230, NIKI documented in this encounter Insurance Payer Benefit Plan / Subscriber ID Effective Phone Address T ype Group Dates FERNANDEZ PRESLEY [id number] 2017-Bk [address] [facility] [place] [address] MA[place]GED MEDICA[place] documented as of this encounter Advance Directives Name Relationship Healthcare Agent Communication Relationship Ramya Sepulveda Mother Health Care Agent
--- OUTSIDE RECORDS SUMMARY | 2019-11-05 19:06 | XMS REPORT | Summary of Care ---
:1985 Author Organization [facility] Address [address] [place] [address] Care Team Providers Name Role Phone Attema Medicaid Hmo Aubree Mendosa Primary Care Provider Attema Insurance Hmo Reason for Referral (Routine) Status Reason Specialty Diagnoses / Referred By Referred To Procedures Contact Contact New Request Maternal Diagnoses Supervision of high risk , antepartum Chuyita Mendosa Medicine Procedures CONSULT MATERNAL MEDICINE ULTRASOUND RROCHELLE [address] [place] [address] Reason for Visit Reason Comments ROUTINE VISIT Encounter Details Date Type Department Care Team Description 10/24/2019 Routine [facility] RMP- Chuyita Mendosa upervision of high risk , antepartum (Primary Dx); Visit Stephon RROCHELLE Previous delivery affecting pre gnancy, antepartum; [address] [place] [address] ; [address] [place] HSV-2 (herpes simplex virus 2) infection ; [place], [place]; [phone] Nausea and vomiting in ; [phone] Bipolar 1 disorder; [phone] History of depr ession; (Fax) Morbid obesity; [...] Yes 04/15/2020 Based on Ultrasound, [facility] in [facility] on 08/20/2019 documented as of this [...] examination 01/06/2014 03/02/2017 Overview: ICD10 Diagnosis Term Counter Attendant Utility General counseling and advice for contraceptive management 1 03/08/2013 03/02/2017 Overview: ICD10 Diagnosis Term Counter Attendant Utility History of trauma 01/06/2014 09/18/2017 Anemia [...] Yes 04/15/2020 Based on Ultrasound, [facility] in [facility] on 08/20/2019 Sex Assigned at Date [...] latuda managed by [facility] Genital herpes Hsv 2, no outbreak [...] Kaiser MD; Location: Labor and Delivery - [place] Social History Socioeconomic History Marital status: Spouse [...] file Gets together: Not on file Attends advent service: Not on file Active member of [...] at home. No pets in the home. [employer] preference [employer]. Patient lives with two children. Social History [...] Care Team Description 11/20/2019 Routine Visit [facility] Satellites Aubree Mendosa FNP [address] [place], [place] [address] [phone] Name Type Priority Associated Diagnoses Date/Ti me QUAD SCRN LAB Routine Supervision of high risk pre gnancy, 10/24/2019 10:43 AM CDT antepartum Name Type Priority Associated Diagnoses Order S [...] Plan / Subscriber ID Effective Phone Address [facility] Dates FERNANDEZ PRESLEY [id number] 2017-Bk [place] [address] Medic [place] [id number] MANAGED MEDICAID [place], [place] documented as of this encounter Advance Directives Name Relationship Healthcare Agent Communication Relationship Ramya Sepulveda Mother Health Care Agent
--- OUTSIDE RECORDS SUMMARY | 2019-11-05 19:06 | XMS REPORT | Summary of Care ---
:1985 Author Organization [facility] Address [address] [place] [address] Care Team Providers Name Role Phone Attema Medicaid Hmo Aubree Mendosa Primary Care Provider Attema Insurance Hmo Reason for Referral (Routine) Status Reason Specialty Diagnoses / Referred By Referred To Procedures Contact Contact New Request Maternal Diagnoses Supervision of high risk , antepartum Chuyita Mendosa Medicine Procedures CONSULT MATERNAL MEDICINE ULTRASOUND RROCHELLE [address] [place] [address] Reason for Visit Reason Comments ROUTINE VISIT Encounter Details Date Type Department Care Team Description 10/24/2019 Routine [facility] RMP- Chuyita Mendosa upervision of high risk , antepartum (Primary Dx); Visit Stephon RROCHELLE Previous delivery affecting pre gnancy, antepartum; [address] [place] [address] ; [address] [place] HSV-2 (herpes simplex virus 2) infection ; [place], [place]; [phone] Nausea and vomiting in ; [phone] Bipolar 1 disorder; [phone] History of depr ession; (Fax) Morbid obesity; [...] Yes 04/15/2020 Based on Ultrasound, [facility] in [facility] on 08/20/2019 documented as [...] examination 01/06/2014 03/02/2017 Overview: ICD10 Diagnosis 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 General counseling and advice for contraceptive management 1 03/08/2013 03/02/2017 Overview: ICD10 Diagnosis 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 No pets in the home. Jewish preference Bahai. Patient lives with two children. Social History [...] OB Satellites Aubree Mendosa FNP [address] [place], [place] [address] [phone] Name Type Priority Associated Diagnoses Date/Ti me [...] Plan / Subscriber ID Effective Phone Address [facility] Dates FERNANDEZ PRESLEY [id number] 2017-Bk [place] [address] Medic [place] [id number] MANAGED MEDICAID [place] documented as of this encounter Advance Directives Name Relationship Healthcare Agent Communication Relationship Ramya Sepulveda Mother Health Care Agent
[2019-11-05] MEDS ORDERED: NA CHLORIDE 0.9% 1,000 ML ONE (20:03)
[2019-11-05 20:15] LABS: Absolute Lymphocytes (CBC) 1.8 K/uL (0.7-4.9); Basophils % 0.5 % (0-1.3); Hematocrit 35.9 % (36.0-45.0); MPV 7.9 fL (7.6-11.3); RBC Red Blood Cell Count 4.29 M/uL (3.86-4.86)
--- NOTE | 2019-11-05 20:25 | RAD REPORT ---
EXAM DESCRIPTION: CT - Head Brain Wo Cont - 11/05/2019 8:13 pm CLINICAL HISTORY: HEADACHE Headache, drowsiness COMPARISON: HEAD BRAIN W O CONTRAST dated 02/17/2007 TECHNIQUE: All CT scans are performed using dose optimization technique as appropriate and may inclu de automated exposure control or mA/KV adjustment according to patient size. FINDINGS: No intracranial hemorrhage, hydrocephalus or extra-axial fluid collection.No areas of brai n edema or evidence of midline shift. The paranasal sinuses and mastoids are clear. The calvarium is intact. IMPRESSION: No acute intracranial abnormality.
[2019-11-05 20:46] LABS: BUN Blood Urea Nitrogen 6 mg/dL (7-18); Bicarbonate 22 mmol/L (21-32); Glucose Level 85 mg/dL (74-106); HCG, Quantitative 16097 mIU/mL (1-3); Potassium 3.7 mmol/L (3.5-5.1); Sodium Level 139 mmol/L (136-145)
--- NOTE | 2019-11-05 20:47 | RAD REPORT ---
EXAM DESCRIPTION: US - OB Limited - 11/05/2019 8:32 pm CLINICAL HISTORY: ABD CRAMPING, age. COMPARISON: OBSTETRICAL COMPLETE dated 04/28/2010 FINDINGS: A limited examination was requested by the ER. A single variable presenting gestation is identified. Heart rate normal. The estimated gestational a ge (EGA) is 18 weeks 0 days with an USHA of04/07/2020. The placenta is grade 1, anterior in location. The maternal adnexa show no worrisome findings.
--- NOTE | 2019-11-05 21:33 | ER ---
Nurse's Notes [facility] Name: Paola Castano Age: 34 yrs Sex: Female : 1985 Arrival Date: 11/05/2019 Time: 19:13 Bed 8 Private MD: Diagnosis: related conditions, unspecified, second trimester;Headache;Obesity, unspecified;Urinary tract infection, site not specified Presentation: 11/04 19:13 Chief complaint: EMS states: Pt reports having a migraine with nausea and vomiting. Pt jb4 vomited one time at the [facility]. Has not vomited since being with us. Is 17 weeks and is high risk due to her high blood pressure. 19:13 Coronavirus screen: Client denies travel out of the [place] in the last 14 days. Client carlos alberto presents with at least one sign or symptom that may indicate coronavirus-19. Standard/surgical mask placed on the client. Ebola Screen: No symptoms or risks identified at this time. 19:13 Method Of Arrival: EMS: [facility] 19:13 Initial Sepsis Screen: Does the patient meet any 2 criteria? No. Patient's initial jb4 sepsis screen is negative. Does the patient have a suspected source of infection? No. Patient's initial sepsis screen is negative. 19:13 Risk Assessment: Do you want to hurt yourself or someone else? Patient reports no jb4 desire to harm self or others. Onset of symptoms was November 05, 2019. Transition of care: patient was not received from another setting of care. 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 - Social history:: Smoking status: Patient reports the use of cigarette tobacco products, 4-5 cigarettes per day., Patient/guardian denies using alcohol, street drugs. Screenin:13 Abuse screen: Denies threats or abuse. Nutritional screening: No deficits noted. jb4 Tuberculosis screening: No symptoms or risk factors identified. Fall Risk None identified. Assessment: 19:13 General: Appears in no apparent distress. uncomfortable, Behavior is calm, cooperative, jb4 appropriate for age. Pain: Complains of pain in Headache Pain does not radiate. Pain currently is 6 out of 10 on a pain scale. Quality of pain is described as throbbing. Neuro: Level of Consciousness is awake, alert, obeys commands, Oriented to person, place, time, situation. Cardiovascular: Patient's skin is warm and dry. Respiratory: Airway is patent Respiratory effort is even, unlabored, Respiratory pattern is regular, symmetrical. GI: Reports nausea, vomiting. : No signs and/or symptoms were reported regarding the genitourinary system. EENT: No signs and/or symptoms were reported regarding the EENT system. Derm: Skin is intact, Skin is pink, warm \T\ dry. Musculoskeletal: Circulation, motion, and sensation intact. Range of motion: intact in all extremities. 20:30 Reassessment: Patient appears in no apparent distress at this time. Patient and/or jb4 family updated on plan of care and expected duration. Pain level reassessed. Patient is alert, oriented x 3, equal unlabored respirations, skin warm/dry/pink. Pt denies nausea at this time. 21:48 Reassessment: Patient appears in no apparent distress at this time. Patient and/or jb4 family updated on plan of care and expected duration. Pain level reassessed. Patient is alert, oriented x 3, equal unlabored respirations, skin warm/dry/pink. Pt reports and increase in nausea, provider notified, no new orders at this time. Vital Signs: 19:13 BP 130 / 66; Pulse 75; Resp 16; Temp 98.4(TE); Pulse Ox 99% on R/A; Weight 155.13 kg jb4 (R); Height 5 ft. 7 in. (170.18 cm) (R); Pain 6/10; 20:30 BP 118 / 59; Pulse 69; Resp 16; Pulse Ox 100% on R/A; jb4 21:50 BP 119 / 58; Pulse 71; Resp 16; Pulse Ox 100% on R/A; jb4 19:13 Body Mass Index 53.56 (155.13 kg, 170.18 cm) jb4 Mj Coma Score: 19:40 Eye Response: spontaneous(4). Verbal Response: oriented(5). Motor Response: obeys [facility] commands(6). Total: 15. ED Course: 19:13 Patient arrived in ED. jb4 19:13 Milad Israel, RN is Primary Nurse. jb4 19:13 Arm band placed on right wrist. jb4 19:13 Patient has correct armband on for positive identification. Bed in low position. Call jb4 light in reach. Side rails up X 1. Pulse ox on. NIBP on. 19:26 Juan Castro MD is Attending Physician. [facility] 19:37 Triage completed. jb4 20:00 Initial lab(s) drawn, by nj, sent to lab. Inserted saline lock: 20 gauge in right jb4 antecubital area, using aseptic technique. Blood collected. 20:13 CT Head Brain wo Cont In Process Unspecified. EDMS 20:32 US OB Limited In Process Unspecified. EDMS 21:32 Cristiano Nair MD is Referral Physician. agustin 21:43 Urine Dipstick--Ancillary (enter results) Sent. ds4 22:04 Urine Dipstick--Ancillary (enter results) Sent. ds4 22:04 Urine Culture Sent. ds4 22:15 No provider procedures requiring assistance completed. IV discontinued, intact, jb4 bleeding controlled, No redness/swelling at site. Pressure dressing applied. Administered Medications: 20:00 Drug: NS 0.9% 1000 ml Route: IV; Rate: 1 bolus; Site: right antecubital; jb4 22:00 Follow up: Response: No adverse reaction; IV Status: Completed infusion; IV Intake: jb4 1000ml 21:56 Drug: Rocephin 1 grams Route: IV; Rate: per protocol; Site: right antecubital; jb4 22:13 Follow up: Response: No adverse reaction; IV Status: Completed infusion jb4 22:10 Drug: Zofran (Ondansetron) 4 mg Route: IVP; Site: right antecubital; jb4 22:13 Follow up: Response: No adverse reaction; Medication administered at discharge. jb4 Intake: 22:00 IV: 1000ml; Total: 1000ml. jb4 Outcome: 21:33 Discharge ordered by . agustin 22:15 Discharged to Law Enforcement jb4 22:15 Condition: stable 22:15 Discharge instructions given to patient, police, Instructed on discharge instructions, follow up and referral plans. medication usage, Demonstrated understanding of instructions, follow-up care, medications, Prescriptions given X 3. 22:15 Patient left the ED. jb4 Signatures: Dispatcher [employer] EDFL Juan Castro MD MD cha Swanson, Donovan ds4 Milad Israel, RN RN jb4
--- NOTE | 2019-11-05 21:34 | EDPHYS ---
Physician Documentation [facility] Name: Paola Castano Age: 34 yrs Sex: Female : 1985 Arrival Date: 11/05/2019 Time: 19:13 Bed 8 Private MD: ED Physician Juan Castro HPI: 11/04 19:40 This 34 yrs old Black Female presents to ER via EMS with complaints of headache, and agustin left pelvic pain. 19:40 The patient complains of pain to the forehead, left frontal area, left side of the back agustin of head, left side of forehead, left temporal area, right frontal area, right temporal area and right side of forehead. The patient describes the headache as a pressure. Onset: The symptoms/episode began/occurred just prior to arrival. The patient presents to the emergency department with abdominal pain. The estimated gestational age is 17 weeks. course: care: at a clinic, Leakage of Fluid: none appreciated, Ultrasound: the patient has not had an ultrasound. Associated signs and symptoms: Pertinent positives: abdominal pain. 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 - Social history:: Smoking status: Patient reports the use of cigarette tobacco products, 4-5 cigarettes per day., Patient/guardian denies using alcohol, street drugs. ROS: 19:40 Constitutional: Negative for fever, chills, and weight loss, Eyes: Negative for injury, agustin pain, redness, and discharge, ENT: Negative for injury, pain, and discharge, Neck: Negative for injury, pain, and swelling, Cardiovascular: Negative for chest pain, palpitations, and edema, Respiratory: Negative for shortness of breath, cough, wheezing, and pleuritic chest pain, Back: Negative for injury and pain, : Negative for injury, bleeding, discharge, and swelling, MS/Extremity: Negative for injury and deformity, Skin: Negative for injury, rash, and discoloration, Neuro: Negative for headache, weakness, numbness, tingling, and seizure, Psych: Negative for depression, anxiety, suicide ideation, homicidal ideation, and hallucinations, Allergy/Immunology: Negative for hives, rash, and allergies, Endocrine: Negative for neck swelling, polydipsia, polyuria, polyphagia, and marked weight changes, Hematologic/Lymphatic: Negative for swollen nodes, abnormal bleeding, and unusual bruising. 19:40 Abdomen/GI: Positive for abdominal distension. Exam: 19:40 Constitutional: This is a well developed, well nourished patient who is awake, alert, agustin and in no acute distress. Head/Face: Normocephalic, atraumatic. Eyes: Pupils equal round and reactive to light, extra-ocular motions intact. Lids and lashes normal. Conjunctiva and sclera are non-icteric and not injected. Cornea within normal limits. Periorbital areas with no swelling, redness, or edema. ENT: Nares patent. No nasal discharge, no septal abnormalities noted. Tympanic membranes are normal and external auditory canals are clear. Oropharynx with no redness, swelling, or masses, exudates, or evidence of obstruction, uvula midline. Mucous membranes moist. Neck: Trachea midline, no thyromegaly or masses palpated, and no cervical lymphadenopathy. Supple, full range of motion without nuchal rigidity, or vertebral point tenderness. No Meningismus. Chest/axilla: Normal chest wall appearance and motion. Nontender with no deformity. No lesions are appreciated. Cardiovascular: Regular rate and rhythm with a normal S1 and S2. No gallops, murmurs, or rubs. Normal PMI, no JVD. No pulse deficits. Respiratory: Lungs have equal breath sounds bilaterally, clear to auscultation and percussion. No rales, rhonchi or wheezes noted. No increased work of breathing, no retractions or nasal flaring. Back: No spinal tenderness. No costovertebral tenderness. Full range of motion. Female : Normal external genitalia. Skin: Warm, dry with normal turgor. Normal color with no rashes, no lesions, and no evidence of cellulitis. MS/ Extremity: Pulses equal, no cyanosis. Neurovascular intact. Full, normal range of motion. Neuro: Awake and alert, GCS 15, oriented to person, place, time, and situation. Cranial nerves II-XII grossly intact. Motor strength 5/5 in all extremities. Sensory grossly intact. Cerebellar exam normal. Normal gait. Psych: Awake, alert, with orientation to person, place and time. Behavior, mood, and affect are within normal limits. 19:40 Abdomen/GI: Inspection: distension, gravid appearance, is noted, Bowel sounds: normal, Palpation: mild abdominal tenderness, in the left lower quadrant, Liver: Hernia: not appreciated. Vital Signs: 19:13 BP 130 / 66; Pulse 75; Resp 16; Temp 98.4(TE); Pulse Ox 99% on R/A; Weight 155.13 kg jb4 (R); Height 5 ft. 7 in. (170.18 cm) (R); Pain 6/10; 20:30 BP 118 / 59; Pulse 69; Resp 16; Pulse Ox 100% on R/A; jb4 21:50 BP 119 / 58; Pulse 71; Resp 16; Pulse Ox 100% on R/A; jb4 19:13 Body Mass Index 53.56 (155.13 kg, 170.18 cm) jb4 Mj Coma Score: 19:40 Eye Response: spontaneous(4). Verbal Response: oriented(5). Motor Response: obeys agustin commands(6). Total: 15. MDM: 19:26 Patient medically screened. [facility] 19:40 Differential diagnosis: cluster headache, hypertensive headache, sinusitis, agustin subarachnoid bleed, subdural hematoma, vasomotor headache. Data reviewed: vital signs, nurses notes, lab test result(s), radiologic studies, ultrasound. Data interpreted: site monitor: rate is 75 beats/min, rhythm is regular, Pulse oximetry: on. Test interpretation: by ED physician or midlevel provider:. Counseling: I had a detailed discussion with the patient and/or guardian regarding: the historical points, exam findings, and any diagnostic results supporting the discharge/admit diagnosis, lab results, radiology results, the need for outpatient follow up, for definitive care, an OB/Gyne specialist. 11/04 19:40 Order name: Quantitative Hcg; Complete Time: 21:31 [facility] 11/04 19:40 Order name: Abo/rh Typing; Complete Time: 21:31 [facility] 11/04 19:40 Order name: Basic Metabolic Panel; Complete Time: 21:31 [facility] 11/04 19:40 Order name: CBC with Diff; Complete Time: 21:31 [facility] 11/04 21:41 Order name: Urine Dipstick--Ancillary (enter results) [facility] 11/04 21:42 Order name: Urine --Ancillary (enter results) [facility] 11/04 19:40 Order name: Urine Test (obtain specimen); Complete Time: 21:41 [facility] 11/04 19:40 Order name: US OB Limited; Complete Time: 21:31 [facility] 11/04 19:40 Order name: CT Head Brain wo Cont; Complete Time: 21: [facility] 11/04 21:48 Order name: Urine Culture [facility] 11/04 22:04 Order name: Urine Microscopic Only [facility] 11/04 19:40 Order name: IV Saline Lock; Complete Time: 20:17 [facility] 11/04 19:40 Order name: Labs collected and sent; Complete Time: 20:17 [facility] 11/04 19:40 Order name: NPO; Complete Time: 19:41 [facility] 11/04 19:40 Order name: Urine Dipstick-Ancillary (obtain specimen); Complete Time: 21:41 [facility] Administered Medications: 20:00 Drug: NS 0.9% 1000 ml Route: IV; Rate: 1 bolus; Site: right antecubital; 4 22:00 Follow up: Response: No adverse reaction; IV Status: Completed infusion; IV Intake: jb4 1000ml 21:56 Drug: Rocephin 1 grams Route: IV; Rate: per protocol; Site: right antecubital; jb4 22:13 Follow up: Response: No adverse reaction; IV Status: Completed infusion jb4 22:10 Drug: Zofran (Ondansetron) 4 mg Route: IVP; Site: right antecubital; jb4 22:13 Follow up: Response: No adverse reaction; Medication administered at discharge. [facility] Disposition: 11/05/19 21:33 Discharged to Home. Impression: related conditions, unspecified, second trimester, Headache, Obesity, unspecified, Urinary tract infection, site not specified. - Condition is Stable. - Discharge Instructions: Abdominal Pain During , General Headache Without Cause, Obesity, Adult, Urinary Tract Infection, Adult, Pelvic Pain, Female, Myzv-vm-Gfrc, Urinary Tract Infection, Adult, Bfhu-dj-Tqxr, Abdominal Pain During , Xolh-ma-Npsl, Pelvic Rest, General Headache Without Cause, Vizt-jl-Nwys, Second Trimester of , Ynkd-wg-Zxva. - Prescriptions for Vitamin 27- 0.8 mg Oral Tablet - take 1 tablet by ORAL route once daily; 30 tablet. Diclegis 10- 10 mg Oral tablet,delayed release (DR/EC) - take 1 tablet by ORAL route 3 times per day and 2 tablets at bedtime; 60 tablet. Macrobid 100 mg Oral Capsule - take 1 capsule by ORAL route every 12 hours for 7 days; 14 capsule. - Medication Reconciliation Form, Thank You Letter, Antibiotic Education, Prescription Opioid Use form. - Follow up: Cristiano Nair; When: 2 - 3 days; Reason: Recheck today's complaints, Continuance of care, Re-evaluation by your physician. Follow up: Private Physician; When: 1 - 2 days; Reason: Recheck today's complaints, Continuance of care, Re-evaluation by your physician. - Problem is new. - Symptoms have improved. Signatures: Dispatcher [employer] EDJuan Herring MD MD cha Bryson, James RN RN jb4 Corrections: (The following items were deleted from the chart) 21:46 21:33 11/05/2019 21:33 Discharged to Home. Impression: related conditions, agustin unspecified, second trimester; Headache; Obesity, unspecified. Condition is Stable. Discharge Instructions: Abdominal Pain During , General Headache Without Cause, Pelvic Pain, Female, Xtir-mh-Zkvl, Abdominal Pain During , Mept-nz-Ugfl, Pelvic Rest, General Headache Without Cause, Oxdo-mo-Kxqw, Second Trimester of , Glnz-nh-Amps. Prescriptions for Vitamin 27-0.8 mg Oral Tablet - take 1 tablet by ORAL route once daily; 30 tablet. and Forms are Medication Reconciliation Form, Thank You Letter, Antibiotic Education, Prescription Opioid Use. Follow up: Cristiano Nair; When: 2 - 3 days; Reason: Recheck today's complaints, Continuance of care, Re-evaluation by your physician. Follow up: Private Physician; When: 1 - 2 days; Reason: Recheck today's complaints, Continuance of care, Re-evaluation by your physician. Problem is new. Symptoms have improved. agustin 22:15 21:46 11/05/2019 21:33 Discharged to Home. Impression: related conditions, jb4 unspecified, second trimester; Headache; Obesity, unspecified; Urinary tract infection, site not specified. Condition is Stable. Discharge Instructions: Abdominal Pain During , General Headache Without Cause, Pelvic Pain, Female, Pyiq-vu-Qstn, Abdominal Pain During , Uwrv-xj-Oyxm, Pelvic Rest, General Headache Without Cause, Tctw-qj-Acjx, Second Trimester of , Wsbl-fe-Phoz, Obesity, Adult. Prescriptions for Vitamin 27-0.8 mg Oral Tablet - take 1 tablet by ORAL route once daily; 30 tablet. and Forms are Medication Reconciliation Form, Thank You Letter, Antibiotic Education, Prescription Opioid Use. Follow up: Cristiano Nair; When: 2 - 3 days; Reason: Recheck today's complaints, Continuance of care, Re-evaluation by your physician. Follow up: Private Physician; When: 1 - 2 days; Reason: Recheck today's complaints, Continuance of care, Re-evaluation by your physician. Problem is new. Symptoms have improved. [facility]
[2019-11-05 22:01] LABS: Urine Specific Gravity 1.025 (1.005-1.030)
[2019-11-05 22:02] LABS: Urine Blood TRACE (NEG); Urine Glucose NEGATIVE (NEG); Urine Protein NEGATIVE (NEG); Urine Specific Gravity 1.025 (1.005-1.030)
[2019-11-05] MEDS ORDERED: CEFTRIAXONE/SWI 1gm 1 GM/10 ML SYR ONE (22:02)
[2019-11-05] MEDS ORDERED: ONDANSETRON 4 MG/2 ML VIAL ONE (22:10)
[2019-11-05 22:31] VITALS: TEMP 98.4
[2019-11-05 22:32] LABS: Urine Culture Reflex Order NOT NEEDED
[2019-11-05 22:33] VITALS: O2SAT 100
[2019-11-05 22:34] VITALS: BP 119/58
[2019-11-05 22:34] LABS: Urine Bacteria >50 /HPF (<20); Urine Mucus SLIGHT /HPF (NONE SEEN); Urine RBC <5 /HPF (NONE SEEN)
== END 2019-11-05 22:15 | disposition home or self-care (01) ==
LOC: ER 19:01
DX: O23.42 Unspecified infection of urinary tract in pregnancy, second trimester (principal); O99.212 Obesity complicating pregnancy, second trimester; O16.2 Unspecified maternal hypertension, second trimester; O99.332 Smoking (tobacco) complicating pregnancy, second trimester; F17.210 Nicotine dependence, cigarettes, uncomplicated; Z3A.17 17 weeks gestation of pregnancy; Z91.040 Latex allergy status; Z91.048 Other nonmedicinal substance allergy status
CPT/HCPCS: 96365; 96361; 87088; 85025; 87086; 80048; 36415; 86900; 81025; 86901; 84702; 70450; 76815; 96375; 99284; J0696; J7030; J2405; 81003; 81015

== ENCOUNTER 2020-07-02 19:59 | Emergency (ER) | payer MEDICAID ==
--- OUTSIDE RECORDS SUMMARY | 2020-07-02 20:03 | XMS REPORT | Continuity of Care Document ---
:1985 Author Organization [facility] t Address [address] [place] [address] Care Team Providers Name Role Phone Johnny BYRD Attending Clinician Sherif Stiles DO Attending Clinician Arron BARBER, Cam Attending Clinician Nurse, Women[facility] Attending Clinician Unavailable Mechelle BARBER Attending Clinician Doctor Unassigned, Name Attending Clinician Unavailable Lexus Goyal Attending Clinician Arron BARBER, Cam Admitting Clinician Problems Condition Condition Condition Status Onset Resolution Last Treating Co mments Source Name Details Category Date Date Treatment Clinician Date ABDOMINAL Diagnosis Active 2016-09-03 [facility] PAIN 09-01 05:29:00 l 00:00: [place] ABDOMINAL 00 PAIN Active 09/01/2016 [facility] History of Past Illness Condition Condition Condition Status Onset Resolution Last Treating Co mments Source Name Details Category Date Date Treatment Clinician Date Abnormal Problem 2016-09-04 2016-09-04 Memoria uterine 09-01 05:32:09 05:32:09 l and Abnormal 05:00: Filipe n vaginal uterine 00 bleeding, and unspecifie vaginal d bleeding, unspecifie d 09/01/2016 09/04/2016 [facility] Unspecifie Problem 2017-0 2016-09-04 2016-09-04 Memoria d 09-01 05:32:09 05:32:09 l abdominal 05:00: [place] pain Unspecifie 00 d abdominal pain 09/01/2016 09/04/2016 [facility] Allergies, Adverse Reactions, Alerts Allergy Allergy Status Severity Reaction(s) Onset Inactive Treating Comm ents Source Name Type Date Date Clinician Latex Latex Active Memoria l [place] Social History Smoking Status Start Date Stop Date Source Social History [facility] Medications This patient has no known medications. Vital Signs Vital Name Observation Time Observation Value Comments Source Temperature Oral (F) 2016-09-02 02:19:00 98.2 F [facility] [place] Systolic (mm Hg) 2016-09-02 02:19:00 Kris rial [place] Diastolic (mm Hg) 2016-09-02 02:19:00 Mem o[facility] [place] Heart Rate 2016-09-02 02:19:00 [facility] [place] Respitory Rate 2016-09-02 02:19:00 Mem[facility] al [place] Weight 2016-09-02 00:00:00 [facility] [place] Systolic (mm Hg) 2016-09-02 00:00:00 Kris rial [place] Diastolic (mm Hg) 2016-09-02 00:00:00 Mem o[facility] [place] Temperature Oral (F) 2016-09-02 00:00:00 98.5 F [facility] [place] Respitory Rate 2016-09-02 00:00:00 Memori al [place] Heart Rate 2016-09-02 00:00:00 [facility] [place] Procedures This patient has no known procedures. Encounters Start End Encounter Admission Attending Care Care Encounter Source Date/Time Date/Time Type Type Clinicians Facility Department ID 2020-06-27 2020-06-27 Emergency Johnny [facility] [id number] 15:18:00 17:53:00 Ariella Szymanski [id number] [place] [id number] [place] [id number] 2020-05-04 2020-05-04 Patient Go [facility] [id number] 00:00:00 00:00:00 Outreach Andrew [facility] [id number] [facility] with [facility] [id number] [facility] [id number] 2020-04-23 2020-04-23 Telephone January Heller [facility] [id number] 00:00:00 00:00:00 Miguel Szymanski [id number] [place] [id number] [facility] [id number] [address] 2020-04-20 2020-04-20 Nurse Nurse, [facility] [id number] 13:17:57 13:46:29 [facility] [place] [id number] [facility] [id number] Profess[place] [id number] [address] 2020-04-09 2020-04-09 Telephone DRISS Min 1.2.840.114 [id number] 00:00:00 00:00:00 Located within [facility] [id number] [facility] [id number] 2020-04-07 2020-04-07 Telephone January Heller [facility] 1.2.840.114 [id number] 00:00:00 00:00:00 Miguel Szymanski [id number] [place] [id number] Profess[facility] [id number] [address] 2020-04-05 2020-04-06 Hospital HellerJanuary [facility] [id number] 05:42:00 12:25:00 Encounter Miguel Szymanski [id number] [place] [id number] [place] [id number] 2020-04-05 2020-04-05 Orders Doctor ANA [id number] 00:00:00 00:00:00 Only Unassigned, ALEJANDRA [id number] [place] [facility] [id number] 2020-03-31 2020-03-31 Telephone January Heller [facility] 1.2.840.114 [id number] 00:00:00 00:00:00 [place] [id number] [place] [id number] [place] [phone] [address] 2020-03-24 2020-03-24 Orders Doctor ANA 1.2.840.114 [id number] 00:00:00 00:00:00 Only Unassigned, ALEJANDRA [id number] [place] [facility] [id number] 2016-09-01 2016-09-01 Outpatient Jyotsna [facility] [id number] 18:55:00 21:20:00 Alonzo Ahmed 00 Results Test Description Test Time Test Comments Results Result Comments Source HEMATOLOGY 2016-09-02 4.54 [facility] 01:16:00 HEMATOLOGY 2016-09-02 12.6 [facility] 01:16:00 HEMATOLOGY 2016-09-02 85.1 [facility] 01:16:00 HEMATOLOGY 2016-09-02 38.6 [facility] 01:16:00 HEMATOLOGY 2016-09-02 32.6 [facility] 01:16:00 HEMATOLOGY 2016-09-02 01:16:00 Test Item Value Reference Range Interpretation Comme nts MCH (test code = MCH) 27.7 pg 27.0-31.0 [facility] [id number] 01:16:0014.0[facility] 2016-09-02 01:16:37206Atapcqbp YmzzfxtRPECXCEJSJ6217-16-76 01:16:008.0[facility] EszytbePDFUYFOVTG4986-31-63 01:16:006.5[facility] VbrpmfnYFIKGKIQTF3256-41-45 01:16:000.4[facility] BtmfexpDCLOPDACGX7072-07-24 01:16:001.2[facility] [id number] 01:16:006.0[facility] XahxqfkJGTMBSQNUI1093-86-36 01:16:002.4 [facility] FlithicUGUZLJHADG6871-18-74 01:16:000.6[facility] 2016-09-02 01:16:000.1[facility] CtpuyjdPTQTJIIXOS6236-99-67 01:16:0065.5[facility] TwyzkabEVJIIILOVZ1470-36-02 01:16:0026.4[facility] MatuyvwEBCUBHMIFEMPI7003-25-60 01:16:0013[facility] XbcnhmoHHUQHREMGA5248-87-20 01:16:009.2[facility] [id number] 01:00:00Performed (09/01/16 8:00 PM)[facility] [id number] 01:00:00Yellow *NA*(09/01/16 8:00 PM)[facility] [id number] 01:00:00 Test Item Value Reference Range Interpretation Comments UA Spec Grav (test code = UA Spec 1.030 1 Grav) [facility] [id number] 01:00:00Cloudy *ABN*(09/01/16 8:00 PM) [facility] [id number] 01:00:00Trace *ABN*(09/01/16 8:00 PM) [facility] [id number] 01:00:00Negative (09/01/16 8:00 PM) [facility] [id number] 01:00:000.2[facility] [id number] 01:00:00Negative *NA*(09/01/16 8:00 PM)[facility] [id number] 01:00:00Small *ABN*(09/01/16 8:00 PM)[facility] [id number] 01:00:00Large *ABN*(09/01/16 8:00 PM)[facility] [id number] 01:00:00 Test Item Value Reference Range Interpretation Comments UA pH (test code = UA pH) 6.0 1 5.0-8.0 [facility] [id number] 01:00:00Trace *ABN*(09/01/16 8:00 PM) [facility] [id number] 01:00:00Negative (09/01/16 8:00 PM) [facility] [id number] 01:00:00Negative (09/01/16 8:00 PM)Miguel Cade
[2020-07-02 20:42] LABS: Basophils % 0.5 % (0-1.3); Hematocrit 35.4 % (36.0-45.0); Lymphocytes % 29.2 % (15.3-44.8); MPV 7.9 fL (7.6-11.3); RBC Red Blood Cell Count 4.24 M/uL (3.86-4.86)
[2020-07-02 20:48] LABS: Protime INR 1.15
[2020-07-02 21:32] LABS: ALT/SGPT 16 U/L (12-78); AST/SGOT 10 U/L (15-37); Albumin 3.3 g/dL (3.4-5.0); Alkaline Phosphatase 89 U/L (45-117); BUN Blood Urea Nitrogen 14 mg/dL (7-18); Bicarbonate 26 mmol/L (21-32); Bilirubin Direct < 0.1 mg/dL (0-0.2); Bilirubin Total 0.3 mg/dL (0.2-1.0); Glucose Level 82 mg/dL (74-106); Potassium 4.1 mmol/L (3.5-5.1); Protein, Total 7.2 g/dL (6.4-8.2); Sodium Level 141 mmol/L (136-145)
[2020-07-02 22:17] LABS: Urine Blood Negative (Negative); Urine Glucose Negative (Negative); Urine Protein Trace (Negative); Urine Specific Gravity >=1.030 (1.005-1.030)
[2020-07-02 22:31] LABS: Barbiturates NEGATIVE (NEGATIVE); Benzodiazepines NEGATIVE (NEGATIVE); Cocaine NEGATIVE (NEGATIVE); METHAMPHETAM NEGATIVE (NEGATIVE); Methadone NEGATIVE (NEGATIVE); Opiates NEGATIVE (NEGATIVE); Phencyclidine NEGATIVE (NEGATIVE); THC Cannibis NEGATIVE (NEGATIVE)
[2020-07-02 23:47] LABS: Urine Specific Gravity/Preg >1.030 (1.005-1.030)
--- NOTE | 2020-07-03 00:20 | ER ---
Nurse's Notes [facility] Name: Paola Castano Age: 34 yrs Sex: Female : 1985 Arrival Date: 07/02/2020 Time: 20:00 Bed 19 Private MD: Diagnosis: Depression;Anxiety;Urinary tract infection, site not specified Presentation: 07/02 20:39 Chief complaint: EMS states: Toned to snf pt reported she started having a panic ea attack , didn't have her medications with her, pt reported she had the urge to hurt herself, denies plan. States " I just felt like I wanted to hurt myself, I wasn't going to act on it but I needed to get help". Coronavirus screen: At this time, the client does not indicate any symptoms associated with coronavirus-19. Ebola Screen: No symptoms or risks identified at this time. Initial Sepsis Screen: Does the patient meet any 2 criteria? No. Patient's initial sepsis screen is negative. Does the patient have a suspected source of infection? No. Patient's initial sepsis screen is negative. Risk Assessment: Do you want to hurt yourself or someone else? Patient reports no desire to harm self or others. Onset of symptoms was July 02, 2020. 20:39 Acuity: LEWIS 3 ea 20:39 Method Of Arrival: EMS: [facility] ea Historical: - Allergies: 20:44 Latex, Natural Rubber; ea - Home Meds: 20:44 Hydroxyzine Oral [Active]; sertraline oral oral [Active]; ea - PMHx: 20:44 Hypertension; Iron defeciency; ea - PSHx: 20:44 ; ea - Immunization history:: Adult Immunizations up to date. - Social history:: Smoking status: Patient denies any tobacco usage or history of. Screenin:39 Abuse screen: Denies threats or abuse. Nutritional screening: No deficits noted. ea Tuberculosis screening: No symptoms or risk factors identified. Fall Risk None identified. Assessment: 20:40 General: Appears in no apparent distress. Behavior is calm, cooperative, appropriate ea for age. Pain: Denies pain. Neuro: Level of Consciousness is awake, alert, obeys commands, Oriented to person, place, time. Cardiovascular: Patient's skin is warm and dry. Respiratory: Airway is patent Respiratory effort is even, unlabored, Respiratory pattern is regular, symmetrical. Derm: Skin is pink, warm \\T\\ dry. 23:05 Reassessment: Patient and/or family updated on plan of care and expected duration. Pain ea level reassessed. Patient is alert, oriented x 3, equal unlabored respirations, skin warm/dry/pink. Family at bedside. 23:53 Reassessment: Patient and/or family updated on plan of care and expected duration. Pain ea level reassessed. Patient is alert, oriented x 3, equal unlabored respirations, skin warm/dry/pink. Pt spoke with [facility] via ipad, [facility] reported it would be appropriate to follow up out patient. 07/03 00:24 Reassessment: Patient and/or family updated on plan of care and expected duration. Pain ea level reassessed. Patient is alert, oriented x 3, equal unlabored respirations, skin warm/dry/pink. Discharge instruction given to patient verbalized the understanding of instruction. Pt left ED ambulatory accompanied by family, pt tolerating well. Patient states feeling better. Psych: 07/02 20:44 [place] Suicide Severity Screening: In the past month, have you wished you were ea or wished you could go to sleep and not wake up? Patient responds "No." "In the past month, have you actually had any thoughts of killing yourself?" pt reports she has the urge to hurt herself but does not want to act on it "In your lifetime, have you ever done anything, started to do anything, or prepared to do anything to end your life?" Patient responds "yes." Patient reports suicidal intent occurred greater than 3 months prior. Subjective: Patient's mood is sad. Objective: Patient is cooperative, Speech is normal, Affect is appropriate. Interventions: Removed personal items and placed in bag. Searched person for dangerous items. Belonging list filled out. Safety Checks: Personal items have been removed. Door is open. Visitors are present. Safety Checks: personal belongings given to family. Pt denies substance abuse. Commitment: Patient will be a voluntary commitment. Vital Signs: 20:39 BP 147 / 90; Pulse 87; Resp 18; Temp 98.1; Pulse Ox 99% ; Weight 151.05 kg; Height 5 ea ft. 7 in. (170.18 cm); Pain 0/10; 23:50 BP 135 / 79; Pulse 80; Resp 18; Pulse Ox 100% ; ea 07/03 00:15 BP 128 / 68; Pulse 78; Resp 16; Pulse Ox 98% ; ea 07/02 20:39 Body Mass Index 52.15 (151.05 kg, 170.18 cm) ea ED Course: 07/02 20:00 Patient arrived in ED. bp1 20:02 Dylan Farris MD is Attending Physician. [facility] 20:38 Lashaun Ford RN is Primary Nurse. ea 20:38 Inserted saline lock: 20 gauge in right antecubital area, using aseptic technique. ea Blood collected. 20:43 Triage completed. ea 20:46 Patient has correct armband on for positive identification. Bed in low position. Call ea light in reach. Side rails up X 1. poker in on. Pulse ox on. NIBP on. 20:46 Arm band placed on right wrist. Patient placed in an exam room, on a stretcher, on ea pulse oximetry. 22:18 Urine collected: clean catch specimen, clear, byron colored, Legal drug screen obtained jp3 per protocol. 22:41 Spoke with Milton at [facility] to initiate screening. Stated he would pass the tt3 information along to the screener. 23:03 Virgil with [facility] called to confirm screening. Was provided with the number to tt3 call via iPad audio for screening. Requested that the pt chart be emailed over. 07/03 00:15 IV discontinued, intact, bleeding controlled, No redness/swelling at site. Pressure ea dressing applied. 00:18 Carson Stock MD is Referral Physician. [facility] 00:25 No provider procedures requiring assistance completed. ea Administered Medications: No medications were administered Point of Care Testing: Urine : 07/02 22:18 hCG Reading: Negative; Control Reading: Positive; jp3 Outcome: 07/03 00:19 Discharge ordered by . [facility] 00:25 Discharged to home ambulatory, with family. ea 00:25 Condition: stable 00:25 Discharge instructions given to patient, Instructed on discharge instructions, follow up and referral plans. medication usage, Demonstrated understanding of instructions, follow-up care, medications, Prescriptions given X 1. 00:32 Patient left the ED. ea Signatures: Lashaun Ford RN RN Parminder Alex jp3 Lexi Boston Maurice, MD MD mh7 Oliverio, Samuel tt3
--- NOTE | 2020-07-03 00:20 | EDPHYS ---
Physician Documentation [facility] Name: Paola Castano Age: 34 yrs Sex: Female : 1985 Arrival Date: 07/02/2020 Time: 20:00 Bed 19 Private MD: ED Physician Dylan Farris HPI: 07/02 20:57 This 34 yrs old Black Female presents to ER via EMS with complaints of Suicidal 7 Ideation. 20:57 The patient presents to the emergency department with anxiety, arrested and taken to [facility], suicide ideation, but the patient has no formulated plan. Onset: The symptoms/episode began/occurred today. Past psychiatric history: Prior diagnosis: bipolar disorder, depression, Anxiety, Psychiatric medications include: Michell, Primary psychiatric physician: Dr. chong Szymanski, it is unknown whether or not the patient has had a prior suicide gesture, the patient has a previous inpatient psychiatric history, 3 month(s) ago, the patient's last psychiatric treatment was 3 month(s) ago. Associated signs and symptoms: Pertinent positives; anxiety, depression, suicide ideation, Pertinent negatives: abdominal pain, chest pain, chills, delusions, fever, hallucinations, headache, homicidal ideation, nausea, night sweats, palpitations, paranoia, shortness of breath, substance abuse, tremor, vomiting. Severity of symptoms: At their worst the symptoms were moderate today, in the emergency department the symptoms have resolved and did so just prior to arrival. The patient has experienced similar episodes in the past, a few times. Historical: - Allergies: 20:44 Latex, Natural Rubber; ea - Home Meds: 20:44 Hydroxyzine Oral [Active]; sertraline oral oral [Active]; ea - PMHx: 20:44 Hypertension; Iron defeciency; ea - PSHx: 20:44 ; ea - Immunization history:: Adult Immunizations up to date. - Social history:: Smoking status: Patient denies any tobacco usage or history of. ROS: 20:57 Constitutional: Negative for fever, chills, and weight loss, Eyes: Negative for injury, mh7 pain, redness, and discharge, ENT: Negative for injury, pain, and discharge, Neck: Negative for injury, pain, and swelling, Cardiovascular: Negative for chest pain, palpitations, and edema, Respiratory: Negative for shortness of breath, cough, wheezing, and pleuritic chest pain, Abdomen/GI: Negative for abdominal pain, nausea, vomiting, diarrhea, and constipation, Back: Negative for injury and pain, : Negative for injury, bleeding, discharge, and swelling, MS/Extremity: Negative for injury and deformity, Skin: Negative for injury, rash, and discoloration, Neuro: Negative for headache, weakness, numbness, tingling, and seizure, Allergy/Immunology: Negative for hives, rash, and allergies, Endocrine: Negative for neck swelling, polydipsia, polyuria, polyphagia, and marked weight changes, Hematologic/Lymphatic: Negative for swollen nodes, abnormal bleeding, and unusual bruising. Exam: 20:57 Constitutional: This is a well developed, well nourished patient who is awake, alert, mh7 and in no acute distress. Head/Face: Normocephalic, atraumatic. Eyes: Pupils equal round and reactive to light, extra-ocular motions intact. Lids and lashes normal. Conjunctiva and sclera are non-icteric and not injected. Cornea within normal limits. Periorbital areas with no swelling, redness, or edema. Neck: Trachea midline, no thyromegaly or masses palpated, and no cervical lymphadenopathy. Supple, full range of motion without nuchal rigidity, or vertebral point tenderness. No Meningismus. Chest/axilla: Normal chest wall appearance and motion. Nontender with no deformity. No lesions are appreciated. Cardiovascular: Regular rate and rhythm with a normal S1 and S2. No gallops, murmurs, or rubs. Normal PMI, no JVD. No pulse deficits. Respiratory: Lungs have equal breath sounds bilaterally, clear to auscultation and percussion. No rales, rhonchi or wheezes noted. No increased work of breathing, no retractions or nasal flaring. Abdomen/GI: Soft, non-tender, with normal bowel sounds. No distension or tympany. No guarding or rebound. No evidence of tenderness throughout. Back: No spinal tenderness. No costovertebral tenderness. Full range of motion. Skin: Warm, dry with normal turgor. Normal color with no rashes, no lesions, and no evidence of cellulitis. MS/ Extremity: Pulses equal, no cyanosis. Neurovascular intact. Full, normal range of motion. Neuro: Awake and alert, GCS 15, oriented to person, place, time, and situation. Cranial nerves II-XII grossly intact. Motor strength 5/5 in all extremities. Sensory grossly intact. Cerebellar exam normal. Normal gait. 20:57 Psych: Behavior/mood is cooperative, Affect is calm, Oriented to person, place, time, Patient has no thoughts/intents to harm self or others. Judgement / Insight is normal. Memory is normal. Delusions/hallucinations are not present. Vital Signs: 20:39 BP 147 / 90; Pulse 87; Resp 18; Temp 98.1; Pulse Ox 99% ; Weight 151.05 kg; Height 5 ea ft. 7 in. (170.18 cm); Pain 0/10; 23:50 BP 135 / 79; Pulse 80; Resp 18; Pulse Ox 100% ; ea 07/03 00:15 BP 128 / 68; Pulse 78; Resp 16; Pulse Ox 98% ; ea 07/02 20:39 Body Mass Index 52.15 (151.05 kg, 170.18 cm) ea MDM: 00:16 Differential diagnosis: depression, Suicidal thoughts. Data reviewed: vital signs, [facility] nurses notes, old medical records, lab test result(s), CBC, drug level(s), electrolytes, urinalysis, urine drug screen, UPT: negative EKG. Data interpreted: Pulse oximetry: on room air is 100 %. Interpretation: normal. Counseling: I had a detailed discussion with the patient and/or guardian regarding: the historical points, exam findings, and any diagnostic results supporting the discharge/admit diagnosis, lab results, radiology results, the need for outpatient follow up, a psychiatrist, to return to the emergency department if symptoms worsen or persist or if there are any questions or concerns that arise at home. Response to treatment: the patient's symptoms have resolved after treatment, the patient's blood pressure is in an acceptable range, mental status has returned to baseline, the patient no longer shows bradycardia, the patient is not short of breath, the patient is not tachycardic, the patient's pain is gone, the patient's temperature has normalized. 00:19 Patient medically screened. [facility] 07/02 20: Order name: Acetaminophen; Complete Time: 23:09 [facility] 07/02 20: Order name: Basic Metabolic Panel; Complete Time: 23:09 [facility] 07/02 20:21 Order name: CBC with Diff; Complete Time: 21:11 [facility] 07/02 20:21 Order name: ETOH Level; Complete Time: 21:11 [facility] 07/02 20:21 Order name: Hepatic Function; Complete Time: 23:09 [facility] 07/02 20:21 Order name: PT-INR; Complete Time: 21:11 [facility] 07/02 20:21 Order name: Ptt, Activated; Complete Time: 21:11 [facility] 07/02 20:21 Order name: Salicylate; Complete Time: 23:09 [facility] 07/02 20:21 Order name: Urine Drug Screen; Complete Time: 23: [facility] 07/02 22:17 Order name: Urine Dipstick-Ancillary; Complete Time: 23:09 [facility] 07/02 22:19 Order name: Urine --Ancillary (enter results) tt3 07/02 22:19 Order name: Urine --Ancillary; Complete Time: 23:54 [facility] 07/03 00:02 Order name: SARS-COV-2 RT PCR; Complete Time: 00:16 [facility] 07/02 20:21 Order name: Urine Test (obtain specimen); Complete Time: 22:19 [facility] 07/02 20:21 Order name: Suicide Precautions; Complete Time: 20:47 [facility] 07/02 20:21 Order name: EKG; Complete Time: 20:22 [facility] 07/02 20:21 Order name: EKG - Nurse/Tech; Complete Time: 20:47 [facility] 07/02 20:21 Order name: IV Saline Lock; Complete Time: 20:47 [facility] 07/02 20:21 Order name: Labs collected and sent; Complete Time: 20:47 [facility] 07/02 20:21 Order name: Suicide Screening ([place]); Complete Time: 20:47 [facility] 07/02 20:21 Order name: Urine Dipstick-Ancillary (obtain specimen); Complete Time: 22:19 [facility] Administered Medications: No medications were administered Point of Care Testing: Urine : 07/02 22:18 hCG Reading: Negative; Control Reading: Positive; jp3 Disposition: 07/03/20 00:19 Discharged to Home. Impression: Depression, Anxiety, Urinary tract infection, site not specified. - Condition is Stable. - Discharge Instructions: Urinary Tract Infection, Adult, [id number], Generalized Anxiety Disorder, Major Depressive Disorder, [id number]-[id number]. - Prescriptions for Cephalexin 500 mg Oral Capsule - take 1 capsule by ORAL route every 12 hours for 7 days; 14 capsule. - Thank You Letter, Antibiotic Education, Prescription Opioid Use, Medication Reconciliation Form form. - Follow up: Private Physician; When: 1 - 2 days; Reason: Worsening of condition, Recheck today's complaints, Continuance of care, Re-evaluation by your physician. Follow up: Carson Stock MD; When: 1 - 2 days; Reason: Worsening of condition, Recheck today's complaints. - Problem is an acute exacerbation. - Symptoms are resolved. Signatures: Dispatcher [employer] Lashaun Woody RN RN ea Holmes, Maurice, MD MD mh7 Corrections: (The following items were deleted from the chart) 23:06 22:53 CORONAVIRUS+MR.LAB.BRZ ordered. [facility] 07/03 00:32 00:19 07/03/2020 00:19 Discharged to Home. Impression: Depression; Anxiety; Urinary ea tract infection, site not specified. Condition is Stable. Forms are Medication Reconciliation Form, Thank You Letter, Antibiotic Education, Prescription Opioid Use. Follow up: Private Physician; When: 1 - 2 days; Reason: Worsening of condition, Recheck today's complaints, Continuance of care, Re-evaluation by your physician. Follow up: Carson Stock; When: 1 - 2 days; Reason: Worsening of condition, Recheck today's complaints. Problem is an acute exacerbation. Symptoms are resolved. mh7
[2020-07-03 00:38] VITALS: TEMP 98.1
[2020-07-03 00:41] VITALS: BP 128/68; O2SAT 98
== END 2020-07-03 00:32 | disposition home or self-care (01) ==
LOC: ER 19:59
DX: R45.851 Suicidal ideations (principal); Z20.822 Contact with and (suspected) exposure to COVID-19; F32.9 Major depressive disorder, single episode, unspecified; F41.9 Anxiety disorder, unspecified; N39.0 Urinary tract infection, site not specified; I10 Essential (primary) hypertension
CPT/HCPCS: 93005; 85025; 80048; 36415; 80320; 80329 ×2; 81025; 85610; 80076; 80307 ×8; 85730; 81003; 99285; U0003

== ENCOUNTER 2020-10-30 14:06 | Emergency (ER) | payer OTHER ==
[2020-10-30 14:44] LABS: Urine Blood Negative (Negative); Urine Glucose Negative (Negative); Urine Protein Negative (Negative)
[2020-10-30] MEDS ORDERED: PROMETHAZINE INJ 25 MG/ML AMP ONE (15:39)
[2020-10-30 15:41] LABS: Absolute Lymphocytes (CBC) 2.2 K/uL (0.7-4.9); Basophils % 0.5 % (0-1.3); Hematocrit 39.2 % (36.0-45.0); Lymphocytes % 27.4 % (15.3-44.8); MPV 7.7 fL (7.6-11.3); RBC Red Blood Cell Count 4.87 M/uL (3.86-4.86)
[2020-10-30 16:30] LABS: ALT/SGPT 14 U/L (12-78); AST/SGOT 6 U/L (15-37); Albumin 3.6 g/dL (3.4-5.0); Alkaline Phosphatase 79 U/L (45-117); BUN Blood Urea Nitrogen 12 mg/dL (7-18); Bicarbonate 26 mmol/L (21-32); Bilirubin Direct < 0.1 mg/dL (0-0.2); Bilirubin Total 0.2 mg/dL (0.2-1.0); Glucose Level 114 mg/dL (74-106); Lipase 167 U/L (73-393); Potassium 3.9 mmol/L (3.5-5.1); Protein, Total 7.7 g/dL (6.4-8.2); Sodium Level 141 mmol/L (136-145)
--- NOTE | 2020-10-30 17:54 | EDPHYS ---
Physician Documentation [facility] Name: Paola Castano Age: 35 yrs Sex: Female : 1985 Arrival Date: 10/30/2020 Time: 14:07 Bed 27 Private MD: ED Physician Karlo Kiser HPI: 10/30 15:02 This 35 yrs old Black Female presents to ER via Ambulatory with complaints of Headache, pm1 Nausea/Vomiting, Abdominal Cramping. 15:02 The patient complains of pain to the forehead, left occipital area, left base of the pm1 skull, right occipital area and right base of the skull. The patient describes the headache as aching, constant. Onset: The symptoms/episode began/occurred 3 day(s) ago. Associated signs and symptoms: Pertinent positives: nausea, vomiting, Abdominal cramping, Pertinent negatives: fever. Severity of symptoms: in the emergency department the pain is unchanged. Headache History: The patient has had previous headaches and this one is similar to previous episodes. The symptoms are alleviated by nothing. the symptoms are aggravated by stress. Reports similar to headaches that she had when she was . Patient believes that she may be . Has taken 5 tests at home with team showing positive. Patient is currently not having any abdominal pain but attributes prior pain to possible . Historical: - Allergies: 14:22 Latex, Natural Rubber; aa5 - PMHx: 14:22 Hypertension; Iron defeciency; aa5 ROS: 15:44 Constitutional: Negative for fever, chills, and weight loss, Cardiovascular: Negative pm1 for chest pain, palpitations, and edema, Respiratory: Negative for shortness of breath, cough, wheezing, and pleuritic chest pain. 15:44 Back: Negative for injury and pain, : Negative for injury, bleeding, discharge, and swelling, MS/Extremity: Negative for injury and deformity, Skin: Negative for injury, rash, and discoloration. 15:44 Abdomen/GI: Positive for abdominal pain, nausea and vomiting, Negative for diarrhea, constipation. 15:44 Neuro: Positive for headache, of the behind right eye and left eye, and right base of the skull and left base of the skull. 15:44 All other systems are negative. Exam: 15:44 Constitutional: This is a well developed, well nourished patient who is awake, alert, pm1 and in no acute distress. 15:44 Skin: Warm, dry with normal turgor. Normal color with no rashes, no lesions, and no evidence of cellulitis. MS/ Extremity: Pulses equal, no cyanosis. Neurovascular intact. Full, normal range of motion. 15:44 Head/face: Noted is no obvious of injury or deformity except tenderness, that is moderate, of the left base of the skull and right base of the skull. 15:44 Eyes: Exam is negative for acute changes, Extraocular movements: no acute changes, Conjunctiva: normal, no injection. 15:44 ENT: Exam is negative for acute changes, Mouth: no acute changes, Lips: normal, moist, Oral mucosa: normal, pink and intact, moist. 15:44 Neck: Exam negative for acute changes, External neck: is normal, C-spine: vertebral tenderness, is not appreciated, ROM/movement: is normal, is supple, without pain, no range of motions limitations, no meningismus, no nuchal rigidity, negative Brudzinski's sign, negative Kernig's sign. 15:44 Cardiovascular: Rate: normal, Rhythm: regular, Pulses: no pulse deficits are appreciated, Heart sounds: normal. 15:44 Respiratory: Exam negative for acute changes, respiratory distress, shortness of breath. 15:44 Abdomen/GI: Inspection: obese Palpation: abdomen is soft and non-tender, in all quadrants. 15:44 Neuro: Exam negative for acute changes, Orientation: is normal, Mentation: is normal, Motor: is normal, moves all fours. Vital Signs: 14:22 BP 133 / 85; Pulse 90; Resp 18 S; Temp 97.9(TE); Pulse Ox 99% on R/A; Weight 154.22 kg aa5 (R); Height 5 ft. 7 in. (170.18 cm) (R); 16:40 BP 114 / 66; Pulse 63; Resp 19; Pulse Ox 98% ; rb3 17:38 BP 110 / 67; Pulse 60; Resp 17; Pulse Ox 99% ; rb3 18:30 BP 109 / 68; Pulse 62; Resp 17; Pulse Ox 99% ; rb3 14:22 Body Mass Index 53.25 (154.22 kg, 170.18 cm) aa5 MDM: 15:02 Patient medically screened. pm1 17:52 Data reviewed: vital signs. Data interpreted: Pulse oximetry: on room air is 98 %. pm1 Interpretation: normal. Counseling: I had a detailed discussion with the patient and/or guardian regarding: the historical points, exam findings, and any diagnostic results supporting the discharge/admit diagnosis, lab results, the need for outpatient follow up, a family practitioner, to return to the emergency department if symptoms worsen or persist or if there are any questions or concerns that arise at home. 17:59 ED course: PMPAware reviewed. pm1 10/30 14:44 Order name: Urine Dipstick-Ancillary; Complete Time: 15:02 EDMS 10/30 14:44 Order name: Urine --Ancillary (enter results); Complete Time: 15:02 eb 10/30 15:09 Order name: Basic Metabolic Panel; Complete Time: 17:00 pm1 10/30 15:09 Order name: CBC with Diff; Complete Time: 16:02 pm1 10/30 15:09 Order name: Hepatic Function; Complete Time: 17:00 pm1 10/30 15:09 Order name: Lipase; Complete Time: 17:00 pm1 10/30 14:24 Order name: Urine Dipstick-Ancillary (obtain specimen); Complete Time: 14:43 aa5 10/30 14:24 Order name: Urine Test (obtain specimen); Complete Time: 14:43 aa5 10/30 15:09 Order name: IV Saline Lock; Complete Time: 15:32 pm1 10/30 15:09 Order name: Test, Serum; Complete Time: 16:02 pm1 10/30 15:09 Order name: Labs collected and sent; Complete Time: 15:32 pm1 Administered Medications: 15:27 Drug: Phenergan (promethazine) 12.5 mg Route: IVP; Site: right antecubital; rb3 15:40 Follow up: Response: No adverse reaction; Nausea is decreased rb3 18:10 Drug: Ketorolac 30 mg Route: IVP; Site: right antecubital; rb3 18:25 Follow up: Response: No adverse reaction rb3 18:10 Drug: Reglan (metoCLOPramide) 10 mg Route: IVP; Site: right antecubital; rb3 18:25 Follow up: Response: No adverse reaction rb3 18:10 Drug: Benadryl (diphenhydrAMINE) 25 mg Route: IVP; Site: right antecubital; rb3 18:25 Follow up: Response: No adverse reaction rb3 Disposition Summary: 10/30/20 17:53 Discharge Ordered Location: Home pm1 Problem: new pm1 Symptoms: have improved pm1 Condition: Stable pm1 Diagnosis - Headache pm1 - Nausea with vomiting, unspecified pm1 - Abdominal pain, unspecified pm1 Followup: pm1 - With: Emergency Department - When: As needed - Reason: Worsening of condition Followup: pm1 - With: Private Physician - When: 2 - 3 days - Reason: Recheck today's complaints, Continuance of care, Re-evaluation by your physician Discharge Instructions: - Discharge Summary Sheet pm1 - Abdominal Pain, Adult pm1 - General Headache Without Cause pm1 - Tension Headache, Adult pm1 - Nausea and Vomiting, Adult pm1 Forms: - Medication Reconciliation Form pm1 - Thank You Letter pm1 - Antibiotic Education pm1 - Prescription Opioid Use pm1 Prescriptions: - wbstdxizod-pjdpypt-laawsmgd - take 1 tablet by ORAL route every 4 hours As needed; 20 tablet; Refills: 0, pm1 Product Selection Permitted Addendum: 11/01/2020 10:09 Co-signature as Attending Physician, Karlo Kiser MD I agree with the assessment and k dr plan of care. Signatures: Dispatcher [employer] EDKarlo Cameron MD MD kdr Lisa Keene, RN RN aa5 Jonathan Phillips, JULIET BUSINESS SUPPORT ASSOCIATE pm1 Janice Zazueta, RN RN rb3
--- NOTE | 2020-10-30 17:54 | ER ---
Nurse's Notes [facility] Name: Paola Castano Age: 35 yrs Sex: Female : 1985 Arrival Date: 10/30/2020 Time: 14:07 Bed 27 Private MD: Diagnosis: Headache;Nausea with vomiting, unspecified;Abdominal pain, unspecified Presentation: 10/30 14:22 Chief complaint: Patient states: headache, nausea/vomiting that began 1 week ago. Pt aa5 also reports abd cramping and believes she may be . LMP is unknown. Coronavirus screen: nausea, vomiting. Ebola Screen: Patient negative for fever greater than or equal to 101.5 degrees Fahrenheit, and additional compatible Ebola Virus Disease symptoms. Initial Sepsis Screen: Does the patient meet any 2 criteria? No. Patient's initial sepsis screen is negative. Does the patient have a suspected source of infection? No. Patient's initial sepsis screen is negative. Risk Assessment: Do you want to hurt yourself or someone else? Patient reports no desire to harm self or others. Onset of symptoms was October 2020. 14:22 Method Of Arrival: Ambulatory aa5 14:22 Acuity: LEWIS 3 aa5 Triage Assessment: 14:40 Headache History: The patient has had previous headaches and this one is similar to rb3 previous episodes. Historical: - Allergies: 14:22 Latex, Natural Rubber; aa5 - PMHx: 14:22 Hypertension; Iron defeciency; aa5 Screenin:40 Abuse screen: Denies threats or abuse. Nutritional screening: No deficits noted. rb3 Tuberculosis screening: No symptoms or risk factors identified. Fall Risk None identified. Assessment: 14:40 General: Appears in no apparent distress. comfortable, obese, Behavior is calm, rb3 cooperative. Pain: Complains of pain in abdomen Quality of pain is described as crampy. Neuro: Level of Consciousness is awake, alert, obeys commands, Oriented to person, place, time, situation, Reports headache frontal area. Cardiovascular: Patient's skin is warm and dry. Respiratory: Airway is patent Respiratory effort is even, unlabored, Respiratory pattern is regular, symmetrical. GI: Reports nausea, vomiting, since x 1 week. : No signs and/or symptoms were reported regarding the genitourinary system. 15:40 Reassessment: Patient appears in no apparent distress at this time. No changes from rb3 previously documented assessment. 16:40 Reassessment: Patient appears in no apparent distress at this time. Patient and/or rb3 family updated on plan of care and expected duration. Pain level reassessed. Patient is alert, oriented x 3, equal unlabored respirations, skin warm/dry/pink. 17:38 Reassessment: Patient appears in no apparent distress at this time. Pt resting with rb3 eyes closed, respirations even, unlabored. 18:30 Reassessment: Patient appears in no apparent distress at this time. Patient and/or rb3 family updated on plan of care and expected duration. Pain level reassessed. Patient is alert, oriented x 3, equal unlabored respirations, skin warm/dry/pink. Vital Signs: 14:22 BP 133 / 85; Pulse 90; Resp 18 S; Temp 97.9(TE); Pulse Ox 99% on R/A; Weight 154.22 kg aa5 (R); Height 5 ft. 7 in. (170.18 cm) (R); 16:40 BP 114 / 66; Pulse 63; Resp 19; Pulse Ox 98% ; rb3 17:38 BP 110 / 67; Pulse 60; Resp 17; Pulse Ox 99% ; rb3 18:30 BP 109 / 68; Pulse 62; Resp 17; Pulse Ox 99% ; rb3 14:22 Body Mass Index 53.25 (154.22 kg, 170.18 cm) aa5 ED Course: 14:07 Patient arrived in ED. as 14:22 Arm band placed on. aa5 14:24 Triage completed. aa5 14:40 Patient has correct armband on for positive identification. Bed in low position. Call rb3 light in reach. Side rails up X 1. Pulse ox on. NIBP on. 14:43 Jonathan Phillips NP is PHCP. pm1 14:43 Karlo Kiser MD is Attending Physician. pm1 14:46 Janice Zazueta, FRANCIA is Primary Nurse. rb3 15:27 Inserted saline lock: 20 gauge in right antecubital area, using aseptic technique. rb3 Blood collected. 18:43 No provider procedures requiring assistance completed. IV discontinued, intact, rb3 bleeding controlled, No redness/swelling at site. Pressure dressing applied. Administered Medications: 15:27 Drug: Phenergan (promethazine) 12.5 mg Route: IVP; Site: right antecubital; rb3 15:40 Follow up: Response: No adverse reaction; Nausea is decreased rb3 18:10 Drug: Ketorolac 30 mg Route: IVP; Site: right antecubital; rb3 18:25 Follow up: Response: No adverse reaction rb3 18:10 Drug: Reglan (metoCLOPramide) 10 mg Route: IVP; Site: right antecubital; rb3 18:25 Follow up: Response: No adverse reaction rb3 18:10 Drug: Benadryl (diphenhydrAMINE) 25 mg Route: IVP; Site: right antecubital; rb3 18:25 Follow up: Response: No adverse reaction rb3 Outcome: 17:53 Discharge ordered by MD. pm1 18:43 Discharged to home ambulatory, with friend. rb3 18:43 Condition: stable 18:43 Discharge instructions given to patient, Instructed on discharge instructions, follow up and referral plans. medication usage, Demonstrated understanding of instructions, follow-up care, medications, Prescriptions given X 1. 18:44 Patient left the ED. rb3 Signatures: Lydia Rodriguez Audri RN RN aa5 Jonathan Phillips NP GUARD SUPERVISOR pm1 Janice Zazueta RN RN rb3 Corrections: (The following items were deleted from the chart) 17:03 15:40 Reassessment: Patient appears in no apparent distress at this time. Patient rb3 and/or family updated on plan of care and expected duration. Pain level reassessed. Patient is alert, oriented x 3, equal unlabored respirations, skin warm/dry/pink. rb3
[2020-10-30] MEDS ORDERED: DIPHENHYDRAMINE 50 MG/ML VIAL ONE (18:27)
[2020-10-30] MEDS ORDERED: KETOROLAC 30 MG/ML INJ ONE (18:27)
[2020-10-30] MEDS ORDERED: METOCLOPRAMIDE 10 MG/2mL INJ ONE (18:27)
[2020-10-30 19:59] VITALS: TEMP 97.9
[2020-10-30 20:02] VITALS: O2SAT 99
[2020-10-30 20:03] VITALS: BP 109/68
== END 2020-10-30 18:44 | disposition home or self-care (01) ==
LOC: ER 14:06
DX: R11.2 Nausea with vomiting, unspecified (principal); R10.9 Unspecified abdominal pain; I10 Essential (primary) hypertension; Z91.040 Latex allergy status; Z91.048 Other nonmedicinal substance allergy status
CPT/HCPCS: 85025; 80048; 36415; 84703; 81025; 80076; 81003; 83690; 96375; 96374; 99284; J2765; J2550; J1200

== ENCOUNTER 2020-12-19 11:54 | Emergency (ER) | payer OTHER ==
[2020-12-19 14:58] LABS: Urine Blood Negative (Negative); Urine Glucose Negative (Negative); Urine Protein Negative (Negative); Urine Specific Gravity 1.025 (1.005-1.030); Urine pH 6.5 (5.0-7.0)
[2020-12-19 15:17] LABS: Urine Specific Gravity/Preg 1.025 (1.005-1.030)
[2020-12-19 15:28] LABS: Basophils % 0.6 % (0-1.3); Hematocrit 39.1 % (36.0-45.0); Lymphocytes % 31.7 % (15.3-44.8); MPV 7.7 fL (7.6-11.3); RBC Red Blood Cell Count 4.81 M/uL (3.86-4.86)
[2020-12-19 15:37] LABS: Albumin 3.6 g/dL (3.4-5.0); BUN Blood Urea Nitrogen 17 mg/dL (7-18); Bicarbonate 24 mmol/L (21-32); Glucose Level 88 mg/dL (74-106); Lipase 239 U/L (73-393); Potassium 4.1 mmol/L (3.5-5.1); Sodium Level 142 mmol/L (136-145)
[2020-12-19 15:41] LABS: Urine Amorphous Sediment 2+ /HPF (NONE SEEN); Urine Bacteria 20-50 /HPF (<20); Urine Mucus 2+ /HPF (NONE SEEN); Urine RBC <5 /HPF (NONE SEEN)
[2020-12-19 15:43] LABS: ALT/SGPT 18 U/L (12-78); AST/SGOT 9 U/L (15-37); Alkaline Phosphatase 85 U/L (45-117); Bilirubin Direct < 0.1 mg/dL (0-0.2); Bilirubin Total 0.1 mg/dL (0.2-1.0); Protein, Total 7.9 g/dL (6.4-8.2)
--- NOTE | 2020-12-19 16:48 | RAD REPORT ---
EXAM DESCRIPTION: CT - Abdomen Pelvis W Contrast - 12/19/2020 4:12 pm CLINICAL HISTORY: Abdominal pain COMPARISON: 2018 TECHNIQUE: Computed axial tomography of the abdomen pelvis was obtained. 100 cc Isovue-300 was admin istered intravenously. Oral contrast was not requested which limits evaluation of bowel. All CT scans are performed using dose optimization technique as appropriate and may include automated exposure control or mA/KV adjustment according to patient size. FINDINGS: A umbilical hernia contains fat. The neck measures 2 centimeters. The herniated sac measur es 5.8 centimeters. There is mild stranding within the fat. The liver, spleen, pancreas, adrenal and kidneys appear unremarkable. There is no evidence of diverticulitis. A 2 centimeter right ovarian cyst without significant free fluid IMPRESSION: Umbilical hernia. Mild stranding within the fat probably indicates inflammation A 2 centimeter right ovarian cyst without significant free fluid
--- NOTE | 2020-12-19 16:50 | EDPHYS ---
Physician Documentation [facility] Name: Paola Castano Age: 35 yrs Sex: Female : 1985 Arrival Date: 12/19/2020 Time: 11:57 Bed 11 Private MD: ED Physician Jerilyn Balderas HPI: 12/19 16:42 This 35 yrs old Black Female presents to ER via Ambulatory with complaints of kb Scar Pain, Abdominal Cramping. 16:42 The patient presents with abdominal pain in the lower abdomen. Onset: The kb symptoms/episode began/occurred 3 day(s) ago, and became worse today. The symptoms do not radiate. Associated signs and symptoms: none. The symptoms are described as crampy. Modifying factors: The symptoms are alleviated by nothing, the symptoms are aggravated by nothing. Severity of pain: At its worst the pain was moderate in the emergency department the pain is unchanged. The patient has not experienced similar symptoms in the past. The patient has not recently seen a physician. Pt reports abd cramping for 3 days and actual pain today. States she had some pain near scar so she thought she may be . Historical: - Allergies: 12:08 Latex, Natural Rubber; tw2 - Home Meds: 12:08 sertraline Oral [Active]; Hydroxyzine Oral [Active]; tw2 - PMHx: 12:08 Hypertension; Iron defeciency; tw2 - PSHx: 12:08 section; tw2 - Immunization history:: Client reports having NOT received the Covid vaccine. - Social history:: Smoking status: Patient reports the use of cigarette tobacco products, smokes one pack cigarettes per day. ROS: 16:41 Constitutional: Negative for fever, chills, and weight loss. kb 16:41 Abdomen/GI: Positive for abdominal pain, Negative for nausea, vomiting, and diarrhea. 16:41 All other systems are negative. Exam: 16:41 Constitutional: This is a well developed, well nourished patient who is awake, alert, kb and in no acute distress. Head/Face: Normocephalic, atraumatic. ENT: Moist Mucous membranes Cardiovascular: Regular rate and rhythm with a normal S1 and S2. No gallops, murmurs, or rubs. No pulse deficits. Respiratory: Respirations even and unlabored. No increased work of breathing, no retractions or nasal flaring. Skin: Warm, dry with normal turgor. Normal color. MS/ Extremity: Pulses equal, no cyanosis. Neurovascular intact. Full, normal range of motion. Neuro: Awake and alert, GCS 15, oriented to person, place, time, and situation. Moves all extremities. Normal gait. Psych: Awake, alert, with orientation to person, place and time. Behavior, mood, and affect are within normal limits. 16:41 Abdomen/GI: Inspection: abdomen appears normal, Bowel sounds: normal, Palpation: soft, in all quadrants, mild abdominal tenderness, in the left upper quadrant. Vital Signs: 12:06 BP 145 / 86; Pulse 92; Resp 17; Temp 97.9(TE); Pulse Ox 99% on R/A; Weight 156.49 kg tw2 (R); Height 5 ft. 7 in. (170.18 cm); Pain 6/10; 15:10 BP 131 / 76; Pulse 77; Resp 16; Pulse Ox 100% on R/A; kj1 12:06 Body Mass Index 54.03 (156.49 kg, 170.18 cm) tw2 MDM: 15:12 Patient medically screened. kb 16:41 Data reviewed: vital signs, nurses notes. Data interpreted: Pulse oximetry: on room air kb is 100 %. Interpretation: normal. Counseling: I had a detailed discussion with the patient and/or guardian regarding: the historical points, exam findings, and any diagnostic results supporting the discharge/admit diagnosis, lab results, radiology results, the need for outpatient follow up, a family practitioner, to return to the emergency department if symptoms worsen or persist or if there are any questions or concerns that arise at home. 16:58 ED course: Hernia easily reducible. Pt states she has had it for a long time and she kb pushes it back in when it comes out. States it does not cause her pain or problems. . 12/19 14:58 Order name: Urine Dipstick-Ancillary; Complete Time: 15:08 EDMS 12/19 15:01 Order name: Urine --Ancillary (enter results); Complete Time: 15:19 eb 12/19 15:10 Order name: Basic Metabolic Panel; Complete Time: 16:04 kb 12/19 15:10 Order name: CBC with Diff; Complete Time: 15:33 kb 12/19 15:10 Order name: Hepatic Function; Complete Time: 16:04 kb 12/19 15:10 Order name: Lipase; Complete Time: 16:04 kb 12/19 12:14 Order name: Urine Dipstick-Ancillary (obtain specimen); Complete Time: 15:14 kb 12/19 12:14 Order name: Urine Test (obtain specimen); Complete Time: 15:14 kb 12/19 15:10 Order name: IV Saline Lock; Complete Time: 15:26 kb 12/19 15:10 Order name: Labs collected and sent; Complete Time: 15:26 kb 12/19 15:19 Order name: Urine Microscopic Only; Complete Time: 16:04 kb 12/19 15:34 Order name: CT Abd/Pelvis - IV Contrast Only; Complete Time: 16:49 kb 12/19 15:42 Order name: Urine Culture EDMS Administered Medications: No medications were administered Disposition Summary: 12/19/20 16:50 Discharge Ordered Location: Home kb Condition: Stable kb Diagnosis - Umbilical hernia without obstruction or gangrene kb - Abdominal pain, Generalized kb Followup: kb - With: Emergency Department - When: As needed - Reason: Worsening of condition Followup: kb - With: Private Physician - When: 2 - 3 days - Reason: Recheck today's complaints, Continuance of care, Re-evaluation by your physician Discharge Instructions: - Discharge Summary Sheet kb - Abdominal Pain, Adult, [id number] kb - Hernia, Adult, [id number] kb Forms: - Medication Reconciliation Form kb - Thank You Letter kb - Antibiotic Education kb - Prescription Opioid Use kb Addendum: 12/21/2020 08:35 Co-signature as Attending Physician, Jerilyn Balderas MD I agree with the assessment and s p3 plan of care. Signatures: Dispatcher [employer] EDMeme Hurd FNP-C FNP-Urszula Traore RN RN tw2 Jerilyn Balderas MD MD sp3
--- NOTE | 2020-12-19 16:50 | ER ---
Nurse's Notes [facility] Name: Paola Castano Age: 35 yrs Sex: Female : 1985 Arrival Date: 12/19/2020 Time: 11:57 Bed 11 Private MD: Diagnosis: Umbilical hernia without obstruction or gangrene;Abdominal pain, Generalized Presentation: 12/19 12:06 Chief complaint: Patient states: i have been feeling nauseous for 4 days now. i threw tw2 up this morning. my scar hurts really bad this morning. my c-cection was 8 months ago. i am probably . i took a home test this morning the first one was faint. then the 2nd test showed negative. i am also cramping in my stomach. Chief complaint: Patient states: i just want to know what the pain is from. the pain comes and goes. Coronavirus screen: At this time, the client does not indicate any symptoms associated with coronavirus-19. Ebola Screen: Patient denies travel to an Ebola-affected area in the 21 days before illness onset. Initial Sepsis Screen: Does the patient meet any 2 criteria? No. Patient's initial sepsis screen is negative. Does the patient have a suspected source of infection? No. Patient's initial sepsis screen is negative. Risk Assessment: Do you want to hurt yourself or someone else? Patient reports no desire to harm self or others. Onset of symptoms was December 19, 2020. 12:06 Method Of Arrival: Ambulatory tw2 12:06 Acuity: LEWIS 3 tw2 Triage Assessment: 12:10 General: Appears in no apparent distress. obese, Behavior is calm, cooperative, tw2 appropriate for age. Pain: Complains of pain in right lower quadrant and left lower quadrant. GI: Reports cramping, nausea. Historical: - Allergies: 12:08 Latex, Natural Rubber; tw2 - Home Meds: 12:08 sertraline Oral [Active]; Hydroxyzine Oral [Active]; tw2 - PMHx: 12:08 Hypertension; Iron defeciency; tw2 - PSHx: 12:08 section; tw2 - Immunization history:: Client reports having NOT received the Covid vaccine. - Social history:: Smoking status: Patient reports the use of cigarette tobacco products, smokes one pack cigarettes per day. Screenin:11 Abuse screen: Denies threats or abuse. Nutritional screening: No deficits noted. tw2 Tuberculosis screening: No symptoms or risk factors identified. Fall Risk None identified. Assessment: 12:11 Reassessment: pt given urine specimen cup for collection and asked to wait in ER main tw2 lobby at this time. 16:00 Reassessment: Patient appears in no apparent distress at this time. No changes from jl previously documented assessment. Patient and/or family updated on plan of care and expected duration. Pain level reassessed. Patient is alert, oriented x 3, equal unlabored respirations, skin warm/dry/pink. Vital Signs: 12:06 BP 145 / 86; Pulse 92; Resp 17; Temp 97.9(TE); Pulse Ox 99% on R/A; Weight 156.49 kg tw2 (R); Height 5 ft. 7 in. (170.18 cm); Pain 6/10; 15:10 BP 131 / 76; Pulse 77; Resp 16; Pulse Ox 100% on R/A; kj1 12:06 Body Mass Index 54.03 (156.49 kg, 170.18 cm) tw2 ED Course: 11:57 Patient arrived in ED. ds1 12:08 Triage completed. tw2 12:08 Arm band placed on. tw2 12:14 Meme Cardona F[facility]-C is [facility]. kb 12:14 Jerilyn Balderas MD is Attending Physician. kb 15:14 Roxie Rivera, FRANCIA is Primary Nurse. jl7 15:15 Initial lab(s) drawn, by ar, sent to lab. Inserted saline lock: 20 gauge in right kj1 antecubital area, using aseptic technique. Blood collected. 16:00 Patient has correct armband on for positive identification. Bed in low position. Call jl7 light in reach. Side rails up X 1. Pulse ox on. NIBP on. 16:12 CT Abd/Pelvis - IV Contrast Only In Process Unspecified. EDMS 17:10 No provider procedures requiring assistance completed. IV discontinued, intact, jl7 bleeding controlled, No redness/swelling at site. Pressure dressing applied. Administered Medications: No medications were administered Outcome: 16:50 Discharge ordered by . kb 17:10 Discharged to home ambulatory. jl7 17:10 Condition: stable 17:10 Discharge instructions given to patient, Instructed on discharge instructions, follow up and referral plans. Demonstrated understanding of instructions, follow-up care. 17:10 Patient left the ED. [email or web address] Signatures: Dispatcher [employer] EDMeme Hurd, ANTONY BYRD-Vanessa Locke ds1 Urszula Enamorado RN RN tw2 Roxie Rivera RN RN jl7 Nedra Cardona kj1
[2020-12-19 18:03] VITALS: TEMP 97.9
[2020-12-19 18:04] VITALS: BP 131/76; O2SAT 100
--- OUTSIDE RECORDS SUMMARY | 2020-12-25 15:21 | XMS REPORT | Continuity of Care Document ---
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 tablet 00:00: mouth [place] 00 daily. Medical Branch docusate Yes [id number] 240mg Take 1 U nivers calcium 240 2-23 capsule by it y of mg capsule 00:00: mouth once [place] 00 daily as Medical needed for Branch Constipati on. ferrous Yes [id number] 325mg Take 1 Un delfin sulfate 325 2-23 tablet by ity of mg (65 mg 00:00: mouth 2 [place] iron) 00 (two) Medical tablet times Branch daily. ibuprofen Yes [id number] 600mg Take 1 [facility] 600 mg 2-23 tablet by ity of tablet 00:00: mouth [place] 00 every 6 Medical (six) Branch hours as needed (Pain). Take with food or milk. acetaminoph Yes [id number] 650mg Take 2 [facility] en 325 mg 2-23 tablets by ity of tablet 00:00: mouth [place] 00 every 6 Medical (six) Branch hours. Yes [id number] 1{tbl} Take 1 [facility] vitamin 2-23 tablet by ity of w/FA tablet 00:00: mouth [place] 00 daily. Medical Branch docusate Yes [id number] 240mg Take 1 U nivers calcium 240 2-23 capsule by it y of mg capsule 00:00: mouth once [place] 00 daily as Medical needed for Branch Constipati on. ferrous Yes [id number] 325mg Take 1 Un delfin sulfate 325 2-23 tablet by ity of mg (65 mg 00:00: mouth 2 [place] iron) 00 (two) Medical tablet times Branch daily. ibuprofen Yes [id number] 600mg Take 1 [facility] 600 mg 2-23 tablet by ity of tablet 00:00: mouth [place] 00 every 6 Medical (six) Branch hours as needed (Pain). Take with food or milk. acetaminoph Yes [id number] 650mg Take 2 [facility] en 325 mg 2-23 tablets by ity of tablet 00:00: mouth [place] 00 every 6 Medical (six) Branch hours. Yes [id number] 1{tbl} Take 1 [facility] vitamin 2-23 tablet by ity of w/FA tablet 00:00: mouth [place] 00 daily. Medical Branch docusate Yes [id number] 240mg Take 1 U nivers calcium 240 2-23 capsule by it y of mg capsule 00:00: mouth once [place] 00 daily as Medical needed for Branch Constipati on. ferrous Yes [id number] 325mg Take 1 Un delfin sulfate 325 2-23 tablet by ity of mg (65 mg 00:00: mouth 2 [place] iron) 00 (two) Medical tablet times Branch daily. ibuprofen Yes [id number] 600mg Take 1 [facility] 600 mg 2-23 tablet by ity of tablet 00:00: mouth [place] 00 every 6 Medical (six) Branch hours as needed (Pain). Take with food or milk. acetaminoph Yes [id number] 650mg Take 2 [facility] en 325 mg 2-23 tablets by ity of tablet 00:00: mouth [place] 00 every 6 Medical (six) Branch hours. Yes [id number] 1{tbl} Take 1 [facility] vitamin 2-23 tablet by ity of w/FA tablet 00:00: mouth [place] 00 daily. Medical Branch docusate Yes [id number] 240mg Take 1 U nivers calcium 240 2-23 capsule by it y of mg capsule 00:00: mouth once [place] 00 daily as Medical needed for Branch Constipati on. ferrous Yes [id number] 325mg Take 1 Un delfin sulfate 325 2-23 tablet by ity of mg (65 mg 00:00: mouth 2 [place] iron) 00 (two) Medical tablet times Branch daily. ibuprofen Yes [id number] 600mg Take 1 [facility] 600 mg 2-23 tablet by ity of tablet 00:00: mouth [place] 00 every 6 Medical (six) Branch hours as needed (Pain). Take with food or milk. acetaminoph Yes [id number] 650mg Take 2 [facility] en 325 mg 2-23 tablets by ity of tablet 00:00: mouth [place] 00 every 6 Medical (six) Branch hours. Yes [id number] 1{tbl} Take 1 [facility] vitamin 2-23 tablet by ity of w/FA tablet 00:00: mouth [place] 00 daily. Medical Branch docusate Yes [id number] 240mg Take 1 [facility] nivers calcium 240 2-23 capsule by it y of mg capsule 00:00: mouth once [place] 00 daily as Medical needed for Branch Constipati on. ferrous Yes [id number] 325mg Take 1 Un delfin sulfate 325 2-23 tablet by ity of mg (65 mg 00:00: mouth 2 [place] iron) 00 (two) Medical tablet times Branch daily. ibuprofen Yes [id number] 600mg Take 1 [facility] 600 mg 2-23 tablet by ity of tablet 00:00: mouth [place] 00 every 6 Medical (six) Branch hours as needed (Pain). Take with food or milk. acetaminoph Yes [id number] 650mg Take 2 [facility] en 325 mg 2-23 tablets by ity of tablet 00:00: mouth [place] 00 every 6 Medical (six) Branch hours. Yes [id number] 1{tbl} Take 1 [facility] vitamin 2-23 tablet by ity of w/FA tablet 00:00: mouth [place] 00 daily. Medical Branch docusate Yes [id number] 240mg Take 1 [facility] nivers calcium 240 2-23 capsule by it y of mg capsule 00:00: mouth once [place] 00 daily as Medical needed for Branch Constipati on. ferrous Yes [id number] 325mg Take 1 Un delfin sulfate 325 2-23 tablet by ity of mg (65 mg 00:00: mouth 2 [place] iron) 00 (two) Medical tablet times Branch daily. ibuprofen Yes [id number] 600mg Take 1 [facility] 600 mg 2-23 tablet by ity of tablet 00:00: mouth [place] 00 every 6 Medical (six) Branch hours as needed (Pain). Take with food or milk. acetaminoph Yes [id number] 650mg Take 2 [facility] en 325 mg 2-23 tablets by ity of tablet 00:00: mouth [place] 00 every 6 Medical (six) Branch hours. Yes [id number] 1{tbl} Take 1 [facility] vitamin 2-23 tablet by ity of w/FA tablet 00:00: mouth [place] 00 daily. Medical Branch docusate Yes [id number] 240mg Take 1 [facility] nivers calcium 240 2-23 capsule by it y of mg capsule 00:00: mouth once [place] 00 daily as Medical needed for Branch Constipati on. ferrous Yes [id number] 325mg Take 1 Un delfin sulfate 325 2-23 tablet by ity of mg (65 mg 00:00: mouth 2 [place] iron) 00 (two) Medical tablet times Branch daily. ibuprofen Yes [id number] 600mg Take 1 [facility] 600 mg 2-23 tablet by ity of tablet 00:00: mouth [place] 00 every 6 Medical (six) Branch hours as needed (Pain). Take with food or milk. acetaminoph Yes [id number] 650mg Take 2 [facility] en 325 mg 2-23 tablets by ity of tablet 00:00: mouth [place] 00 every 6 Medical (six) Branch hours. Yes [id number] 1{tbl} Take 1 [facility] vitamin 2-23 tablet by ity of w/FA tablet 00:00: mouth [place] 00 daily. Medical Branch docusate Yes [id number] 240mg Take 1 [facility] nivers calcium 240 2-23 capsule by it y of mg capsule 00:00: mouth once [place] 00 daily as Medical needed for Branch Constipati on. ferrous Yes [id number] 325mg Take 1 Un delfin sulfate 325 2-23 tablet by ity of mg (65 mg 00:00: mouth 2 [place] iron) 00 (two) Medical tablet times Branch daily. ibuprofen Yes [id number] 600mg Take 1 [facility] 600 mg 2-23 tablet by ity of tablet 00:00: mouth [place] 00 every 6 Medical (six) Branch hours as needed (Pain). Take with food or milk. acetaminoph Yes [id number] 650mg Take 2 [facility] en 325 mg 2-23 tablets by ity of tablet 00:00: mouth [place] 00 every 6 Medical (six) Branch hours. Yes [id number] 1{tbl} Take 1 [facility] vitamin 2-23 tablet by ity of w/FA tablet 00:00: mouth [place] 00 daily. Medical Branch docusate Yes [id number] 240mg Take 1 U nivers calcium 240 2-23 capsule by it y of mg capsule 00:00: mouth once [place] 00 daily as Medical needed for Branch Constipati on. ferrous Yes [id number] 325mg Take 1 Un delfin sulfate 325 2-23 tablet by ity of mg (65 mg 00:00: mouth 2 [place] iron) 00 (two) Medical tablet times Branch daily. ibuprofen Yes [id number] 600mg Take 1 [facility] 600 mg 2-23 tablet by ity of tablet 00:00: mouth [place] 00 every 6 Medical (six) Branch hours as needed (Pain). Take with food or milk. acetaminoph Yes [id number] 650mg Take 2 [facility] en 325 mg 2-23 tablets by ity of tablet 00:00: mouth [place] 00 every 6 Medical (six) Branch hours. Yes [id number] 1{tbl} Take 1 [facility] vitamin 2-23 tablet by ity of w/FA tablet 00:00: mouth [place] 00 daily. Medical Branch docusate Yes [id number] 240mg Take 1 U nivers calcium 240 2-23 capsule by it y of mg capsule 00:00: mouth once [place] 00 daily as Medical needed for Branch Constipati on. ferrous Yes [id number] 325mg Take 1 Un delfin sulfate 325 2-23 tablet by ity of mg (65 mg 00:00: mouth 2 [place] iron) 00 (two) Medical tablet times Branch daily. ibuprofen Yes [id number] 600mg Take 1 [facility] 600 mg 2-23 tablet by ity of tablet 00:00: mouth [place] 00 every 6 Medical (six) Branch hours as needed (Pain). Take with food or milk. acetaminoph Yes [id number] 650mg Take 2 [facility] en 325 mg 2-23 tablets by ity of tablet 00:00: mouth [place] 00 every 6 Medical (six) Branch hours. Yes [id number] 1{tbl} Take 1 [facility] vitamin 2-23 tablet by ity of w/FA tablet 00:00: mouth [place] 00 daily. Medical Branch docusate Yes [id number] 240mg Take 1 U nivers calcium 240 2-23 capsule by it y of mg capsule 00:00: mouth once [place] 00 daily as Medical needed for Branch Constipati on. ferrous Yes [id number] 325mg Take 1 Un delfin sulfate 325 2-23 tablet by ity of mg (65 mg 00:00: mouth 2 [place] iron) 00 (two) Medical tablet times Branch daily. ibuprofen Yes [id number] 600mg Take 1 [facility] 600 mg 2-23 tablet by ity of tablet 00:00: mouth [place] 00 every 6 Medical (six) Branch hours as needed (Pain). Take with food or milk. acetaminoph Yes [id number] 650mg Take 2 [facility] en 325 mg 2-23 tablets by ity of tablet 00:00: mouth [place] 00 every 6 Medical (six) Branch hours. Yes [id number] 1{tbl} Take 1 [facility] vitamin 2-23 tablet by ity of w/FA tablet 00:00: mouth [place] 00 daily. Medical Branch docusate Yes [id number] 240mg Take 1 U nivers calcium 240 2-23 capsule by it y of mg capsule 00:00: mouth once [place] 00 daily as Medical needed for Branch Constipati on. ferrous Yes [id number] 325mg Take 1 Un delfin sulfate 325 2-23 tablet by ity of mg (65 mg 00:00: mouth 2 [place] iron) 00 (two) Medical tablet times Branch daily. ibuprofen Yes [id number] 600mg Take 1 [facility] 600 mg 2-23 tablet by ity of tablet 00:00: mouth [place] 00 every 6 Medical (six) Branch hours as needed (Pain). Take with food or milk. acetaminoph Yes [id number] 650mg Take 2 [facility] en 325 mg 2-23 tablets by ity of tablet 00:00: mouth [place] 00 every 6 Medical (six) Branch hours. Yes [id number] 1{tbl} Take 1 [facility] vitamin 2-23 tablet by ity of w/FA tablet 00:00: mouth [place] 00 daily. Medical Branch docusate Yes [id number] 240mg Take 1 U nivers calcium 240 2-23 capsule by it y of mg capsule 00:00: mouth once [place] 00 daily as Medical needed for Branch Constipati on. ferrous Yes [id number] 325mg Take 1 Un delfin sulfate 325 2-23 tablet by ity of mg (65 mg 00:00: mouth 2 [place] iron) 00 (two) Medical tablet times Branch daily. ibuprofen Yes [id number] 600mg Take 1 [facility] 600 mg 2-23 tablet by ity of tablet 00:00: mouth [place] 00 every 6 Medical (six) Branch hours as needed (Pain). Take with food or milk. HYDROcodone 2020- No 4647 1{tbl} Take 1 U nivers -acetaminop 2-23 03-03 tablet by it y of hen 5-325 00:00: 05:59 mouth [place] mg tablet 00 :00 every 6 Medical (six) Branch hours as needed for Pain (scale 4-6) for up to 7 days. Indication s: acute pain HYDROcodone 2020- No 4647 1{tbl} Take 1 U nivers -acetaminop 2-23 03-03 tablet by it y of hen 5-325 00:00: 05:59 mouth [place] mg tablet 00 :00 every 6 Medical (six) Branch hours as needed for Pain (scale 4-6) for up to 7 days. Indication s: acute pain HYDROcodone 2020- No 4647 1{tbl} Take 1 U nivers -acetaminop 2-23 03-03 tablet by it y of hen 5-325 00:00: 05:59 mouth [place] mg tablet 00 :00 every 6 Medical (six) Branch hours as needed for Pain (scale 4-6) for up to 7 days. Indication s: acute pain HYDROcodone 2020- No 4647 1{tbl} Take 1 U nivers -acetaminop 2-23 03-03 tablet by it y of hen 5-325 00:00: 05:59 mouth [place] mg tablet 00 :00 every 6 Medical (six) Branch hours as needed for Pain (scale 4-6) for up to 7 days. Indication s: acute pain gabapentin 2020- No [id number] 300mg Take 1 [facility] 300 mg 2-04 05- capsule by ity of capsule 00:00: 05:59 mouth 3 [place] 00 :00 (three) Medical times Branch daily for 5 days. gabapentin 2020- No [id number] 300mg Take 1 [facility] 300 mg 04-06 capsule by ity of capsule 00:00: 05:59 mouth 3 [place] 00 :00 (three) Medical times [place] daily for 5 days. gabapentin 2020- No [id number] 300mg Take 1 [facility] 300 mg 04-06 capsule by ity of capsule 00:00: 05:59 mouth 3 [place] 00 :00 (three) Medical times [place] daily for 5 days. gabapentin 2020- No [id number] 300mg Take 1 [facility] 300 mg 04-06 capsule by ity of capsule 00:00: 05:59 mouth 3 [place] 00 :00 (three) Medical times [place] daily for 5 days. acetaminoph 2020- No 1000mg 1,000 mg, [facility] en ADULT 04-05 IV ity of (OFIRMEV) 21:00: 21:20 Infusion, [place] injection 00 :00 Administer Medi terra 1,000 mg over 15 Branch Minutes, ONCE, 1 dose, [facility] 04/05/20 at 1500, Routine
Indica tion: Perioperat rosette Patient famotidine 2020- No 40mg 40 mg, Univ ers (PEPCID AC) 04-05 Oral, ity of tablet 40 20:10: 20:19 ONCE, 1 [place] mg 00 :00 dose, [facility] 04/05/20 at Branch 1415, Routine gabapentin Yes 300mg 300 mg, Uni vers (NEURONTIN) 04-05 Oral, TID, it y of capsule 300 20:00: First dose [place] mg 00 on [facility] 04/05/20 at Branch 1400, Until Discontinu ed, Routine sodium Yes PRN, Univers chloride 04-05 Starting ity of 0.9 % 18:56: Mon [place] irrigation 00 04/05/20 at [facility] ical solution 1256, [place] Until Discontinu ed, Intra-op mupirocin 2020- Yes Intra-op Univ ers (BACTROBAN 04-05 ity of OINT) 2 % 18:55: [place] skin 00 Medical ointment Branch rho(D) Yes 300ug 300 mcg, Univer s immune 04-05 Intramuscu ity of globulin 17:43: lar, ONCE, [place] (RHOGAM) 29 For 1 Medical syringe 300 dose, Branch mcg Conditiona l, Routine diphenhydrA 0 Yes 25mg 25 mg, IV U nivers MINE-0.9 % 2 Piggyback, ity of sod.chlr 17:42: Administer [place] (BENADRYL) 43 over 30 Medica l 25 mg/50 mL Minutes, Bran ch piggyback Q6HPRN, 1 25 mg dose, Starting 04/05/20 at 1142, Until Discontinu ed, Routine, Itching diphenhydrA 2020-0 Yes 25mg 25 mg, Univ ers MINE 04-05 Oral, ity of (BENADRYL) 17:42: Q6HPRN, [place] tablet 25 43 Starting Medica l mg Mon Branch 04/05/20 at 1142, Until Discontinu ed, Routine, Sleep, Itching ondansetron 0 Yes 4mg 4 mg, Slow Univers (ZOFRAN 04-05 IV Push, ity of (PF)) 17:42: Q8HPRN, [place] injection 4 43 Starting Medi terra mg Mon Branch 04/05/20 at 1142, Until Discontinu ed, Routine, Nausea and Vomiting (N/V) bisacodyL 0 Yes 10mg 10 mg, Univer s (DULCOLAX) 04-05 Rectal, ity of suppository 17:42: QDAILYPRN, [place] 10 mg 43 Starting Medical Mon Branch 04/05/20 at 1142, Until Discontinu ed, Routine, Constipati on simethicone 2020-0 Yes 160mg 160 mg, Un delfin (GAS RELIEF 04-05 Oral, ity of (SIMETHICON 17:42: PC+HSPRN, [place] E)) 43 Starting Medical chewable Mon Branch tablet 160 04/05/20 at mg 1142, Until Discontinu ed, Routine, Gas docusate 2020-0 Yes 240mg 240 mg, Unive rs calcium 04-05 Oral, ity of (SURFAK) 17:42: QDAILYPRN, [place] capsule 240 43 Starting Medi terra mg Mon Branch 04/05/20 at 1142, Until Discontinu ed, Routine, Constipati on magnesium Yes 30mL 30 mL, Univer s hydroxide 04-05 Oral, ity of (MILK OF 17:42: QDAILYPRN, [place] MAGNESIA) 43 Starting Medica l 400 mg/5 mL [facility] Branch suspension 04/05/20 at 30 mL 1142, Until Discontinu ed, Routine, Constipati on morpHINE 30 Yes Univer s mg/30 mL 04-05 ity of (fixed 17:15: [place] dose) [employer]IST[employer] 00 Medical injection Branch naloxone Yes .1mg 0.1 mg, Univer s (NARCAN) 04-05 Slow IV ity of injection 16:02: Push, [place] 0.1 mg 50 SEE-INSTRU Medical CTIONS, Branch Starting Sun04/05/20 at 1002, Until Discontinu ed, Routine morpHINE 2 Yes Slow IV Univ ers mg/mL LOAD 04-05 Push, ity of & RESCUE 16:02: Routine [place] INJECTION 50 Medical SYRG Branch naloxone Yes .2mg 0.2 mg, Univer s (NARCAN) 04-05 Intramuscu ity o f injection 15:47: lar, [place] 0.2 mg 55 Q3HPRN, Medical Starting Branch 04/05/20 at 0947, Until Discontinu ed, Routine, Itching naloxone No .4mg 0.4 mg, Unive rs (NARCAN) 04-05 Slow IV ity of injection 15:47: 16:02 Push, PRN [place] 0.4 mg 55 :22 - SEE Medical INSTRUCTIO Branch NS, Starting Sun04/05/20 at 0947, Until Sun04/07/20 at 1002, Routine, Analgesia Recovery SERTraline Yes 50mg 50 mg, Unive rs (ZOLOFT) 04-05 Oral, ity of tablet 50 15:00: DAILY, [place] mg 00 First dose Medical on [facility] Branch 04/05/20 at 0900, Until Discontinu ed, Routine D5W-LR IV Yes 1000mL at 125 Univ ers infusion 2-22 mL/hr, IV ity of 1,000 mL 12:15: Infusion, [place] 00 CONTINUOUS Medical , Starting Branch [facility] 04/05/20 at 0615, Until Discontinu ed, Routine lactated 2020- No 500mL at 999 Unive rs ringers IV 04-05 02-22 mL/hr, 500 it y of infusion 12:15: 12:44 mL, IV [place] 500 mL 00 :00 Infusion, Medical ONCE, 1 Branch dose, 04/05/20 at 0615, Routine lidocaine 2020-0 Yes .3mL 0.3 mL, Unive rs 1% (PF) 04-05 Infiltrati ity of (XYLOCAINE) 12:09: on, PRN - [place] injection 13 SEE Medical 0.3 mL INSTRUCTIO Branch NS, Starting 04/05/20 at 0609, Until Discontinu ed, Routine, Local anesthesia , For IV line placement only as a local anesthetic . sodium 2020-0 Yes 30mL 30 mL, Univers citrate-cit 04-05 Oral, ity of axel acid 12:09: PRE-PROCED [place] (BICITRA) 12 URE ONCE, Medic al 500-334 1 dose, Branch mg/5 mL Starting solution 30 Mon mL 04/05/20 at 0609, Until Discontinu ed, Routine, Surgery/Pr ocedure sodium 2020-0 2020- No 30mL 30 mL, Univers citrate-cit -22 -22 Oral, ity of axel acid 12:09: 13:52 PRE-PROCED [place] (BICITRA) 12 :00 URE ONCE, Medic al 500-334 1 dose, Branch mg/5 mL Starting solution 30 Mon mL 04/05/20 at 0609, Until Discontinu ed, Routine, Surgery LOPERAMIDE 2020-0 Yes [id number] 2mg Take 1 U nivers 2 mg 2-14 capsule by ity of capsule 00:00: mouth [place] 00 every 4 Medical (four) Branch hours as needed for Diarrhea. ondansetron 2020-0 Yes [id number] 4mg Take 1 [facility] 4 mg tablet 2-14 tablet by ity of 00:00: mouth [place] 00 every 8 Medical (eight) Branch hours as needed for Nausea and Vomiting (N/V). LOPERAMIDE 2020-0 Yes [id number] 2mg Take 1 U nivers 2 mg 2-14 capsule by ity of capsule 00:00: mouth [place] 00 every 4 Medical (four) Branch hours as needed for Diarrhea. ondansetron 2020-0 Yes [id number] 4mg Take 1 [facility] 4 mg tablet 2-14 tablet by ity of 00:00: mouth [place] 00 every 8 Medical (eight) Branch hours as needed for Nausea and Vomiting (N/V). LOPERAMIDE 2020-0 Yes [id number] 2mg Take 1 U nivers 2 mg 2-14 capsule by ity of capsule 00:00: mouth [place] 00 every 4 Medical (four) Branch hours as needed for Diarrhea. ondansetron 2020-0 Yes [id number] 4mg Take 1 [facility] 4 mg tablet 2-14 tablet by ity of 00:00: mouth [place] 00 every 8 Medical (eight) Branch hours as needed for Nausea and Vomiting (N/V). LOPERAMIDE 2020-0 Yes [id number] 2mg Take 1 U nivers 2 mg 2-14 capsule by ity of capsule 00:00: mouth [place] 00 every 4 Medical (four) Branch hours as needed for Diarrhea. ondansetron 2020-0 Yes [id number] 4mg Take 1 [facility] 4 mg tablet 2-14 tablet by ity of 00:00: mouth [place] 00 every 8 Medical (eight) Branch hours as needed for Nausea and Vomiting (N/V). LOPERAMIDE 2020-0 Yes [id number] 2mg Take 1 U nivers 2 mg 2-14 capsule by ity of capsule 00:00: mouth [place] 00 every 4 Medical (four) Branch hours as needed for Diarrhea. ondansetron 2020-0 Yes [id number] 4mg Take 1 [facility] 4 mg tablet 2-14 tablet by ity of 00:00: mouth [place] 00 every 8 Medical (eight) Branch hours as needed for Nausea and Vomiting (N/V). LOPERAMIDE 2020-0 Yes [id number] 2mg Take 1 U nivers 2 mg 2-14 capsule by ity of capsule 00:00: mouth [place] 00 every 4 Medical (four) Branch hours as needed for Diarrhea. ondansetron 1-0 Yes [id number] 4mg Take 1 [facility] 4 mg tablet 2-14 tablet by ity of 00:00: mouth [place] 00 every 8 Medical (eight) Branch hours as needed for Nausea and Vomiting (N/V). LOPERAMIDE 2021-0 Yes [id number] 2mg Take 1 U nivers 2 mg 2-14 capsule by ity of capsule 00:00: mouth [place] 00 every 4 Medical (four) Branch hours as needed for Diarrhea. ondansetron Yes [id number] 4mg Take 1 [facility] 4 mg tablet 2-14 tablet by ity of 00:00: mouth [place] 00 every 8 Medical (eight) Branch hours as needed for Nausea and Vomiting (N/V). hydrOXYzine Yes 50mg 50 mg, Univ ers (ATARAX) 2-07 Oral, ity of tablet 50 00:13: Q8HPRN, [place] mg 27 Starting Medical 03/20/20 Branch at 1813, Until Discontinu ed, Routine, Anxiety proMETHazin Yes 25mg 25 mg, Univ ers e 2-06 Oral, ity of (PHENERGAN) 17:46: Q4HPRN, [place] tablet 25 00 Starting Medica l mg 03/20/20 Branch at 1146, Until Discontinu ed, Routine, Nausea and Vomiting (N/V) SERTraline Yes 50mg 50 mg, Unive rs (ZOLOFT) 2- Oral, ity of tablet 50 15:00: DAILY, [place] mg 00 First dose Medical on [facility] Branch 03/20/20 at 0900, Until Discontinu ed, Routine valACYclovi Yes 500mg 500 mg, Un delfin r (VALTREX) 2- Oral, BID, it y of tablet 500 14:00: First dose [place] mg 00 on [facility] 03/20/20 at Branch 0800, Until Discontinu ed, NIKI cephALEXin Yes 500mg 500 mg, Uni vers (KEFLEX) 2-06 Oral, Q6H, ity o f capsule 500 12:00: First dose [place] mg 00 on [facility] 03/20/20 at Branch 0600, Until Discontinu ed, NIKI
Re ason for Anti-Infec tive: Documented Infection< br>Documen [email or web address] Infection Site: Urine
D uration of Therapy: 7 days diphenhydrA No 50mg 50 mg, Uni vers MINE 2-06 02-06 Oral, ity of (BENADRYL) 10:15: 10:40 ONCE, 1 [place] capsule 50 00 :00 dose, Sat Medi terra mg 03/20/20 at Branch 0415, Routine 2020-0 Yes 1{tbl} 1 tablet, Un delfin vitamin 2-06 Oral, ity of w/FA 09:15: DAILY, [place] (PRENATABS 00 First dose Med ical RX) tablet on Sat Branch 1 tablet 03/20/20 at 0315, Until Discontinu ed, Routine acetaminoph 0 Yes 650mg 650 mg, Un delfin en 2-06 Oral, ity of (TYLENOL) 09:09: Q6[place], [place] tablet 650 08 Starting Medic al mg 03/20/20 Branch at 0309, Until Discontinu ed, Routine, Pain (scale 1-3) alum-mag 0 Yes 30mL 30 mL, Univers hydroxide-s 2-06 Oral, ity of imeth 09:04: Q6[place], [place] (MAALOX 51 Starting Medical PLUS / 03/20/20 Branch MAG-AL at 0304, PLUS) Until 200-200-20 Discontinu mg/5 mL ed, suspension Routine, 30 mL Indigestio n docusate Yes 240mg 240 mg, Unive rs calcium 2-06 Oral, ity of (SURFAK) 09:04: QPRF[place], [place] capsule 240 51 Starting Medi terra mg 03/20/20 Branch at 0304, Until Discontinu ed, Routine, Constipati on magnesium 0 Yes 30mL 30 mL, Univer s hydroxide 2-06 Oral, ity of (MILK OF 09:04: QDAILYPRN, [place] MAGNESIA) 51 Starting Medica l 400 mg/5 mL 03/20/20 Br anch suspension at 0304, 30 mL Until Discontinu ed, Routine, Constipati on cephALEXin 0 Yes [id number] 250mg Take 1 [facility] 250 mg 2-02 capsule by ity of capsule 00:00: mouth [place] 00 every 6 Medical (six) Branch hours. cephALEXin 2020-0 Yes [id number] 250mg Take 1 [facility] 250 mg 2-02 capsule by ity of capsule 00:00: mouth [place] 00 every 6 Medical (six) Branch hours. cephALEXin 2020-0 Yes [id number] 250mg Take 1 [facility] 250 mg 2-02 capsule by ity of capsule 00:00: mouth [place] 00 every 6 Medical (six) Branch hours. cephALEXin 2021-0 Yes [id number] 250mg Take 1 [facility] 250 mg 2-02 capsule by ity of capsule 00:00: mouth [place] 00 every 6 Medical (six) Branch hours. cephALEXin 2021-0 Yes [id number] 250mg Take 1 [facility] 250 mg 2-02 capsule by ity of capsule 00:00: mouth [place] 00 every 6 Medical (six) Branch hours. cephALEXin 2021-0 Yes [id number] 250mg Take 1 [facility] 250 mg 2-02 capsule by ity of capsule 00:00: mouth [place] 00 every 6 Medical (six) Branch hours. cephALEXin 2021-0 Yes [id number] 250mg Take 1 [facility] 250 mg 2-02 capsule by ity of capsule 00:00: mouth [place] 00 every 6 Medical (six) Branch hours. cephALEXin 2021-0 Yes [id number] 250mg Take 1 [facility] 250 mg 2-02 capsule by ity of capsule 00:00: mouth [place] 00 every 6 Medical (six) Branch hours. cephALEXin 2021-0 Yes [id number] 250mg Take 1 [facility] 250 mg 2-02 capsule by ity of capsule 00:00: mouth [place] 00 every 6 Medical (six) Branch hours. cephALEXin 2021-0 Yes [id number] 250mg Take 1 [facility] 250 mg 2-02 capsule by ity of capsule 00:00: mouth [place] 00 every 6 Medical (six) Branch hours. cephALEXin 2021-0 Yes [id number] 250mg Take 1 [facility] 250 mg 2-02 capsule by ity of capsule 00:00: mouth [place] 00 every 6 Medical (six) Branch hours. cephALEXin 2021-0 Yes [id number] 250mg Take 1 [facility] 250 mg 2-02 capsule by ity of capsule 00:00: mouth [place] 00 every 6 Medical (six) Branch hours. cephALEXin 2021-0 Yes [id number] 250mg Take 1 [facility] 250 mg 2-02 capsule by ity of capsule 00:00: mouth [place] 00 every 6 Medical (six) Branch hours. cephALEXin 2021-0 Yes [id number] 250mg Take 1 [facility] 250 mg 2-02 capsule by ity of capsule 00:00: mouth [place] 00 every 6 Medical (six) Branch hours. Nitrofurant 1-0 Yes 100mg 100 mg, [facility] oin&Nit. 1-27 Oral, BID, ity o f Macrocryst 05:15: First dose [place] (MACROBID) 00 on Tue Medical 100 mg 03/09/20 at Branch capsule 100 2315, mg Until Discontinu ed, Routine
Reason for Anti-Infec tive: Empiric Therapy for Suspected Infection< br>Empiric Therapy Site: Urine<br&g t;Duration of therapy: 7 days lurasidone 202- No 1{tbl} Take 1 [facility] delfin (LATUDA) 20 03-10 tablet by it y of mg tablet 05:13: 00:00 mouth [place] 41 :00 daily. Medical Branch valACYclovi Yes [id number] 500mg Take 1 [facility] r 500 mg 1-26 tablet by ity of tablet 00:00: mouth 2 [place] (two) Medical times Branch daily. valACYclovi Yes [id number] 500mg Take 1 [facility] r 500 mg 1-26 tablet by ity of tablet 00:00: mouth 2 [place] (two) Medical times Branch daily. valACYclovi Yes [id number] 500mg Take 1 [facility] r 500 mg 1-26 tablet by ity of tablet 00:00: mouth 2 [place] (two) Medical times Branch daily. valACYclovi Yes [id number] 500mg Take 1 [facility] r 500 mg 1-26 tablet by ity of tablet 00:00: mouth 2 [place] 00 (two) Medical times Branch daily. valACYclovi Yes [id number] 500mg Take 1 [facility] r 500 mg 1-26 tablet by ity of tablet 00:00: mouth 2 [place] 00 (two) Medical times Branch daily. valACYclovi Yes [id number] 500mg Take 1 [facility] r 500 mg 1-26 tablet by ity of tablet 00:00: mouth 2 [place] 00 (two) Medical times Branch daily. valACYclovi Yes [id number] 500mg Take 1 [facility] r 500 mg 1-26 tablet by ity of tablet 00:00: mouth 2 [place] 00 (two) Medical times Branch daily. valACYclovi Yes [id number] 500mg Take 1 [facility] r 500 mg 1-26 tablet by ity of tablet 00:00: mouth 2 (two) Medical times Branch daily. valACYclovi Yes [id number] 500mg Take 1 [facility] r 500 mg 1-26 tablet by ity of tablet 00:00: mouth 2 (two) Medical times Branch daily. valACYclovi Yes [id number] 500mg Take 1 [facility] r 500 mg 1-26 tablet by ity of tablet 00:00: mouth 2 [place] (two) Medical times Branch daily. valACYclovi Yes [id number] 500mg Take 1 [facility] r 500 mg 1-26 tablet by ity of tablet 00:00: mouth 2 [place] (two) Medical times Branch daily. valACYclovi Yes [id number] 500mg Take 1 [facility] r 500 mg 1-26 tablet by ity of tablet 00:00: mouth 2 [place] (two) Medical times Branch daily. valACYclovi Yes [id number] 500mg Take 1 [facility] r 500 mg 1-26 tablet by ity of tablet 00:00: mouth 2 [place] (two) Medical times Branch daily. valACYclovi Yes [id number] 500mg Take 1 [facility] r 500 mg 1-26 tablet by ity of tablet 00:00: mouth 2 [place] (two) Medical times Branch daily. valACYclovi Yes [id number] 500mg Take 1 [facility] r 500 mg 1-26 tablet by ity of tablet 00:00: mouth 2 [place] (two) Medical times Branch daily. valACYclovi Yes [id number] 500mg Take 1 [facility] r 500 mg -26 tablet by ity of tablet 00:00: mouth 2 [place] (two) Medical times Branch daily. valACYclovi 2020- No [id number] 500mg Take 1 [facility] r 500 mg -26 04-06 tablet by ity o f tablet 00:00: 00:00 mouth 2 [place] 00 :00 (two) Medical times Branch daily. Nitrofurant 2020- No [id number] 100mg Take 1 [facility] oin&Nit. -09 04-03 capsule by ity of Macrocryst 00:00: 05:59 mouth 2 [place] 100 mg 00 :00 (two) Medical capsule times Branch daily for 7 days. Nitrofurant 2020- No [id number] 100mg Take 1 [facility] oin&Nit. 1-26 02-03 capsule by ity of Macrocryst 00:00: 05:59 mouth 2 [place] 100 mg 00 :00 (two) Medical capsule times Branch daily for 7 days. 2020- No 1{tbl} Take 1 [facility] ers multivitami -21 -21 tablet by it y of n tablet 19:31: 00:00 mouth [place] 40 :00 daily. Medical Branch famotidine Yes [id number] 20mg Take 1 [facility] 20 mg 1-21 tablet by ity of tablet 00:00: mouth 2 [place] 00 (two) Medical times Branch daily. proMETHazin Yes [id number] 25mg Take 1 [facility] e 25 mg -21 tablet by ity of tablet 00:00: mouth [place] 00 every 4 Medical (four) Branch hours as needed for Nausea and Vomiting (N/V). famotidine Yes [id number] 20mg Take 1 [facility] 20 mg -21 tablet by ity of tablet 00:00: mouth 2 [place] 00 (two) Medical times Branch daily. proMETHazin Yes [id number] 25mg Take 1 [facility] e 25 mg -21 tablet by ity of tablet 00:00: mouth [place] 00 every 4 Medical (four) Branch hours as needed for Nausea and Vomiting (N/V). famotidine 2020- No [id number] 20mg Take 1 [facility] 20 mg -21 - tablet by ity of tablet 00:00: 00:00 mouth 2 [place] 00 :00 (two) Medical times Branch daily. proMETHazin 2020- No [id number] 25mg Take 1 [facility] e 25 mg -21 - tablet by ity of tablet 00:00: 00:00 mouth [place] 00 :00 every 4 Medical (four) Branch hours as needed for Nausea and Vomiting (N/V). cephALEXin 2019-02- No [id number] 500mg Take 1 [facility] 500 mg 2-18 - capsule by ity of capsule 00:00: 05:59 mouth 4 [place] 00 :00 (four) Medical times Branch daily for 7 days. fluconazole 2019-02- No [id number] 200mg Take 1 [facility] 200 mg 2-17 12-19 tablet by ity of tablet 00:00: 05:59 mouth [place] 00 :00 daily for Medical 1 day. Branch fluconazole 2019-02 2020- No [id number] 200mg Take 1 [facility] 200 mg 2-17 12-19 tablet by ity of tablet 00:00: 05:59 mouth [place] 00 :00 daily for Medical 1 day. Branch metroNIDAZO 2019-02- No [id number] 500mg Take 1 [facility] LE (FLAGYL) 2-15 12-23 tablet by it y of 500 mg 00:00: 05:59 mouth 2 [place] tablet 00 :00 (two) Medical times Branch daily for 7 days. metroNIDAZO 2019-02- No [id number] 500mg Take 1 [facility] LE (FLAGYL) 2-15 12-23 tablet by it y of 500 mg 00:00: 05:59 mouth 2 [place] tablet 00 :00 (two) Medical times Branch daily for 7 days. metroNIDAZO 2019-02- No [id number] 500mg Take 1 [facility] LE (FLAGYL) 2-15 12-23 tablet by it y of 500 mg 00:00: 05:59 mouth 2 [place] tablet 00 :00 (two) Medical times Branch daily for 7 days. metroNIDAZO 2019-02- No [id number] 500mg Take 1 [facility] LE (FLAGYL) 2-15 12-23 tablet by it y of 500 mg 00:00: 05:59 mouth 2 [place] tablet 00 :00 (two) Medical times Branch daily for 7 days. 2019-02 Yes 1{tbl} Take 1 Unive rs multivitami 2-01 tablet by ity of n tablet 21:25: mouth [place] 13 daily. Medical Branch lurasidone 2019-02 Yes 1{tbl} Take 1 Uni vers (LATUDA) 20 2-01 tablet by ity of mg tablet 21:25: mouth [place] 13 daily. Medical Branch 2019-02 Yes 1{tbl} Take 1 Unive rs multivitami 2-01 tablet by ity of n tablet 21:25: mouth [place] 13 daily. [facility] Yes 1{tbl} Take 1 [facility] vers (LATUDA) 20 2-01 tablet by ity of mg tablet 21:25: mouth [place] 13 daily. Medical Branch 2019-02 Yes 1{tbl} Take 1 Unive rs multivitami 2-01 tablet by ity of n tablet 21:25: mouth [place] 13 daily. [facility] Yes 1{tbl} Take 1 [facility] vers (LATUDA) 20 2-01 tablet by ity of mg tablet 21:25: mouth [place] 13 daily. Medical Branch 2019-02 Yes 1{tbl} Take 1 Unive rs multivitami 2-01 tablet by ity of n tablet 21:25: mouth [place] 13 daily. [facility] Yes 1{tbl} Take 1 [facility] vers (LATUDA) 20 2-01 tablet by ity of mg tablet 21:25: mouth [place] 13 daily. Medical Branch 2019-02 Yes 1{tbl} Take 1 Unive rs multivitami 2-01 tablet by ity of n tablet 21:25: mouth [place] 13 daily. [facility] Yes 1{tbl} Take 1 [facility] vers (LATUDA) 20 2-01 tablet by ity of mg tablet 21:25: mouth [place] 13 daily. Medical Branch 2019-02 Yes 1{tbl} Take 1 Unive rs multivitami 2-01 tablet by ity of n tablet 21:25: mouth [place] 13 daily. [facility] Yes 1{tbl} Take 1 [facility] vers (LATUDA) 20 2-01 tablet by ity of mg tablet 21:25: mouth [place] 13 daily. Medical Branch 2019-02 Yes 1{tbl} Take 1 Unive rs multivitami 2-01 tablet by ity of n tablet 21:25: mouth [place] 13 daily. [facility] Yes 1{tbl} Take 1 [facility] vers (LATUDA) 20 2-01 tablet by ity of mg tablet 21:25: mouth [place] 13 daily. [facility] Yes 1{tbl} Take 1 [facility] vers (LATUDA) 20 2-01 tablet by ity of mg tablet 21:25: mouth [place] 13 daily. Medical Branch lurasidone 2019-02 Yes 1{tbl} Take 1 Uni vers (LATUDA) 20 2-01 tablet by ity of mg tablet 21:25: mouth [place] 13 daily. Medical Branch nystatin 2019-02 Yes [id number] Apply to [facility] 100,000 2-01 area(s) 2 ity of unit/gram 00:00: (two) [place] ointment 00 times Medical daily. Branch famotidine 2020- Yes [id number] 20mg Take 1 Un delfin 20 mg 2-01 tablet by ity of tablet 00:00: mouth 2 (two) Medical times Branch daily. nystatin 2020-1 Yes [id number] Apply to [facility] 100,000 2-01 area(s) 2 ity of unit/gram 00:00: (two) [place] ointment 00 times Medical daily. Branch famotidine 2020- Yes [id number] 20mg Take 1 [facility] delfin 20 mg 2-01 tablet by ity of tablet 00:00: mouth 2 (two) Medical times Branch daily. nystatin 2020-1 Yes [id number] Apply to [facility] 100,000 2-01 area(s) 2 ity of unit/gram 00:00: (two) [place] ointment 00 times Medical daily. Branch famotidine 2020- Yes [id number] 20mg Take 1 Un delfin 20 mg 2-01 tablet by ity of tablet 00:00: mouth 2 (two) Medical times Branch daily. nystatin 2020-1 Yes [id number] Apply to [facility] 100,000 2-01 area(s) 2 ity of unit/gram 00:00: (two) [place] ointment 00 times Medical daily. Branch famotidine 2020- Yes [id number] 20mg Take 1 [facility] delfin 20 mg 2-01 tablet by ity of tablet 00:00: mouth 2 (two) Medical times Branch daily. nystatin 2020-1 Yes [id number] Apply to [facility] 100,000 2-01 area(s) 2 ity of unit/gram 00:00: (two) [place] ointment 00 times Medical daily. Branch famotidine 2020- Yes [id number] 20mg Take 1 Un delfin 20 mg 2-01 tablet by ity of tablet 00:00: mouth 2 (two) Medical times Branch daily. nystatin 2020-1 Yes [id number] Apply to [facility] 100,000 2-01 area(s) 2 ity of unit/gram 00:00: (two) [place] ointment 00 times Medical daily. Branch famotidine 2020- Yes [id number] 20mg Take 1 Un delfin 20 mg 2-01 tablet by ity of tablet 00:00: mouth 2 00 (two) Medical times Branch daily. nystatin 2020-1 Yes [id number] Apply to [facility] 100,000 2-01 area(s) 2 ity of unit/gram 00:00: (two) [place] ointment 00 times Medical daily. Branch famotidine 2020- Yes [id number] 20mg Take 1 Un delfin 20 mg 2-01 tablet by ity of tablet 00:00: mouth 2 00 (two) Medical times Branch daily. nystatin 2020-1 Yes [id number] Apply to [facility] 100,000 2-01 area(s) 2 ity of unit/gram 00:00: (two) [place] ointment 00 times Medical daily. Branch famotidine 2020- Yes [id number] 20mg Take 1 Un delfin 20 mg 2-01 tablet by ity of tablet 00:00: mouth 2 (two) Medical times Branch daily. nystatin 2020- Yes [id number] Apply to [facility] 100,000 2-01 area(s) 2 ity of unit/gram 00:00: (two) [place] ointment 00 times Medical daily. Branch famotidine 2020- Yes [id number] 20mg Take 1 Un delfin 20 mg 2-01 tablet by ity of tablet 00:00: mouth 2 (two) Medical times Branch daily. nystatin 2020-1 Yes [id number] Apply to [facility] 100,000 2-01 area(s) 2 ity of unit/gram 00:00: (two) [place] ointment 00 times Medical daily. Branch famotidine 2020- Yes [id number] 20mg Take 1 Un delfin 20 mg 2-01 tablet by ity of tablet 00:00: mouth 2 (two) Medical times Branch daily. nystatin 2020-1 Yes [id number] Apply to [facility] 100,000 2-01 area(s) 2 ity of unit/gram 00:00: (two) [place] ointment 00 times Medical daily. Branch famotidine 2020- Yes [id number] 20mg Take 1 Un delfin 20 mg 2-01 tablet by ity of tablet 00:00: mouth 2 (two) Medical times Branch daily. nystatin 2020-1 Yes [id number] Apply to [facility] 100,000 2-01 area(s) 2 ity of unit/gram 00:00: (two) [place] ointment 00 times Medical daily. Branch famotidine 2020- Yes [id number] 20mg Take 1 Un delfin 20 mg 2-01 tablet by ity of tablet 00:00: mouth 2 (two) Medical times Branch daily. nystatin 2020-1 Yes [id number] Apply to [facility] 100,000 2-01 area(s) 2 ity of unit/gram 00:00: (two) [place] ointment 00 times Medical daily. Branch famotidine 2020- Yes [id number] 20mg Take 1 Un delfin 20 mg 2-01 tablet by ity of tablet 00:00: mouth 2 (two) Medical times Branch daily. nystatin 2020- Yes [id number] Apply to [facility] 100,000 2-01 area(s) 2 ity of unit/gram 00:00: (two) [place] ointment 00 times Medical daily. Branch famotidine 2020- Yes [id number] 20mg Take 1 Un delfin 20 mg 2-01 tablet by ity of tablet 00:00: mouth 2 (two) Medical times Branch daily. nystatin 2020- Yes [id number] Apply to [facility] 100,000 2-01 area(s) 2 ity of unit/gram 00:00: (two) [place] ointment 00 times Medical daily. Branch famotidine 2020- Yes [id number] 20mg Take 1 Un delfin 20 mg 2-01 tablet by ity of tablet 00:00: mouth 2 (two) Medical times Branch daily. nystatin 2020-1 Yes [id number] Apply to [facility] 100,000 2-01 area(s) 2 ity of unit/gram 00:00: (two) [place] ointment 00 times Medical daily. Branch famotidine 2020- Yes [id number] 20mg Take 1 Un delfin 20 mg 2-01 tablet by ity of tablet 00:00: mouth 2 (two) Medical times Branch daily. nystatin 2020-1 Yes [id number] Apply to [facility] 100,000 2-01 area(s) 2 ity of unit/gram 00:00: (two) [place] ointment 00 times Medical daily. Branch famotidine 2020- Yes [id number] 20mg Take 1 Un delfin 20 mg 2-01 tablet by ity of tablet 00:00: mouth 2 00 (two) Medical times Branch daily. nystatin 2020-1 Yes [id number] Apply to [facility] 100,000 2-01 area(s) 2 ity of unit/gram 00:00: (two) [place] ointment 00 times Medical daily. Branch famotidine 2020- Yes [id number] 20mg Take 1 Un delfin 20 mg 2-01 tablet by ity of tablet 00:00: mouth 2 00 (two) Medical times Branch daily. nystatin 2020-1 Yes [id number] Apply to [facility] 100,000 2-01 area(s) 2 ity of unit/gram 00:00: (two) [place] ointment 00 times Medical daily. Branch famotidine 2020- Yes [id number] 20mg Take 1 Un delfin 20 mg 2-01 tablet by ity of tablet 00:00: mouth 2 (two) Medical times Branch daily. nystatin 2020- Yes [id number] Apply to [facility] 100,000 2-01 area(s) 2 ity of unit/gram 00:00: (two) [place] ointment 00 times Medical daily. Branch famotidine 2020- Yes [id number] 20mg Take 1 Un delfin 20 mg 2-01 tablet by ity of tablet 00:00: mouth 2 (two) Medical times Branch daily. nystatin 2020-1 Yes [id number] Apply to [facility] 100,000 2-01 area(s) 2 ity of unit/gram 00:00: (two) [place] ointment 00 times Medical daily. Branch famotidine 2020- Yes [id number] 20mg Take 1 Un delfin 20 mg 2-01 tablet by ity of tablet 00:00: mouth 2 (two) Medical times Branch daily. nystatin 2020-1 Yes [id number] Apply to [facility] 100,000 2-01 area(s) 2 ity of unit/gram 00:00: (two) [place] ointment 00 times Medical daily. Branch famotidine 2020- Yes [id number] 20mg Take 1 Un delfin 20 mg 2-01 tablet by ity of tablet 00:00: mouth 2 00 (two) Medical times Branch daily. nystatin 2020-1 Yes [id number] Apply to [facility] 100,000 2-01 area(s) 2 ity of unit/gram 00:00: (two) [place] ointment 00 times Medical daily. Branch famotidine 2019-02 Yes [id number] 20mg Take 1 Un delfin 20 mg 2-01 tablet by ity of tablet 00:00: mouth 2 [place] 00 (two) Medical times Branch daily. nystatin 2019-02 Yes [id number] Apply to [facility] 100,000 2-01 area(s) 2 ity of unit/gram 00:00: (two) [place] ointment 00 times Medical daily. Branch famotidine 2019-02 Yes [id number] 20mg Take 1 Un delfin 20 mg 2-01 tablet by ity of tablet 00:00: mouth 2 00 (two) Medical times Branch daily. nystatin 2019- Yes [id number] Apply to [facility] 100,000 2-01 area(s) 2 ity of unit/gram 00:00: (two) [place] ointment 00 times Medical daily. Branch famotidine 2019-02 Yes [id number] 20mg Take 1 Un delfin 20 mg 2-01 tablet by ity of tablet 00:00: mouth 2 [place] 00 (two) Medical times Branch daily. nystatin 2019-02- No [id number] Apply to [facility] 100,000 2-01 02-23 area(s) 2 ity of unit/gram 00:00: 00:00 (two) [place] ointment 00 :00 times Medical daily. Branch famotidine 2019-02- No [id number] 20mg Take 1 U nivers 20 mg 2-01 -23 tablet by ity of tablet 00:00: 00:00 mouth 2 [place] 00 :00 (two) Medical times Branch daily. SERTraline 2019-02 Yes Univers 50 mg 1-13 ity of tablet 00:00: [place] [facility] Branch SERTraline 2019-02 Yes Univers 50 mg 1-13 ity of tablet 00:00: [place] [facility] Branch SERTraline 2019- Yes Univers 50 mg 1-13 ity of tablet 00:00: [place] [facility] SERTraline 2019- Yes Univers 50 mg 1-13 ity of tablet 00:00: [place] [facility] Branch SERTraline 2019- Yes Univers 50 mg 1-13 ity of tablet 00:00: [place] [facility] SERTraline 2019-1 Yes Univers 50 mg 1-13 ity of tablet 00:00: [place] [facility] SERTraline 2020- Yes Univers 50 mg 1-13 ity of tablet 00:00: [address] SERTraline 2020- Yes Univers 50 mg 1-13 ity of tablet 00:00: [address] SERTraline 2020- Yes Univers 50 mg 1-13 ity of tablet 00:00: [address] SERTraline 2020- Yes Univers 50 mg 1-13 ity of tablet 00:00: [address] SERTraline 2020- Yes Univers 50 mg 1-13 ity of tablet 00:00: [address] SERTraline 2020- Yes Univers 50 mg 1-13 ity of tablet 00:00: [address] SERTraline 2020- Yes Univers 50 mg 1-13 ity of tablet 00:00: [address] SERTraline 2020- Yes Univers 50 mg 1-13 ity of tablet 00:00: [address] SERTraline 2020- Yes Univers 50 mg 1-13 ity of tablet 00:00: [address] SERTraline 2020- Yes Univers 50 mg 1-13 ity of tablet 00:00: [address] SERTraline 2020- Yes Univers 50 mg 1-13 ity of tablet 00:00: [address] SERTraline 2020- Yes Univers 50 mg 1-13 ity of tablet 00:00: [address] SERTraline 2020- Yes Univers 50 mg 1-13 ity of tablet 00:00: [address] SERTraline 2020- Yes Univers 50 mg 1-13 ity of tablet 00:00: [address] SERTraline 2020- Yes Univers 50 mg 1-13 ity of tablet 00:00: [address] SERTraline 2020- Yes Univers 50 mg 1-13 ity of tablet 00:00: [address] SERTraline 2020- Yes Univers 50 mg 1-13 ity of tablet 00:00: [address] SERTraline 2020- Yes Univers 50 mg 1-13 ity of tablet 00:00: [address] SERTraline 2020- Yes Univers 50 mg 1-13 ity of tablet 00:00: [address] SERTraline 2020-2020- No Univer s 50 mg 02-24 ity of tablet 00:00: 00:00 [place] 00 :00 Medical [place] 2019-02 Yes 1{tbl} Take 1 Unive rs multivitami 1-05 tablet by ity of n tablet 05:35: mouth [place] 58 daily. [facility] 2019-02 Yes 1{tbl} Take 1 Uni vers (LATUDA) 20 1-05 tablet by ity of mg tablet 05:35: mouth [place] 58 daily. Medical [place] 2019-02 Yes 1{tbl} Take 1 Unive rs multivitami 1-05 tablet by ity of n tablet 05:35: mouth [place] 58 daily. [facility] 2019-02 Yes 1{tbl} Take 1 Uni vers (LATUDA) 20 1-05 tablet by ity of mg tablet 05:35: mouth [place] [address] [facility] 2019-02 Yes 1{tbl} Take 1 Unive rs multivitami 1-05 tablet by ity of n tablet 05:35: mouth [place] 58 daily. [facility] 2019-02 Yes 1{tbl} Take 1 Uni vers (LATUDA) 20 1-05 tablet by ity of mg tablet 05:35: mouth [place] 58 daily. [facility] 2019-02 Yes 1{tbl} Take 1 Unive rs multivitami 1-05 tablet by ity of n tablet 05:35: mouth [place] 58 daily. [facility] 2019-02 Yes 1{tbl} Take 1 Uni vers (LATUDA) 20 1-05 tablet by ity of mg tablet 05:35: mouth [place] 58 daily. [facility] butalbital- 2019-02- No 2[facility]tbl} [facility] ty of en-caff 03:57: 03:40 NOW, 1 [place] (ESGIC) 00 :00 dose, [facility] 50-325-40 12/17/19 at Bran ch mg tablet 2 0, tablet Routine 2019-02 Yes 1{tbl} Take 1 Unive rs multivitami 0-19 tablet by ity of n tablet 05:34: mouth [place] 46 daily. [facility] 2019-02 Yes 1{tbl} Take 1 Uni vers (LATUDA) 20 0-19 tablet by ity of mg tablet 05:34: mouth [place] 46 daily. Medical [facility] 2019-02 Yes 1{tbl} Take 1 Unive rs multivitami 0-19 tablet by ity of n tablet 05:34: mouth [place] 46 daily. [facility] 2019-02 Yes 1{tbl} Take 1 Uni vers (LATUDA) 20 0-19 tablet by ity of mg tablet 05:34: mouth [place] [address] [facility] 2019-02 Yes 1{tbl} Take 1 Unive rs multivitami 0-19 tablet by ity of n tablet 05:34: mouth [place] 46 daily. [facility] 2019-02 Yes 1{tbl} Take 1 Uni vers (LATUDA) 20 0-19 tablet by ity of mg tablet 05:34: mouth [place] 46 daily. Medical [facility] 2019-02 Yes 1{tbl} Take 1 Unive rs multivitami 0-19 tablet by ity of n tablet 05:34: mouth [place] 46 daily. [facility] 2019-02 Yes 1{tbl} Take 1 Uni vers (LATUDA) 20 0-19 tablet by ity of mg tablet 05:34: mouth [place] 46 daily. Medical [facility] 2019-02 Yes 1{tbl} Take 1 Unive rs multivitami 0-19 tablet by ity of n tablet 05:34: mouth [place] 46 daily. [facility] 2019-02 Yes 1{tbl} Take 1 Uni vers (LATUDA) 20 0-19 tablet by ity of mg tablet 05:34: mouth [place] 46 daily. Medical [facility] 2019-02 Yes 1{tbl} Take 1 Unive rs multivitami 0-19 tablet by ity of n tablet 05:34: mouth [place] 46 daily. [facility] 2019-02 Yes 1{tbl} Take 1 Uni vers (LATUDA) 20 0-19 tablet by ity of mg tablet 05:34: mouth [place] [address] [facility] 2019-02 Yes 1{tbl} Take 1 Unive rs multivitami 0-19 tablet by ity of n tablet 05:34: mouth [place] 46 daily. [facility] 2019-02 Yes 1{tbl} Take 1 Uni vers (LATUDA) 20 0-19 tablet by ity of mg tablet 05:34: mouth [place] 46 daily. Medical [place] metroNIDAZO 2019- 2020- No [id number] 2000mg Take 4 [facility] LE 500 mg 0-19 10-20 tablets by ity of tablet 00:00: 04:59 mouth [place] 00 :[place] now for 1 Medical dose. Branch metroNIDAZO 2019-02 2020- No [id number] 2000mg Take 4 [facility] LE 500 mg 0-19 10-20 tablets by ity of tablet 00:00: 04:59 mouth [place] 00 :[place] now for 1 Medical dose. Branch metroNIDAZO 2019-02 2020- No [id number] 2000mg Take 4 [facility] LE 500 mg 0-19 10-20 tablets by ity of tablet 00:00: 04:59 mouth [place] 00 :[place] now for 1 Medical dose. Branch PNV 2019- Yes [id number] 3{tbl} Take 3 Un delfin 112-iron-FA 0-15 09 tablets by it y of -om-3s-dha- 00:00: mouth [place] epa 00 daily. Medical (VITAFOL Branch GUMMIES) 3.33 mg iron- 0.33 mg Chew PNV 2020- Yes [id number] 3{tbl} Take 3 Un delfin 112-iron-FA 0-15 09 tablets by it y of -om-3s-dha- 00:00: mouth [place] epa 00 daily. Medical (VITAFOL Branch GUMMIES) 3.33 mg iron- 0.33 mg Chew PNV 2020- Yes [id number] 3{tbl} Take 3 Un delfin 112-iron-FA 0-15 09 tablets by it y of -om-3s-dha- 00:00: mouth [place] epa 00 daily. Medical (VITAFOL Branch GUMMIES) 3.33 mg iron- 0.33 mg Chew PNV 2020- Yes [id number] 3{tbl} Take 3 Un delfin 112-iron-FA 0-15 09 tablets by it y of -om-3s-dha- 00:00: mouth [place] epa 00 daily. Medical (VITAFOL Branch GUMMIES) 3.33 mg iron- 0.33 mg Chew PNV 2020-1 Yes [id number] 3{tbl} Take 3 Un delfin 112-iron-FA 0-15 09 tablets by it y of -om-3s-dha- 00:00: mouth [place] epa 00 daily. Medical (VITAFOL Branch GUMMIES) 3.33 mg iron- 0.33 mg Chew PNV 2020-1 Yes [id number] 3{tbl} Take 3 Un delfin 112-iron-FA 0-15 09 tablets by it y of -om-3s-dha- 00:00: mouth [place] epa 00 daily. Medical (VITAFOL Branch GUMMIES) 3.33 mg iron- 0.33 mg Chew PNV 2020-1 Yes [id number] 3{tbl} Take 3 Un delfin 112-iron-FA 0-15 09 tablets by it y of -om-3s-dha- 00:00: mouth [place] epa 00 daily. Medical (VITAFOL Branch GUMMIES) 3.33 mg iron- 0.33 mg Chew PNV 2020-1 Yes [id number] 3{tbl} Take 3 Un delfin 112-iron-FA 0-15 09 tablets by it y of -om-3s-dha- 00:00: mouth [place] epa 00 daily. Medical (VITAFOL Branch GUMMIES) 3.33 mg iron- 0.33 mg Chew PNV 2020-1 Yes [id number] 3{tbl} Take 3 Un delfin 112-iron-FA 0-15 09 tablets by it y of -om-3s-dha- 00:00: mouth [place] epa 00 daily. Medical (VITAFOL Branch GUMMIES) 3.33 mg iron- 0.33 mg Chew PNV 2020-1 Yes [id number] 3{tbl} Take 3 Un delfin 112-iron-FA 0-15 09 tablets by it y of -om-3s-dha- 00:00: mouth [place] epa 00 daily. Medical (VITAFOL Branch GUMMIES) 3.33 mg iron- 0.33 mg Chew PNV 2020-1 Yes [id number] 3{tbl} Take 3 Un delfin 112-iron-FA 0-15 09 tablets by it y of -om-3s-dha- 00:00: mouth [place] epa 00 daily. Medical (VITAFOL Branch GUMMIES) 3.33 mg iron- 0.33 mg Chew PNV 2020-1 Yes [id number] 3{tbl} Take 3 Un delfin 112-iron-FA 0-15 09 tablets by it y of -om-3s-dha- 00:00: mouth [place] epa 00 daily. Medical (VITAFOL Branch GUMMIES) 3.33 mg iron- 0.33 mg Chew PNV 2020-1 Yes [id number] 3{tbl} Take 3 Un delfin 112-iron-FA 0-15 09 tablets by it y of -om-3s-dha- 00:00: mouth [place] epa 00 daily. Medical (VITAFOL Branch GUMMIES) 3.33 mg iron- 0.33 mg Chew PNV 2020-1 Yes [id number] 3{tbl} Take 3 Un delfin 112-iron-FA 0-15 09 tablets by it y of -om-3s-dha- 00:00: mouth [place] epa 00 daily. Medical (VITAFOL Branch GUMMIES) 3.33 mg iron- 0.33 mg Chew PNV 2020-1 Yes [id number] 3{tbl} Take 3 Un delfin 112-iron-FA 0-15 09 tablets by it y of -om-3s-dha- 00:00: mouth [place] epa 00 daily. Medical (VITAFOL Branch GUMMIES) 3.33 mg iron- 0.33 mg Chew PNV 2020-1 Yes [id number] 3{tbl} Take 3 Un delfin 112-iron-FA 0-15 09 tablets by it y of -om-3s-dha- 00:00: mouth [place] epa 00 daily. Medical (VITAFOL Branch GUMMIES) 3.33 mg iron- 0.33 mg Chew PNV 2020-1 Yes [id number] 3{tbl} Take 3 Un delfin 112-iron-FA 0-15 09 tablets by it y of -om-3s-dha- 00:00: mouth [place] epa 00 daily. Medical (VITAFOL Branch GUMMIES) 3.33 mg iron- 0.33 mg Chew PNV 2020-1 Yes [id number] 3{tbl} Take 3 Un delfin 112-iron-FA 0-15 09 tablets by it y of -om-3s-dha- 00:00: mouth [place] epa 00 daily. Medical (VITAFOL Branch GUMMIES) 3.33 mg iron- 0.33 mg Chew PNV 2020-1 Yes [id number] 3{tbl} Take 3 Un delfin 112-iron-FA 0-15 09 tablets by it y of -om-3s-dha- 00:00: mouth [place] epa 00 daily. Medical (VITAFOL Branch GUMMIES) 3.33 mg iron- 0.33 mg Chew PNV 2020-1 Yes [id number] 3{tbl} Take 3 Un delf[place] 112-iron-FA 0-15 09 tablets by it y of -om-3s-dha- 00:00: mouth [place] epa 00 daily. Medical (VITAFOL Branch GUMMIES) 3.33 mg iron- 0.33 mg Chew PNV 2020-1 Yes [id number] 3{tbl} Take 3 Un delfin 112-iron-FA 0-15 09 tablets by it y of -om-3s-dha- 00:00: mouth [place] epa 00 daily. Medical (VITAFOL Branch GUMMIES) 3.33 mg iron- 0.33 mg Chew PNV 2020-1 Yes [id number] 3{tbl} Take 3 Un delfin 112-iron-FA 0-15 09 tablets by it y of -om-3s-dha- 00:00: mouth [place] epa 00 daily. Medical (VITAFOL Branch GUMMIES) 3.33 mg iron- 0.33 mg Chew PNV 2020-1 Yes [id number] 3{tbl} Take 3 Un delfin 112-iron-FA 0-15 09 tablets by it y of -om-3s-dha- 00:00: mouth [place] epa 00 daily. Medical (VITAFOL Branch GUMMIES) 3.33 mg iron- 0.33 mg Chew PNV 2020-1 Yes [id number] 3{tbl} Take 3 Un delfin 112-iron-FA 0-15 09 tablets by it y of -om-3s-dha- 00:00: mouth [place] epa 00 daily. Medical (VITAFOL Branch GUMMIES) 3.33 mg iron- 0.33 mg Chew PNV 2020-1 Yes [id number] 3{tbl} Take 3 Un delfin 112-iron-FA 0-15 09 tablets by it y of -om-3s-dha- 00:00: mouth [place] epa 00 daily. Medical (VITAFOL Branch GUMMIES) 3.33 mg iron- 0.33 mg Chew PNV 2020-1 Yes [id number] 3{tbl} Take 3 Un delfin 112-iron-FA 0-15 09 tablets by it y of -om-3s-dha- 00:00: mouth [place] epa 00 daily. Medical (VITAFOL Branch GUMMIES) 3.33 mg iron- 0.33 mg Chew PNV 2020-1 Yes [id number] 3{tbl} Take 3 Un delf[place] 112-iron-FA 0-15 09 tablets by it y of -om-3s-dha- 00:00: mouth [place] epa 00 daily. Medical (VITAFOL Branch GUMMIES) 3.33 mg iron- 0.33 mg Chew PNV 2020-1 Yes [id number] 3{tbl} Take 3 Un delfin 112-iron-FA 0-15 09 tablets by it y of -om-3s-dha- 00:00: mouth [place] epa 00 daily. Medical (VITAFOL Branch GUMMIES) 3.33 mg iron- 0.33 mg Chew PNV 2020-1 Yes [id number] 3{tbl} Take 3 Un delfin 112-iron-FA 0-15 09 tablets by it y of -om-3s-dha- 00:00: mouth [place] epa 00 daily. Medical (VITAFOL Branch GUMMIES) 3.33 mg iron- 0.33 mg Chew PNV 2020-1 Yes [id number] 3{tbl} Take 3 Un delfin 112-iron-FA 0-15 09 tablets by it y of -om-3s-dha- 00:00: mouth [place] epa 00 daily. Medical (VITAFOL Branch GUMMIES) 3.33 mg iron- 0.33 mg Chew PNV 2020-1 Yes [id number] 3{tbl} Take 3 Un delfin 112-iron-FA 0-15 09 tablets by it y of -om-3s-dha- 00:00: mouth [place] epa 00 daily. Medical (VITAFOL Branch GUMMIES) 3.33 mg iron- 0.33 mg Chew PNV 2020-1 Yes [id number] 3{tbl} Take 3 Un delf[place] 112-iron-FA 0-15 09 tablets by it y of -om-3s-dha- 00:00: mouth [place] epa 00 daily. Medical (VITAFOL Branch GUMMIES) 3.33 mg iron- 0.33 mg Chew PNV 2020-1 Yes [id number] 3{tbl} Take 3 Un d[place] 112-iron-FA 0-15 09 tablets by it y of -om-3s-dha- 00:00: mouth [place] epa 00 daily. Medical (VITAFOL Branch GUMMIES) 3.33 mg iron- 0.33 mg Chew PNV 2020- Yes [id number] 3{tbl} Take 3 Un d[place] 112-iron-FA 0-15 09 tablets by it y of -om-3s-dha- 00:00: mouth [place] epa 00 daily. Medical (VITAFOL Branch GUMMIES) 3.33 mg iron- 0.33 mg Chew PNV 2020- Yes [id number] 3{tbl} Take 3 Un delfin 112-iron-FA 0-15 09 tablets by it y of -om-3s-dha- 00:00: mouth [place] epa 00 daily. Medical (VITAFOL Branch GUMMIES) 3.33 mg iron- 0.33 mg Chew PNV 2020- Yes [id number] 3{tbl} Take 3 Un d[place] 112-iron-FA 0-15 09 tablets by it y of -om-3s-dha- 00:00: mouth [place] epa 00 daily. Medical (VITAFOL Branch GUMMIES) 3.33 mg iron- 0.33 mg Chew PNV 2020- Yes [id number] 3{tbl} Take 3 Un d[place] 112-iron-FA 0-15 09 tablets by it y of -om-3s-dha- 00:00: mouth [place] epa 00 daily. Medical (VITAFOL Branch GUMMIES) 3.33 mg iron- 0.33 mg Chew PNV 2020- Yes [id number] 3{tbl} Take 3 Un d[place] 112-iron-FA 0-15 09 tablets by it y of -om-3s-dha- 00:00: mouth [place] epa 00 daily. Medical (VITAFOL Branch GUMMIES) 3.33 mg iron- 0.33 mg Chew PNV 2020-2020- No [id number] 3{tbl} Take 3 U nivers 112-iron-FA 0-15 02-23 09 tablets by i ty of -om-3s-dha- 00:00: 00:00 [place] epa 00 :00 daily. Medical (VITAFOL Branch GUMMIES) 3.33 mg iron- 0.33 mg Chew 2019- Yes 1{tbl} Take 1 Unive rs multivitami 0-14 tablet by ity of n tablet 19:47: mouth [place] 39 daily. Medical Branch [facility] 2019-02 Yes 1{tbl} Take 1 Uni vers (LATUDA) 20 0-14 tablet by ity of mg tablet 19:47: mouth [place] 39 daily. Medical Branch 2019-02 Yes 1{tbl} Take 1 Unive rs multivitami 0-14 tablet by ity of n tablet 19:47: mouth [place] 39 daily. Medical Branch [facility] 2019-02 Yes 1{tbl} Take 1 Uni vers (LATUDA) 20 0-14 tablet by ity of mg tablet 19:47: mouth [place] 39 daily. Medical Branch 2019-02 Yes 1{tbl} Take 1 Unive rs multivitami 0-14 tablet by ity of n tablet 19:47: mouth [place] 39 daily. Medical Branch [facility] 2019-02 Yes 1{tbl} Take 1 Uni vers (LATUDA) 20 0-14 tablet by ity of mg tablet 19:47: mouth [place] 39 daily. Medical Branch 2019-02 Yes 1{tbl} Take 1 Unive rs multivitami 0-14 tablet by ity of n tablet 19:47: mouth [place] 39 daily. Medical Branch [facility] 2019-02 Yes 1{tbl} Take 1 Uni vers (LATUDA) 20 0-14 tablet by ity of mg tablet 19:47: mouth [place] 39 daily. Medical Branch 2019-02 Yes 1{tbl} Take 1 Unive rs multivitami 0-14 tablet by ity of n tablet 19:47: mouth [place] 39 daily. Medical Branch [facility] 2019-02 Yes 1{tbl} Take 1 Uni vers (LATUDA) 20 0-14 tablet by ity of mg tablet 19:47: mouth [place] 39 daily. Medical Branch 2019-02 Yes 1{tbl} Take 1 Unive rs multivitami 0-14 tablet by ity of n tablet 19:47: mouth [place] 39 daily. [facility] Yes 1{tbl} Take 1 Uni vers (LATUDA) 20 0-14 tablet by ity of mg tablet 19:47: mouth [place] 39 daily. Medical [place] pyridoxine 2019-02 Yes 25mg 25 mg, Unive rs (VITAMIN 0-14 Oral, ity of B-6) tablet 14:00: [place]ILY, [place] 25 mg 00 First dose Medical on [place] [facility] 11/26/19 at 0900, Until Discontinu ed, Routine 2019-02 Yes 1{tbl} 1 tablet, Un delfin vitamin 0-14 Oral, ity of w/FA 14:00: DAILY, [place] (PRENATABS 00 First dose Med ical RX) tablet on [place] Branch 1 tablet 11/26/19 at 0900, Until Discontinu ed, Routine proMETHazin 2019-02 Yes 25mg 25 mg, Univ ers e 0-14 Oral, ity of (PHENERGAN) 11:35: Q6HPRN, [place] tablet 25 36 Starting Medica l mg Sun Branch 11/26/19 at 0635, Until Discontinu ed, Routine, Nausea and Vomiting (N/V) alum-mag 2019-02 Yes 30mL 30 mL, Univers hydroxide-s 0-14 Oral, ity of imeth 03:29: Q6HPRN, [place] (MAALOX 29 Starting Medical PLUS / Tue Branch MAG-AL 11/25/19 PLUS) at 2229, 200-200-20 Until mg/5 mL Discontinu suspension ed, 30 mL Routine, Indigestio n docusate 2019-02 Yes 240mg 240 mg, Unive rs calcium 0-14 Oral, ity of (SURFAK) 03:29: QHSPRN, [place] capsule 240 29 Starting Medi terra mg Sun Branch 11/25/19 at 2229, Until Discontinu ed, Routine, Constipati on magnesium 2019-02 Yes 30mL 30 mL, Univer s hydroxide 0-14 Oral, ity of (MILK OF 03:29: QDAILYPRN, [place] MAGNESIA) 29 Starting Medica l 400 mg/5 mL Branch suspension 11/25/19 30 mL at 2229, Until Discontinu ed, Routine, Constipati on butalbital- 2019-02 2020- No 2{tbl} 2 tablet, Univers acetaminoph 0-14 10-14 Oral, ity of en-caff 02:15: 02:31 ONCE, 1 [place] (ESGIC) 00 :00 dose, [facility] Medical 50-325-40 11/25/19 Branch mg tablet 2 at 2130, tablet Routine fluconazole 2019-02 2020- No 150mg 150 mg, U nivers (DIFLUCAN) 0-14 10-14 Oral, ity of tablet 150 02:00: 06:32 ONCE, 1 [place] mg 00 :00 dose, Tue Medical 11/25/19 Branch at 2100, NIKI
Re ason for Anti-Infec tive: Documented Infection< br>Documen wilfredo Infection Site: Pelvic
Duration of Therapy: Other (see Comments) ondansetron 2019-02- No 4mg 4 mg, Slow Univers (ZOFRAN 0-14 10-14 IV Push, ity of (PF)) 02:00: 01:48 ONCE, 1 [place] injection 4 00 :00 dose, Tue Med ical mg 11/25/19 Branch at 2100, Routine metroNIDAZO 2019-02- No 2000mg 2,000 mg, Univers LE (FLAGYL) 0-14 10-14 Oral, ity of tablet 02:00: 04:16 ONCE, 1 [place] 2,000 mg 00 :00 dose, Tue Medica l 11/25/19 Branch at 2100, Routine
Reason for Anti-Infec tive: Documented Infection< br>Documen wilfredo Infection Site: Pelvic
Duration of Therapy: Other (see Comments) proMETHazin 2019-02 Yes [id number] 25mg Take 1 Univers e 25 mg 0-14 tablet by ity of tablet 00:00: mouth [place] 00 every 6 Medical (six) Branch hours as needed for Nausea and Vomiting (N/V). proMETHazin 2019-02 Yes [id number] 25mg Take 1 Univers e 25 mg 0-14 tablet by ity of tablet 00:00: mouth [place] 00 every 6 Medical (six) Branch hours as needed for Nausea and Vomiting (N/V). proMETHazin 2019-02 Yes [id number] 25mg Take 1 Univers e 25 mg 0-14 tablet by ity of tablet 00:00: mouth [place] 00 every 6 Medical (six) Branch hours as needed for Nausea and Vomiting (N/V). proMETHazin 2019-02 Yes [id number] 25mg Take 1 Univers e 25 mg 0-14 tablet by ity of tablet 00:00: mouth [place] 00 every 6 Medical (six) Branch hours as needed for Nausea and Vomiting (N/V). proMETHazin 2019-02 Yes [id number] 25mg Take 1 Univers e 25 mg 0-14 tablet by ity of tablet 00:00: mouth [place] 00 every 6 Medical (six) Branch hours as needed for Nausea and Vomiting (N/V). proMETHazin 2019- Yes [id number] 25mg Take 1 Univers e 25 mg 0-14 tablet by ity of tablet 00:00: mouth [place] 00 every 6 Medical (six) Branch hours as needed for Nausea and Vomiting (N/V). proMETHazin 2019- Yes [id number] 25mg Take 1 Univers e 25 mg 0-14 tablet by ity of tablet 00:00: mouth [place] 00 every 6 Medical (six) Branch hours as needed for Nausea and Vomiting (N/V). proMETHazin 2019- Yes [id number] 25mg Take 1 Univers e 25 mg 0-14 tablet by ity of tablet 00:00: mouth [place] 00 every 6 Medical (six) Branch hours as needed for Nausea and Vomiting (N/V). proMETHazin 2019- Yes [id number] 25mg Take 1 Univers e 25 mg 0-14 tablet by ity of tablet 00:00: mouth [place] 00 every 6 Medical (six) Branch hours as needed for Nausea and Vomiting (N/V). proMETHazin 2019-02 Yes [id number] 25mg Take 1 Univers e 25 mg 0-14 tablet by ity of tablet 00:00: mouth [place] 00 every 6 Medical (six) Branch hours as needed for Nausea and Vomiting (N/V). proMETHazin 2019- Yes [id number] 25mg Take 1 Univers e 25 mg 0-14 tablet by ity of tablet 00:00: mouth [place] 00 every 6 Medical (six) Branch hours as needed for Nausea and Vomiting (N/V). proMETHazin 2019- Yes [id number] 25mg Take 1 Univers e 25 mg 0-14 tablet by ity of tablet 00:00: mouth [place] 00 every 6 Medical (six) Branch hours as needed for Nausea and Vomiting (N/V). proMETHazin 2019-1 Yes [id number] 25mg Take 1 Univers e 25 mg 0-14 tablet by ity of tablet 00:00: mouth [place] 00 every 6 Medical (six) Branch hours as needed for Nausea and Vomiting (N/V). proMETHazin 2019- Yes [id number] 25mg Take 1 Univers e 25 mg 0-14 tablet by ity of tablet 00:00: mouth [place] 00 every 6 Medical (six) Branch hours as needed for Nausea and Vomiting (N/V). proMETHazin 2020-1 Yes [id number] 25mg Take 1 Univers e 25 mg 0-14 tablet by ity of tablet 00:00: mouth [place] 00 every 6 Medical (six) Branch hours as needed for Nausea and Vomiting (N/V). proMETHazin 2020-1 Yes [id number] 25mg Take 1 Univers e 25 mg 0-14 tablet by ity of tablet 00:00: mouth [place] 00 every 6 Medical (six) Branch hours as needed for Nausea and Vomiting (N/V). proMETHazin 2019-1 Yes [id number] 25mg Take 1 Univers e 25 mg 0-14 tablet by ity of tablet 00:00: mouth [place] 00 every 6 Medical (six) Branch hours as needed for Nausea and Vomiting (N/V). proMETHazin 2019- Yes [id number] 25mg Take 1 Univers e 25 mg 0-14 tablet by ity of tablet 00:00: mouth [place] 00 every 6 Medical (six) Branch hours as needed for Nausea and Vomiting (N/V). proMETHazin 2019- Yes [id number] 25mg Take 1 Univers e 25 mg 0-14 tablet by ity of tablet 00:00: mouth [place] 00 every 6 Medical (six) Branch hours as needed for Nausea and Vomiting (N/V). proMETHazin 2019-1 Yes [id number] 25mg Take 1 Univers e 25 mg 0-14 tablet by ity of tablet 00:00: mouth [place] 00 every 6 Medical (six) Branch hours as needed for Nausea and Vomiting (N/V). proMETHazin 2020-1 Yes [id number] 25mg Take 1 Univers e 25 mg 0-14 tablet by ity of tablet 00:00: mouth [place] 00 every 6 Medical (six) Branch hours as needed for Nausea and Vomiting (N/V). proMETHazin 2020-1 Yes [id number] 25mg Take 1 Univers e 25 mg 0-14 tablet by ity of tablet 00:00: mouth [place] 00 every 6 Medical (six) Branch hours as needed for Nausea and Vomiting (N/V). proMETHazin 2020-1 Yes [id number] 25mg Take 1 Univers e 25 mg 0-14 tablet by ity of tablet 00:00: mouth [place] 00 every 6 Medical (six) Branch hours as needed for Nausea and Vomiting (N/V). proMETHazin 2019-02 Yes [id number] 25mg Take 1 Univers e 25 mg 0-14 tablet by ity of tablet 00:00: mouth [place] 00 every 6 Medical (six) Branch hours as needed for Nausea and Vomiting (N/V). proMETHazin 2019-02 Yes [id number] 25mg Take 1 Univers e 25 mg 0-14 tablet by ity of tablet 00:00: mouth [place] 00 every 6 Medical (six) Branch hours as needed for Nausea and Vomiting (N/V). proMETHazin 2019-02 Yes [id number] 25mg Take 1 Univers e 25 mg 0-14 tablet by ity of tablet 00:00: mouth [place] 00 every 6 Medical (six) Branch hours as needed for Nausea and Vomiting (N/V). proMETHazin 2019-02- No [id number] 25mg Take 1 Univers e 25 mg 0-14 01-26 tablet by ity of tablet 00:00: 00:00 mouth [place] 00 :00 every 6 Medical (six) Branch hours as needed for Nausea and Vomiting (N/V). proMETHazin 2019- No 25mg 25 mg, Uni vers e 9-26 09-26 Oral, ity of (PHENERGAN) 04:15: 03:07 ONCE, 1 [place] tablet 25 00 :00 dose, Fri Medic al mg 20 at Branch 2315, NIKI proMETHazin 2019- No 25mg 25 mg, Uni vers e 9-15 09-15 Oral, ity of (PHENERGAN) 07:30: 06:19 ONCE, 1 [place] tablet 25 00 :00 dose, Tue Medic al mg 10/27/20 at Branch 0230, NIKI 2020-0 Yes 1{tbl} Take 1 Unive rs multivitami 9-15 tablet by ity of n tablet 07:07: mouth [place] 05 daily. Medical Branch lurasidone 2019-0 Yes 1{tbl} Take 1 Uni vers (LATUDA) 20 9-15 tablet by ity of mg tablet 07:07: mouth [place] 05 daily. Medical Branch 2019-0 Yes 1{tbl} Take 1 Unive rs multivitami 9-15 tablet by ity of n tablet 07:07: mouth [place] 05 daily. Medical Branch lurasidone 2020-0 Yes 1{tbl} Take 1 Uni vers (LATUDA) 20 9-15 tablet by ity of mg tablet 07:07: mouth [place] 05 daily. Medical Branch 2020-0 Yes 1{tbl} Take 1 Unive rs multivitami 9-15 tablet by ity of n tablet 07:07: mouth [place] 05 daily. Medical Branch lurasidone 2020-0 Yes 1{tbl} Take 1 Uni vers (LATUDA) 20 9-15 tablet by ity of mg tablet 07:07: mouth [place] 05 daily. Medical Branch proMETHazin 2020-0 Yes [id number] 25mg Take 1 Univers e 25 mg 9-11 tablet by ity of tablet 00:00: mouth [place] 00 every 6 Medical (six) Branch hours as needed for Nausea and Vomiting (N/V). proMETHazin 2020-0 Yes [id number] 25mg Take 1 Univers e 25 mg 9-11 tablet by ity of tablet 00:00: mouth [place] 00 every 6 Medical (six) Branch hours as needed for Nausea and Vomiting (N/V). proMETHazin 2020-0 Yes [id number] 25mg Take 1 Univers e 25 mg 9-11 tablet by ity of tablet 00:00: mouth [place] 00 every 6 Medical (six) Branch hours as needed for Nausea and Vomiting (N/V). proMETHazin 2020-0 Yes [id number] 25mg Take 1 Univers e 25 mg 9-11 tablet by ity of tablet 00:00: mouth [place] 00 every 6 Medical (six) Branch hours as needed for Nausea and Vomiting (N/V). proMETHazin 2020-0 Yes [id number] 25mg Take 1 Univers e 25 mg 9-11 tablet by ity of tablet 00:00: mouth [place] 00 every 6 Medical (six) Branch hours as needed for Nausea and Vomiting (N/V). proMETHazin 2020-0 Yes [id number] 25mg Take 1 Univers e 25 mg 9-11 tablet by ity of tablet 00:00: mouth [place] 00 every 6 Medical (six) Branch hours as needed for Nausea and Vomiting (N/V). proMETHazin 2020-0 Yes [id number] 25mg Take 1 Univers e 25 mg 9-11 tablet by ity of tablet 00:00: mouth [place] 00 every 6 Medical (six) Branch hours as needed for Nausea and Vomiting (N/V). proMETHazin 2020-0 Yes [id number] 25mg Take 1 Univers e 25 mg 9-11 tablet by ity of tablet 00:00: mouth [place] 00 every 6 Medical (six) Branch hours as needed for Nausea and Vomiting (N/V). proMETHazin 2020-0 Yes [id number] 25mg Take 1 Univers e 25 mg 9-11 tablet by ity of tablet 00:00: mouth [place] 00 every 6 Medical (six) Branch hours as needed for Nausea and Vomiting (N/V). proMETHazin 2020-0 Yes [id number] 25mg Take 1 Univers e 25 mg 9-11 tablet by ity of tablet 00:00: mouth [place] 00 every 6 Medical (six) Branch hours as needed for Nausea and Vomiting (N/V). proMETHazin 2020-0 Yes [id number] 25mg Take 1 Univers e 25 mg 9-11 tablet by ity of tablet 00:00: mouth [place] 00 every 6 Medical (six) Branch hours as needed for Nausea and Vomiting (N/V). proMETHazin 2020-0 Yes [id number] 25mg Take 1 Univers e 25 mg 9-11 tablet by ity of tablet 00:00: mouth [place] 00 every 6 Medical (six) Branch hours as needed for Nausea and Vomiting (N/V). proMETHazin 2020-0 Yes [id number] 25mg Take 1 Univers e 25 mg 9-11 tablet by ity of tablet 00:00: mouth [place] 00 every 6 Medical (six) Branch hours as needed for Nausea and Vomiting (N/V). proMETHazin 2020-0 Yes [id number] 25mg Take 1 Univers e 25 mg 9-11 tablet by ity of tablet 00:00: mouth [place] 00 every 6 Medical (six) Branch hours as needed for Nausea and Vomiting (N/V). proMETHazin 2020-0 Yes [id number] 25mg Take 1 Univers e 25 mg 9-11 tablet by ity of tablet 00:00: mouth [place] 00 every 6 Medical (six) Branch hours as needed for Nausea and Vomiting (N/V). proMETHazin 2020-0 Yes [id number] 25mg Take 1 Univers e 25 mg 9-11 tablet by ity of tablet 00:00: mouth [place] 00 every 6 Medical (six) Branch hours as needed for Nausea and Vomiting (N/V). proMETHazin 2020-0 Yes [id number] 25mg Take 1 Univers e 25 mg 9-11 tablet by ity of tablet 00:00: mouth [place] 00 every 6 Medical (six) Branch hours as needed for Nausea and Vomiting (N/V). proMETHazin 2020-0 Yes [id number] 25mg Take 1 Univers e 25 mg 9-11 tablet by ity of tablet 00:00: mouth [place] 00 every 6 Medical (six) Branch hours as needed for Nausea and Vomiting (N/V). proMETHazin 2020-0 Yes [id number] 25mg Take 1 Univers e 25 mg 9-11 tablet by ity of tablet 00:00: mouth [place] 00 every 6 Medical (six) Branch hours as needed for Nausea and Vomiting (N/V). proMETHazin 2020-0 Yes [id number] 25mg Take 1 Univers e 25 mg 9-11 tablet by ity of tablet 00:00: mouth [place] 00 every 6 Medical (six) Branch hours as needed for Nausea and Vomiting (N/V). proMETHazin 2020-0 Yes [id number] 25mg Take 1 Univers e 25 mg 9-11 tablet by ity of tablet 00:00: mouth [place] 00 every 6 Medical (six) Branch hours as needed for Nausea and Vomiting (N/V). proMETHazin 2020-0 Yes [id number] 25mg Take 1 Univers e 25 mg 9-11 tablet by ity of tablet 00:00: mouth [place] 00 every 6 Medical (six) Branch hours as needed for Nausea and Vomiting (N/V). proMETHazin 2020-0 Yes [id number] 25mg Take 1 Univers e 25 mg 9-11 tablet by ity of tablet 00:00: mouth [place] 00 every 6 Medical (six) Branch hours as needed for Nausea and Vomiting (N/V). proMETHazin 2020-0 Yes [id number] 25mg Take 1 Univers e 25 mg 9-11 tablet by ity of tablet 00:00: mouth [place] 00 every 6 Medical (six) Branch hours as needed for Nausea and Vomiting (N/V). proMETHazin 2020-0 Yes [id number] 25mg Take 1 Univers e 25 mg 9-11 tablet by ity of tablet 00:00: mouth [place] 00 every 6 Medical (six) Branch hours as needed for Nausea and Vomiting (N/V). proMETHazin 2020-0 Yes [id number] 25mg Take 1 Univers e 25 mg 9-11 tablet by ity of tablet 00:00: mouth [place] 00 every 6 Medical (six) Branch hours as needed for Nausea and Vomiting (N/V). proMETHazin 2020-0 Yes [id number] 25mg Take 1 Univers e 25 mg 9-11 tablet by ity of tablet 00:00: mouth [place] 00 every 6 Medical (six) Branch hours as needed for Nausea and Vomiting (N/V). proMETHazin 2020-0 Yes [id number] 25mg Take 1 Univers e 25 mg 9-11 tablet by ity of tablet 00:00: mouth [place] 00 every 6 Medical (six) Branch hours as needed for Nausea and Vomiting (N/V). proMETHazin 2020-0 Yes [id number] 25mg Take 1 Univers e 25 mg 9-11 tablet by ity of tablet 00:00: mouth [place] 00 every 6 Medical (six) Branch hours as needed for Nausea and Vomiting (N/V). proMETHazin 2020-0 Yes [id number] 25mg Take 1 Univers e 25 mg 9-11 tablet by ity of tablet 00:00: mouth [place] 00 every 6 Medical (six) Branch hours as needed for Nausea and Vomiting (N/V). proMETHazin 2020-0 Yes [id number] 25mg Take 1 Univers e 25 mg 9-11 tablet by ity of tablet 00:00: mouth [place] 00 every 6 Medical (six) Branch hours as needed for Nausea and Vomiting (N/V). proMETHazin 2020-0 Yes [id number] 25mg Take 1 Univers e 25 mg 9-11 tablet by ity of tablet 00:00: mouth [place] 00 every 6 Medical (six) Branch hours as needed for Nausea and Vomiting (N/V). proMETHazin 2020-0 Yes [id number] 25mg Take 1 Univers e 25 mg 9-11 tablet by ity of tablet 00:00: mouth [place] 00 every 6 Medical (six) Branch hours as needed for Nausea and Vomiting (N/V). proMETHazin 2020-0 Yes [id number] 25mg Take 1 Univers e 25 mg 9-11 tablet by ity of tablet 00:00: mouth [place] 00 every 6 Medical (six) Branch hours as needed for Nausea and Vomiting (N/V). proMETHazin 2020-0 Yes [id number] 25mg Take 1 Univers e 25 mg 9-11 tablet by ity of tablet 00:00: mouth [place] 00 every 6 Medical (six) Branch hours as needed for Nausea and Vomiting (N/V). proMETHazin 2020-0 Yes [id number] 25mg Take 1 Univers e 25 mg 9-11 tablet by ity of tablet 00:00: mouth [place] 00 every 6 Medical (six) Branch hours as needed for Nausea and Vomiting (N/V). proMETHazin 2020-0 Yes [id number] 25mg Take 1 Univers e 25 mg 9-11 tablet by ity of tablet 00:00: mouth [place] 00 every 6 Medical (six) Branch hours as needed for Nausea and Vomiting (N/V). proMETHazin 2020-0 Yes [id number] 25mg Take 1 Univers e 25 mg 9-11 tablet by ity of tablet 00:00: mouth [place] 00 every 6 Medical (six) Branch hours as needed for Nausea and Vomiting (N/V). proMETHazin 2020-0 Yes [id number] 25mg Take 1 Univers e 25 mg 9-11 tablet by ity of tablet 00:00: mouth [place] 00 every 6 Medical (six) Branch hours as needed for Nausea and Vomiting (N/V). proMETHazin 2020-0 Yes [id number] 25mg Take 1 Univers e 25 mg 9-11 tablet by ity of tablet 00:00: mouth [place] 00 every 6 Medical (six) Branch hours as needed for Nausea and Vomiting (N/V). proMETHazin 2020-0 Yes [id number] 25mg Take 1 Univers e 25 mg 9-11 tablet by ity of tablet 00:00: mouth [place] 00 every 6 Medical (six) Branch hours as needed for Nausea and Vomiting (N/V). proMETHazin 2020-0 Yes [id number] 25mg Take 1 Univers e 25 mg 9-11 tablet by ity of tablet 00:00: mouth [place] 00 every 6 Medical (six) Branch hours as needed for Nausea and Vomiting (N/V). proMETHazin 2020-0 Yes [id number] 25mg Take 1 Univers e 25 mg 9-11 tablet by ity of tablet 00:00: mouth [place] 00 every 6 Medical (six) Branch hours as needed for Nausea and Vomiting (N/V). proMETHazin 2020-0 Yes [id number] 25mg Take 1 Univers e 25 mg 9-11 tablet by ity of tablet 00:00: mouth [place] 00 every 6 Medical (six) Branch hours as needed for Nausea and Vomiting (N/V). proMETHazin 2020-0 Yes [id number] 25mg Take 1 Univers e 25 mg 9-11 tablet by ity of tablet 00:00: mouth [place] 00 every 6 Medical (six) Branch hours as needed for Nausea and Vomiting (N/V). proMETHazin 2020-0 Yes [id number] 25mg Take 1 Univers e 25 mg 9-11 tablet by ity of tablet 00:00: mouth [place] 00 every 6 Medical (six) Branch hours as needed for Nausea and Vomiting (N/V). proMETHazin 2020-0 Yes [id number] 25mg Take 1 Univers e 25 mg 9-11 tablet by ity of tablet 00:00: mouth [place] 00 every 6 Medical (six) Branch hours as needed for Nausea and Vomiting (N/V). proMETHazin 2020-0 Yes [id number] 25mg Take 1 [facility] 25 mg 9-11 tablet by ity of tablet 00:00: mouth [place] 00 every 6 Medical (six) Branch hours as needed for Nausea and Vomiting (N/V). proMETHazin 2020-0 Yes [id number] 25mg Take 1 [facility] e 25 mg 9-11 tablet by ity of tablet 00:00: mouth [place] 00 every 6 Medical (six) Branch hours as needed for Nausea and Vomiting (N/V). proMETHazin 2020-0 2020- No [id number] 25mg Take 1 [facility] e 25 mg 9-11 02-23 tablet by ity of tablet 00:00: 00:00 mouth [place] 00 :00 every 6 Medical (six) Branch hours as needed for Nausea and Vomiting (N/V). proMETHazin 2020-0 Yes [id number] 25mg Take 1 [facility] e 25 mg 8-03 tablet by ity of tablet 00:00: mouth [place] 00 every 6 Medical (six) Branch hours as needed for Nausea and Vomiting (N/V). proMETHazin 2020-0 Yes [id number] 25mg Take 1 [facility] e 25 mg 8-03 tablet by ity of tablet 00:00: mouth [place] 00 every 6 Medical (six) Branch hours as needed for Nausea and Vomiting (N/V). proMETHazin 2020-0 Yes [id number] 25mg Take 1 [facility] e 25 mg 8-03 tablet by ity of tablet 00:00: mouth [place] 00 every 6 Medical (six) Branch hours as needed for Nausea and Vomiting (N/V). proMETHazin 2020-0 2020- No [id number] 25mg Take 1 [facility] e 25 mg 09-14 tablet by ity of tablet 00:00: 00:00 mouth [place] 00 :00 every 6 Medical (six) Branch hours as needed for Nausea and Vomiting (N/V). proMETHazin 2019- 2020- No [id number] 25mg Take 1 [facility] e 25 mg 09-14 tablet by ity of tablet 00:00: 00:00 mouth [place] 00 :00 every 6 Medical (six) Branch hours as needed for Nausea and Vomiting (N/V). proMETHazin 2019-2019- No [id number] 25mg Take 1 [facility] e 25 mg 09-14 tablet by ity of tablet 00:00: 00:00 mouth [place] 00 :00 every 6 Medical (six) Branch hours as needed for Nausea and Vomiting (N/V). proMETHazin 2019-2019- No [id number] 25mg Take 1 [facility] e 25 mg 09-14 tablet by ity of tablet 00:00: 00:00 mouth [place] 00 :00 every 6 Medical (six) Branch hours as needed for Nausea and Vomiting (N/V). lurasidone 2019- 2020- No Take by Un delfin (LATUDA) 20 08-19- mouth. ity o f mg tablet 20:38: 00:00 [place] 27 :00 Medical Branch 2020- No [id number] 1{packe Take 1 [facility] vit 08-19- t} Packet by ity of 33-iron-fol 00:00: 00:00 [place] ic-dha 00 :00 daily. Medical (SELECT-OB Branch + DHA) 29 mg iron-1 mg -250 mg combo pack ibuprofen 2019-0 Yes [id number] 800mg Take 1 [facility] 800 mg 3-11 tablet by ity of tablet 00:00: mouth [place] 00 every 8 Medical (eight) Branch hours as needed for Pain (scale 4-6). acetaminoph 2019-0 Yes [id number] 1{tbl} Take 1-2 Univers en-codeine 3-11 tablets by ity of 300-30 mg 00:00: mouth [place] tablet 00 every 6 Medical (six) Branch hours as needed for Pain (scale 4-6). amoxicillin 2019-0 Yes [id number] 500mg Take 1 [facility] 500 mg 3-11 capsule by ity of capsule 00:00: mouth 3 [place] 00 (three) Medical times Branch daily. ibuprofen 2020-0 Yes [id number] 800mg Take 1 [facility] 800 mg 3-11 tablet by ity of tablet 00:00: mouth [place] 00 every 8 Medical (eight) Branch hours as needed for Pain (scale 4-6). acetaminoph 2020-0 Yes [id number] 1{tbl} Take 1-2 [facility] en-codeine 3-11 tablets by ity of 300-30 mg 00:00: mouth [place] tablet 00 every 6 Medical (six) Branch hours as needed for Pain (scale 4-6). amoxicillin 2020-0 Yes [id number] 500mg Take 1 [facility] 500 mg 3-11 capsule by ity of capsule 00:00: mouth 3 [place] 00 (three) Medical times Branch daily. ibuprofen 2020-0 Yes [id number] 800mg Take 1 [facility] 800 mg 3-11 tablet by ity of tablet 00:00: mouth [place] 00 every 8 Medical (eight) Branch hours as needed for Pain (scale 4-6). acetaminoph 2020-0 Yes [id number] 1{tbl} Take 1-2 [facility] en-codeine 3-11 tablets by ity of 300-30 mg 00:00: mouth [place] tablet 00 every 6 Medical (six) Branch hours as needed for Pain (scale 4-6). amoxicillin 2020-0 Yes [id number] 500mg Take 1 [facility] 500 mg 3-11 capsule by ity of capsule 00:00: mouth 3 [place] 00 (three) Medical times Branch daily. ibuprofen 2020-0 Yes [id number] 800mg Take 1 [facility] 800 mg 3-11 tablet by ity of tablet 00:00: mouth [place] 00 every 8 Medical (eight) Branch hours as needed for Pain (scale 4-6). acetaminoph 2020-0 Yes [id number] 1{tbl} Take 1-2 [facility] en-codeine 3-11 tablets by ity of 300-30 mg 00:00: mouth [place] tablet 00 every 6 Medical (six) Branch hours as needed for Pain (scale 4-6). amoxicillin 2020-0 Yes [id number] 500mg Take 1 [facility] 500 mg 3-11 capsule by ity of capsule 00:00: mouth 3 [place] 00 (three) Medical times Branch daily. ibuprofen 2020-0 Yes [id number] 800mg Take 1 [facility] 800 mg 3-11 tablet by ity of tablet 00:00: mouth [place] 00 every 8 Medical (eight) Branch hours as needed for Pain (scale 4-6). acetaminoph 2020-0 Yes [id number] 1{tbl} Take 1-2 [facility] en-codeine 3-11 tablets by ity of 300-30 mg 00:00: mouth [place] tablet 00 every 6 Medical (six) Branch hours as needed for Pain (scale 4-6). amoxicillin 2020-0 Yes [id number] 500mg Take 1 [facility] 500 mg 3-11 capsule by ity of capsule 00:00: mouth 3 [place] 00 (three) Medical times Branch daily. ibuprofen 2020-0 Yes [id number] 800mg Take 1 [facility] 800 mg 3-11 tablet by ity of tablet 00:00: mouth [place] 00 every 8 Medical (eight) Branch hours as needed for Pain (scale 4-6). acetaminoph 2020-0 Yes [id number] 1{tbl} Take 1-2 [facility] en-codeine 3-11 tablets by ity of 300-30 mg 00:00: mouth [place] tablet 00 every 6 Medical (six) Branch hours as needed for Pain (scale 4-6). amoxicillin 2020-0 Yes [id number] 500mg Take 1 [facility] 500 mg 3-11 capsule by ity of capsule 00:00: mouth 3 [place] 00 (three) Medical times Branch daily. ibuprofen 2019- 2020- No [id number] 800mg Take 1 [facility] 800 mg 3-11 07-08 tablet by ity of tablet 00:00: 00:00 mouth [place] 00 :00 every 8 Medical (eight) Branch hours as needed for Pain (scale 4-6). acetaminoph 2019-0 2020- No [id number] 1{tbl} Take 1-2 [facility] en-codeine 3-11 07-08 tablets by it y of 300-30 mg 00:00: 00:00 mouth [place] tablet 00 :00 every 6 Medical (six) Branch hours as needed for Pain (scale 4-6). amoxicillin 2019-0 2020- No [id number] 500mg Take 1 [facility] 500 mg 3-11 07-08 capsule by ity of capsule 00:00: 00:00 mouth 3 [place] 00 :00 (three) Medical times Branch daily. fluconazole 2020-0 2020- No [id number] 150mg Take 1 [facility] (DIFLUCAN) 04-22 tablet by ity of 150 mg 00:00: 04:59 mouth [place] tablet 00 :00 now for 1 Medical dose. Branch fluconazole 2019- No [id number] 150mg Take 1 [facility] (DIFLUCAN) 04-22 tablet by ity of 150 mg 00:00: 04:59 mouth [place] tablet 00 :00 now for 1 Medical dose. Branch fluconazole 2019- No [id number] 150mg Take 1 [facility] (DIFLUCAN) 04-22 tablet by ity of 150 mg 00:00: 04:59 mouth [place] tablet 00 :00 now for 1 Medical dose. Branch cefTRIAXone 2019- No 1000mg 1,000 mg, Univers (ROCEPHIN) 02-27 IV ity of 1,000 mg in 06:15: 06:31 [place]gy[place], [place] NaCl 0.9% 00 :00 ONCE, 1 Medical (NS) 50 mL dose, Nicole Bran ch MINI-BAG 02/27/19 at 0015, 50 mL
Reas on for Anti-Infec tive: Documented Infection< br>Documen wilfredo Infection Site: Urine
D uration of Therapy: 7 days cephALEXin 2019- No [id number] 500mg Take 1 [facility] (KEFLEX) 02-27 capsule by ity of 500 mg 00:00: 05:59 mouth 2 [place] capsule 00 :00 (two) Medical times Branch daily for 7 days. Nitrofurant 2018-02 Yes [id number] 100mg Take 1 [facility] oin&Nit. 0-30 capsule by ity o f Macrocryst 00:00: [place] (MACROBID) 00 (two) Medical 100 mg times Branch capsule daily. Nitrofurant 2018-02 Yes [id number] 100mg Take 1 [facility] oin&Nit. 0-30 capsule by ity o f Macrocryst 00:00: mouth [place] (MACROBID) 00 (two) Medical 100 mg times Branch capsule daily. Nitrofurant 2018-02 Yes [id number] 100mg Take 1 [facility] oin&Nit. 0-30 capsule by ity o f Macrocryst 00:00: mouth [place] (MACROBID) 00 (two) Medical 100 mg times Branch capsule daily. Nitrofurant 2018-02 Yes [id number] 100mg Take 1 [facility] oin&Nit. 0-30 capsule by ity o f Macrocryst 00:00: mouth [place] (MACROBID) 00 (two) Medical 100 mg times Branch capsule daily. Nitrofurant 2018-02 Yes [id number] 100mg Take 1 [facility] oin&Nit. 0-30 capsule by ity o f Macrocryst 00:00: mouth [place] (MACROBID) 00 (two) Medical 100 mg times Branch capsule daily. Nitrofurant 2018-02 Yes [id number] 100mg Take 1 [facility] oin&Nit. 0-30 capsule by ity o f Macrocryst 00:00: mouth [place] (MACROBID) 00 (two) Medical 100 mg times Branch capsule daily. Nitrofurant 2018-02 Yes [id number] 100mg Take 1 [facility] oin&Nit. 0-30 capsule by ity o f Macrocryst 00:00: mouth [place] (MACROBID) 00 (two) Medical 100 mg times Branch capsule daily. Nitrofurant 2018-02 Yes [id number] 100mg Take 1 [facility] oin&Nit. 0-30 capsule by ity o f Macrocryst 00:00: mouth [place] (MACROBID) 00 (two) Medical 100 mg times Branch capsule daily. Nitrofurant 2018-02 2020- No [id number] 100mg Take 1 [facility] oin&Nit. 0-30 07-08 capsule by ity of Macrocryst 00:00: 00:00 mouth 2 [place] (MACROBID) 00 :00 (two) Medical 100 mg times Branch capsule daily. cefTRIAXone Yes 250mg 250 mg, Un delfin (ROCEPHIN) 8-05 Intramuscu ity of injection 02:30: [place], Q24H, [place] 250 mg 00 First dose Medical on [place] [facility] 09/15/18 at 2130, Until Discontinu ed, NIKI
Re ason for Anti-Infec tive: Empiric Therapy for Suspected Infection< br>Empiric Therapy Site: Pelvic< br>Duratio n of therapy: 7 days metroNIDAZO 2019-0 2019- No 2000mg 2,000 mg, Univers LE (FLAGYL) 09-16 Oral, ity of tablet 02:30: 01:39 ONCE, 1 [place] 2,000 mg 00 :00 dose, [facility] 09/15/18 at Branch 2130, Routine
Reason for Anti-Infec tive: Empiric Therapy for Suspected Infection< br>Empiric Therapy Site: Pelvic
Duration of therapy: 7 days azithromyci 2018- No 1000mg 1,000 mg, Univers n 09-16 Oral, ity of (ZITHROMAX) 02:30: 01:39 ONCE, 1 [place] tablet 00 :00 dose, [facility] 1,000 mg 09/15/18 at Branch 2130, NIKI
Re ason for Anti-Infec tive: Empiric Therapy for Suspected Infection< br>Empiric Therapy Site: Pelvic
Duration of therapy: 7 days iohexol 2018- No 120mL 120 mL, Unive rs (OMNIPAQUE 09-16 Intravenou it y of 350 01:00: 00:35 s, ONCE, 1 [place] BULK-100 00 :00 dose, [facility] mL) 09/15/18 at Branch injection 2000, 120 mL Routine ondansetron 2018- No 4mg 4 mg, Slow Univers (ZOFRAN 09-16 IV Push, ity of (PF)) 01:00: 23:50 ONCE, 1 [place] injection 4 00 :00 dose, [facility] ical mg 09/15/18 at Branch 2000, NIKI morpHINE 2018- No 4mg 4 mg, Slow Un delfin injection 4 09-16 IV Push, ity of mg 01:00: 23:50 ONCE, 1 [place] 00 :00 dose, [facility] 09/15/18 at Branch 2000, STAT NaCl 0.9% 2018- No 1000mL at 999 Uni vers (NS) bolus 09-1505 mL/hr, ity of infusion 23:30: 02:06 1,000 mL, [place] 1,000 mL 00 :00 IV Medical Infusion, [place] ONCE, 1 dose, 09/15/18 at 1830, NIKI dicyclomine 2019- No [id number] 20mg Take 1 [facility] 20 mg 8-04 08-12 tablet by ity of tablet 00:00: 04:59 mouth 4 [place] 00 :00 (four) Medical times Branch daily for 7 days. multivitami Yes [id number] 1{tbl} Take 1 Univers n tablet 4-17 tablet by ity of 00:00: mouth [place] 00 daily. Medical Branch multivitami 2018- Yes [id number] 1{tbl} Take 1 Univers n tablet 4-17 tablet by ity of 00:00: mouth [place] 00 daily. Medical Branch multivitami Yes [id number] 1{tbl} Take 1 Univers n tablet 4-17 tablet by ity of 00:00: mouth [place] 00 daily. Medical Branch multivitami Yes [id number] 1{tbl} Take 1 Univers n tablet 4-17 tablet by ity of 00:00: mouth [place] 00 daily. Medical Branch multivitami Yes [id number] 1{tbl} Take 1 Univers n tablet 4-17 tablet by ity of 00:00: mouth [place] 00 daily. Medical Branch multivitami Yes [id number] 1{tbl} Take 1 Univers n tablet 4-17 tablet by ity of 00:00: mouth [place] 00 daily. Medical Branch multivitami Yes [id number] 1{tbl} Take 1 Univers n tablet 4-17 tablet by ity of 00:00: mouth [place] 00 daily. Medical Branch multivitami 2018- Yes [id number] 1{tbl} Take 1 Univers n tablet 4-17 tablet by ity of 00:00: mouth [place] 00 daily. Medical Branch multivitami Yes [id number] 1{tbl} Take 1 Univers n tablet 4-17 tablet by ity of 00:00: mouth [place] 00 daily. Medical Branch multivitami 2018- Yes [id number] 1{tbl} Take 1 Univers n tablet 4-17 tablet by ity of 00:00: mouth [place] 00 daily. Medical Branch multivitami 2020- No [id number] 1{tbl} Take 1 Univers n tablet 4-17 07-08 tablet by ity o f 00:00: 00:00 mouth [place] 00 :00 daily. Medical Branch Immunizations Ordered Filled Immunization Date Status Comments [facility] e Immunization Name Name TD 2020-02-16 Completed University of 00:00:00 [place] [facility] TDAP 2020-02-16 Completed University of 00:00:00 [place] [facility] TDAP 2020-02-16 Completed University of 00:00:00 [place] [facility] TDAP 2020-02-16 Completed University of 00:00:00 [facility] TDAP 2020-02-16 Completed University of 00:00:00 [place] [facility] TDAP 2020-02-16 Completed University of 00:00:00 [place] [facility] TDAP 2020-02-16 Completed University of 00:00:00 [place] [facility] TDAP 2020-02-16 Completed University of 00:00:00 [place] [facility] TDAP 2020-02-16 Completed University of 00:00:00 [place] [facility] TDAP 2020-02-16 Completed University of 00:00:00 [facility] Branch TDAP 2020-02-16 Completed University of 00:00:00 [facility] Branch TDAP 2020-02-16 Completed University of 00:00:00 [facility] Branch TDAP 2020-02-16 Completed University of 00:00:00 [facility] Branch TDAP 2020-02-16 Completed University of 00:00:00 [facility] Branch TDAP 2020-02-16 Completed University of 00:00:00 [facility] Branch TDAP 2020-02-16 Completed University of 00:00:00 [facility] Branch TDAP 2020-02-16 Completed University of 00:00:00 [facility] Branch TDAP 2020-02-16 Completed University of 00:00:00 [facility] Branch TDAP 2020-02-16 Completed University of 00:00:00 [facility] Branch TDAP 2020-02-16 Completed University of 00:00:00 [facility] Branch TDAP 2020-02-16 Completed University of 00:00:00 [facility] Branch TDAP 2020-02-16 Completed University of 00:00:00 [facility] Branch TDAP 2020-02-16 Completed University of 00:00:00 [facility] Branch TDAP 2020-02-16 Completed University of 00:00:00 [facility] Branch TDAP 2020-02-16 Completed University of 00:00:00 [facility] Branch TDAP 2020-02-16 Completed University of 00:00:00 [facility] TDAP 2020-02-16 Completed University of 00:00:00 [facility] Branch TDAP 2020-02-16 Completed University of 00:00:00 [facility] Branch TDAP 2020-02-16 Completed University of 00:00:00 [facility] Branch TDAP 2020-02-16 Completed University of 00:00:00 [facility] Branch TDAP 2020-02-16 Completed University of 00:00:00 [place] [facility] TDAP 2020-02-16 Completed University of 00:00:00 [facility] Branch TDAP 2020-02-16 Completed University of 00:00:00 [facility] Branch TDAP 2020-02-16 Completed University of 00:00:00 [facility] Branch TDAP 2020-02-16 Completed University of 00:00:00 [facility] Branch TDAP 2020-02-16 Completed University of 00:00:00 [facility] TDAP 2020-02-16 Completed University of 00:00:00 [facility] Influenza Virus 2017-10-15 Completed Universit y of Vaccine 00:00:00 [facility] Influenza Virus 2017-10-15 Completed Universit y of Vaccine 00:00:00 [facility] Influenza Virus 2017-10-15 Completed Universit y of Vaccine 00:00:00 [facility] Influenza Virus 2017-10-15 Completed Universit y of Vaccine 00:00:00 [facility] Influenza Virus 2017-10-15 Completed Universit y of Vaccine 00:00:00 [facility] Influenza Virus 2017-10-15 Completed Universit y of Vaccine 00:00:00 [facility] Influenza Virus 2017-10-15 Completed Universit y of Vaccine 00:00:00 [facility] Influenza Virus 2017-10-15 Completed Universit y of Vaccine 00:00:00 [facility] Influenza Virus 2017-10-15 Completed Universit y of Vaccine 00:00:00 [facility] Influenza Virus 2017-10-15 Completed Universit y of Vaccine 00:00:00 [facility] Influenza Virus 2017-10-15 Completed Universit y of Vaccine 00:00:00 [facility] Influenza Virus 2017-10-15 Completed Universit y of Vaccine 00:00:00 [facility] Influenza Virus 2017-10-15 Completed Universit y of Vaccine 00:00:00 [facility] Influenza Virus 2017-10-15 Completed Universit y of Vaccine 00:00:00 [facility] Influenza Virus 2017-10-15 Completed Universit y of Vaccine 00:00:00 [place] [facility] Influenza Virus 2017-10-15 Completed Universit y of Vaccine 00:00:00 [place] [facility] Branch Influenza Virus 2017-10-15 Completed Universit y of Vaccine 00:00:00 [facility] Influenza Virus 2017-10-15 Completed Universit y of Vaccine 00:00:00 [facility] Branch Influenza Virus 2017-10-15 Completed Universit y of Vaccine 00:00:00 [place] [facility] Branch Influenza Virus 2017-10-15 Completed Universit y of Vaccine 00:00:00 [place] [facility] Influenza Virus 2017-10-15 Completed Universit y of Vaccine 00:00:00 [place] [facility] Branch Influenza Virus 2017-10-15 Completed Universit y of Vaccine 00:00:00 [place] [facility] Branch Influenza Virus 2017-10-15 Completed Universit y of Vaccine 00:00:00 [facility] Branch Influenza Virus 2017-10-15 Completed Universit y of Vaccine 00:00:00 [place] [facility] Branch Influenza Virus 2017-10-15 Completed Universit y of Vaccine 00:00:00 [place] [facility] Branch Influenza Virus 2017-10-15 Completed Universit y of Vaccine 00:00:00 [facility] Influenza Virus 2017-10-15 Completed Universit y of Vaccine 00:00:00 [facility] Branch Influenza Virus 2017-10-15 Completed Universit y of Vaccine 00:00:00 [place] [facility] Branch Influenza Virus 2017-10-15 Completed Universit y of Vaccine 00:00:00 [facility] Influenza Virus 2017-10-15 Completed Universit y of Vaccine 00:00:00 [facility] Branch Influenza Virus 2017-10-15 Completed Universit y of Vaccine 00:00:00 [place] [facility] Branch Influenza Virus 2017-10-15 Completed Universit y of Vaccine 00:00:00 [facility] Branch Influenza Virus 2017-10-15 Completed Universit y of Vaccine 00:00:00 [place] [facility] Branch Influenza Virus 2017-10-15 Completed Universit y of Vaccine 00:00:00 [place] [facility] Branch Influenza Virus 2017-10-15 Completed Universit y of Vaccine 00:00:00 [facility] Branch Influenza Virus 2017-10-15 Completed Universit y of Vaccine 00:00:00 [facility] Branch Influenza Virus 2017-10-15 Completed Universit y of Vaccine 00:00:00 [place] [facility] Branch Influenza Virus 2017-10-15 Completed Universit y of Vaccine 00:00:00 [facility] Influenza Virus 2017-10-15 Completed Universit y of Vaccine 00:00:00 [facility] Influenza Virus 2017-10-15 Completed Universit y of Vaccine 00:00:00 [facility] Influenza Virus 2017-10-15 Completed Universit y of Vaccine 00:00:00 [facility] Influenza Virus 2017-10-15 Completed Universit y of Vaccine 00:00:00 [facility] Influenza Virus 2017-10-15 Completed Universit y of Vaccine 00:00:00 [facility] Influenza Virus 2017-10-15 Completed Universit y of Vaccine 00:00:00 [facility] Influenza Virus 2017-10-15 Completed Universit y of Vaccine 00:00:00 [facility] Influenza Virus 2017-10-15 Completed Universit y of Vaccine 00:00:00 [facility] Influenza Virus 2017-10-15 Completed Universit y of Vaccine 00:00:00 [facility] Influenza Virus 2017-10-15 Completed Universit y of Vaccine 00:00:00 [facility] Influenza Virus 2017-10-15 Completed Universit y of Vaccine 00:00:00 [facility] Influenza Virus 2017-10-15 Completed Universit y of Vaccine 00:00:00 [facility] Influenza Virus 2017-10-15 Completed Universit y of Vaccine 00:00:00 [facility] Influenza Virus 2017-10-15 Completed Universit y of Vaccine 00:00:00 [facility] Influenza Virus 2017-10-15 Completed Universit y of Vaccine 00:00:00 [facility] Influenza Virus 2017-10-15 Completed Universit y of Vaccine 00:00:00 [facility] Influenza Virus 2017-10-15 Completed Universit y of Vaccine 00:00:00 [facility] Influenza Virus 2017-10-15 Completed Universit y of Vaccine 00:00:00 [facility] Influenza Virus 2017-10-15 Completed Universit y of Vaccine 00:00:00 [facility] Influenza Virus 2017-10-15 Completed Universit y of Vaccine 00:00:00 [facility] Influenza Virus 2017-10-15 Completed Universit y of Vaccine 00:00:00 [facility] Influenza Virus 2017-10-15 Completed Universit y of Vaccine 00:00:00 [facility] Influenza Virus 2017-10-15 Completed Universit y of Vaccine 00:00:00 [facility] Influenza Virus 2017-10-15 Completed Universit y of Vaccine 00:00:00 [facility] Influenza Virus 2017-10-15 Completed Universit y of Vaccine 00:00:00 [facility] Influenza Virus 2017-10-15 Completed Universit y of Vaccine 00:00:00 [facility] Influenza Virus 2017-10-15 Completed Universit y of Vaccine 00:00:00 [facility] Influenza Virus 2017-10-15 Completed Universit y of Vaccine 00:00:00 [facility] Influenza Virus 2017-10-15 Completed Universit y of Vaccine 00:00:00 [facility] Influenza Virus 2017-10-15 Completed Universit y of Vaccine 00:00:00 [facility] Influenza Virus 2017-10-15 Completed Universit y of Vaccine 00:00:00 [facility] Influenza Virus 2017-10-15 Completed Universit y of Vaccine 00:00:00 [facility] Influenza Virus 2017-10-15 Completed Universit y of Vaccine 00:00:00 [facility] Influenza Virus 2017-10-15 Completed Universit y of Vaccine 00:00:00 [facility] Influenza Virus 2017-10-15 Completed Universit y of Vaccine 00:00:00 [facility] Influenza Virus 2017-10-15 Completed Universit y of Vaccine 00:00:00 [facility] Influenza Virus 2017-10-15 Completed Universit y of Vaccine 00:00:00 [facility] Influenza Virus 2017-10-15 Completed Universit y of Vaccine 00:00:00 [facility] Influenza Virus 2017-10-15 Completed Universit y of Vaccine 00:00:00 [facility] Influenza Virus 2017-10-15 Completed Universit y of Vaccine 00:00:00 [facility] Influenza Virus 2017-10-15 Completed Universit y of Vaccine 00:00:00 [facility] Influenza Virus 2017-10-15 Completed Universit y of Vaccine 00:00:00 [facility] Influenza Virus 2017-10-15 Completed Universit y of Vaccine 00:00:00 [facility] TDAP (ADACEL) 2017-07-24 Completed University of VACCINE 00:00:00 [facility] TDAP (ADACEL) 2017-07-24 Completed University of VACCINE 00:00:00 [facility] TDAP (ADACEL) 2017-07-24 Completed University of VACCINE 00:00:00 [facility] [facility] TDAP (ADACEL) 2017-07-24 Completed [facility] VACCINE 00:00:00 [facility] TDAP (ADACEL) 2017-07-24 Completed [facility] VACCINE 00:00:00 [facility] TDAP (ADACEL) 2017-07-24 Completed [facility] VACCINE 00:00:00 [facility] TDAP (ADACEL) 2017-07-24 Completed [facility] VACCINE 00:00:00 [facility] TDAP (ADACEL) 2017-07-24 Completed [facility] VACCINE 00:00:00 [facility] TDAP (ADACEL) 2017-07-24 Completed [facility] VACCINE 00:00:00 [facility] TDAP (ADACEL) 2017-07-24 Completed [facility] VACCINE 00:00:00 [facility] TDAP (ADACEL) 2017-07-24 Completed [facility] VACCINE 00:00:00 [facility] TDAP (ADACEL) 2017-07-24 Completed [facility] VACCINE 00:00:00 [facility] TDAP (ADACEL) 2017-07-24 Completed [facility] VACCINE 00:00:00 [facility] TDAP (ADACEL) 2017-07-24 Completed [facility] VACCINE 00:00:00 [facility] TDAP (ADACEL) 2017-07-24 Completed [facility] VACCINE 00:00:00 [facility] TDAP (ADACEL) 2017-07-24 Completed [facility] VACCINE 00:00:00 [facility] TDAP (ADACEL) 2017-07-24 Completed [facility] VACCINE 00:00:00 [facility] TDAP (ADACEL) 2017-07-24 Completed [facility] VACCINE 00:00:00 [facility] TDAP (ADACEL) 2017-07-24 Completed [facility] VACCINE 00:00:00 [facility] TDAP (ADACEL) 2017-07-24 Completed [facility] VACCINE 00:00:00 [facility] TDAP (ADACEL) 2017-07-24 Completed [facility] VACCINE 00:00:00 [facility] TDAP (ADACEL) 2017-07-24 Completed [facility] VACCINE 00:00:00 [facility] TDAP (ADACEL) 2017-07-24 Completed [facility] VACCINE 00:00:00 [facility] TDAP (ADACEL) 2017-07-24 Completed [facility] VACCINE 00:00:00 [facility] TDAP (ADACEL) 2017-07-24 Completed [facility] VACCINE 00:00:00 [facility] TDAP (ADACEL) 2017-07-24 Completed [facility] VACCINE 00:00:00 [facility] TDAP (ADACEL) 2017-07-24 Completed [facility] VACCINE 00:00:00 [facility] TDAP (ADACEL) 2017-07-24 Completed [facility] VACCINE 00:00:00 [facility] TDAP (ADACEL) 2017-07-24 Completed [facility] VACCINE 00:00:00 [facility] TDAP (ADACEL) 2017-07-24 Completed [facility] VACCINE 00:00:00 [facility] TDAP (ADACEL) 2017-07-24 Completed [facility] VACCINE 00:00:00 [facility] TDAP (ADACEL) 2017-07-24 Completed [facility] VACCINE 00:00:00 [facility] TDAP (ADACEL) 2017-07-24 Completed [facility] VACCINE 00:00:00 [facility] TDAP (ADACEL) 2017-07-24 Completed [facility] VACCINE 00:00:00 [facility] TDAP (ADACEL) 2017-07-24 Completed [facility] VACCINE 00:00:00 [facility] TDAP (ADACEL) 2017-07-24 Completed [facility] VACCINE 00:00:00 [facility] TDAP (ADACEL) 2017-07-24 Completed [facility] VACCINE 00:00:00 [facility] TDAP (ADACEL) 2017-07-24 Completed [facility] VACCINE 00:00:00 [facility] TDAP (ADACEL) 2017-07-24 Completed [facility] VACCINE 00:00:00 [facility] TDAP (ADACEL) 2017-07-24 Completed [facility] VACCINE 00:00:00 [facility] TDAP (ADACEL) 2017-07-24 Completed [facility] VACCINE 00:00:00 [facility] TDAP (ADACEL) 2017-07-24 Completed [facility] VACCINE 00:00:00 [facility] TDAP (ADACEL) 2017-07-24 Completed [facility] VACCINE 00:00:00 [facility] TDAP (ADACEL) 2017-07-24 Completed [facility] VACCINE 00:00:00 [facility] TDAP (ADACEL) 2017-07-24 Completed [facility] VACCINE 00:00:00 [facility] TDAP (ADACEL) 2017-07-24 Completed [facility] VACCINE 00:00:00 [facility] TDAP (ADACEL) 2017-07-24 Completed [facility] VACCINE 00:00:00 [facility] TDAP (ADACEL) 2017-07-24 Completed [facility] VACCINE 00:00:00 [facility] TDAP (ADACEL) 2017-07-24 Completed [facility] VACCINE 00:00:00 [facility] TDAP (ADACEL) 2017-07-24 Completed [facility] VACCINE 00:00:00 [facility] TDAP (ADACEL) 2017-07-24 Completed [facility] VACCINE 00:00:00 [facility] TDAP (ADACEL) 2017-07-24 Completed [facility] VACCINE 00:00:00 [facility] TDAP (ADACEL) 2017-07-24 Completed [facility] VACCINE 00:00:00 [facility] TDAP (ADACEL) 2017-07-24 Completed [facility] VACCINE 00:00:00 [facility] TDAP (ADACEL) 2017-07-24 Completed [facility] VACCINE 00:00:00 [facility] TDAP (ADACEL) 2017-07-24 Completed [facility] VACCINE 00:00:00 [facility] TDAP (ADACEL) 2017-07-24 Completed [facility] VACCINE 00:00:00 [facility] TDAP (ADACEL) 2017-07-24 Completed [facility] VACCINE 00:00:00 [facility] TDAP (ADACEL) 2017-07-24 Completed [facility] VACCINE 00:00:00 [facility] TDAP (ADACEL) 2017-07-24 Completed [facility] VACCINE 00:00:00 [facility] TDAP (ADACEL) 2017-07-24 Completed [facility] VACCINE 00:00:00 [facility] TDAP (ADACEL) 2017-07-24 Completed [facility] VACCINE 00:00:00 [facility] TDAP (ADACEL) 2017-07-24 Completed [facility] VACCINE 00:00:00 [facility] TDAP (ADACEL) 2017-07-24 Completed [facility] VACCINE 00:00:00 [facility] TDAP (ADACEL) 2017-07-24 Completed [facility] VACCINE 00:00:00 [facility] TDAP (ADACEL) 2017-07-24 Completed [facility] VACCINE 00:00:00 [facility] TDAP (ADACEL) 2017-07-24 Completed [facility] VACCINE 00:00:00 [facility] TDAP (ADACEL) 2017-07-24 Completed [facility] VACCINE 00:00:00 [facility] TDAP (ADACEL) 2017-07-24 Completed [facility] VACCINE 00:00:00 [facility] TDAP (ADACEL) 2017-07-24 Completed [facility] VACCINE 00:00:00 [facility] TDAP (ADACEL) 2017-07-24 Completed [facility] VACCINE 00:00:00 [facility] TDAP (ADACEL) 2017-07-24 Completed [facility] VACCINE 00:00:00 [facility] TDAP (ADACEL) 2017-07-24 Completed [facility] VACCINE 00:00:00 [facility] TDAP (ADACEL) 2017-07-24 Completed [facility] VACCINE 00:00:00 [facility] TDAP (ADACEL) 2017-07-24 Completed [facility] VACCINE 00:00:00 [facility] TDAP (ADACEL) 2017-07-24 Completed [facility] VACCINE 00:00:00 [facility] TDAP (ADACEL) 2017-07-24 Completed [facility] VACCINE 00:00:00 [facility] TDAP (ADACEL) 2017-07-24 Completed [facility] VACCINE 00:00:00 [facility] TDAP (ADACEL) 2017-07-24 Completed [facility] VACCINE 00:00:00 [facility] TDAP (ADACEL) 2017-07-24 Completed [facility] VACCINE 00:00:00 [facility] TDAP (ADACEL) 2017-07-24 Completed [facility] VACCINE 00:00:00 [facility] TDAP 2013-10-06 Completed [facility] 00:00:00 [facility] TDAP 2013-10-06 Completed [facility] 00:00:00 [facility] TDAP 2013-10-06 Completed [facility] 00:00:00 [facility] TDAP 2013-10-06 Completed [facility] 00:00:00 [facility] TDAP 2013-10-06 Completed [facility] 00:00:00 [facility] TDAP 2013-10-06 Completed [facility] 00:00:00 [facility] TDAP 2013-10-06 Completed [facility] 00:00:00 [facility] TDAP 2013-10-06 Completed [facility] 00:00:00 [facility] TDAP 2013-10-06 Completed [facility] 00:00:00 [facility] TDAP 2013-10-06 Completed [facility] 00:00:00 [facility] TDAP 2013-10-06 Completed [facility] 00:00:00 [facility] TDAP 2013-10-06 Completed [facility] 00:00:00 [facility] TDAP 2013-10-06 Completed [facility] 00:00:00 [facility] TDAP 2013-10-06 Completed [facility] 00:00:00 [facility] TDAP 2013-10-06 Completed [facility] 00:00:00 [facility] TDAP 2013-10-06 Completed [facility] 00:00:00 [facility] TDAP 2013-10-06 Completed [facility] 00:00:00 [facility] TDAP 2013-10-06 Completed [facility] 00:00:00 [facility] TDAP 2013-10-06 Completed [facility] 00:00:00 [facility] TDAP 2013-10-06 Completed [facility] 00:00:00 [facility] TDAP 2013-10-06 Completed [facility] 00:00:00 [facility] TDAP 2013-10-06 Completed [facility] 00:00:00 [facility] TDAP 2013-10-06 Completed [facility] 00:00:00 [facility] TDAP 2013-10-06 Completed [facility] 00:00:00 [facility] TDAP 2013-10-06 Completed [facility] 00:00:00 [facility] TDAP 2013-10-06 Completed [facility] 00:00:00 [facility] TDAP 2013-10-06 Completed [facility] 00:00:00 [facility] TDAP 2013-10-06 Completed [facility] 00:00:00 [facility] TDAP 2013-10-06 Completed [facility] 00:00:00 [facility] TDAP 2013-10-06 Completed [facility] 00:00:00 [facility] TDAP 2013-10-06 Completed [facility] 00:00:00 [facility] TDAP 2013-10-06 Completed [facility] 00:00:00 [facility] TDAP 2013-10-06 Completed [facility] 00:00:00 [facility] TDAP 2013-10-06 Completed [facility] 00:00:00 [facility] TDAP 2013-10-06 Completed [facility] 00:00:00 [facility] TDAP 2013-10-06 Completed [facility] 00:00:00 [facility] TDAP 2013-10-06 Completed [facility] 00:00:00 [facility] TDAP 2013-10-06 Completed [facility] 00:00:00 [facility] TDAP 2013-10-06 Completed [facility] 00:00:00 [facility] TDAP 2013-10-06 Completed [facility] 00:00:00 [facility] Tdap 2013-10-06 Completed [facility] 00:00:00 [facility] TDAP 2013-10-06 Completed [facility] 00:00:00 [facility] TDAP 2013-10-06 Completed [facility] 00:00:00 [facility] TDAP 2013-10-06 Completed [facility] 00:00:00 [facility] Tdap 2013-10-06 Completed [facility] 00:00:00 [facility] Tdap 2013-10-06 Completed [facility] 00:00:00 [facility] Tdap 2013-10-06 Completed [facility] 00:00:00 [facility] Tdap 2013-10-06 Completed [facility] 00:00:00 [facility] Tdap 2013-10-06 Completed [facility] 00:00:00 [facility] Tdap 2013-10-06 Completed [facility] 00:00:00 [facility] Tdap 2013-10-06 Completed [facility] 00:00:00 [facility] Tdap 2013-10-06 Completed [facility] 00:00:00 [facility] TDAP 2013-10-06 Completed [facility] 00:00:00 [facility] TDAP 2013-10-06 Completed [facility] 00:00:00 [facility] TDAP 2013-10-06 Completed [facility] 00:00:00 [facility] TDAP 2013-10-06 Completed [facility] 00:00:00 [facility] TDAP 2013-10-06 Completed [facility] 00:00:00 [facility] TDAP 2013-10-06 Completed [facility] 00:00:00 [facility] TDAP 2013-10-06 Completed [facility] 00:00:00 [facility] TDAP 2013-10-06 Completed [facility] 00:00:00 [facility] TDAP 2013-10-06 Completed [facility] 00:00:00 [facility] TDAP 2013-10-06 Completed [facility] 00:00:00 [facility] TDAP 2013-10-06 Completed [facility] 00:00:00 [facility] TDAP 2013-10-06 Completed [facility] 00:00:00 [facility] TDAP 2013-10-06 Completed [facility] 00:00:00 [facility] TDAP 2013-10-06 Completed [facility] 00:00:00 [facility] TDAP 2013-10-06 Completed [facility] 00:00:00 [facility] TDAP 2013-10-06 Completed [facility] 00:00:00 [facility] TDAP 2013-10-06 Completed [facility] 00:00:00 [facility] TDAP 2013-10-06 Completed [facility] 00:00:00 [facility] TDAP 2013-10-06 Completed [facility] 00:00:00 [facility] TDAP 2013-10-06 Completed [facility] 00:00:00 [facility] TDAP 2013-10-06 Completed [facility] 00:00:00 [facility] TDAP 2013-10-06 Completed [facility] 00:00:00 [facility] TDAP 2013-10-06 Completed [facility] 00:00:00 [facility] TDAP 2013-10-06 Completed [facility] 00:00:00 [facility] TDAP 2013-10-06 Completed [facility] 00:00:00 [facility] TDAP 2013-10-06 Completed [facility] 00:00:00 [facility] TDAP 2013-10-06 Completed [facility] 00:00:00 [facility] TDAP 2013-10-06 Completed [facility] 00:00:00 [facility] TDAP 2013-10-06 Completed [facility] 00:00:00 [facility] Rubella 2010-02-21 Completed [facility] 00:00:00 [facility] Rubella 2010-02-21 Completed [facility] 00:00:00 [facility] Rubella 2010-02-21 Completed [facility] 00:00:00 [facility] Rubella 2010-02-21 Completed [facility] 00:00:00 [facility] Rubella 2010-02-21 Completed [facility] 00:00:00 [facility] Rubella 2010-02-21 Completed [facility] 00:00:00 [facility] Rubella 2010-02-21 Completed [facility] 00:00:00 [facility] Rubella 2010-02-21 Completed [facility] 00:00:00 [facility] Rubella 2010-02-21 Completed [facility] 00:00:00 [facility] Rubella 2010-02-21 Completed [facility] 00:00:00 [facility] Rubella 2010-02-21 Completed [facility] 00:00:00 [facility] Rubella 2010-02-21 Completed [facility] 00:00:00 [facility] Rubella 2010-02-21 Completed [facility] 00:00:00 [facility] Rubella 2010-02-21 Completed [facility] 00:00:00 [facility] Rubella 2010-02-21 Completed [facility] 00:00:00 [facility] Rubella 2010-02-21 Completed [facility] 00:00:00 [facility] Rubella 2010-02-21 Completed [facility] 00:00:00 [facility] Rubella 2010-02-21 Completed [facility] 00:00:00 [facility] Rubella 2010-02-21 Completed [facility] 00:00:00 [facility] Rubella 2010-02-21 Completed [facility] 00:00:00 [facility] Rubella 2010-02-21 Completed [facility] 00:00:00 [facility] Rubella 2010-02-21 Completed [facility] 00:00:00 [facility] Rubella 2010-02-21 Completed [facility] 00:00:00 [facility] Rubella 2010-02-21 Completed [facility] 00:00:00 [facility] Rubella 2010-02-21 Completed [facility] 00:00:00 [facility] Rubella 2010-02-21 Completed [facility] 00:00:00 [facility] Rubella 2010-02-21 Completed [facility] 00:00:00 [facility] Rubella 2010-02-21 Completed [facility] 00:00:00 [facility] Rubella 2010-02-21 Completed [facility] 00:00:00 [facility] Rubella 2010-02-21 Completed [facility] 00:00:00 [facility] Rubella 2010-02-21 Completed [facility] 00:00:00 [facility] Rubella 2010-02-21 Completed [facility] 00:00:00 [facility] Rubella 2010-02-21 Completed [facility] 00:00:00 [facility] Rubella 2010-02-21 Completed [facility] 00:00:00 [facility] Rubella 2010-02-21 Completed [facility] 00:00:00 [facility] Rubella 2010-02-21 Completed [facility] 00:00:00 [facility] Rubella 2010-02-21 Completed [facility] 00:00:00 [facility] Rubella 2010-02-21 Completed [facility] 00:00:00 [facility] Rubella 2010-02-21 Completed [facility] 00:00:00 [facility] Rubella 2010-02-21 Completed [facility] 00:00:00 [facility] Rubella 2010-02-21 Completed [facility] 00:00:00 [facility] Rubella 2010-02-21 Completed [facility] 00:00:00 [facility] Rubella 2010-02-21 Completed [facility] 00:00:00 [facility] Rubella 2010-02-21 Completed [facility] 00:00:00 [facility] Rubella 2010-02-21 Completed [facility] 00:00:00 [facility] Rubella 2010-02-21 Completed [facility] 00:00:00 [facility] Rubella 2010-02-21 Completed [facility] 00:00:00 [facility] Rubella 2010-02-21 Completed [facility] 00:00:00 [facility] Rubella 2010-02-21 Completed [facility] 00:00:00 [facility] Rubella 2010-02-21 Completed [facility] 00:00:00 [facility] Rubella 2010-02-21 Completed [facility] 00:00:00 [facility] Rubella 2010-02-21 Completed [facility] 00:00:00 [facility] Rubella 2010-02-21 Completed [facility] 00:00:00 [facility] Rubella 2010-02-21 Completed [facility] 00:00:00 [facility] Rubella 2010-02-21 Completed [facility] 00:00:00 [facility] Rubella 2010-02-21 Completed [facility] 00:00:00 [facility] Rubella 2010-02-21 Completed [facility] 00:00:00 [facility] Rubella 2010-02-21 Completed [facility] 00:00:00 [facility] Rubella 2010-02-21 Completed [facility] 00:00:00 [facility] Rubella 2010-02-21 Completed [facility] 00:00:00 [facility] Rubella 2010-02-21 Completed [facility] 00:00:00 [facility] Rubella 2010-02-21 Completed [facility] 00:00:00 [facility] Rubella 2010-02-21 Completed [facility] 00:00:00 [facility] Rubella 2010-02-21 Completed [facility] 00:00:00 [facility] Rubella 2010-02-21 Completed [facility] 00:00:00 [facility] Rubella 2010-02-21 Completed [facility] 00:00:00 [facility] Rubella 2010-02-21 Completed [facility] 00:00:00 [facility] Rubella 2010-02-21 Completed [facility] 00:00:00 [facility] Rubella 2010-02-21 Completed [facility] 00:00:00 [facility] Rubella 2010-02-21 Completed [facility] 00:00:00 [facility] Rubella 2010-02-21 Completed [facility] 00:00:00 [facility] Rubella 2010-02-21 Completed [facility] 00:00:00 [facility] Rubella 2010-02-21 Completed [facility] 00:00:00 [facility] Rubella 2010-02-21 Completed [facility] 00:00:00 [facility] Rubella 2010-02-21 Completed [facility] 00:00:00 [facility] Rubella 2010-02-21 Completed [facility] 00:00:00 [facility] Rubella 2010-02-21 Completed [facility] 00:00:00 [facility] Rubella 2010-02-21 Completed [facility] 00:00:00 [facility] Rubella 2010-02-21 Completed [facility] 00:00:00 [facility] Rubella 2010-02-21 Completed [facility] 00:00:00 [facility] Rubella 2010-02-21 Completed [facility] 00:00:00 [facility] Varicella 2008-09-08 Completed [facility] (varivax)(chicken 00:00:00 [facility] Varicella 2008-09-08 Completed [facility] (varivax)(chicken 00:00:00 [facility] Varicella 2008-09-08 Completed [facility] (varivax)(chicken 00:00:00 [facility] Varicella 2008-09-08 Completed [facility] (varivax)(chicken 00:00:00 [facility] Varicella 2008-09-08 Completed [facility] (varivax)(chicken 00:00:00 [facility] Varicella 2008-09-08 Completed [facility] (varivax)(chicken 00:00:00 [facility] Varicella 2008-09-08 Completed [facility] (varivax)(chicken 00:00:00 [facility] Varicella 2008-09-08 Completed [facility] (varivax)(chicken 00:00:00 [facility] Varicella 2008-09-08 Completed [facility] (varivax)(chicken 00:00:00 [facility] Varicella 2008-09-08 Completed [facility] (varivax)(chicken 00:00:00 [facility] Varicella 2008-09-08 Completed [facility] (varivax)(chicken 00:00:00 [facility] Varicella 2008-09-08 Completed [facility] (varivax)(chicken 00:00:00 [facility] Varicella 2008-09-08 Completed [facility] (varivax)(chicken 00:00:00 [facility] Varicella 2008-09-08 Completed [facility] (varivax)(chicken 00:00:00 [facility] Varicella 2008-09-08 Completed [facility] (varivax)(chicken 00:00:00 [facility] Varicella 2008-09-08 Completed [facility] (varivax)(chicken 00:00:00 [facility] Varicella 2008-09-08 Completed [facility] (varivax)(chicken 00:00:00 [facility] Varicella 2008-09-08 Completed [facility] (varivax)(chicken 00:00:00 [facility] Varicella 2008-09-08 Completed [facility] (varivax)(chicken 00:00:00 [facility] Varicella 2008-09-08 Completed [facility] (varivax)(chicken 00:00:00 [facility] Varicella 2008-09-08 Completed [facility] (varivax)(chicken 00:00:00 [facility] Varicella 2008-09-08 Completed [facility] (varivax)(chicken 00:00:00 [facility] Varicella 2008-09-08 Completed [facility] (varivax)(chicken 00:00:00 [facility] Varicella 2008-09-08 Completed [facility] (varivax)(chicken 00:00:00 [facility] Varicella 2008-09-08 Completed [facility] (varivax)(chicken 00:00:00 [facility] Varicella 2008-09-08 Completed [facility] (varivax)(chicken 00:00:00 [facility] Varicella 2008-09-08 Completed [facility] (varivax)(chicken 00:00:00 [facility] Varicella 2008-09-08 Completed [facility] (varivax)(chicken 00:00:00 [facility] Varicella 2008-09-08 Completed [facility] (varivax)(chicken 00:00:00 [facility] Varicella 2008-09-08 Completed [facility] (varivax)(chicken 00:00:00 [facility] Varicella 2008-09-08 Completed [facility] (varivax)(chicken 00:00:00 [facility] Varicella 2008-09-08 Completed [facility] (varivax)(chicken 00:00:00 [facility] Varicella 2008-09-08 Completed [facility] (varivax)(chicken 00:00:00 [facility] Varicella 2008-09-08 Completed [facility] (varivax)(chicken 00:00:00 [facility] Varicella 2008-09-08 Completed [facility] (varivax)(chicken 00:00:00 [facility] Varicella 2008-09-08 Completed [facility] (varivax)(chicken 00:00:00 [facility] Varicella 2008-09-08 Completed [facility] (varivax)(chicken 00:00:00 [facility] Varicella 2008-09-08 Completed [facility] (varivax)(chicken 00:00:00 [facility] Varicella 2008-09-08 Completed [facility] (varivax)(chicken 00:00:00 [facility] Varicella 2008-09-08 Completed [facility] (varivax)(chicken 00:00:00 [facility] Varicella 2008-09-08 Completed [facility] (varivax)(chicken 00:00:00 [facility] Varicella 2008-09-08 Completed [facility] (varivax)(chicken 00:00:00 [facility] Varicella 2008-09-08 Completed [facility] (varivax)(chicken 00:00:00 [facility] Varicella 2008-09-08 Completed [facility] (varivax)(chicken 00:00:00 [facility] Varicella 2008-09-08 Completed [facility] (varivax)(chicken 00:00:00 [facility] Varicella 2008-09-08 Completed [facility] (varivax)(chicken 00:00:00 [facility] Varicella 2008-09-08 Completed [facility] [place] [facility] Varicella 2008-09-08 Completed [facility] [place] [facility] Varicella 2008-09-08 Completed [facility] [place] [facility] Varicella 2008-09-08 Completed [facility] [place] [facility] Varicella 2008-09-08 Completed [facility] 00:[facility] [place] [facility] Varicella 2008-09-08 Completed [facility] 00:[facility] [place] [facility] Varicella 2008-09-08 Completed [facility] 00:[facility] [place] [facility] Varicella 2008-09-08 Completed [facility] 00:[facility] [place] [facility] Varicella 2008-09-08 Completed [facility] [place] [facility] Varicella 2008-09-08 Completed [facility] 00:[facility] [place] [facility] Varicella 2008-09-08 Completed [facility] [place] [facility] Varicella 2008-09-08 Completed [facility] 00:[facility] [place] [facility] Varicella 2008-09-08 Completed [facility] 00:[facility] [place] [facility] Varicella 2008-09-08 Completed [facility] 00:[facility] [place] [facility] Varicella 2008-09-08 Completed [facility] 00:[facility] [place] [facility] Varicella 2008-09-08 Completed [facility] 00:[facility] [place] [facility] Varicella 2008-09-08 Completed [facility] 00:[facility] [place] [facility] Varicella 2008-09-08 Completed [facility] 00:00[facility] [place] [facility] Varicella 2008-09-08 Completed [facility] 00:00:[facility] [place] [facility] Varicella 2008-09-08 Completed [facility] 00:[facility] [place] [facility] Varicella 2008-09-08 Completed [facility] 00:[facility] [place] [facility] Varicella 2008-09-08 Completed [facility] 00:[facility] [place] [facility] Varicella 2008-09-08 Completed [facility] 00:[facility] [place] [facility] Varicella 2008-09-08 Completed [facility] 00:[facility] [place] [facility] Varicella 2008-09-08 Completed [facility] 00:[facility] [place] [facility] Varicella 2008-09-08 Completed [facility] 00:[facility] [place] [facility] Varicella 2008-09-08 Completed [facility] 00:[facility] [place] [facility] Varicella 2008-09-08 Completed [facility] 00:[facility] [place] [facility] Varicella 2008-09-08 Completed [facility] 00:[facility] [place] [facility] Varicella 2008-09-08 Completed [facility] 00:00:[facility] [place] [facility] Varicella 2008-09-08 Completed [facility] 00:[facility] [place] [facility] Varicella 2008-09-08 Completed [facility] 00:[facility] [place] [facility] Varicella 2008-09-08 Completed [facility] 00:00:[facility] [place] [facility] Varicella 2008-09-08 Completed [facility] 00:00:[facility] [place] [facility] Varicella 2008-09-08 Completed [facility] 00:00:[facility] [place] [facility] Td 2002-02-12 Completed [facility] 00:00:00 [facility] Td 2002-02-12 Completed [facility] 00:00:00 [facility] Td 2002-02-12 Completed [facility] 00:00:00 [facility] Td 2002-02-12 Completed [facility] 00:00:00 [facility] Td 2002-02-12 Completed [facility] 00:00:00 [facility] Td 2002-02-12 Completed [facility] 00:00:00 [facility] Td 2002-02-12 Completed [facility] 00:00:00 [facility] Td 2002-02-12 Completed [facility] 00:00:00 [facility] Td 2002-02-12 Completed [facility] 00:00:00 [facility] Td 2002-02-12 Completed [facility] 00:00:00 [facility] Td 2002-02-12 Completed [facility] 00:00:00 [facility] Td 2002-02-12 Completed [facility] 00:00:00 [facility] Td 2002-02-12 Completed [facility] 00:00:00 [facility] Td 2002-02-12 Completed [facility] 00:00:00 [facility] Td 2002-02-12 Completed [facility] 00:00:00 [facility] Td 2002-02-12 Completed [facility] 00:00:00 [facility] Td 2002-02-12 Completed [facility] 00:00:00 [facility] Td 2002-02-12 Completed [facility] 00:00:00 [facility] Td 2002-02-12 Completed [facility] 00:00:00 [facility] Td 2002-02-12 Completed [facility] 00:00:00 [facility] Td 2002-02-12 Completed [facility] 00:00:00 [facility] Td 2002-02-12 Completed [facility] 00:00:00 [facility] Td 2002-02-12 Completed [facility] 00:00:00 [facility] Td 2002-02-12 Completed [facility] 00:00:00 [facility] Td 2002-02-12 Completed [facility] 00:00:00 [facility] Td 2002-02-12 Completed [facility] 00:00:00 [facility] Td 2002-02-12 Completed [facility] 00:00:00 [facility] Td 2002-02-12 Completed [facility] 00:00:00 [facility] Td 2002-02-12 Completed [facility] 00:00:00 [facility] Td 2002-02-12 Completed [facility] 00:00:00 [facility] Td 2002-02-12 Completed [facility] 00:00:00 [facility] Td 2002-02-12 Completed [facility] 00:00:00 [facility] Td 2002-02-12 Completed [facility] 00:00:00 [facility] Td 2002-02-12 Completed [facility] 00:00:00 [facility] Td 2002-02-12 Completed [facility] 00:00:00 [facility] Td 2002-02-12 Completed [facility] 00:00:00 [facility] Td 2002-02-12 Completed [facility] 00:00:00 [facility] Td 2002-02-12 Completed [facility] 00:00:00 [facility] Td 2002-02-12 Completed [facility] 00:00:00 [facility] Td 2002-02-12 Completed [facility] 00:00:00 [facility] Td 2002-02-12 Completed [facility] 00:00:00 [facility] Td 2002-02-12 Completed [facility] 00:00:00 [facility] Td 2002-02-12 Completed [facility] 00:00:00 [facility] Td 2002-02-12 Completed [facility] 00:00:00 [facility] Td 2002-02-12 Completed [facility] 00:00:00 [facility] Td 2002-02-12 Completed [facility] 00:00:00 [facility] Td 2002-02-12 Completed [facility] 00:00:00 [facility] Td 2002-02-12 Completed [facility] 00:00:00 [facility] Td 2002-02-12 Completed [facility] 00:00:00 [facility] Td 2002-02-12 Completed [facility] 00:00:00 [facility] Td 2002-02-12 Completed [facility] 00:00:00 [facility] Td 2002-02-12 Completed [facility] 00:00:00 [facility] Td 2002-02-12 Completed [facility] 00:00:00 [facility] Td 2002-02-12 Completed [facility] 00:00:00 [facility] Td 2002-02-12 Completed [facility] 00:00:00 [facility] Td 2002-02-12 Completed [facility] 00:00:00 [facility] Td 2002-02-12 Completed [facility] 00:00:00 [facility] Td 2002-02-12 Completed [facility] 00:00:00 [facility] Td 2002-02-12 Completed [facility] 00:00:00 [facility] Td 2002-02-12 Completed [facility] 00:00:00 [facility] Td 2002-02-12 Completed [facility] 00:00:00 [facility] Td 2002-02-12 Completed [facility] 00:00:00 [facility] Td 2002-02-12 Completed [facility] 00:00:00 [facility] Td 2002-02-12 Completed [facility] 00:00:00 [facility] Td 2002-02-12 Completed [facility] 00:00:00 [facility] Td 2002-02-12 Completed [facility] 00:00:00 [facility] Td 2002-02-12 Completed [facility] 00:00:00 [facility] Td 2002-02-12 Completed [facility] 00:00:00 [facility] Td 2002-02-12 Completed [facility] 00:00:00 [facility] Td 2002-02-12 Completed [facility] 00:00:00 [facility] Td 2002-02-12 Completed [facility] 00:00:00 [facility] Td 2002-02-12 Completed [facility] 00:00:00 [facility] Td 2002-02-12 Completed [facility] 00:00:00 [facility] Td 2002-02-12 Completed [facility] 00:00:00 [facility] Td 2002-02-12 Completed [facility] 00:00:00 [facility] Td 2002-02-12 Completed [facility] 00:00:00 [facility] Td 2002-02-12 Completed [facility] 00:00:00 [facility] Td 2002-02-12 Completed [facility] 00:00:00 [facility] Td 2002-02-12 Completed [facility] 00:00:00 [facility] Td 2002-02-12 Completed [facility] 00:00:00 [facility] Td 2002-02-12 Completed [facility] 00:00:00 [facility] Vital Signs Vital Name Observation Time Observation Value Comments Source Systolic blood 2020-12-24 01:00:00 122 mm[Hg] Univer s[facility] of pressure [facility] Diastolic blood 2020-12-24 01:00:00 74 mm[Hg] Unive rsity of pressure [facility] Heart rate 2020-12-24 01:00:00 71 /min [facility] Respiratory rate 2020-12-24 01:00:00 18 /min [facility] Oxygen saturation in 2020-12-24 01:00:00 100 /min [facility] Arterial blood by [facility] Pulse oximetry Branch Body temperature 2020-12-23 22:42:00 37.39 Samantha [facility] Body weight 2020-12-23 22:42:00 158.759 kg [facility] BMI 2020-12-23 22:42:00 54.82 kg/m2 [facility] Systolic blood 2020-12-22 21:08:00 119 mm[Hg] [facility] of pressure [facility] Diastolic blood 2020-12-22 21:08:00 80 mm[Hg] Unive rsity of pressure [facility] Heart rate 2020-12-22 21:08:00 87 /min [facility] Body temperature 2020-12-22 21:08:00 37 Samantha [facility] Respiratory rate 2020-12-22 21:08:00 20 /min [facility] Body weight 2020-12-22 21:08:00 159.031 kg [facility] BMI 2020-12-22 21:08:00 54.91 kg/m2 [facility] Oxygen saturation in 2020-12-22 21:08:00 98 /min [facility] Arterial blood by [facility] Pulse oximetry Branch Body temperature 2020-10-06 10:07:23 37.61 Samantha [facility] Systolic blood 2020-10-06 10:00:00 136 mm[Hg] [facility] of pressure [facility] Diastolic blood 2020-10-06 10:00:00 62 mm[Hg] Unive rsity of pressure [facility] Heart rate 2020-10-06 10:00:00 81 /min [facility] Respiratory rate 2020-10-06 10:00:00 18 /min [facility] Oxygen saturation in 2020-10-06 10:00:00 97 /min [facility] Arterial blood by [facility] Pulse oximetry Branch Systolic blood 2020-10-01 21:55:42 106 mm[Hg] Univer sity of pressure [facility] Diastolic blood 2020-10-01 21:55:42 71 mm[Hg] Unive rsity of pressure [facility] Heart rate 2020-10-01 21:55:42 73 /min [facility] Respiratory rate 2020-10-01 21:55:42 16 /min [facility] Oxygen saturation in 2020-10-01 21:55:42 98 /min [facility] Arterial blood by [place] [employer] [facility] Pulse oximetry [facility] Body temperature 2020-10-01 20:20:00 37.56 Samantha [facility] Body height 2020-10-01 20:20:00 170.2 cm [facility] Body weight 2020-10-01 20:20:00 136.079 kg [facility] BMI 2020-10-01 20:20:00 46.99 kg/m2 [facility] Systolic blood 2020-09-03 06:00:00 143 mm[Hg] Univer [facility] of pressure [facility] Diastolic blood 2020-09-03 06:00:00 78 mm[Hg] Unive rsity of pressure [facility] Heart rate 2020-09-03 06:00:00 64 /min [facility] Respiratory rate 2020-09-03 06:00:00 16 /min [facility] Oxygen saturation in 2020-09-03 06:00:00 100 /min [facility] Arterial blood by [facility]ra Pulse oximetry Branch Body temperature 2020-09-03 02:56:00 35.94 Samantha [facility] Body height 2020-09-03 02:56:00 170.2 cm [facility] Body weight 2020-09-03 02:56:00 156.491 kg [facility] BMI 2020-09-03 02:56:00 54.03 kg/m2 [facility] Systolic blood 2020-08-02 17:40:00 137 mm[Hg] [facility]ity of pressure [facility] Diastolic blood 2020-08-02 17:40:00 73 mm[Hg] Unive rsity of pressure [facility] Heart rate 2020-08-02 17:40:00 85 /min [facility] Respiratory rate 2020-08-02 17:40:00 18 /min [facility] Body weight 2020-08-02 17:40:00 158.079 kg [facility] BMI 2020-08-02 17:40:00 54.58 kg/m2 [facility] Oxygen saturation in 2020-08-02 17:40:00 100 /min [facility] Arterial blood by [facility] Pulse oximetry Branch Systolic blood 2020-06-27 22:00:00 143 mm[Hg] Univer sity of pressure [facility] Diastolic blood 2020-06-27 22:00:00 75 mm[Hg] Unive rsity of pressure [facility] Heart rate 2020-06-27 22:00:00 59 /min [facility] Respiratory rate 2020-06-27 22:00:00 20 /min [facility] Oxygen saturation in 2020-06-27 22:00:00 99 /min [facility] Arterial blood by [facility] Pulse oximetry Branch Body temperature 2020-06-27 20:17:00 36.94 Samantha [facility] Body weight 2020-06-27 20:17:00 136.986 kg [facility] BMI 2020-06-27 20:17:00 47.30 kg/m2 [facility] Systolic blood 2020-06-27 22:00:00 143 mm[Hg] Univer sity of pressure [facility] Diastolic blood 2020-06-27 22:00:00 75 mm[Hg] Unive rsity of pressure [facility] Heart rate 2020-06-27 22:00:00 59 /min [facility] Respiratory rate 2020-06-27 22:00:00 20 /min [facility] Oxygen saturation in 2020-06-27 22:00:00 99 /min [facility] Arterial blood by [facility] Pulse oximetry Branch Body temperature 2020-06-27 20:17:00 36.94 Samantha [facility] Body weight 2020-06-27 20:17:00 136.986 kg [facility] BMI 2020-06-27 20:17:00 47.30 kg/m2 [facility] Systolic blood 2020-04-20 19:44:00 124 mm[Hg] Univer sity of pressure [facility] Diastolic blood 2020-04-20 19:44:00 85 mm[Hg] Unive rsity of pressure [facility] Heart rate 2020-04-20 19:44:00 74 /min [facility] Body temperature 2020-04-20 19:44:00 36.83 Samantha [facility] Respiratory rate 2020-04-20 19:44:00 18 /min [facility] Body height 2020-04-20 19:44:00 170.2 cm [facility] Body weight 2020-04-20 19:44:00 136.623 kg [facility] BMI 2020-04-20 19:44:00 47.17 kg/m2 [facility] Systolic blood 2020-04-20 19:44:00 124 mm[Hg] Univer sity of pressure [facility] Diastolic blood 2020-04-20 19:44:00 85 mm[Hg] Unive rsity of pressure [facility] Heart rate 2020-04-20 19:44:00 74 /min [facility] Body temperature 2020-04-20 19:44:00 36.83 Samantha [facility] Respiratory rate 2020-04-20 19:44:00 18 /min [facility] Body height 2020-04-20 19:44:00 170.2 cm [facility] Body weight 2020-04-20 19:44:00 136.623 kg [facility] BMI 2020-04-20 19:44:00 47.17 kg/m2 [facility] Systolic blood 2020-04-06 17:16:00 134 mm[Hg] Univer sity of pressure [facility] Diastolic blood 2020-04-06 17:16:00 69 mm[Hg] Unive rsity of pressure [facility] Heart rate 2020-04-06 17:16:00 64 /min [facility] Body temperature 2020-04-06 17:16:00 36.72 Samantha [facility] Respiratory rate 2020-04-06 17:16:00 18 /min Univ ersity of [facility] Oxygen saturation in 2020-04-06 17:16:00 98 /min [facility] Arterial blood by [facility] Pulse oximetry Branch Body height 2020-04-05 12:34:00 170.2 cm [facility] Body weight 2020-04-05 12:34:00 143.79 kg [facility] BMI 2020-04-05 12:34:00 49.65 kg/m2 [facility] Systolic blood 2020-04-06 17:16:00 134 mm[Hg] Univer sity of pressure [facility] Diastolic blood 2020-04-06 17:16:00 69 mm[Hg] Unive rsity of pressure [facility] Heart rate 2020-04-06 17:16:00 64 /min [facility] Body temperature 2020-04-06 17:16:00 36.72 Samantha [facility] Respiratory rate 2020-04-06 17:16:00 18 /min [facility] Oxygen saturation in 2020-04-06 17:16:00 98 /min [facility] Arterial blood by [facility] Pulse oximetry Branch Body height 2020-04-05 12:34:00 170.2 cm [facility] Body weight 2020-04-05 12:34:00 143.79 kg [facility] BMI 2020-04-05 12:34:00 49.65 kg/m2 [facility] Heart rate 2020-03-29 00:30:00 76 /min [facility] Oxygen saturation in 2020-03-29 00:30:00 100 /min [facility] Arterial blood by [facility] Pulse oximetry Branch Systolic blood 2020-03-28 23:35:00 123 mm[Hg] Univer sity of pressure [facility] Diastolic blood 2020-03-28 23:35:00 78 mm[Hg] Unive rsity of pressure [facility] Body temperature 2020-03-28 23:35:00 37.11 Samantha [facility] Respiratory rate 2020-03-28 23:35:00 16 /min [facility] Body height 2020-03-28 23:25:00 170.2 cm [facility] Body weight 2020-03-28 23:25:00 146.965 kg [facility] BMI 2020-03-28 23:25:00 50.75 kg/m2 [facility] Systolic blood 2020-03-24 21:19:00 114 mm[Hg] Univer sity of pressure [facility] Diastolic blood 2020-03-24 21:19:00 74 mm[Hg] Unive rsity of pressure [facility] Heart rate 2020-03-24 21:19:00 83 /min [facility] Body temperature 2020-03-24 21:19:00 36.89 Samantha [facility] Respiratory rate 2020-03-24 21:19:00 18 /min [facility] Body height 2020-03-24 21:19:00 170.2 cm [facility] Body weight 2020-03-24 21:19:00 145.605 kg [facility] BMI 2020-03-24 21:19:00 50.28 kg/m2 [facility] Systolic blood 2020-03-20 22:21:00 98 mm[Hg] Univer sity of pressure [facility] Diastolic blood 2020-03-20 22:21:00 41 mm[Hg] Unive rsity of pressure [facility] Heart rate 2020-03-20 22:21:00 70 /min [facility] Body temperature 2020-03-20 22:21:00 36.89 Samantha [facility] Respiratory rate 2020-03-20 22:21:00 20 /min [facility] Oxygen saturation in 2020-03-20 22:21:00 98 /min [facility] Arterial blood by [place] [employer] [facility] Pulse oxim[facility] Systolic blood 2020-03-20 06:50:00 110 mm[Hg] Univer sity of pressure [facility] Diastolic blood 2020-03-20 06:50:00 70 mm[Hg] Unive rsity of pressure [facility] Heart rate 2020-03-20 06:50:00 74 /min [facility] Respiratory rate 2020-03-20 06:50:00 18 /min [facility] Oxygen saturation in 2020-03-20 06:50:00 100 /min [facility] Arterial blood by [facility] Pulse oximetry Branch Body temperature 2020-03-20 03:28:00 36.89 Samantha [facility] Body height 2020-03-20 03:28:00 170.2 cm [facility] Body weight 2020-03-20 03:28:00 145.151 kg [facility] BMI 2020-03-20 03:28:00 50.12 kg/m2 [facility] Systolic blood 2020-03-18 21:46:00 108 mm[Hg] Univer sity of pressure [facility] Diastolic blood 2020-03-18 21:46:00 69 mm[Hg] Unive rsity of pressure [facility] Heart rate 2020-03-18 21:46:00 93 /min [facility] Body temperature 2020-03-18 21:46:00 36.78 Samantha [facility] Respiratory rate 2020-03-18 21:46:00 16 /min [facility] Body height 2020-03-18 21:46:00 170.2 cm [facility] Body weight 2020-03-18 21:46:00 145.423 kg [facility] BMI 2020-03-18 21:46:00 50.21 kg/m2 [facility] Systolic blood 2020-03-10 05:15:00 133 mm[Hg] Univer sity of pressure [facility] Diastolic blood 2020-03-10 05:15:00 76 mm[Hg] Unive rsity of pressure [facility] Heart rate 2020-03-10 05:15:00 85 /min [facility] Oxygen saturation in 2020-03-10 04:45:00 100 /min [facility] Arterial blood by [facility] Pulse oximetry Branch Body temperature 2020-03-10 04:30:00 36.78 Samantha [facility] Body height 2020-03-10 04:30:00 170.2 cm [facility] Body weight 2020-03-10 04:30:00 143.337 kg [facility] BMI 2020-03-10 04:30:00 49.48 kg/m2 [facility] Systolic blood 2020-03-04 17:51:00 117 mm[Hg] Univer sity of pressure [facility] Diastolic blood 2020-03-04 17:51:00 75 mm[Hg] Unive rsity of pressure [facility] Heart rate 2020-03-04 17:51:00 91 /min [facility] Body temperature 2020-03-04 17:51:00 36.89 Samantha [facility] Respiratory rate 2020-03-04 17:51:00 16 /min [facility] Body height 2020-03-04 17:51:00 170.2 cm [facility] Body weight 2020-03-04 17:51:00 145.151 kg [facility] BMI 2020-03-04 17:51:00 50.12 kg/m2 [facility] Systolic blood 2020-02-16 20:35:00 114 mm[Hg] Univer sity of pressure [facility] Diastolic blood 2020-02-16 20:35:00 70 mm[Hg] Unive rsity of pressure [facility] Heart rate 2020-02-16 20:35:00 80 /min [facility] Body temperature 2020-02-16 20:35:00 36.72 Samantha [facility] Respiratory rate 2020-02-16 20:35:00 18 /min [facility] Body height 2020-02-16 20:35:00 170.2 cm [facility] Body weight 2020-02-16 20:35:00 146.965 kg [facility] BMI 2020-02-16 20:35:00 50.75 kg/m2 [facility] Systolic blood 2020-01-27 19:45:00 107 mm[Hg] Univer sity of pressure [facility] Diastolic blood 2020-01-27 19:45:00 70 mm[Hg] Unive rsity of pressure [facility] Heart rate 2020-01-27 19:45:00 71 /min [facility] Body temperature 2020-01-27 19:45:00 36.89 Samantha [facility] Respiratory rate 2020-01-27 19:45:00 18 /min [facility] Body height 2020-01-27 19:45:00 170.2 cm [facility] Body weight 2020-01-27 19:45:00 148.78 kg [facility] [facility] BMI 2020-01-27 19:45:00 51.37 kg/m2 [facility] [place] [facility] Systolic blood 2020-01-13 21:19:00 129 mm[Hg] [facility] [place] [facility] Diastolic blood 2020-01-13 21:19:00 76 mm[Hg] [facility] [place] [facility] Heart rate 2020-01-13 21:19:00 75 /min [facility] Body temperature 2020-01-13 21:19:00 36.67 Samantha [facility] Respiratory rate 2020-01-13 21:19:00 18 /min [facility] Body height 2020-01-13 21:19:00 170.2 cm [facility] [place] [facility] Body weight 2020-01-13 21:19:00 149.687 kg [facility] [place] [facility] BMI 2020-01-13 21:19:00 51.69 kg/m2 [facility] [place] [facility] Systolic blood 2019-12-18 02:34:00 143 mm[Hg] [facility] [place] [facility] Diastolic blood 2019-12-18 02:34:00 68 mm[Hg] [facility] [place] [facility] Heart rate 2019-12-18 02:34:00 82 /min [facility] [place] [facility] Body temperature 2019-12-18 02:34:00 36.94 Samantha [facility] [place] [facility] Respiratory rate 2019-12-18 02:34:00 17 /min [facility] [place] [facility] Body weight 2019-12-18 02:34:00 153.407 kg [facility] [place] [facility] BMI 2019-12-18 02:34:00 53.08 kg/m2 [facility] [place] [facility] Oxygen saturation in 2019-12-18 02:34:00 99 /min [facility] of Arterial blood by [facility] Pulse oximetry Branch Systolic blood 2019-12-01 04:20:00 121 mm[Hg] [facility] [place] [facility] Diastolic blood 2019-12-01 04:20:00 62 mm[Hg] [facility] [place] [facility] Heart rate 2019-12-01 04:20:00 89 /min [facility] [place] [facility] Body temperature 2019-12-01 04:20:00 37 Samantha [facility] [place] [facility] Respiratory rate 2019-12-01 04:20:00 18 /min [facility] [place] [facility] Body height 2019-12-01 04:20:00 170 cm [facility] [place] [facility] Body weight 2019-12-01 04:20:00 154.223 kg [facility] [place] [facility] BMI 2019-12-01 04:20:00 53.36 kg/m2 [facility] Oxygen saturation in 2019-12-01 04:20:00 99 /min University Arterial blood by [facility] Pulse oximetry Branch Systolic blood 2019-11-27 19:32:00 109 mm[Hg] [facility] [place] [facility] Diastolic blood 2019-11-27 19:32:00 54 mm[Hg] [facility] [place] [facility] Heart rate 2019-11-27 19:32:00 68 /min [facility] [place] [facility] Body temperature 2019-11-27 19:32:00 36.56 Samantha [facility] Respiratory rate 2019-11-27 19:32:00 16 /min [facility] [place] [facility] Body height 2019-11-27 19:32:00 170.2 cm [facility] [place] [facility] Body weight 2019-11-27 19:32:00 154.251 kg [facility] [place] [facility] BMI 2019-11-27 19:32:00 53.26 kg/m2 [facility] [place] [facility] Systolic blood 2019-11-26 17:00:00 118 mm[Hg] [facility] [place] [facility] Diastolic blood 2019-11-26 17:00:00 44 mm[Hg] [facility] [place] [facility] Heart rate 2019-11-26 17:00:00 79 /min [facility] [place] [facility] Body temperature 2019-11-26 17:00:00 36.78 Samantha [facility] Respiratory rate 2019-11-26 17:00:00 18 /min Univ ersity of [facility] Oxygen saturation in 2019-11-26 17:00:00 98 /min [facility] Arterial blood by [facility] terra Pulse oximetry Branch Body weight 2019-11-26 00:00:00 155.13 kg [facility] [place] [facility] BMI 2019-11-26 00:00:00 53.56 kg/m2 [facility] [place] [facility] Systolic blood 2019-11-08 02:53:00 143 mm[Hg] [facility] Diastolic blood 2019-11-08 02:53:00 113 mm[Hg] [facility] [place] [facility] Heart rate 2019-11-08 02:53:00 96 /min [facility] [place] [facility] Body temperature 2019-11-08 02:53:00 37.33 Samantha [facility] Respiratory rate 2019-11-08 02:53:00 28 /min Univ ers[facility] of [facility] Body height 2019-11-08 02:53:00 170.2 cm [facility] [place] [facility] Body weight 2019-11-08 02:53:00 155.13 kg [facility] [place] [facility] BMI 2019-11-08 02:53:00 53.56 kg/m2 [facility] [place] [facility] Oxygen saturation in 2019-11-08 02:53:00 100 /min [facility] Arterial blood by [facility] Pulse oximetry Branch Systolic blood 2019-10-28 06:04:00 146 mm[Hg] [facility] [place] [facility] Diastolic blood 2019-10-28 06:04:00 83 mm[Hg] [facility] Heart rate 2019-10-28 06:04:00 93 /min [facility] [place] [facility] Body temperature 2019-10-28 06:04:00 37.28 Samantha [facility] [place] [facility] Respiratory rate 2019-10-28 06:04:00 12 /min [facility] [place] [facility] Body weight 2019-10-28 06:04:00 155.13 kg [facility] [place] [facility] BMI 2019-10-28 06:04:00 53.56 kg/m2 [facility] [place] [facility] Oxygen saturation in 2019-10-28 06:04:00 98 /min [facility] Arterial blood by [facility] terra Pulse oximetry Branch Systolic blood 2019-10-24 14:51:00 139 mm[Hg] [facility] [place] [facility] Diastolic blood 2019-10-24 14:51:00 83 mm[Hg] [facility] [place] [facility] Heart rate 2019-10-24 14:51:00 87 /min [facility] [place] [facility] Body temperature 2019-10-24 14:51:00 37.11 Samantha [facility] [place] [facility] Respiratory rate 2019-10-24 14:51:00 16 /min [facility] [place] [facility] Body height 2019-10-24 14:51:00 170.2 cm [facility] [place] [facility] Body weight 2019-10-24 14:51:00 155.402 kg [facility] [place] [facility] BMI 2019-10-24 14:51:00 53.66 kg/m2 [facility] [place] [facility] Systolic blood 2019-08-20 19:59:00 120 mm[Hg] [facility] [place] [facility] Diastolic blood 2019-08-20 19:59:00 88 mm[Hg] [facility] [place] [facility] Heart rate 2019-08-20 19:59:00 72 /min [facility] [place] [facility] Body temperature 2019-08-20 19:59:00 36.61 Samantha [facility] [place] [facility] Respiratory rate 2019-08-20 19:59:00 16 /min [facility] [place] [facility] Body height 2019-08-20 19:59:00 170.2 cm [facility] [place] [facility] Body weight 2019-08-20 19:59:00 153.514 kg [facility] [place] [facility] BMI 2019-08-20 19:59:00 53.01 kg/m2 [facility] [place] [facility] Systolic blood 2019-08-20 04:58:00 142 mm[Hg] [facility] [place] [facility] Diastolic blood 2019-08-20 04:58:00 85 mm[Hg] [facility] [place] [facility] Heart rate 2019-08-20 04:58:00 80 /min [facility] [place] [facility] Body temperature 2019-08-20 04:58:00 37.5 Samantha [facility] [place] [facility] Respiratory rate 2019-08-20 04:58:00 18 /min [facility] [place] [facility] Body weight 2019-08-20 04:58:00 145.151 kg [facility] [place] [facility] BMI 2019-08-20 04:58:00 50.12 kg/m2 [facility] [place] [facility] Oxygen saturation in 2019-08-20 04:58:00 99 /min [facility] Arterial blood by [facility] terra Pulse oximetry Branch Systolic blood 2019-04-23 19:16:00 125 mm[Hg] [facility] [place] [facility] Diastolic blood 2019-04-23 19:16:00 86 mm[Hg] [facility] [place] [facility] Heart rate 2019-04-23 19:16:00 80 /min [facility] [place] [facility] Body temperature 2019-04-23 19:16:00 36.33 Samantha [facility] [place] [facility] Respiratory rate 2019-04-23 19:16:00 16 /min [facility] [place] [facility] Body height 2019-04-23 19:16:00 170.2 cm [facility] [place] [facility] Body weight 2019-04-23 19:16:00 151.983 kg [facility] [place] [facility] BMI 2019-04-23 19:16:00 52.48 kg/m2 [facility] [place] [facility] Systolic blood 2019-04-23 10:37:00 140 mm[Hg] [facility] [place] [facility] Diastolic blood 2019-04-23 10:37:00 87 mm[Hg] [facility] [place] [facility] Heart rate 2019-04-23 10:37:00 76 /min [facility] [place] [facility] Body temperature 2019-04-23 10:37:00 36.83 Samantha [facility] [place] [facility] Respiratory rate 2019-04-23 10:37:00 10 /min [facility] [place] [facility] Body height 2019-04-23 10:37:00 170.2 cm [facility] [place] [facility] Body weight 2019-04-23 10:37:00 147.419 kg [facility] [place] [facility] BMI 2019-04-23 10:37:00 50.90 kg/m2 [facility] [place] [facility] Oxygen saturation in 2019-04-23 10:37:00 100 /min [facility] Arterial blood by [facility] Pulse oximetry Branch Systolic blood 2019-02-27 06:00:00 118 mm[Hg] [facility] [place] [facility] Diastolic blood 2019-02-27 06:00:00 55 mm[Hg] Unive rsity of pressure [facility] Heart rate 2019-02-27 06:00:00 80 /min [facility] Respiratory rate 2019-02-27 06:00:00 16 /min Univ [facility] Oxygen saturation in 2019-02-27 06:00:00 98 /min [facility] Arterial blood by [facility] Pulse oximetry Branch Body temperature 2019-02-27 03:47:00 37.94 Samantha [facility] Body height 2019-02-27 03:47:[address] [facility] Body weight 2019-02-27 03:47:[address] [facility] BMI 2019-02-27 03:47:00 53.25 kg/m2 [facility] Systolic blood 2018-09-16 01:00:00 128 mm[Hg] [facility] Diastolic blood 2018-09-16 01:00:00 65 mm[Hg] Unive rsity of pressure [facility] Heart rate 2018-09-16 01:00:00 58 /min [facility] Respiratory rate 2018-09-16 01:00:00 19 /min [facility] Oxygen saturation in 2018-09-16 01:00:00 98 /min [facility] Arterial blood by [facility] Pulse oximetry Branch Body temperature 2018-09-15 23:13:00 37 Samantha [facility] Body weight 2018-09-15 23:13:[address] [facility] BMI 2018-09-15 23:13:00 54.82 kg/m2 [facility] Procedures Procedure Date / Time Performing Clinician Source Performed LIPASE 2020-12-23 23:30:00 Nano Davis [facility] COMP. METABOLIC PANEL 2020-12-23 23:30:00 Nano Davis [facility] ([id number]) [facility] CBC WITH DIFF 2020-12-23 23:30:00 Nano Davis [facility] URINALYSIS 2020-12-23 23:26:00 Nano Davis [facility] POCT TEST 2020-12-23 23:26:[address] [facility] CONSENT/REFUSAL FOR 2020-12-23 22:25:28 Doctor Unassigned, No [facility] [place] [facility] XR CHEST 1 VW 2020-10-06 09:17:49 Carter [facility] POCT TEST 2020-10-06 08:38:00 Carter [facility] URINALYSIS 2020-10-06 08:34:00 Carter [facility] CBC WITH DIFF 2020-10-06 08:21:00 Carter [facility] COVID-19 (ID NOW RAPID 2020-10-06 08:21:00 Houston Machado [facility] TESTING) [facility] Branch TROPONIN I 2020-10-06 08:20:00 Carter [facility] COMP. METABOLIC PANEL 2020-10-06 08:20:00 Carter Houston [facility] ([id number]) [facility] N-TERMINAL PRO-BNP 2020-10-06 08:20:00 Houston Machado [facility] CONSENT/REFUSAL FOR 2020-10-06 07:27:15 Doctor Unassigned, No [facility] [place] [facility] Name [facility] POCT TEST 2020-10-01 22:12:[address] [facility] URINALYSIS 2020-10-01 22:11:00 Walter [facility] TROPONIN I 2020-10-01 21:54:00 Walter [facility] COMP. METABOLIC PANEL 2020-10-01 21:54:00 Walter [facility] ([id number]) [facility] CBC WITH DIFF 2020-10-01 21:54:00 Walter [facility] COVID-19 (ID NOW RAPID 2020-10-01 21:04:00 Geneva Watson [facility] TESTING) [facility] CONSENT/REFUSAL FOR 2020-10-01 19:54:30 Doctor Unassigned, No [facility] [place] [facility] Name [facility] CT ABDOMEN PELVIS W 2020-09-03 04:07:[address] [facility] CONTRAST Medical Branch LIPASE 2020-09-03 03:53:00 Johnny [facility] HEPATIC FUNCTION PANEL 2020-09-03 03:53:00 Johnny [facility] ([id number]) (ALB,T.PRO,BILI Medical Branch T,BU/BC,ALT,AST,ALK PHOS) COMP. METABOLIC PANEL 2020-09-03 03:53[id number] CBC WITH DIFF 2020-09-03 03:53:00 Johnny [facility] URINALYSIS 2020-09-03 03:53:00 Johnny [facility] COVID-19 (ID NOW RAPID 2020-09-03 03:53:00 [facility] POCT TEST 2020-09-03 03:51:00 Johnny [facility] CONSENT/REFUSAL FOR 2020-09-03 02:46:26 Doctor Unassigned, No [facility] Name [facility] CONSENT/REFUSAL FOR 2020-08-02 17:29:31 Doctor Unassigned, No Un iversity [facility] DIAGNOSIS AND TREATMENT Name [facility] HEPATIC FUNCTION PANEL 2020-06-27 21:28:00 [facility] ([id number] (ALB,T.PRO,[facility] T,BU/BC,ALT,AST,ALK PHOS) BASIC METABOLIC PANEL 2020-06-27 21:28:00 [facility] (NA, K, CL, CO2, Medical [facility] GLUCOSE, BUN, CREATININE, CA) CBC WITH DIFF 2020-06-27 20:43:00 Johnny [facility] URINALYSIS 2020-06-27 20:43:00 Johnny [facility] POCT TEST 2020-06-27 20:42:[facility]US[facility] FOR 2020-06-27 19:53:45 Doctor Unassigned, No [facility] [place] [facility] Name [facility] CBC WITH DIFF 2020-04-06 13:42:00 Rosalio [facility] VENOUS CORD GAS 2020-04-05 14:58:00 Rosalio [facility] SECTION 2020-04-05 14:41:00 Rosalio [facility] HB ABO GROUPING 2020-04-05 12:40:00 Rosalio [facility] RHO (D) IMMUNE GLOBULIN 2020-04-05 12:40:00 [facility] CBC WITH DIFF 2020-04-05 12:27:00 Rosalio [facility] HEPATITIS B SURFACE 2020-04-05 12:27:00 Adry Santamaria [facility] ANTIGEN Medical Branch ADC OR BRITANY ONLY - 2020-04-05 12:27:00 Adry Santamaria [facility] RPR [facility] HIV 1/2 AG-AB WITH 2020-04-05 12:27:00 Adry Santamaria [facility] REFLEX Medical Branch COVID-19 (ID NOW RAPID 2020-04-05 12:27:00 Rosalio Adry [facility] TESTING) [facility] CONSENT/REFUSAL FOR 2020-04-05 11:44:48 Doctor Unassigned, No [facility] [place] [facility] Medical Branch COVID-19 (ID NOW RAPID 2020-03-28 23:37:00 Moraima Harrington [facility] TESTING) [facility] ASSIGNMENT OF BENEFITS 2020-03-28 23:16:50 Doctor Unassigned, No [facility] CONSENT/REFUSAL FOR 2020-03-28 23:16:38 Doctor Unassigned, No [facility] NON-STRESS TEST 2020-03-24 22:04:10 [facility] Adry [facility] PATIENT QUESTIONNAIRE 2020-03-24 06:01:00 Doctor Unassigned, No [facility] COVID-19 (ID NOW RAPID 2020-03-20 04:29:00 Jyothi Ugalde Un [facility] TESTING [facility] [place] NOTICE OF PRIVACY 2020-03-20 03:20:50 Doctor Unassigned, No [facility] CONSENT/REFUSAL FOR 2020-03-20 03:20:23 Doctor Unassigned, No [facility] NON-STRESS TEST 2020-03-18 23:39:51 Ita Moser [facility] >14 WEEKS US 2020-03-18 23:39:15 [facility] POCT URINALYSIS W/O 2020-03-18 21:48:00 Ita Moser [facility] DSU PRE-OP 2020-03-18 06:01:00 Doctor Unassigned, No [facility] ASSIGNMENT OF BENEFITS 2020-03-10 04:17:44 Doctor Unassigned, No [facility] CONSENT/REFUSAL FOR 2020-03-10 04:17:27 Doctor Unassigned, No Un [facility] DIAGNOSIS AND TREATMENT [facility] POCT URINALYSIS W/O 2020-03-04 17:50:00 Adry Santamaria [facility] POCT URINALYSIS W/O 2020-02-16 20:35:00 Ita Moser [facility] TDAP VACCINE, >11 YRS, 2020-02-16 20:34:59 [facility] POCT URINALYSIS W/O 2020-01-27 00:00:00 Adry Santamaria [facility] ADC / LCC - DRUG SCREEN 2020-01-13 21:51:00 Adry Santamaria [facility] POCT URINALYSIS W/O 2020-01-13 00:00:00 Adry Santamaria [facility] CBC WITH DIFF 2019-12-18 03:51:00 Jose De Jesus [facility] o f [facility] SGOT (ASPARTATE AMINO 2019-12-18 03:50:00 Jose De Jesus [facility]) Medical [facility] CREATININE 2019-12-18 03:50:00 Jose De Jesus [facility] ALANINE AMINO 2019-12-18 03:50:00 Dela Cruz, [facility] TRANSFERASE(SGPT Medical Branch LACTATE DEHYDROGENASE 2019-12-18 03:50:00 Dela Cruz, [facility] URIC ACID 2019-12-18 03:50:00 Dela Cruz, [facility] TROPONIN I 2019-12-18 03:50:00 Dela Cruz, [facility] URINALYSIS 2019-12-18 03:50:00 Dela Cruz, [facility] PROTEIN CREAT RATIO 2019-12-18 03:50:00 Jose De Jesus [facility] URINE RANDOM [facility] COVID-19 (ID NOW RAPID 2019-12-18 02:01:00 Vicente Houser [facility] TESTING) [facility] CONSENT/REFUSAL FOR 2019-12-17 06:01:00 Doctor Unassigned, No [facility] Name [facility] COVID-19 (ID NOW RAPID 2019-12-01 04:14:00 Ely Gilmore [facility] TESTING) [facility] CONSENT/REFUSAL FOR 2019-11-30 05:01:00 Doctor Unassigned, No [facility] Name [facility] POCT URINALYSIS 2019-11-27 19:36:00 Chuyita Pruett [facility] LIPASE 2019-11-26 02:12:00 Fátima Morris [facility] COMP. METABOLIC PANEL 2019-11-26 02:12:00 Fátima Morris [facility] ([id number]) [facility] HEPATITIS B SURFACE 2019-11-26 02:12:00 Fátima Morris [facility] ANTIGEN [facility] HIV 1/2 AG-AB WITH 2019-11-26 02:12:00 Blake Monzon [facility] REFLEX [facility] GALV ONLY - SYPHILIS 2019-11-26 02:12:[address] [facility] IGG/IGM Medical [facility] HB ABO GROUPING 2019-11-26 01:27:00 Arturo [facility] URINALYSIS 2019-11-26 01:25:00 [facility] URINE CULTURE 2019-11-26 01:25:00 [facility] COVID-19 (ID NOW RAPID 2019-11-25 22:43:00 Mya Rodriguez [facility] TESTING) [facility] RAPID STREP SCREEN FOR 2019-11-08 03:05:00 German Carl [facility] GROUP A [facility] NOTICE OF PRIVACY 2019-11-08 02:44:24 Doctor Unassigned, No [facility] CONSENT/REFUSAL FOR 2019-11-08 02:43:49 Doctor Unassigned, No [facility] [place] [facility] Name [facility] URINALYSIS 2019-10-28 06:20:00 Moraima Woodward [facility] NOTICE OF PRIVACY 2019-10-28 05:58:52 Doctor Unassigned, No [facility] Name [facility] CONSENT/REFUSAL FOR 2019-10-28 05:57:52 Doctor Unassigned, No [facility] [place] [facility]REAT[facility] Name [facility] POCT URINALYSIS 2019-10-24 00:00:00 Chuyita Pruett [facility] PAP SMEAR-LIQUID 2019-08-20 21:18:00 Chuyita Pruett [facility] CBC WITH DIFFERENTIAL 2019-08-20 21:14:00 [facility]ita [facility] SURFACE 2019-08-20 21:14:00 Chuyita Pruett [facility] ANTIGEN [facility] HB ABO GROUPING 2019-08-20 21:14:00 Chuyita Pruett [facility] HIV 1/2 AG-AB WITH 2019-08-20 21:14:[address] [facility] sity [facility] REFLEX [facility] SARS-COV-2 IGG 2019-08-20 21:14:00 Chuyita Pruett [facility] POCT TEST 2019-08-20 20:01:00 [facility] POCT URINALYSIS W/O 2019-08-20 20:01:00 Chuyita [facility]ruett [facility] SPECIFIC GRAVITY [facility] COMP. METABOLIC PANEL 2019-08-20 06:16:00 Nano Davis [facility] ([id number]) [facility] TOTAL BETA HCG ASSAY 2019-08-20 06:16:00 Nano Davis [facility] CBC WITH DIFFERENTIAL 2019-08-20 05:20:00 Larry [facility] URINALYSIS 2019-08-20 05:20:00 Larry [facility] POCT TEST 2019-08-20 05:17:00 Larry [facility] ASSIGNMENT OF BENEFITS 2019-08-20 04:50:22 Doctor Unassigned, No [facility] NOTICE OF PRIVACY 2019-08-20 04:50:10 Doctor Unassigned, No [facility] CONSENT/REFUSAL FOR 2019-08-20 04:49:57 Doctor Unassigned, No [facility] [place] DI[facility] AND TREATMENT [facility] POCT TEST 2019-04-23 19:17:00 Moy Harvey [facility] NOTICE OF PRIVACY 2019-04-23 10:31:52 Doctor Unassigned, No [facility] CONSENT/REFUSAL FOR 2019-04-23 10:30:50 Doctor Unassigned, No [facility] [place] [facility] TREATMENT Name [facility] BASIC METABOLIC PANEL 2019-02-27 05:50:00 [place] [facility] (NA, K, CL, CO2, [facility] GLUCOSE, BUN, CREATININE, CA) CBC WITH DIFFERENTIAL 2019-02-27 05:50:00 [place] [facility] CT ABDOMEN PELVIS WO 2019-02-27 05:40:[address] [facility] CONTRAST [facility] URINALYSIS 2019-02-27 04:07:00 [place] o f [facility] POCT TEST 2019-02-27 04:07:[address] [facility] CONSENT/REFUSAL FOR 2019-02-27 03:37:29 Doctor Unassigned, No [facility] [place] DIAGNOSIS AND TREATMENT Name [facility] CT ABDOMEN PELVIS W 2018-09-16 00:44:22 Yaniv Carvajal [facility] ersity [facility] CONTRAST [facility] LIPASE 2018-09-15 23:45:[address] [facility] HEPATIC FUNCTION PANEL 2018-09-15 23:45:00 Yaniv [facility]al [facility] [place] ([id number]) (ALB,T.PRO,BILI Medical [facility] T,BU/BC,ALT,AST,ALK PHOS) BASIC METABOLIC PANEL 2018-09-15 23:45:00 Yaniv Carvajal [facility] [place] (NA, K, CL, CO2, [facility] GLUCOSE, BUN, CREATININE, CA) CBC WITH DIFFERENTIAL 2018-09-15 23:45:00 [facility] 2018-09-15 23:45:[address] [facility] POCT TEST 2018-09-15 23:33:00 Yaniv Carvajal [facility] NOTICE OF PRIVACY 2018-09-15 22:40:55 Doctor Unassigned, No Univ [facility] PRACTICES Name [facility] CONSENT/REFUSAL FOR 2018-09-15 22:40:44 Doctor Unassigned, No [facility] [place] [facility]REATMENT Name [facility] Encounters Start End Encounter Admission Attending Care Care Encounter Source Date/Time Date/Time Type Type Clinicians Facility Department ID 2020-12-[address] [facility] [id number] Univers 17:53:55 ity of [facility] 2020-12-[address] [facility] [id number] Univers 17:02:13 ity of [facility] 2020-12-[address] [facility] [id number] Univers 10:12:49 ity of [facility] 2020-12-[address] [facility] [id number] Univers 02:35:39 ity of [facility] 2020-12-[address] [facility] [id number] Univers 19:21:10 ity of [facility] 2020-12-11 Outpatient P [facility] [id number] Univers 23:37:32 ity of [facility] 2020-12-11 Outpatient P [facility] [id number] Univers 22:14:02 ity of [facility] 2020-12-[address] [facility] [id number] Univers 22:13:32 ity of [facility] 2020-12-11 Outpatient P [facility] [id number] Univers 19:52:15 ity of [facility] 2020-12-11 Outpatient P [facility] [id number] Univers 19:52:06 ity of [facility] 2020-12-11 Outpatient P [facility] [id number] Univers 03:14:10 ity of [facility] 2020-12-10 Outpatient P [facility] [id number] Univers 23:35:57 ity of [facility] 2020-12-10 Outpatient P [facility] [id number] Univers 22:58:44 ity of [facility] 2020-12-[address] [facility] [id number] Univers 22:47:03 ity of [facility] 2020-12-[address] [facility] [id number] Univers 19:34:09 ity of [facility] 2020-12-[address] [facility] [id number] Univers 17:30:23 ity of [facility] 2020-12-[address] [facility] [id number] Univers 05:23:21 ity of [facility] 2020-12-[address] [facility] [id number] Univers 13:44:00 ity of [facility] 2020-12-23 2020-12-23 Emergency X DAO [facility] ERT [id number] Univers 16:44:00 19:31:00 NANO ity of [facility] 2020-12-23 2020-12-23 Emergency Dao [facility] 1.2.449.613 [id number] Univers 16:44:00 19:31:00 Nano JAMIL 350.1.13.10 i ty [place] [id number] [address] 2020-12-23 2020-12-23 Outpatient R [facility] [id number] Univers 09:00:00 09:00:00 [id number] ity of [facility] 2020-12-22 2020-12-22 Outpatient R IVAN [facility] [id number] Univers 15:00:00 15:18:02 PRERNA davila o f [facility] 2020-12-22 2020-12-22 Urgent Maikel Garcia [facility] 1.2.840.114 [id number] Univers 14:57:45 15:18:02 Care Prerna Vieira [facility] 350.1.13.10 ity of [place] 4.2.7.2.686 Akash as KAREN?BLEA [phone] Ar dic[address] MEDICAL OFFICE BUILDING 2020-12-22 2020-12-22 Outpatient R [facility] [id number] Univers 15:00:00 15:00:00 [id number] ity [facility] 2020-12-21 2020-12-21 Telephone Joy Santamariaen [facility] 1.2.840.114 [id number] Univers 00:00:00 00:00:00 Natalio JAMIL 350.1.13.10 i ty [facility] [place] [phone] Ar dical [facility] 2020-10-06 2020-10-06 [facility] 1.2.878.703 [id number] Univers 02:51:00 06:35:00 [place] Jamil 350.1.13.10 i ty of [place] [id number] [address] 2020-10-01 2020-10-01 Emergency Walter [facility] 1.2.840.114 [id number] Univers 15:34:00 18:16:00 [place] Jamil 350.1.13.10 i ty of [place] [phone] [address] 2020-10-01 2020-10-01 Orders Doctor ANA 1.2.840.114 [id number] Univers 00:00:00 00:00:00 Only Unassigned, ALEJANDRA 350.1.13.10 ity of [place] [facility] 4.2.7.2.686 Akash as [phone] [facility] [address] 2020-09-02 2020-09-03 [facility] 1.2.840 .114 [id number] Univers 21:49:00 01:09:00 Miguel Garcia 350.1.13.10 ity of [place] [phone] [place] [address] Branch 2020-08-02 2020-08-02 Emergency [facility] 1.2.830.378 [id number] Univers 12:53:00 15:28:00 Stephon 350.1.13.10 i ty of [place] [phone] [place] [address] Branch 2020-08-02 2020-08-02 Orders Doctor ANA 1.2.840.114 [id number] Univers 00:00:00 00:00:00 Only Unassigned, ALEJANDRA 350.1.13.10 ity of [place] [facility] 4.2.7.2.686 Akash as [phone] [place] [address] Branch 2020-06-27 2020-06-27 Emergency [facility], [facility] 1.2.840.114 [id number] 15:18:00 17:53:00 Arsen Jamil 350.1.13.10 [place] 4.2.7.2.686 [place] [phone] 08 2020-06-27 2020-06-27 Emergency Landon, [facility] 1.2.840.114 [id number] Univers 15:18:00 17:53:00 Arsen Jamil 350.1.13.10 i ty of [place] [phone] [place] [address] Branch 2020-05-04 2020-05-04 Outpatient Aubree MOSER [facility] [id number] 3P-20 Univers 14:30:00 14:30:00 ITA [id number] [facility] 2020-05-04 2020-05-04 Outpatient R ANGELAJESSICAJAMES [facility] [id number] Univers 14:30:00 14:30:00 ITA [facility] 2020-05-04 2020-05-04 Patient Go [facility] 1.2.840.114 [id number] 00:00:00 00:00:00 Outreach Andrew PRIMARY 350.1.13.10 [facility] CARE 4.2.7.2.686 PAVILLION [phone] 388 2020-05-04 2020-05-04 Patient Go [facility] 1.2.840.114 [id number] Univers 00:00:00 00:00:00 Outreach Andrew PRIMARY 350.1.13.10 i ty of [facility] [place]2.[place] [phone] Ar dical [address] [place] [address] 2020-04-23 2020-04-23 Telephone [facility] 1.2.840.114 [id number] 00:00:00 00:00:00 Cam [place] 350.1.13.10 [place] 4.2.7.2.686 Professio [id number] [address] 2020-04-23 2020-04-23 Telephone SantamariaAdry [facility] 1.2.840.114 [id number] Univers 00:00:00 00:00:00 Cam [place] 350.1.13.10 i ty of [place] [phone] Ar dical [address] 2020-04-20 2020-04-20 Outpatient R [facility] [id number] -[id number] Univers 14:00:00 14:00:00 [id number] [facility] 2020-04-20 2020-04-20 Outpatient R [facility] [id number] Univers 14:00:00 14:00:00 [facility] 2020-04-20 2020-04-20 Nurse Nurse, Glenn [facility] 1.2.840.114 [id number] 13:17:57 13:46:29 Visit Women's [place] 350.1.13.10 Health [place] 4.2.7.2.686 Professio [phone] [address] 2020-04-20 2020-04-20 Nurse Nurse, [facility] 1.2.840.[id number] [facility] 13:17:57 13:46:29 Visit Adry Santamaria Natalio [place] 350.1.13.10 ity of [place] [phone] [address] 2020-04-09 2020-04-09 Telephone Min, [facility] 1.2.840.[id number] [facility] 00:00:00 00:00:00 [facility] 350.1.13.10 i ty of [facility] 4.2.7.2.[place] [phone] [address] 2020-04-09 2020-04-09 Telephone Min, [facility] 1.2.840.114 [id number] 00:00:00 00:00:00 [facility] 350.1.13.10 CLINICS [phone] [facility] 2020-04-07 2020-04-07 Telephone Adry Santamaria [facility] 1.2.840.[id number] [facility] 00:00:00 00:00:00 Cam [place] 350.1.13.10 i ty of [place] [phone] [address] 2020-04-07 2020-04-07 Telephone [facility] 1.2.840.114 [id number] 00:00:00 00:00:00 Cam [place] 350.1.13.10 [place] 4.2.7.2.686 Professio [id number] [address] 2020-04-05 2020-04-06 [facility] Adry Santamaria [facility] 1.2.840.[id number] [facility] 05:42:00 12:25:00 Encounter Cam [place] 350.1.13.10 ity of [place] [phone] [facility] [address] [place] 2020-04-05 2020-04-06 Hospital Adry Santamaria [facility] 1.2.840.114 [id number] 05:42:00 12:25:00 Encounter Cam Stephon 350.1.13.10 [place] 4.2.7.2.686 [place] [phone] 083 2020-04-05 2020-04-05 Orders Doctor ANA 1.2.840.114 [id number] Univers 00:00:00 00:00:00 Only Unassigned, ALEJANDRA 350.1.13.10 ity [address] [place] [facility] 4.2.7.2.686 Akash as [phone] [facility] [address] [place] 2020-04-05 2020-04-05 Orders Doctor ANA 1.2.840.114 [id number] 00:00:00 00:00:00 Only Unassigned, ALEJANDRA 350.1.13.[address] [place] [facility] 4.2.7.2.686 [id number] 009 2020-04-02 2020-04-02 Telephone Adry Santamaria [facility] 1.2.840.114 [id number] Univers 00:00:00 00:00:00 Cam Stephon 350.1.13.10 i ty of [place] 4.2.7.2.686 [facility] s Professio [phone] Ar dical [address] 2020-03-31 2020-03-31 Outpatient R [facility] [id number] -[id number] Univers 09:00:00 09:00:00 [id number] ity of [facility] 2020-03-31 2020-03-31 Telephone Adry Santamaria [facility] 1.2.840.114 [id number] 00:00:00 00:00:00 Cam [place] 350.1.13.10 [place] 4.2.7.2.686 Professio [phone] [address] 2020-03-31 2020-03-31 Telephone Adry Santamaria [facility] 1.2.840.114 81 [id number] Univers 00:00:00 00:00:00 Cam [place] 350.1.13.10 i ty of [place] [phone] Me dical nal [address] [place] [address] 2020-03-29 2020-03-29 Outpatient R [facility] [id number] Univers 15:00:00 15:00:00 [id number] ity of [facility] 2020-03-29 2020-03-29 Outpatient R [facility] [id number] Univers 15:00:00 15:00:00 ity of [facility] 2020-03-28 2020-03-28 [facility] Moraima Harrington [facility] 1.2.840.114 [id number] Univers 17:15:00 18:40:00 Encounter [place] 350.1.13.10 ity of [place].2.[place].2.[place] [phone] [address] 2020-03-28 2020-03-28 Telephone Adry Santamaria [facility] 1.2.840.114 [id number] Univers 00:00:00 00:00:00 Cam [place] 350.1.13.10 i ty of [place].2.[place] [phone] Ar dical nal [address] [place] [address] 2020-03-25 2020-03-25 Outpatient R ADRY SANTAMARIA [facility] [id number] 3P-20 Univers 13:45:00 13:45:00 [id number] ity of [facility] 2020-03-25 2020-03-25 Outpatient R ADRY SANTAMARIA [facility] [id number] Univers 13:45:00 13:45:00 ity of [facility] 2020-03-24 2020-03-24 Routine Rosalio [facility] 1.2.525.690 [id number] Univers 14:49:02 15:46:30 Cam [place] 350.1.13.10 ity of [place] [id number] Ar dical nal [address] [place] [address] 2020-03-24 2020-03-24 Outpatient R ADRY SANTAMARIA [facility] [id number] 3P-20 Univers 14:15:00 14:15:00 [id number] ity of [facility] 2020-03-24 2020-03-24 Outpatient R ADRY SANTAMARIA [facility] [id number] Univers 14:15:00 14:15:00 ity of [facility] 2020-03-24 2020-03-24 Orders Doctor PEREZ 1.2.840.114 [id number] 00:00:00 00:00:00 Only Unassigned, ALEJANDRA 350.1.13.[address] [place] [facility] 4.2.7.2.686 [id number] 009 2020-03-24 2020-03-24 Orders Doctor ANA 1.2.840.114 [id number] Univers 00:00:00 00:00:00 Only Unassigned, ALEJANDRA 350.1.13.[address] [place] [facility] 4.2.7.2.686 Akash as [phone] [facility] [address] 2020-03-20 2020-03-20 Hospital Zenon Bush 1.2.840.114 [id number] Univers 01:20:00 18:45:00 Encounter ALEJANDRA 350.1.13.[address] [facility] 4.2.7.2.686 Akash as [phone] [facility] [address] 2020-03-19 2020-03-20 Emergency [facility] 1.2.840.114 [id number] Univers 21:43:00 01:11:00 Jyothi Jamil 350.1.13.10 ity of [place] [id number] [facility] [address] 2020-03-19 2020-03-19 Nurse ANA Booker 1.2.840.114 [id number] Univers 00:00:00 00:00:00 Triage Alyx Vidal ALEJANDRA 350.1.13.[address] [facility] 4.2.7.2.686 Akash as [phone] [facility] [address] [place] 2020-03-18 2020-03-18 Routine Room, [facility] 1.2.840.1 14 [id number] Univers 15:09:40 16:43:57 Adry Santamaria 350.1.13.10 ity of [place] [phone] Me dical nal [address] 2020-03-18 2020-03-18 Outpatient R [facility] [id number] Univers 14:00:00 14:00:00 ity of [facility] 2020-03-18 2020-03-18 [facility] [id number] 3P-20 Univers 11:30:00 11:30:00 ITA [id number] ity of [facility] 2020-03-18 2020-03-18 [facility] [id number] Univers 11:30:00 11:30:00 [facility] 2020-03-18 2020-03-18 Orders Doctor ANA 1.2.840.114 [id number] Univers 00:00:00 00:00:00 Only Unassigned, ALEJANDRA 350.1.13.[address] [place] [facility] 4.2.7.2.686 Akash as [phone] [facility] [address] 2020-03-15 2020-03-15 Outpatient R [facility] [id number] Univers 11:00:00 11:00:00 [id number] ity of [facility] 2020-03-15 2020-03-15 Outpatient R [facility] [id number] Univers 11:00:00 11:00:00 ity of [facility] 2020-03-11 2020-03-11 Telephone Adry Santamaria [facility] 1.2.840.114 [id number] Univers 00:00:00 00:00:00 Cam [place] 350.1.13.10 i ty of [place] [phone] Ar dical nal [address] 2020-03-09 2020-03-09 Hospital Adry Santamaria [facility] 1.2.840.114 [id number] Univers 22:18:00 23:50:00 Encounter Cam [place] 350.1.13.10 ity of [place].2.[place] [id number] [facility] [address] 2020-03-08 2020-03-08 Outpatient R [facility] [id number] Univers 14:00:00 14:00:00 [id number] ity of [facility] 2020-03-08 2020-03-08 Outpatient R [facility] [id number] Univers 14:00:00 14:00:00 ity of [facility] 2020-03-04 2020-03-04 Relationship Manager Ultrasound, Roberto [facility] 1.2 .840.114 [id number] Univers 13:29:07 13:59:07 Visit Adry Santamaria [employer] 350.1.13.10 ity of [place] [facility] 4.2.7.2.686 [place] MATERNAL [phone] Med ical & CHILD [address] [place] [address] 2020-03-04 2020-03-04 Outpatient P [facility] [id number] Univers 13:30:00 13:30:00 ity of [facility] 2020-03-04 2020-03-04 Routine Adry Santamaria [facility] 1.2.716.171 [id number] Univers 11:29:26 12:15:37 Natalio [place] 350.1.13.10 ity of Visit [place] 4.2.7.2.686 [place] s Professio [phone] Ar dic[address] 2020-03-04 2020-03-04 Outpatient R ADRY SANTAMARIA [facility] [id number] 3P-20 Univers 11:15:00 11:15:00 [id number] ity of [facility] 2020-03-03 2020-03-03 Outpatient R ADRY SANTAMARIA [facility] [id number] 3P-20 Univers 16:15:00 16:15:00 [id number] ity of [facility] 2020-03-03 2020-03-03 Outpatient R ADRY SANTAMARIA [facility] [id number] Univers 16:15:00 16:15:00 ity of [facility] 2020-02-17 2020-02-[address] [facility] [id number] Univers 13:00:00 13:00:00 [id number] ity [facility] 2020-02-16 2020-02-16 Routine Ehsan [facility] 1.2.499.814 [id number] Univers 14:05:41 14:20:41 Ita Ramirezton 350.1.13.10 ity of [place] [phone] Ar dical nal [address] [place] [address] 2020-02-16 2020-02-16 Outpatient R EHSAN [facility] [id number] 3P-20 Univers 14:00:00 14:00:00 ITA [id number] ity [facility] 2020-02-16 2020-02-16 Outpatient R EHSAN [facility] [id number] Univers 14:00:00 14:00:00 ITA ity [facility] 2020-02-12 2020-02-12 Outpatient R EHSAN [facility] [id number] 3P-20 Univers 11:30:00 11:30:00 ITA [id number] ity [facility] 2020-02-12 2020-02-12 Outpatient R EHSAN [facility] [id number] Univers 11:30:00 11:30:00 ITA ity [facility] 2020-02-10 2020-02-10 Outpatient R EHSAN [facility] [id number] 3P-20 Univers 16:15:00 16:15:00 ITA [id number] ity [facility] 2020-02-10 2020-02-10 Outpatient R EHSAN [facility] [id number] Univers 16:15:00 [facility]:15:[facility] 2020-01-30 2020-01-30 Case Joy Santamariaen [facility] 1.2.036.653 [id number] Univers 00:00:00 00:00:00 Management Natalio Jamil 350.1.13.10 ity of [place] [phone] Ar dical nal [address] [place] [address] 2020-01-29 2020-01-29 Case Ehsan [facility] 1.2.525.435 [id number] Univers 00:00:00 00:00:00 Management Ita [place] 350.1.13.10 ity of [place] 4[place].7.2.[place] [phone] Ar dical nal [address] [place] [address] 2020-01-28 2020-01-28 Outpatient R ADRY SANTAMARIA [facility] [id number] 3P-20 Univers 14:45:00 14:45:00 [id number] ity of [facility] 2020-01-28 2020-01-28 Outpatient R [facility] [id number] Univers 14:15:00 14:15:00 ity of [facility] 2020-01-27 2020-01-27 Routine Rosalio [facility] 1.2.077.215 [id number] Univers 13:31:23 14:20:49 Cam [place] 350.1.13.10 ity of [place]2.[place] [phone] [address] 2020-01-27 2020-01-27 Outpatient R ADRY SANTAMARIA [facility] [id number] 3P-20 Univers 13:00:00 13:00:00 [id number] ity of [facility] 2020-01-27 2020-01-27 Outpatient R ROSALIO [facility] [id number] Univers 13:00:00 13:00:00 ity of [facility] 2020-01-26 2020-01-26 Telephone Rosalio [facility] 1.2.840.114 [id number] Univers 00:00:00 00:00:00 Cam [place] 350.1.13.10 i ty of [place] [phone] Ar dic[address] 2020-01-13 2020-01-13 Initial Ehsan Ita [facility] 1.2.840.11 [id number] Univers 14:53:29 16:03:02 Adry Santamaria Cam [place] 350.1.13.10 ity of [place].2.[place] [phone] Ar dic[address] 2020-01-13 2020-01-13 Outpatient R ADRY SANTAMARIA [facility] [id number] 3P-20 Univers 14:00:00 14:00:00 ity of [facility] 2020-01-13 2020-01-13 Outpatient R ROSALIO [facility] [id number] Univers 14:00:00 14:00:00 ity of [facility] 2020-01-05 2020-01-05 Outpatient R ADRY SANTAMARIA [facility] [id number] 3P-20 Univers 14:00:00 14:00:00 [id number] ity of [facility] 2020-01-01 2020-01-01 Outpatient R ADRY SANTAMARIA [facility] [id number] 3P-20 Univers 14:30:00 14:30:00 [id number] ity of [facility] 2020-01-01 2020-01-01 Outpatient R ROSALIO ADRY [facility] [id number] Univers 14:30:00 14:30:00 ity of [facility] 2020-01-01 2020-01-01 [facility] 1.2.075.229 [id number] Univers 00:00:00 00:00:00 Chuyita Mak [employer] 350.1.13.10 ity of REGIONAL 4.2.7.2.686 Akash as MATERNAL [phone] Med ical & CHILD [address] [place] [address] 2019-12-31 2019-12-31 Outpatient R SEBLE [facility] [id number] Univers 13:45:00 13:45:00 LUDMILANDA [id number] ity o [facility] 2019-12-31 2019-12-31 Outpatient R SEBLE [facility] [id number] Univers 13:45:00 13:45:00 ROSHUNDA ity o f [facility] 2019-12-25 2019-12-25 Outpatient R SEBLE [facility] [id number] -[id number] Univers 15:30:00 15:30:00 LUDMILANDA [id number] ity o f [facility] 2019-12-25 2019-12-25 Outpatient R SEBLE [facility] [id number] Univers 15:30:00 15:30:00 ROSLENNOXNDA ity o [facility] 2019-12-17 2019-12-17 [facility] ANA Houser 1.2.671.648 [id number] Univers 19:44:00 23:35:00 Courtney ROBERTS 350.1.13.10 [phone] [address] 2019-12-17 2019-12-17 [facility]phone [facility] 1.2.840.114 [id number] Univers 00:00:00 00:00:00 Moy Ibarra [employer] [id number] ity of REGIONAL [id number] Akash as MATERNAL [phone] [facility] ical & CHILD [address] [place] [address] 2019-12-17 2019-12-17 Orders Doctor PEREZ [id number] Univers 00:00:00 00:00:00 Only Unassigned, ALEJANDRA 350.1.13.10 ity of [facility] [id number] Akash as [phone] [facility] [address] 2019-12-02 2019-12-02 Telephone [facility] [id number] Univers 00:00:00 00:00:00 Chuyita Mak [employer] [id number] ity of [employer] 4.2.7.2.686 Akash as MATERNAL [phone] [facility] & CHILD [address] [place] [address] 2019-11-30 2019-12-01 Hospital ANA Womack 1.2.840.114 [id number] Univers 23:00:00 00:34:00 Encounter Ritupenny ROBERTS 350.1.13.10 [place] [phone] [facility] [address] 2019-12-01 2019-12-01 Telephone [facility] 1.2.840.114 [id number] Univers 00:00:00 00:00:00 Moy Ibarra [employer] 350.1.13.10 ity of [employer] 4.2.7.2.686 Akash as MATERNAL [phone] [facility] & CHILD [address] [place] [address] 2019-11-30 2019-11-30 Nurse Soila Arita 1.2.840.114 [id number] Univers 00:00:00 00:00:00 Triage ALEJANDRA 350.1.13.[address] [facility] 4.2.7.2.686 Akash as [phone] [facility] [address] 2019-11-30 2019-11-30 Orders Doctor PEREZ 1.2.840.114 [id number] Univers 00:00:00 00:00:00 Only Unassigned, ALEJANDRA 350.1.13.10 ity of [place] [facility] 4.2.7.2.686 Akash as [phone] [facility] [address] 2019-11-28 2019-11-28 [facility] 1.2.840.114 [id number] Univers 00:00:00 00:00:00 Rosrobi R [employer] 350.1.13.10 ity of [employer] 4.2.7.2.686 Akash as MATERNAL [phone] Med ical & CHILD [address] [place] [address] 2019-11-27 2019-11-27 Routine Akinlalito, [facility] 1.2.148.912 [id number] Univers 14:28:00 15:02:47 Moy C [employer] 350.1.13.10 ity of Visit [employer] [id number] Akash as MATERNAL [phone] [facility] ical & CHILD [address] [place] [address] 2019-11-27 2019-11-27 Relationship Manager Ultrasound, [facility] 1.2 .840.114 [id number] Univers 13:08:53 14:16:14 Visit Flor Stiles [employer] 350.1.13.10 ity of [employer] 4.2.7.2.686 Akash as MATERNAL [phone] [facility] ical & CHILD [address] [facility] 2019-11-27 2019-11-27 Outpatient R [facility] [id number] -[id number] Univers 13:00:00 13:00:00 [id number] ity of [facility] 2019-11-27 2019-11-27 Outpatient P [facility] [id number] Univers 13:00:00 13:00:00 ity of [facility] 2019-11-25 2019-11-26 Hospital Mya Rodriguez 1.2.840.11 [id number] Univers 17:23:00 14:40:00 Encounter Flor Stiles 350.1.13.[address] [facility] 4.2.7.2.686 Akash as [phone] [facility] [address] [place] 2019-11-26 2019-11-26 Outpatient R SEBLE [facility] [id number] -[id number] Univers 14:30:00 14:30:00 TOILENNOXTRACY [id number] ity o f [facility] 2019-11-20 2019-11-20 Outpatient R SEBLE [facility] [id number] -[id number] Univers 14:00:00 14:00:00 TOILENNOXTRACY ity o f [facility] 2019-11-20 2019-11-20 Outpatient Aubree PRUETT [facility] [id number] Univers 14:00:00 14:00:00 NARINDERA ity o f [facility] 2019-11-07 2019-11-07 Emergency German Carl [facility] 1.2.840.114 [id number] Univers 21:47:00 23:15:00 W Stephon 350.1.13.10 i ty of [place]2.[place] [phone] [address] 2019-11-07 2019-11-07 Orders Doctor ANA 1.2.840.114 [id number] Univers 00:00:00 00:00:00 Only Unassigned, ALEJANDRA 350.1.13.10 ity of [place] [facility] 4.2.7.2.686 Akash as [phone] [address] 2019-10-28 2019-10-28 Emergency Kirill Iverson [facility] 1.2.840 .114 [id number] Univers 01:05:00 02:23:00 Moraima Woodward 350.1.13.10 ity of [place] 4.2.7.2.686 [place] [id number] [address] 2019-10-24 2019-10-24 [facility]ine [facility] 1.2.840.114 [id number] Univers 09:29:56 10:51:46 Chuyita Mak [employer] 350.1.13.10 ity of Visit [employer] 4.2.7.2.686 Akash as MATERNAL [phone] Med ical & CHILD [address] [place] [address] 2019-10-24 2019-10-24 Outpatient Aubree SEBLE [facility] [id number] -[id number] Univers 09:15:00 09:15:00 CHUYITA [id number] ity o roxanne [facility] 2019-10-24 2019-10-24 Outpatient R SEBLE [facility] [id number] Univers 09:15:00 09:15:00 LUDMILATRACY giovanni o f [facility] 2019-10-23 2019-10-23 Outpatient R SEBLE [facility] [id number] -[id number] Univers 14:15:00 14:15:00 CHUYITA ity o roxanne [facility] 2019-10-23 2019-10-23 Outpatient R SEBLE [facility] [id number] Univers 14:15:00 14:15:00 LUDMILATRACY giovanni o [facility] 2019-10-07 2019-10-07 Outpatient R SEBLE [facility] [id number] -[id number] Univers 09:45:00 09:45:00 CHUYITA [id number] giovanni o [facility] 2019-10-07 2019-10-07 Outpatient R SEBLE [facility] [id number] Univers 09:45:00 09:45:00 CHUYITA giovanni o [facility] 2019-09-23 2019-09-23 Abstract Seble [facility] 1.2.840.114 [id number] Univers 00:00:00 00:00:00 Chuyita Mak [employer] 350.1.13.10 ity of [employer] 4.2.7.2.686 Akash as MATERNAL [phone] Med ical & CHILD 107 [facility] 2019 2019 Relationship Manager Ul[facility] 1.2 .840.114 [id number] Univers 11:11:32 11:41:32 Visit Hannah Frazier [employer] 350.1. 13.10 ity of [employer] 4.2.7.2.686 Akash as MATERNAL [phone] Med ical & CHILD 369 [facility] 2019 [address] [facility] [id number] -[id number] Univers 11:00:00 11:00:00 ity of [facility] 2019 2019 [address]patient [address] [facility] [id number] Univers 11:00:00 11:00:00 ity of [facility] 2019-09-15 2019-09-15 Telemedici Faculty, Brodie [facility] 1.2.840.114 [id number] Univers 09:15:16 16:30:36 ne Visit Hannah Frazier [employer] 350.1 .13.10 ity of [facility] 4.2.7.2.686 Akash as MATERNAL [phone] [facility] ical & CHILD [address] [place] [address] 2019-09-15 2019-09-15 Outpatient R [facility] [id number] -[id number] Univers 15:30:00 15:30:00 [facility] 2019-09-15 2019-09-15 Outpatient R [facility] [id number] Univers 15:30:00 15:30:00 ity [facility] 2019-08-20 2019-08-20 Initial [facility] 1.2.840.114 [id number] Univers 14:42:01 16:17:01 Chuyita Mak [employer] 350.1.13.10 ity of Visit [facility] 4.2.7.2.686 Akash as MATERNAL [phone] [facility] & CHILD [address] [place] [address] 2019-08-20 2019-08-20 Outpatient R [facility] [id number] -[id number] Univers 13:30:00 13:30:00 [facility] 2019-08-20 2019-08-20 [facility] [id number] Univers 13:30:00 13:30:00 LUDMILANDA ity o f [facility] 2019-08-19 2019-08-20 Emergency [facility] 1.2.441.956 [id number] Univers 23:59:19 04:10:00 Nano Marcy Tumacacori 350.1.13.10 i ty [facility] 4.2.7.2.686 [place] [facility] [phone] [address] 2019-08-14 2019-08-14 Outpatient MARIUSZ FOX [facility] [id number] Univers 13:00:00 13:00:00 [facility] 2019-08-14 2019-08-14 Outpatient R MARIUSZ MEYER [facility] [id number] Univers 13:00:00 13:00:00 [facility] 2019-08-11 2019-08-11 Outpatient R WES, [facility] [id number] Univers 10:00:00 10:00:00 MOY davila o roxanne [facility] 2019-08-11 2019-08-11 Outpatient R [facility] [id number] -[id number] Univers 09:30:00 09:30:00 [id number] [facility] 2019-08-07 2019-08-07 Outpatient R MARGOSIPE, [facility] [id number] Univers 08:15:00 08:15:00 MOY [id number] jetruss o f [facility] 2019-06-02 2019-06-02 Outpatient R NAVEED, [facility] [id number] -[id number] Univers 10:30:00 10:30:00 PRICE [facility] 2019-05-01 2019-05-01 Outpatient R WES, [facility] [id number] Univers 13:15:00 13:15:00 MOY [id number] giovanni o roxanne [facility] 2019-05-01 2019-05-01 Outpatient R WES, [facility] [id number] Univers 13:15:00 13:15:00 MOY hurley roxanne [facility] 2019-04-30 2019-04-30 [facility] 1.2.840.114 [id number] Univers 00:00:00 00:00:00 Moy Ibarra [employer] 350.1.13.10 ity of [employer] 4.2.7.2.686 Akash as MATERNAL [phone] Med ical & CHILD [address] [place] [address] 2019-04-23 2019-04-23 Office [facility] 1.2.786.534 [id number] Univers 14:04:39 14:46:18 Visit Moy Ibarra [employer] 350.1.13.10 ity of [employer] 4.2.7.2.686 Akash as MATERNAL [phone] [facility] ical & CHILD [address] [place] [address] 2019-04-23 2019-04-23 Outpatient R [facility] [id number] -[id number] Univers 13:00:00 13:00:00 [id number] ity of [facility] 2019-04-23 2019-04-23 Outpatient R WES, [facility] [id number] Univers 13:00:00 13:00:00 MOY jetruss o f [facility] 2019-04-23 2019-04-23 Emergency [facility] 1.2.733.040 [id number] Univers 05:39:58 06:54:00 [place] Jaiml 350.1.13.10 i ty of [place] 4.2.7.2.686 [facility] [id number] [address] 2019-04-23 2019-04-23 Orders Doctor ANA 1.2.840.114 [id number] Univers 00:00:00 00:00:00 Only Unassigned, ALEJANDRA 350.1.13.10 ity of [place] [facility] 4.2.7.2.686 Akash as [phone] [address] 2019-02-26 2019-02-27 Emergency [facility] 1.2.033.855 [id number] Univers 22:05:12 00:49:00 Low Jamil 350.1.13.10 i ty of [place] 4.2.7.2.686 [facility] [id number] [address] 2018-09-15 2018-09-15 Emergency [facility] 1.2.840.114 [id number] Univers 18:01:18 21:08:00 Yaniv Jamil 350.1.13.10 ity of [place] 4.2.7.2.686 [facility] [phone] [address] 2018-09-15 2018-09-15 Orders Doctor ANA 1.2.840.114 [id number] Univers 00:00:00 00:00:00 Only Unassigned, ALEJANDRA 350.1.13.10 ity of [place] [facility] 4.2.7.2.686 Akash as [phone] [address] Results Test Description Test Time Test Comments Results Result Comments Source CBC WITH DIFF 2020-12-23 23:54:12 Test Item Value Reference Range Interpretation Comme nts WBC (test code = 6690-2) See_Comment [A utomated message] The system which ge nerated this result transmit wilfredo reference range: 4.30 - 1 1.10 10*3/?L. The reference r humberto was not used to interpr et this result as normal/abnor mal. RBC (test code = 789-8) See_Comment [Au tomated message] The system which ge nerated this result transmit wilfredo reference range: 3.93 - 5 .25 10*6/?L. The reference r humberto was not used to interpr et this result as normal/abnor mal. HGB (test code = 718-7) 12.8 g/dL 11.6-15.0 HCT (test code = 4544-3) 40.8 % 35.7-45.2 MCV (test code = 787-2) 82.3 fL 80.6-95.5 MCH (test code = 785-6) 25.8 pg 25.9-32.8 L MCHC (test code = 786-4) 31.4 g/dL 31.6-35.1 L RDW-SD (test code = 44453-8) 42.4 fL 39.0-49.9 RDW-CV (test code = 788-0) 14.4 % 12.0-15.5 PLT (test code = 777-3) See_Comment [Au tomated message] The system which [employer] nerated this result transmit wilfredo reference range: 166 - 35 8 10*3/?L. The reference range was not used to interpret th is result as normal/abnormal . MPV (test code = 99337-4) 9.9 fL 9.5-12.9 NRBC/100 WBC (test code = See_Comment [ Automated message] The 9745917077) system which [employer] nerated this result transmit wilfredo reference range: 0.0 - 10 .0 /100 WBCs. The reference r humberto was not used to interpr et this result as normal/abnor mal. NRBC x10^3 (test code = <0.01 See_Comment [Au tomated message] The 2571800433) system which [employer] nerated this result transmit wilfredo reference range: 10*3/?L. The reference range was not u sed to interpret this result as normal/abnormal . GRAN MAT (NEUT) % (test code 65.0 % = 770-8) IMM GRAN % (test code = 0.30 % 5696548367) LYMPH % (test code = 736-9) 26.9 % MONO % (test code = 5905-5) 4.9 % EOS % (test code = 713-8) 2.5 % BASO % (test code = 706-2) 0.4 % GRAN MAT x10^3(ANC) (test 5.92 10*3/uL 1.88-7.09 code = 2833671056) IMM GRAN x10^3 (test code = 0.03 10*3/uL 0.00-0.06 6312952617) LYMPH x10^3 (test code = 2.46 10*3/uL 1.32-3.29 731-0) MONO x10^3 (test code = 0.45 10*3/uL 0.33-0.92 742-7) EOS x10^3 (test code = 0.23 10*3/uL 0.03-0.39 711-2) BASO x10^3 (test code = 0.04 10*3/uL 0.01-0.07 704-7) Lab Interpretation (test Abnormal code = 11680-0) [facility] (02221[facility]2020-12-23 23:49:13 Test Item Value Reference Range Interpretation Comments NA (test code = 138 mmol/L 135-145 6707340124) K (test code = 4.7 mmol/L 3.5-5.0 2930000622) CL (test code = 107 mmol/L 98-108 6112379234) CO2 TOTAL (test code 23 mmol/L 23-31 = 6505754372) AGAP (test code = 2-16 4219009772) BUN (test code = 17 mg/dL 7-23 0134507377) GLUCOSE (test code = 96 mg/dL 70-110 2197439865) CREATININE (test code 0.87 mg/dL 0.50-1.04 = 1915389662) TOTAL BILI (test code 0.3 mg/dL 0.1-1.1 = 7291551765) CALCIUM (test code = 9.8 mg/dL 8.6-10.6 6897571875) T PROTEIN (test code 7.8 g/dL 6.3-8.2 = 2986926506) ALBUMIN (test code = 4.4 g/dL 3.5-5.0 4279417034) ALK PHOS (test code = 81 U/L 34-122 1959519785) ALTv (test code = 13 U/L 5-35 1742-6) AST(SGOT) (test code 16 U/L 13-40 = 0117901591) eGFR (test code = mL/min/1.73m2 6203814141) MYA (test code = MYA) Association of Glomerular Filtration Rate (GFR) and Staging of Kidney Disease* + + +- +| GFR (mL/min/1.73 m2) ?| With Kidney Damage ?| ?Without Kidney Damage+ ------+ ----+ ------+| ?>90 ?| ?Stage one ?| ? Normal ?+ -+ + -+| ?60-89 ?| ?Stage two ?| ? Decreased GFR ? + + +- +| ?30-59 ?| ?Stage three ?| ? Stage three ? + + +- +| ?15-29 ?| ?Stage four ? | ? Stage four ?+ -+ + -+| ?<15 (or dialysis) ? ?| ?Stage five ? | ? Stage five ?+ -+ + -+ *Each stage assumes the associated GFR level has been in effect for at least three months. ?Stages 1 to 5, with or without kidney disease, indicate chronic kidney disease. Notes: Determination of stages one and two (with eGFR >59mL/min/1.73 m2) requires estimation of kidney damage for at least three months as defined by structural or functional abnormalities of the kidney, manifested by either:Pathological abnormalities or Markers of kidney damage (including abnormalities in the composition of the blood or urine or abnormalities in imaging tests). [facility] 23:49:13 Test Item Value Reference Range Interpretation Comments LIPASE (test code = 9435818172) 221 U/L 0-220 H Lab Interpretation (test code = Abnormal 24030-8) [facility] [id number] 23:26:00 Test Item Value Reference Range Interpretation Comments POCT PREG (test code = 1605) Negative On board controls acceptable with Present C Line (test code = 3574) POCT PREG LOT # (test code = 3575) [id number] POCT PREG TEST DATE (test 03-14-2022 code = 3576) Lab Interpretation (test code = Normal 60746-1) [facility] [id number] 09:23:40 Test Item Value Reference Interpretation Comments Range TROPONIN I (test <0.012 See_Comment [Automated code = 9361738214) message] The system which generated this result transmitted reference range : <=0.034 ng/mL. The reference range was not used to interpret this result as normal/abnormal . MYA (test code = Reference (Normal) MYA) Range (defined by the 99th percentile reference limit): <= 0.034 ng/mL Note: Cardiac troponin begins to rise 3-4 hours after the onset of ischemia. Repeat in 4-6 hours if the sample was drawn within 3-4 hours of the onset of the symptom and found normal. Diagnosis of myocardial injury is made with acute changes in cTn concentrations with at least one serial sample above the 99th percentile upper reference limit (URL), taken together with the patient's clinical presentation. Biotin has been reported to cause a negative bias, interpret results relative to patient's use of biotin. Lab Interpretation Normal (test code = 88922-9) [facility] [id number] 09:23:40 Test Item Value Reference Range Interpretation Comments TROPONIN I (test code = <0.012 See_Comment [Au tomated message] 9437360976) The system [employer] generated this result transmitted ref erence range: <=0.034 ng/mL. The reference r humberto was not used to interpret this result as normal/abnor mal. MYA (test code = MYA) Lab Interpretation (test Normal code = 26651-8) [facility]AL [id number] 09:20:43 Test Item Value Reference Range Interpretation Comments NT-proBNP (test code 68 pg/mL See_Comment [Autom ated = 4172196981) message] The system which generated this result transmitted reference range : <=125. The reference range was not used to interpret this result as normal/abnormal . MYA (test code = MYA) Biotin has been reported to cause a negative bias, interpret results relative to patient's use of biotin. Lab Interpretation Normal (test code = 29233-3) [facility] [id number] 09:20:43 Test Item Value Reference Range Interpretation Comments NT-proBNP (test code = 68 pg/mL See_Comment [Aut omated message] 4524526059) The system [employer] generated this result transmitted ref erence range: <=125. T he reference range was not used to int erpret this result as normal/abnormal . MYA (test code = MYA) Lab Interpretation (test Normal code = 47383-1) [facility]OL[facility] PAN[facility] (58328)2020-10-06 09:12:21 Test Item Value Reference Range Interpretation Comments NA (test code = 136 mmol/L 135-145 6566847697) K (test code = 4.1 mmol/L 3.5-5.0 6840413103) CL (test code = 104 mmol/L 98-108 7020458873) CO2 TOTAL (test code 26 mmol/L 23-31 = 3015705223) AGAP (test code = 2-16 3225502802) BUN (test code = 10 mg/dL 7-23 4758772075) GLUCOSE (test code = 93 mg/dL 70-110 5972808766) CREATININE (test code 0.70 mg/dL 0.50-1.04 = 6238419316) TOTAL BILI (test code 0.4 mg/dL 0.1-1.1 = 3506729444) CALCIUM (test code = 9.7 mg/dL 8.6-10.6 3531648361) T PROTEIN (test code 7.9 g/dL 6.3-8.2 = 4845645682) ALBUMIN (test code = 4.4 g/dL 3.5-5.0 8946589887) ALK PHOS (test code = 68 U/L 34-122 7426618959) ALTv (test code = 16 U/L 5-35 1742-6) AST(SGOT) (test code 26 U/L 13-40 = 3893361168) eGFR (test code = mL/min/1.73m2 0673152008) MYA (test code = MYA) Association of Glomerular Filtration Rate (GFR) and Staging of Kidney Disease* + + +- +| GFR (mL/min/1.73 m2) ?| With Kidney Damage ?| ?Without Kidney Damage+ ------+ ----+ ------+| ?>90 ?| ?Stage one ?| ? Normal ?+ -+ + -+| ?60-89 ?| ?Stage two ?| ? Decreased GFR ? + + +- +| ?30-59 ?| ?Stage three ?| ? Stage three ? + + +- +| ?15-29 ?| ?Stage four ? | ? Stage four ?+ -+ + -+| ?<15 (or dialysis) ? ?| ?Stage five ? | ? Stage five ?+ -+ + -+ *Each stage assumes the associated GFR level has been in effect for at least three months. ?Stages 1 to 5, with or without kidney disease, indicate chronic kidney disease. Notes: Determination of stages one and two (with eGFR >59mL/min/1.73 m2) requires estimation of kidney damage for at least three months as defined by structural or functional abnormalities of the kidney, manifested by either:Pathological abnormalities or Markers of kidney damage (including abnormalities in the composition of the blood or urine or abnormalities in imaging tests). [facility]. METABOLIC PANEL (84693)2020-10-06 09:12:21 Test Item Value Reference Range Interpretation Comments NA (test code = 9864620343) 136 mmol/L 135-145 K (test code = 5063371439) 4.1 mmol/L 3.5-5.0 CL (test code = 6558325333) 104 mmol/L 98-108 CO2 TOTAL (test code = 5369520850) 26 mmol/L 23-31 AGAP (test code = 0158963199) 2-16 BUN (test code = 8725254514) 10 mg/dL 7-23 GLUCOSE (test code = 5936998622) 93 mg/dL 70-110 CREATININE (test code = 0.70 mg/dL 0.50-1.04 8554517025) TOTAL BILI (test code = 0.4 mg/dL 0.1-1.9 2602027922) CALCIUM (test code = 6581569139) 9.7 mg/dL 8.6-10.6 T PROTEIN (test code = 4080636148) 7.9 g/dL 6.3-8.2 ALBUMIN (test code = 5036145970) 4.4 g/dL 3.5-5.0 ALK PHOS (test code = 8657108385) 68 U/L 34-122 ALTv (test code = 1742-6) 16 U/L 5-35 AST(SGOT) (test code = 1551330158) 26 U/L 13-40 eGFR (test code = 8245309059) mL/min/1.73m2 MYA (test code = MYA) [facility] 09:01:52 Test Item Value Reference Range Interpretation Comments APPEARANCE (test code = Cloudy Clear A 0546226902) COLOR (test code = Red Yellow A 3887601465) PH (test code = 4.8-8.0 3287218180) SP GRAVITY (test code = 1.003-1.030 5132374404) GLU U QUAL (test code = Normal Normal 1321825024) BLOOD (test code = 3+ Negative A 4594599417) KETONES (test code = Negative Negative 8852250788) PROTEIN (test code = 30 mg/dL Negative A 2887-8) UROBILIN (test code = Normal Normal 0575974001) BILIRUBIN (test code = Negative Negative 5893903268) NITRITE (test code = Negative Negative 7534810176) LEUK BREANA (test code = 25/uL Negative A 0019684696) RBC/HPF (test code = >182 See_Comment H [Autom ated message] 3807411160) The system [employer] generated this result transmitted ref erence range: 0 - 3 HP F. The reference range was not used to int erpret this result as normal/abnormal . WBC/HPF (test code = See_Comment H [Autom ated message] 2008115238) The system [employer] generated this result transmitted ref erence range: 0 - 5 HP F. The reference range was not used to int erpret this result as normal/abnormal . BACTERIA (test code = Few Negative A 4208683430) SQ EPITH (test code = HPF 3852000571) Lab Interpretation (test Abnormal code = 05847-5) [facility] 09:01:52 Test Item Value Reference Range Interpretation Comments APPEARANCE (test code = Cloudy Clear A 4151575239) COLOR (test code = Red Yellow A 2573288489) PH (test code = 4.8-8.0 2367916498) SP GRAVITY (test code = 1.003-1.030 2247410613) GLU U QUAL (test code = Normal Normal 3286032082) BLOOD (test code = 3+ Negative A 9735021295) KETONES (test code = Negative Negative 0992266223) PROTEIN (test code = 30 mg/dL Negative A 2887-8) UROBILIN (test code = Normal Normal 6673790259) BILIRUBIN (test code = Negative Negative 3298049187) NITRITE (test code = Negative Negative 5030708999) LEUK BREANA (test code = 25/uL Negative A 6612068690) RBC/HPF (test code = >182 See_Comment H [Autom ated message] 8949831611) The system [employer] generated this result transmitted ref erence range: 0 - 3 HP F. The reference range was not used to int erpret this result as normal/abnormal . WBC/HPF (test code = See_Comment H [Autom ated message] 1098630171) The system [employer] generated this result transmitted ref erence range: 0 - 5 HP F. The reference range was not used to int erpret this result as normal/abnormal . BACTERIA (test code = Few Negative A 2815783184) SQ EPITH (test code = HPF 6080249782) Lab Interpretation (test Abnormal code = 18407-4) [facility] (ID NOW RAPID TESTING)2020-10-06 08:55:22 Test Item Value Reference Range Interpretation Comments SARS-CoV-2 Rapid ID NOW Positive Not Detected A (test code = 63388-2) MYA (test code = MYA) ID NOW COVID-19 Assay is an isothermal nucleic acid amplification test intended for the qualitative detection of nucleic acid from SARS-CoV-2 viral RNA in nasopharyngeal (BAGGAGE AGENT) specimens. It is used under Emergency Use Authorization (EUA) by FDA. The limit of detection (LOD) of the assay is 125 Genome Equivalents/mL. A positive result is indicative of the presence of SARS-CoV-2 RNA. ?Clinical correlation with patient history and other diagnostic information is necessary to determine patient infection status. A negative (Not Detected) result does not preclude SARS-CoV-2 infection. In patients with clinical symptoms and other tests that are consistent with SARS-CoV-2 infection, negative results should be treated as presumptive negative and a new specimen should be tested with alternative PCR molecular test. Invalid: Please collect a new specimen for repeat patient testing if clinically indicated. Lab Interpretation Abnormal (test code = 23414-7) [facility] (ID NOW RAPID TESTING)2020-10-06 08:55:22 Test Item Value Reference Range Interpretation Comments SARS-CoV-2 Rapid ID NOW (test code = Positive Not Detected A 09469-1) MYA (test code = MYA) Lab Interpretation (test code = Abnormal 93658-4) [facility] WITH [id number] 08:46:57 Test Item Value Reference Range Interpretation Comments WBC (test code = See_Comment [Automated 8690-2) message] The sy stem which generated this result transmitted reference range : 4.30 - 11.10 10*3/?L. The reference range was not used to interpret this result as normal/abnormal . RBC (test code = See_Comment [Automated 049-8) message] The sy stem which generated this result transmitted reference range : 3.93 - 5.25 10*6/?L. The reference range was not used to interpret this result as normal/abnormal . HGB (test code = 12.0 g/dL 11.6-15.0 718-7) HCT (test code = 39.3 % 35.7-45.2 4544-3) MCV (test code = 82.9 fL 80.6-95.5 787-2) MCH (test code = 25.3 pg 25.9-32.8 L 785-6) MCHC (test code = 30.5 g/dL 31.6-35.1 L 786-4) RDW-SD (test code = 43.0 fL 39.0-49.9 81920-5) RDW-CV (test code = 14.3 % 12.0-15.5 788-0) PLT (test code = See_Comment [Automated 777-3) message] The sy stem which generated this result transmitted reference range : 166 - 358 10*3/ ?L. The reference r humberto was not used to interpret this result as normal/abnormal . MPV (test code = 10.6 fL 9.5-12.9 07164-0) NRBC/100 WBC (test See_Comment [Automat ed code = 7617737464) message] The system which generated this result transmitted reference range : 0.0 - 10.0 /100 WBCs. The refer ence range was not u sed to interpret th is result as normal/abnormal . NRBC x10^3 (test code <0.01 See_Comment [Auto mated = 2175941449) message] The s ystem which generated this result transmitted reference range : 10*3/?L. The reference range was not used to interpret this result as normal/abnormal . GRAN MAT (NEUT) % 74.3 % (test code = 770-8) IMM GRAN % (test code 0.40 % = 2336125351) LYMPH % (test code = 14.3 % 736-9) MONO % (test code = 9.0 % 5905-5) EOS % (test code = 1.8 % 713-8) BASO % (test code = 0.2 % 706-2) GRAN MAT x10^3(ANC) 4.12 10*3/uL 1.88-7.09 (test code = 4229425369) IMM GRAN x10^3 (test <0.03 0.00-0.06 code = 3253679034) LYMPH x10^3 (test code 0.79 10*3/uL 1.32-3.29 L = 731-0) MONO x10^3 (test code 0.50 10*3/uL 0.33-0.92 = 742-7) EOS x10^3 (test code = 0.10 10*3/uL 0.03-0.39 711-2) BASO x10^3 (test code <0.03 0.01-0.07 = 704-7) Lab Interpretation Abnormal (test code = 58101-4) [facility] WITH [id number] 08:46:57 Test Item Value Reference Range Interpretation Comments WBC (test code = See_Comment [Automated 6690-2) message] The sy stem which generated this result transmitted reference range : 4.30 - 11.10 10*3/?L. The reference range was not used to interpret this result as normal/abnormal . RBC (test code = See_Comment [Automated 789-8) message] The sy stem which generated this result transmitted reference range : 3.93 - 5.25 10*6/?L. The reference range was not used to interpret this result as normal/abnormal . HGB (test code = 12.0 g/dL 11.6-15.0 718-7) HCT (test code = 39.3 % 35.7-45.2 4544-3) MCV (test code = 82.9 fL 80.6-95.5 787-2) MCH (test code = 25.3 pg 25.9-32.8 L 785-6) MCHC (test code = 30.5 g/dL 31.6-35.1 L 786-4) RDW-SD (test code = 43.0 fL 39.0-49.9 10407-7) RDW-CV (test code = 14.3 % 12.0-15.5 788-0) PLT (test code = See_Comment [Automated 777-3) message] The sy stem which generated this result transmitted reference range : 166 - 358 10*3/ ?L. The reference r humberto was not used to interpret this result as normal/abnormal . MPV (test code = 10.6 fL 9.5-12.9 20605-1) NRBC/100 WBC (test See_Comment [Automat ed code = 3374308148) message] The system which generated this result transmitted reference range : 0.0 - 10.0 /100 WBCs. The refer ence range was not u sed to interpret th is result as normal/abnormal . NRBC x10^3 (test code <0.01 See_Comment [Auto mated = 6456216341) message] The s ystem which generated this result transmitted reference range : 10*3/?L. The reference range was not used to interpret this result as normal/abnormal . GRAN MAT (NEUT) % 74.3 % (test code = 770-8) IMM GRAN % (test code 0.40 % = 4908647254) LYMPH % (test code = 14.3 % 736-9) MONO % (test code = 9.0 % 5905-5) EOS % (test code = 1.8 % 713-8) BASO % (test code = 0.2 % 706-2) GRAN MAT x10^3(ANC) 4.12 10*3/uL 1.88-7.09 (test code = 5272910214) IMM GRAN x10^3 (test <0.03 0.00-0.06 code = 8553935592) LYMPH x10^3 (test code 0.79 10*3/uL 1.32-3.29 L = 731-0) MONO x10^3 (test code 0.50 10*3/uL 0.33-0.92 = 742-7) EOS x10^3 (test code = 0.10 10*3/uL 0.03-0.39 711-2) BASO x10^3 (test code <0.03 0.01-0.07 = 704-7) Lab Interpretation Abnormal (test code = 66294-0) [facility] [id number] 08:38:00 Test Item Value Reference Range Interpretation Comments On board controls acceptable with negative C Line (test code = 3574) POCT PREG LOT # (test code = 3575) [id number] POCT PREG TEST DATE (test 2022-02-11 code = 3576) Lab Interpretation (test code = Normal 32348-3) [facility] [id number] 08:38:00 Test Item Value Reference Range Interpretation Comments On board controls acceptable with negative C Line (test code = 3574) POCT PREG LOT # (test code = 3575) [id number] POCT PREG TEST DATE (test 2022-02-11 code = 3576) Lab Interpretation (test code = Normal 85886-9) [facility] Test Item Value Reference Range Interpretation Comments APPEARANCE (test code = Hazy Clear A 8699778504) COLOR (test code = Yellow Yellow 1635015523) PH (test code = 4.8-8.0 6074485112) SP GRAVITY (test code = 1.003-1.030 1991265446) GLU U QUAL (test code = Normal Normal 1191588236) BLOOD (test code = Negative Negative 2271798777) KETONES (test code = Negative Negative 3248094401) PROTEIN (test code = Negative Negative 2887-8) UROBILIN (test code = Normal Normal 9444869535) BILIRUBIN (test code = Negative Negative 0434928501) NITRITE (test code = Negative Negative 8201348082) LEUK BREANA (test code = 75/uL Negative A 9016931383) RBC/HPF (test code = See_Comment [Autom ated message] 2687519539) The system [employer] generated this result transmitted ref erence range: 0 - 3 HP F. The reference range was not used to int erpret this result as normal/abnormal . WBC/HPF (test code = See_Comment [Autom ated message] 5275499557) The system [employer] generated this result transmitted ref erence range: 0 - 5 HP F. The reference range was not used to int erpret this result as normal/abnormal . BACTERIA (test code = Few Negative A 0349066958) MUCOUS (test code = Slight Negative LPF A 6950053324) SQ EPITH (test code = HPF 8554367806) Lab Interpretation (test Abnormal code = 33966-1) [facility] [id number] 22:29:33 Test Item Value Reference Interpretation Comments Range TROPONIN I (test 0.002 ng/mL See_Comment [Automated code = 8730445112) message] The system which generated this result transmitted reference range : <=0.034. The reference range was not used to interpret this result as normal/abnormal . MYA (test code = Reference (Normal) MYA) Range (defined by the 99th percentile reference limit): <= 0.034 ng/mL Note: Cardiac troponin begins to rise 3-4 hours after the onset of ischemia. Repeat in 4-6 hours if the sample was drawn within 3-4 hours of the onset of the symptom and found normal. Diagnosis of myocardial injury is made with acute changes in cTn concentrations with at least one serial sample above the 99th percentile upper reference limit (URL), taken together with the patient's clinical presentation. Biotin has been reported to cause a negative bias, interpret results relative to patient's use of biotin. Lab Interpretation Normal (test code = 96421-5) [facility]. METABOLIC PANEL (92523)2020-10-01 22:18:50 Test Item Value Reference Range Interpretation Comments NA (test code = 140 mmol/L 135-145 8532786716) K (test code = 3.8 mmol/L 3.5-5.0 2282057606) CL (test code = 108 mmol/L 98-108 1969365517) CO2 TOTAL (test code 24 mmol/L 23-31 = 2763815178) AGAP (test code = 2-16 7884843351) BUN (test code = 13 mg/dL 7-23 6096242231) GLUCOSE (test code = 106 mg/dL 70-110 7587213633) CREATININE (test code 0.79 mg/dL 0.50-1.04 = 4825080236) TOTAL BILI (test code 0.3 mg/dL 0.1-1.1 = 6605507635) CALCIUM (test code = 9.2 mg/dL 8.6-10.6 8495364155) T PROTEIN (test code 7.5 g/dL 6.3-8.2 = 8339373638) ALBUMIN (test code = 4.1 g/dL 3.5-5.0 3628113133) ALK PHOS (test code = 75 U/L 34-122 0648047800) ALTv (test code = 10 U/L 5-35 1742-6) AST(SGOT) (test code 17 U/L 13-40 = 0423302055) eGFR (test code = mL/min/1.73m2 9768393312) MYA (test code = MYA) Association of Glomerular Filtration Rate (GFR) and Staging of Kidney Disease* + + +- +| GFR (mL/min/1.73 m2) ?| With Kidney Damage ?| ?Without Kidney Damage+ ------+ ----+ ------+| ?>90 ?| ?Stage one ?| ? Normal ?+ -+ + -+| ?60-89 ?| ?Stage two ?| ? Decreased GFR ? + + +- +| ?30-59 ?| ?Stage three ?| ? Stage three ? + + +- +| ?15-29 ?| ?Stage four ? | ? Stage four ?+ -+ + -+| ?<15 (or dialysis) ? ?| ?Stage five ? | ? Stage five ?+ -+ + -+ *Each stage assumes the associated GFR level has been in effect for at least three months. ?Stages 1 to 5, with or without kidney disease, indicate chronic kidney disease. Notes: Determination of stages one and two (with eGFR >59mL/min/1.73 m2) requires estimation of kidney damage for at least three months as defined by structural or functional abnormalities of the kidney, manifested by either:Pathological abnormalities or Markers of kidney damage (including abnormalities in the composition of the blood or urine or abnormalities in imaging tests). [id number] 22:12:00 Test Item Value Reference Range Interpretation Comments POCT PREG (test code = 1605) negative On board controls acceptable with present C Line (test code = 3574) POCT PREG LOT # (test code = 3575) [id number] POCT PREG TEST DATE (test 02/11/2022 code = 3576) Lab Interpretation (test code = Normal 81245-5) [facility] WITH [id number] 22:06:48 Test Item Value Reference Range Interpretation Comments WBC (test code = See_Comment [Automated 2354-2) message] The sy stem which generated this result transmitted reference range : 4.30 - 11.10 10*3/?L. The reference range was not used to interpret this result as normal/abnormal . RBC (test code = See_Comment [Automated 095-7) message] The sy stem which generated this result transmitted reference range : 3.93 - 5.25 10*6/?L. The reference range was not used to interpret this result as normal/abnormal . HGB (test code = 11.8 g/dL 11.6-15.0 718-7) HCT (test code = 38.7 % 35.7-45.2 4544-3) MCV (test code = 84.1 fL 80.6-95.5 787-2) MCH (test code = 25.7 pg 25.9-32.8 L 785-6) MCHC (test code = 30.5 g/dL 31.6-35.1 L 786-4) RDW-SD (test code = 43.4 fL 39.0-49.9 51304-3) RDW-CV (test code = 14.3 % 12.0-15.5 788-0) PLT (test code = See_Comment [Automated 777-3) message] The sy stem which generated this result transmitted reference range : 166 - 358 10*3/ ?L. The reference r humberto was not used to interpret this result as normal/abnormal . MPV (test code = 10.1 fL 9.5-12.9 45178-7) NRBC/100 WBC (test See_Comment [Automat ed code = 8809170578) message] The system which generated this result transmitted reference range : 0.0 - 10.0 /100 WBCs. The refer ence range was not u sed to interpret th is result as normal/abnormal . NRBC x10^3 (test code <0.01 See_Comment [Auto mated = 9054023671) message] The s ystem which generated this result transmitted reference range : 10*3/?L. The reference range was not used to interpret this result as normal/abnormal . GRAN MAT (NEUT) % 58.4 % (test code = 770-8) IMM GRAN % (test code 0.10 % = 6942055883) LYMPH % (test code = 32.4 % 736-9) MONO % (test code = 4.7 % 5905-5) EOS % (test code = 4.0 % 713-8) BASO % (test code = 0.4 % 706-2) GRAN MAT x10^3(ANC) 3.93 10*3/uL 1.88-7.09 (test code = 4467412752) IMM GRAN x10^3 (test <0.03 0.00-0.06 code = 5550681236) LYMPH x10^3 (test code 2.19 10*3/uL 1.32-3.29 = 731-0) MONO x10^3 (test code 0.32 10*3/uL 0.33-0.92 L = 742-7) EOS x10^3 (test code = 0.27 10*3/uL 0.03-0.39 711-2) BASO x10^3 (test code 0.03 10*3/uL 0.01-0.07 = 704-7) Lab Interpretation Abnormal (test code = 49413-4) [facility]ID [facility]2020-10-01 21:16:03 Test Item Value Reference Range Interpretation Comments SARS-CoV-2 Rapid ID NOW Not Detected Not Detected (test code = 54020-3) MYA (test code = MYA) ID NOW COVID-19 Assay is an isothermal nucleic acid amplification test intended for the qualitative detection of nucleic acid from SARS-CoV-2 viral RNA in nasopharyngeal (BAGGAGE AGENT) specimens. It is used under Emergency Use Authorization (EUA) by FDA. The limit of detection (LOD) of the assay is 125 Genome Equivalents/mL. A positive result is indicative of the presence of SARS-CoV-2 RNA. ?Clinical correlation with patient history and other diagnostic information is necessary to determine patient infection status. A negative (Not Detected) result does not preclude SARS-CoV-2 infection. In patients with clinical symptoms and other tests that are consistent with SARS-CoV-2 infection, negative results should be treated as presumptive negative and a new specimen should be tested with alternative PCR molecular test. Invalid: Please collect a new specimen for repeat patient testing if clinically indicated. Lab Interpretation Normal (test code = 41954-1) [facility] 05:08:39 Test Item Value Reference Range Interpretation Comments APPEARANCE (test code = Hazy Clear A 9768471332) COLOR (test code = Yellow Yellow 7119843126) PH (test code = 4.8-8.0 3335513406) SP GRAVITY (test code = 1.003-1.030 8437393399) GLU U QUAL (test code = Normal Normal 3655431755) BLOOD (test code = Negative Negative 9330913339) KETONES (test code = Negative Negative 0895004038) PROTEIN (test code = Negative Negative 2887-8) UROBILIN (test code = Normal Normal 1610885234) BILIRUBIN (test code = Negative Negative 9740616621) NITRITE (test code = Negative Negative 5208126106) LEUK BREANA (test code = 75/uL Negative A 2566381328) RBC/HPF (test code = See_Comment [Autom ated message] 3951155911) The system [employer] generated this result transmitted ref erence range: 0 - 3 HP F. The reference range was not used to int erpret this result as normal/abnormal . WBC/HPF (test code = See_Comment [Autom ated message] 0951856047) The system [employer] generated this result transmitted ref erence range: 0 - 5 HP F. The reference range was not used to int erpret this result as normal/abnormal . BACTERIA (test code = Few Negative A 0744566465) MUCOUS (test code = Slight Negative LPF A 6467417766) SQ EPITH (test code = HPF 2850861101) Lab Interpretation (test Abnormal code = 58878-5) [facility] [id number] 04:47:52 1. ?Fat-containing periumbilical hernia. There is mild associated hazy fatstranding as well as a small amount of fluid within the hernia sac. Thiscould be due to associated inflammation or vascularcongestion/strangulation. Correlate clinically and with focused physicalexam.2. No bowel obstruction, appendicitis, free air, or focal loculatedintraperitoneal fluid collections. RL: 135 END OF REPORT ORDERING PHYSICIAN:ARSEN MOHAN CLINICAL INFORMATION: ? Abdominal abscess/infection suspected Nausea/vomiting COMPARISON: None Technique: ? CT of the abdomen and pelvis was performed after theadministration of IV contrast. No p.o. contrast was used. Multiplanarreformats were also obtained. This study was performed according to ALARAprinciple for radiation dose reduction. Findings: There is no evidence of obstructive uropathy. No suspicious renalparenchymal abnormalities are seen. Liver, gallbladder, spleen, adrenalglands, and pancreas show no evidence of gross abnormalities. There is nobowel obstruction. There is no appendicitis. Fat-containing periumbilicalhernia is seen. There is very mild fat stranding as well as a small amountof fluid seen within the hernia sac. No free air is seen. No focalloculated intraperitoneal fluid collections are seen. There is somescarring seen in the right middle lobe and lingula. No suspicious foca losseous lesions are present. [facility], Radiant Results Inft User - 09/02/2020 11:49 PM CDT ORDERING PHYSICIAN:ARSEN LANDON CLINICAL INFORMATION: Abdominal abscess/infection suspected Nausea/vomiting COMPARISON: NoneTechnique: CT of theabdomen and pelvis was performed after theadministration of IV contrast. No p.o. contrast was used. Multiplanarreformats were also obtained. This study was performed according to ALARAprinciple for radiation dose reduction.Findings:There is no evidence of obstructive uropathy. No suspicious renalparenchymal abnormalities are seen. Liver, gallbladder, spleen, adrenalglands, and pancreas show no evidence of gross abnormalities. There is nobowel obstruction. There is no appendicitis. Fat-containing chinyere umbilicalhernia is seen. There is very mild fat stranding as well as a small amountof fluid seen within the hernia sac. No free air is seen. No focalloculated intraperitoneal fluid collections are seen. There is somescarring seen in the right middle lobe and lingula. No suspicious focalosseous lesionsare present.IMPRESSION1. Fat-containing periumbilical hernia. There is mild associated hazy fatstranding as well as a small amount of fluid within the hernia sac. Thiscould be due to associated inflammation or vascularcongestion/strangulation. Correlate clinically and with focused physicalexam.2. No bowel obstruction, appendicitis, free air, or focal loculatedintraperitoneal fluid collections.RL: 135END OF [facility]PORT [facility]2020-09-03 04:42:16 Test Item Value Reference Range Interpretation Comments SARS-CoV-2 Rapid ID NOW Not Detected Not Detected (test code = 53527-2) MYA (test code = MYA) ID NOW COVID-19 Assay is an isothermal nucleic acid amplification test intended for the qualitative detection of nucleic acid from SARS-CoV-2 viral RNA in nasopharyngeal (B[employer] AGENT) specimens. It is used under Emergency Use Authorization (EUA) by FDA. The limit of detection (LOD) of the assay is 125 Genome Equivalents/mL. A positive result is indicative of the presence of SARS-CoV-2 RNA. ?Clinical correlation with patient history and other diagnostic information is necessary to determine patient infection status. A negative (Not Detected) result does not preclude SARS-CoV-2 infection. In patients with clinical symptoms and other tests that are consistent with SARS-CoV-2 infection, negative results should be treated as presumptive negative and a new specimen should be tested with alternative PCR molecular test. Invalid: Please collect a new specimen for repeat patient testing if clinically indicated. Lab Interpretation Normal (test code = 54863-4) [facility]21841[facility] (ALB,T.PRO,BILI T,BU/BC,ALT,AST,ALK PHOS)2020-09-03 04:35:39 Test Item Value Reference Range Interpretation Comments TOTAL BILI (test code = 2413659627) 0.5 mg/dL 0.1-1.1 BILI UNCON (test code = 2714783987) 0.1 mg/dL 0.1-1.1 BILI CONJ (test code = 8145844218) 0.0 mg/dL 0.0-0.3 T PROTEIN (test code = 5600173961) 8.2 g/dL 6.3-8.2 ALBUMIN (test code = 9816323841) 4.4 g/dL 3.5-5.0 ALK PHOS (test code = 1521245588) 65 U/L 34-122 ALTv (test code = 1742-6) 11 U/L 5-35 AST(SGOT) (test code = 6981805764) 28 U/L 13-40 Lab Interpretation (test code = Normal 71336-3) [facility]OLIC PAN[facility] (56024)2020-09-03 04:35:38 Test Item Value Reference Range Interpretation Comments NA (test code = 139 mmol/L 135-145 7832304549) K (test code = 4.6 mmol/L 3.5-5.0 4849985101) CL (test code = 108 mmol/L 98-108 6485484158) CO2 TOTAL (test code 23 mmol/L 23-31 = 3579807322) AGAP (test code = 2-16 9460717544) BUN (test code = 15 mg/dL 7-23 9317341882) GLUCOSE (test code = 93 mg/dL 70-110 2266479731) CREATININE (test code 0.65 mg/dL 0.50-1.04 = 0395587010) TOTAL BILI (test code 0.5 mg/dL 0.1-1.1 = 1287440344) CALCIUM (test code = 9.2 mg/dL 8.6-10.6 3642675637) T PROTEIN (test code 8.2 g/dL 6.3-8.2 = 6200737793) ALBUMIN (test code = 4.4 g/dL 3.5-5.0 1630871300) ALK PHOS (test code = 65 U/L 34-122 8814049016) ALTv (test code = 11 U/L 5-35 2-6) AST(SGOT) (test code 28 U/L 13-40 = 9260434806) eGFR (test code = mL/min/1.73m2 7160945588) MYA (test code = MYA) Association of Glomerular Filtration Rate (GFR) and Staging of Kidney Disease* + + +- +| GFR (mL/min/1.73 m2) ?| With Kidney Damage ?| ?Without Kidney Damage+ ------+ ----+ ------+| ?>90 ?| ?Stage one ?| ? Normal ?+ -+ + -+| ?60-89 ?| ?Stage two ?| ? Decreased GFR ? + + +- +| ?30-59 ?| ?Stage three ?| ? Stage three ? + + +- +| ?15-29 ?| ?Stage four ? | ? Stage four ?+ -+ + -+| ?<15 (or dialysis) ? ?| ?Stage five ? | ? Stage five ?+ -+ + -+ *Each stage assumes the associated GFR level has been in effect for at least three months. ?Stages 1 to 5, with or without kidney disease, indicate chronic kidney disease. Notes: Determination of stages one and two (with eGFR >59mL/min/1.73 m2) requires estimation of kidney damage for at least three months as defined by structural or functional abnormalities of the kidney, manifested by either:Pathological abnormalities or Markers of kidney damage (including abnormalities in the composition of the blood or urine or abnormalities in imaging tests). [facility] 04:35:18 Test Item Value Reference Range Interpretation Comments LIPASE (test code = 2750195652) 258 U/L 0-220 H Lab Interpretation (test code = Abnormal 19485-6) [facility] WITH [id number] 04:16:56 Test Item Value Reference Range Interpretation Comments WBC (test code = See_Comment [Automated 7890-2) message] The sy stem which generated this result transmitted reference range : 4.30 - 11.10 10*3/?L. The reference range was not used to interpret this result as normal/abnormal . RBC (test code = See_Comment [Automated 449-8) message] The sy stem which generated this result transmitted reference range : 3.93 - 5.25 10*6/?L. The reference range was not used to interpret this result as normal/abnormal . HGB (test code = 12.0 g/dL 11.6-15.0 718-7) HCT (test code = 39.8 % 35.7-45.2 4544-3) MCV (test code = 84.9 fL 80.6-95.5 787-2) MCH (test code = 25.6 pg 25.9-32.8 L 785-6) MCHC (test code = 30.2 g/dL 31.6-35.1 L 786-4) RDW-SD (test code = 42.0 fL 39.0-49.9 30618-9) RDW-CV (test code = 13.6 % 12.0-15.5 788-0) PLT (test code = See_Comment [Automated 777-3) message] The sy stem which generated this result transmitted reference range : 166 - 358 10*3/ ?L. The reference r humberto was not used to interpret this result as normal/abnormal . MPV (test code = 9.9 fL 9.5-12.9 37201-5) NRBC/100 WBC (test See_Comment [Automat ed code = 5756423051) message] The system which generated this result transmitted reference range : 0.0 - 10.0 /100 WBCs. The refer ence range was not u sed to interpret th is result as normal/abnormal . NRBC x10^3 (test code <0.01 See_Comment [Auto mated = 1911782494) message] The s ystem which generated this result transmitted reference range : 10*3/?L. The reference range was not used to interpret this result as normal/abnormal . GRAN MAT (NEUT) % 56.0 % (test code = 770-8) IMM GRAN % (test code 0.30 % = 5730437239) LYMPH % (test code = 33.1 % 736-9) MONO % (test code = 5.7 % 5905-5) EOS % (test code = 4.5 % 713-8) BASO % (test code = 0.4 % 706-2) GRAN MAT x10^3(ANC) 5.22 10*3/uL 1.88-7.09 (test code = 4093255248) IMM GRAN x10^3 (test 0.03 10*3/uL 0.00-0.06 code = 6199801891) LYMPH x10^3 (test code 3.09 10*3/uL 1.32-3.29 = 731-0) MONO x10^3 (test code 0.53 10*3/uL 0.33-0.92 = 742-7) EOS x10^3 (test code = 0.42 10*3/uL 0.03-0.39 H 711-2) BASO x10^3 (test code 0.04 10*3/uL 0.01-0.07 = 704-7) Lab Interpretation Abnormal (test code = 59802-8) [facility] [id number] 03:51:00 Test Item Value Reference Range Interpretation Comments POCT PREG (test code = 1605) negative On board controls acceptable with present C Line (test code = 3574) POCT PREG LOT # (test code = 3575) [id number] POCT PREG TEST DATE (test 02/11/2022 code = 3576) Lab Interpretation (test code = Normal 50661-8) [facility] (ALB, T.PRO, BILI T, BU/BC, ALT, AST, ALK PHOS)2020-06-27 22:04:30 Test Item Value Reference Range Interpretation Comments TOTAL BILI (test code = 0439065076) 0.3 mg/dL 0.1-1.1 BILI UNCON (test code = 0501517884) 0.2 mg/dL 0.1-1.1 BILI CONJ (test code = 2900524678) 0.0 mg/dL 0.0-0.3 T PROTEIN (test code = 1992060618) 6.4 g/dL 6.3-8.2 ALBUMIN (test code = 5180408956) 3.8 g/dL 3.5-5.0 ALK PHOS (test code = 5117863099) 75 U/L 34-122 ALTv (test code = 1742-6) 9 U/L 5-35 AST(SGOT) (test code = 4452870182) 29 U/L 13-40 Lab Interpretation (test code = Normal 53790-5) [facility] (NA, K, CL, CO2, GLUCOSE, BUN, CREATININE, CA)2020-06-27 21:50:49 Test Item Value Reference Range Interpretation Comments NA (test code = 139 mmol/L 135-145 0732636073) K (test code = 4.0 mmol/L 3.5-5.0 9649012432) CL (test code = 108 mmol/L 98-108 0682086105) CO2 TOTAL (test code 25 mmol/L 23-31 = 7906179368) AGAP (test code = 2-16 0809025141) BUN (test code = 12 mg/dL 7-23 0848719054) GLUCOSE (test code = 84 mg/dL 70-110 6218163879) CREATININE (test code 0.72 mg/dL 0.50-1.04 = 6274411453) CALCIUM (test code = 9.0 mg/dL 8.6-10.6 3040642388) eGFR (test code = mL/min/1.73m2 2640966571) MYA (test code = MYA) Association of Glomerular Filtration Rate (GFR) and Staging of Kidney Disease* + + +- +| GFR (mL/min/1.73 m2) ?| With Kidney Damage ?| ?Without Kidney Damage+ ------+ ----+ ------+| ?>90 ?| ?Stage one ?| ? Normal ?+ -+ + -+| ?60-89 ?| ?Stage two ?| ? Decreased GFR ? + + +- +| ?30-59 ?| ?Stage three ?| ? Stage three ? + + +- +| ?15-29 ?| ?Stage four ? | ? Stage four ?+ -+ + -+| ?<15 (or dialysis) ? ?| ?Stage five ? | ? Stage five ?+ -+ + -+ *Each stage assumes the associated GFR level has been in effect for at least three months. ?Stages 1 to 5, with or without kidney disease, indicate chronic kidney disease. Notes: Determination of stages one and two (with eGFR >59mL/min/1.73 m2) requires estimation of kidney damage for at least three months as defined by structural or functional abnormalities of the kidney, manifested by either:Pathological abnormalities or Markers of kidney damage (including abnormalities in the composition of the blood or urine or abnormalities in imaging tests). [facility] LurxhhSlwrrtcesq1124-15-36 21:19:32 Test Item Value Reference Range Interpretation Comments APPEARANCE (test code = Hazy Clear A 0447925325) COLOR (test code = Yellow Yellow 4748135759) PH (test code = 4.8-8.0 0654115524) SP GRAVITY (test code = 1.003-1.030 2572787917) GLU U QUAL (test code = Normal Normal 8040164967) BLOOD (test code = Negative Negative 1156591684) KETONES (test code = Negative Negative 0992514255) PROTEIN (test code = Negative Negative 2887-8) UROBILIN (test code = Normal Normal 4343788854) BILIRUBIN (test code = Negative Negative 5846869519) NITRITE (test code = Negative Negative 7791223649) LEUK BREANA (test code = 250/uL Negative A 6025173044) RBC/HPF (test code = See_Comment [Autom ated message] 2014418922) The system [employer] generated this result transmitted ref erence range: 0 - 3 HP F. The reference range was not used to int erpret this result as normal/abnormal . WBC/HPF (test code = See_Comment H [Autom ated message] 2983873478) The system [employer]twick h generated this result transmitted ref erence range: 0 - 5 HP F. The reference range was not used to int erpret this result as normal/abnormal . BACTERIA (test code = Few Negative A 1445019212) MUCOUS (test code = Slight Negative LPF A 4980166219) SQ EPITH (test code = HPF 5522555745) Lab Interpretation (test Abnormal code = 81090-0) [facility] with [id number] 21:00:28 Test Item Value Reference Range Interpretation Comments WBC (test code = See_Comment [Automated 6690-2) message] The sy stem which generated this result transmitted reference range : 4.30 - 11.10 10*3/?L. The reference range was not used to interpret this result as normal/abnormal . RBC (test code = See_Comment [Automated 789-8) message] The sy stem which generated this result transmitted reference range : 3.93 - 5.25 10*6/?L. The reference range was not used to interpret this result as normal/abnormal . HGB (test code = 11.9 g/dL 11.6-15.0 718-7) HCT (test code = 38.7 % 35.7-45.2 4544-3) MCV (test code = 87.8 fL 80.6-95.5 787-2) MCH (test code = 27.0 pg 25.9-32.8 785-6) MCHC (test code = 30.7 g/dL 31.6-35.1 L 786-4) RDW-SD (test code = 45.0 fL 39.0-49.9 31403-0) RDW-CV (test code = 13.9 % 12.0-15.5 788-0) PLT (test code = See_Comment [Automated 777-3) message] The sy stem which generated this result transmitted reference range : 166 - 358 10*3/ ?L. The reference r humberto was not used to interpret this result as normal/abnormal . MPV (test code = 9.8 fL 9.5-12.9 95291-4) NRBC/100 WBC (test See_Comment [Automat ed code = 1526528918) message] The system which generated this result transmitted reference range : 0.0 - 10.0 /100 WBCs. The refer ence range was not u sed to interpret th is result as normal/abnormal . NRBC x10^3 (test code <0.01 See_Comment [Auto mated = 0835045927) message] The s ystem which generated this result transmitted reference range : 10*3/?L. The reference range was not used to interpret this result as normal/abnormal . GRAN MAT (NEUT) % 55.4 % (test code = 770-8) IMM GRAN % (test code 0.30 % = 9352706976) LYMPH % (test code = 32.9 % 736-9) MONO % (test code = 5.2 % 5905-5) EOS % (test code = 5.6 % 713-8) BASO % (test code = 0.6 % 706-2) GRAN MAT x10^3(ANC) 3.99 10*3/uL 1.88-7.09 (test code = 7829911825) IMM GRAN x10^3 (test <0.03 0.00-0.06 code = 4005476059) LYMPH x10^3 (test code 2.36 10*3/uL 1.32-3.29 = 731-0) MONO x10^3 (test code 0.37 10*3/uL 0.33-0.92 = 742-7) EOS x10^3 (test code = 0.40 10*3/uL 0.03-0.39 H 711-2) BASO x10^3 (test code 0.04 10*3/uL 0.01-0.07 = 704-7) Lab Interpretation Abnormal (test code = 41241-9) [facility] [id number] 20:42:00 Test Item Value Reference Range Interpretation Comments POCT PREG (test code = 1605) negative On board controls acceptable with C present Line (test code = 3574) Lab Interpretation (test code = Normal 75437-2) [facility] with Owbdzfidvdkh4913-34-92 14:03:00 Test Item Value Reference Range Interpretation Comments WBC (test code = See_Comment [Automated 6690-2) message] The sy stem which generated this result transmitted reference range : 4.30 - 11.10 10*3/?L. The reference range was not used to interpret this result as normal/abnormal . RBC (test code = See_Comment L [Automated 789-8) message] The sy stem which generated this result transmitted reference range : 3.93 - 5.25 10*6/?L. The reference range was not used to interpret this result as normal/abnormal . HGB (test code = 10.3 g/dL 11.6-15 L 718-7) HCT (test code = 31.7 % 35.7-45.2 L 4544-3) MCV (test code = 89.3 fL 80.6-95.5 787-2) MCH (test code = 29.0 pg 25.9-32.8 785-6) MCHC (test code = 32.5 g/dL 31.6-35.1 786-4) RDW-SD (test code = 42.4 fL 39-49.9 19551-4) RDW-CV (test code = 13.0 % 12-15.5 788-0) PLT (test code = See_Comment [Automated 777-3) message] The sy stem which generated this result transmitted reference range : 166 - 358 10*3/ ?L. The reference r humbetro was not used to interpret this result as normal/abnormal . MPV (test code = 10.5 fL 9.5-12.9 78226-2) NRBC/100 WBC (test See_Comment [Automat ed code = 8125219520) message] The system which generated this result transmitted reference range : 0.0 - 10.0 /100 WBCs. The refer ence range was not u sed to interpret th is result as normal/abnormal . NRBC x10^3 (test code <0.01 See_Comment [Auto mated = 9485586325) message] The s ystem which generated this result transmitted reference range : 10*3/?L. The reference range was not used to interpret this result as normal/abnormal . GRAN MAT (NEUT) % 76.7 % (test code = 770-8) IMM GRAN % (test code 0.20 % = 3057941460) LYMPH % (test code = 15.7 % 736-9) MONO % (test code = 4.9 % 5905-5) EOS % (test code = 2.3 % 713-8) BASO % (test code = 0.2 % 706-2) GRAN MAT x10^3(ANC) 6.55 10*3/uL 1.88-7.09 (test code = 6139942225) IMM GRAN x10^3 (test <0.03 0-0.06 code = 9947618229) LYMPH x10^3 (test code 1.34 10*3/uL 1.32-3.29 = 731-0) MONO x10^3 (test code 0.42 10*3/uL 0.33-0.92 = 742-7) EOS x10^3 (test code = 0.20 10*3/uL 0.03-0.39 711-2) BASO x10^3 (test code <0.03 0.01-0.07 = 704-7) Lab Interpretation Abnormal (test code = 92713-7) [facility] OR BRITANY ONLY - [id number] 10:44:00 Test Item Value Reference Range Interpretation Comments RPR (Qualitative) (test code = Nonreactive Nonreactive 17580-2) Lab Interpretation (test code = Normal 39498-6) [facility]D) IMMUNE [id number] 19:11:08 Test Item Value Reference Range Interpretation Comments RHIG CANDIDATE? No- see comment Patient i s not a (test code = candidate for R hIg- 5055) Patient is Rh Positive.Perfor med at [facility] Laboratory Services - [facility] Blood [address] [place] [address]Xjvz Free: [phone] A No. [id number] [facility] HospitalHepatitis B Surface [id number] 17:19:00 Test Item Value Reference Range Interpretation Comments HBsAg Semi-Quantitative (test code = Negative Negative 5195-3) [facility] HospitalVenous Cord [id number] 15:09:00 Test Item Value Reference Range Interpretation Comments VENOUS BASE EXCESS, mEq/L CORD (test code = 6348779620) VENOUS PH, CORD (test 7.25-7.45 code = 4780442740) VENOUS PC02, CORD See_Comment [Automate d message] The (test code = system which ge nerated 7842823608) this result tra nsmitted reference range : 27 - 49 mmHg. The refer ence range was not used to interpret this result as normal/abnormal . VENOUS PO2, CORD (test See_Comment [Aut omated message] The code = 1754598799) system [employer] [facility] generated this result tra nsmitted reference range : 17 - 41 mmHg. The refer ence range was not used to interpret this result as normal/abnormal . VENOUS BICARBONATE, See_Comment [Automa wilfredo message] The CORD (test code = system whi ch generated 4632526035) this result tra nsmitted reference range : 12 - 29 mEq/L. The refe rence range was not used to interpret this result as normal/abnormal . [facility] HospitalArterial Cord [id number] 15:05:00 Test Item Value Reference Range Interpretation Comments BASE EXCESS, CORD (test mEq/L code = 4102967223) AC PH, CORD (BEAKER) 7.18-7.38 (test code = 4727113304) PC02, CORD (test code = See_Comment [Au tomated message] 7904386177) The system [employer]twick h generated this result transmitted ref erence range: 32 - 66 mmHg. The reference r humberto was not used to interpret this result as normal/abnor mal. PO2, CORD (test code = See_Comment H [Aut omated message] 3825301101) The system [employer]tw[employer] h generated this result transmitted ref erence range: 10 - 30 mmHg. The reference r humberto was not used to interpret this result as normal/abnor mal. BICARBONATE, CORD (test See_Comment [Au tomated message] code = 4133031293) The syste m which generated this result transmitted ref erence range: 17 - 27 mEq/L. The reference r humberto was not used to interpret this result as normal/abnor mal. Lab Interpretation (test Abnormal code = 89825-2) [facility] HospitalHIV 1/2 AG-AB WITH [id number] 15:00:00 Test Item Value Reference Range Interpretation Comments HIV Negative Negative Semi-quantitative (test code = 47923-9) MYA (test code = Non-reactive for HIV-1 MYA) antigen and HIV-1/HIV-2 antibodies. ?No laboratory evidence of HIV infection. ?Repeat in 2-4 weeks if acute HIV infection is suspected. [facility] HospitalCOVID[facility] (ID NOW RAPID TESTING)2020-04-05 14:18:00 Test Item Value Reference Range Interpretation Comments SARS-CoV-2 Rapid ID NOW Not Detected Not Detected (test code = 94364-3) MYA (test code = MYA) ID NOW COVID-19 Assay is an isothermal nucleic acid amplification test intended for the qualitative detection of nucleic acid from SARS-CoV-2 viral RNA in nasopharyngeal (BAGGAGE AGENT) specimens. It is used under Emergency Use Authorization (EUA) by FDA. The limit of detection (LOD) of the assay is 125 Genome Equivalents/mL. A positive result is indicative of the presence of SARS-CoV-2 RNA. ?Clinical correlation with patient history and other diagnostic information is necessary to determine patient infection status. A negative (Not Detected) result does not preclude SARS-CoV-2 infection. In patients with clinical symptoms and other tests that are consistent with SARS-CoV-2 infection, negative results should be treated as presumptive negative and a new specimen should be tested with alternative PCR molecular test. Invalid: Please collect a new specimen for repeat patient testing if clinically indicated. Lab Interpretation Normal (test code = 52782-9) [facility] HospitalType and Screen - ONCE [id number] 14:01:23 Test Item Value Reference Range Interpretation Comments ABO & RH (test code O Positive Performe d at [facility] = 20) Laboratory Serv [facility] [place], [place] [phone] Free: [phone] A No. [id number] IAT (test code = Negative Performed a t [facility] 1185) Laboratory Serv [facility] [address] [place], [place] [phone] Free: [phone] A No. [id number] [facility] with Zqqxztrfglxk4292-95-74 13:00:00 Test Item Value Reference Range Interpretation Comments WBC (test code = See_Comment [Automated 6690-2) message] The sy stem which generated this result transmitted reference range : 4.30 - 11.10 10*3/?L. The reference range was not used to interpret this result as normal/abnormal . RBC (test code = See_Comment L [Automated 789-8) message] The sy stem which generated this result transmitted reference range : 3.93 - 5.25 10*6/?L. The reference range was not used to interpret this result as normal/abnormal . HGB (test code = 10.7 g/dL 11.6-15 L 718-7) HCT (test code = 33.9 % 35.7-45.2 L 4544-3) MCV (test code = 89.2 fL 80.6-95.5 787-2) MCH (test code = 28.2 pg 25.9-32.8 785-6) MCHC (test code = 31.6 g/dL 31.6-35.1 786-4) RDW-SD (test code = 42.5 fL 39-49.9 76633-8) RDW-CV (test code = 12.9 % 12-15.5 788-0) PLT (test code = See_Comment [Automated 777-3) message] The sy stem which generated this result transmitted reference range : 166 - 358 10*3/ ?L. The reference r humberto was not used to interpret this result as normal/abnormal . MPV (test code = 10.2 fL 9.5-12.9 16984-8) NRBC/100 WBC (test See_Comment [Automat ed code = 2073391451) message] The system which generated this result transmitted reference range : 0.0 - 10.0 /100 WBCs. The refer ence range was not u sed to interpret th is result as normal/abnormal . NRBC x10^3 (test code <0.01 See_Comment [Auto mated = 3288715108) message] The s ystem which generated this result transmitted reference range : 10*3/?L. The reference range was not used to interpret this result as normal/abnormal . GRAN MAT (NEUT) % 55.8 % (test code = 770-8) IMM GRAN % (test code 0.30 % = 0103047578) LYMPH % (test code = 34.9 % 736-9) MONO % (test code = 7.1 % 5905-5) EOS % (test code = 1.6 % 713-8) BASO % (test code = 0.3 % 706-2) GRAN MAT x10^3(ANC) 3.60 10*3/uL 1.88-7.09 (test code = 2127035189) IMM GRAN x10^3 (test <0.03 0-0.06 code = 0915451754) LYMPH x10^3 (test code 2.25 10*3/uL 1.32-3.29 = 731-0) MONO x10^3 (test code 0.46 10*3/uL 0.33-0.92 = 742-7) EOS x10^3 (test code = 0.10 10*3/uL 0.03-0.39 711-2) BASO x10^3 (test code <0.03 0.01-0.07 = 704-7) Lab Interpretation Abnormal (test code = 45437-6) [facility] HospitalC[facility] (ID NOW RAPID TESTING)2020-03-29 00:09:00 Test Item Value Reference Range Interpretation Comments SARS-CoV-2 Rapid ID NOW Not Detected Not Detected (test code = 30820-0) MYA (test code = MYA) ID NOW COVID-19 Assay is an isothermal nucleic acid amplification test intended for the qualitative detection of nucleic acid from SARS-CoV-2 viral RNA in nasopharyngeal (BAGGAGE AGENT) specimens. It is used under Emergency Use Authorization (EUA) by FDA. The limit of detection (LOD) of the assay is 125 Genome Equivalents/mL. A positive result is indicative of the presence of SARS-CoV-2 RNA. ?Clinical correlation with patient history and other diagnostic information is necessary to determine patient infection status. A negative (Not Detected) result does not preclude SARS-CoV-2 infection. In patients with clinical symptoms and other tests that are consistent with SARS-CoV-2 infection, negative results should be treated as presumptive negative and a new specimen should be tested with alternative PCR molecular test. Invalid: Please collect a new specimen for repeat patient testing if clinically indicated. Lab Interpretation Normal (test code = 79839-4) [facility] HospitalFETAL NON-STRESS [id number] 22:05:01 Reactive and reassuringToco irritability with one contraction Adry Santamaria MD ?03/24/2020 ?4:04 PMUnTexoma [facility] CenterFEST[facility] 2020-03-24 22:05:01Reactive and reassuringToco irritability with one contraction Adry Santamaria MD ?03/24/2020 ?4:04 PMUnTexoma Medical CenterCOVID-19 (ID NOW RAPID TESTING)2020-03-20 04:53:00 Test Item Value Reference Range Interpretation Comments SARS-CoV-2 Rapid ID NOW Not Detected Not Detected (test code = 02964-9) MYA (test code = MYA) ID NOW COVID-19 Assay is an isothermal nucleic acid amplification test intended for the qualitative detection of nucleic acid from SARS-CoV-2 viral RNA in nasopharyngeal (BAGGAGE AGENT) specimens. It is used under Emergency Use Authorization (EUA) by FDA. The limit of detection (LOD) of the assay is 125 Genome Equivalents/mL. A positive result is indicative of the presence of SARS-CoV-2 RNA. ?Clinical correlation with patient history and other diagnostic information is necessary to determine patient infection status. A negative (Not Detected) result does not preclude SARS-CoV-2 infection. In patients with clinical symptoms and other tests that are consistent with SARS-CoV-2 infection, negative results should be treated as presumptive negative and a new specimen should be tested with alternative PCR molecular test. Invalid: Please collect a new specimen for repeat patient testing if clinically indicated. Lab Interpretation Normal (test code = 45575-5) [facility] NON-STRESS [id number] 23:40:22 Reactive and reassuring NSTUnTexoma Medical Center>14 WEEKS US [id number] 23:39:39Cephalic presentationUnTexoma Medical CenterPOCT URINALYSIS W/O SPECIFIC [id number] 21:48:00 Test Item Value Reference Range Interpretation Comments POCT PH U (test code = 3254) n/a 5-8 POCT U LEUK EST (test code = 3263) n/a Negative - Negative POCT U NIT (test code = 3262) n/a Negative - Negative POCT U PROT (test code = 3259) trace Negative - Negative POCT U GLU (test code = 3256) neg Negative - Negative POCT U KETONE (test code = 3258) n/a Negative - Negative POCT U BLD (test code = 3257) n/a Negative - Negative [facility] SPECIFIC [id number] 17:50:00 Test Item Value Reference Range Interpretation Comments POCT PH U (test code = 3254) n/a 5-8 POCT U LEUK EST (test code = 3263) n/a Negative - Negative POCT U NIT (test code = 3262) n/a Negative - Negative POCT U PROT (test code = 3259) trace Negative - Negative POCT U GLU (test code = 3256) n/a Negative - Negative POCT U KETONE (test code = 3258) neg Negative - Negative POCT U BLD (test code = 3257) neg Negative - Negative [facility] URINALYSIS W/O SPECIFIC [id number] 20:35:00 Test Item Value Reference Range Interpretation Comments POCT PH U (test code = 3254) 8 mg/dl 5-8 POCT U LEUK EST (test code = trace Negative - Negative 3263) POCT U NIT (test code = 3262) neg Negative - Negative POCT U PROT (test code = 3259) neg Negative - Negative POCT U GLU (test code = 3256) neg Negative - Negative POCT U KETONE (test code = 3258) neg Negative - Negative POCT U BLD (test code = 3257) neg Negative - Negative [facility] SPECIFIC [id number] 19:51:00 Test Item Value Reference Range Interpretation Comments POCT PH U (test code = 3254) 6 mg/dl 5-8 POCT U LEUK EST (test code = ++ Negative - Negative 3263) POCT U NIT (test code = 3262) neg Negative - Negative POCT U PROT (test code = 3259) trace Negative - Negative POCT U GLU (test code = 3256) neg Negative - Negative POCT U KETONE (test code = 3258) neg Negative - Negative POCT U BLD (test code = 3257) neg Negative - Negative [facility] HospitalPOCT [facility]IN[facility] W/O SPECIFIC [id number] 19:51:00 Test Item Value Reference Range Interpretation Comments POCT PH U (test code = 3254) 6 mg/dl 5-8 POCT U LEUK EST (test code = ++ Negative - Negative 3263) POCT U NIT (test code = 3262) neg Negative - Negative POCT U PROT (test code = 3259) trace Negative - Negative POCT U GLU (test code = 3256) neg Negative - Negative POCT U KETONE (test code = 3258) neg Negative - Negative POCT U BLD (test code = 3257) neg Negative - Negative [facility] / [facility] - DRUG SCREEN [id number] 03:02:00 Test Item Value Reference Range Interpretation Comments BENZO U (test code = Negative Negative 9616352773) ALEXANDRA U (test code = Negative Negative 7442556294) AMPHET (test code = Negative Negative 0818734021) THC (test code = Negative Negative 1518228799) METHADONE (test code = Negative Negative 4215867404) Meth U (test code = Negative Negative 1578450047) OPIATES (test code = Negative Negative 4218197443) Cocaine Metabolite (test Negative Negative code = 3132059539) PROPOXY (test code = Negative Negative 1427117751) Tric U (test code = Negative Negative 0237637386) PCP (test code = Negative Negative 7076357145) OXYCOD (test code = Negative Negative 9651858287) MYA (test code = MYA) Urine Drug Cutoff Ranges Benzodiazepines: ? ? 150 ng/mLBarbiturates: ?200 ng/mLAmphetamine: ? 500 ng/mLCannabinoids: ?50 ?ng/mLMethadone: ? 200 ng/mLMethamphetamine: ? ? 500 ng/mL Opiates: ? 100 ng/mL or 2000 ng/mLCocaine: ? 150 ng/mLPropoxyphene: ?300 ng/mLTricyclics: ?300 ng/mLOxycodone: ? 100 ng/mLPCP: ? 25 ?ng/mL The results are to be used only for medical (i.e., treatment) purposes. Unconfirmed screening results must not be used for non-medical purposes (e.g., employment testing, legal testing). Lab Interpretation (test Normal code = 33339-2) [facility] HospitalPOMT URINALYSIS W/O SPECIFIC [id number] 21:36:00 Test Item Value Reference Range Interpretation Comments POCT PH U (test code = 3254) 7 mg/dl 5-8 POCT U LEUK EST (test code = 2+ Negative - Negative 3263) POCT U NIT (test code = 3262) Negative Negative - Negative POCT U PROT (test code = 3259) Trace Negative - Negative POCT U GLU (test code = 3256) Negative Negative - Negative POCT U KETONE (test code = 3258) Negative Negative - Negative POCT U BLD (test code = 3257) Trace Negative - Negative [facility] HospitalTROPONIN [id number] 04:58:00 Test Item Value Reference Range Interpretation Comments TROPONIN I (test 0.002 ng/mL See_Comment [Automated code = 5747291262) message] The system which generated this result transmitted reference range : <=0.034. The reference range was not used to interpret this result as normal/abnormal . MYA (test code = Equal or Less than MYA) 0.034 ng/ml---Normal ?Note: Cardiac troponin begins to rise 3-4 hours after the onset of ischemia. Repeat in 4-6 hours if the sample was drawn within 3-4 hours of the onset of the symptom and found normal. Between 0.035 and 0.120 ng/mL--- Borderline. Questionable myocardial injury or necrosis ? ?Note: Serial measurement may be necessary to confirm or exclude the diagnosis of myocardial injury or necrosis; Clinical correlation (symptoms, EKGs, imaging studies, and others) required; Repeat in 4-6 hours if clinically indicated. ? Equal or Higher than 0.121 ng/mL---Abnormal. Myocardial Injury or Necrosis Likely ? Biotin has been reported to cause a negative bias, interpret results relative to patient's use of biotin. ? Lab Interpretation Normal (test code = 23299-8) [facility] HospitalUric Acid [id number] 04:47:00 Test Item Value Reference Range Interpretation Comments URIC ACID (test code = 4653961419) 3.5 mg/dL 2.9-6 Lab Interpretation (test code = Normal 25377-9) [facility] HospitalSerum [id number] 04:47:00 Test Item Value Reference Range Interpretation Comments CREATININE (test code 0.54 mg/dL 0.5-1.04 = 9499291304) eGFR Calculation mL/min/1.73m2 (Non-) (test code = 0882114763) eGFR Calculation mL/min/1.73m2 () (test code = 5847334996) MYA (test code = MYA) Association of Glomerular Filtration Rate (GFR) and Staging of Kidney Disease* + -+ + ---+| GFR (mL/min/1.73 m2) ?| With Kidney Damage ?| ?Without Kidney Damage+ -------+ ------+ ---------+| ?>90 ?| ?Stage one ?| ? Normal ?+ --+ -+ ----+| ?60-89 ?| ?Stage two ?| ? Decreased GFR ? + -+ + ---+| ?30-59 ?| ?Stage three ?| ? Stage three ? + -+ + ---+| ?15-29 ?| ?Stage four ? | ? Stage four ?+ --+ -+ ----+| ?<15 (or dialysis) ? ?| ?Stage five ? | ? Stage five ?+ --+ -+ ----+ *Each stage assumes the associated GFR level has been in effect for at least three months. ?Stages 1 to 5, with or without kidney disease, indicate chronic kidney disease. Notes: Determination of stages one and two (with eGFR >59mL/min/1.73 m2) requires estimation of kidney damage for at least three months as defined by structural or functional abnormalities of the kidney, manifested by either:Pathological abnormalities or Markers of kidney damage (including abnormalities in the composition of the blood or urine or abnormalities in imaging tests). [facility] HospitalSGOT (Asparate Amino Transfer)2019-12-18 04:47:00 Test Item Value Reference Range Interpretation Comments AST(SGOT) (test code = 5370952709) 15 U/L 13-40 Lab Interpretation (test code = Normal 91583-7) [facility] HospitalAlanine Amino Transferase (SGPT)2019-12-18 04:47:00 Test Item Value Reference Range Interpretation Comments ALTv (test code = 1742-6) 12 U/L 5-35 Lab Interpretation (test code = Normal 11880-9) [facility] HospitalLactate [id number] 04:46:00 Test Item Value Reference Range Interpretation Comments LDH (test code = 9707789437) 299 U/L 300-600 L Lab Interpretation (test code = Abnormal 53967-4) [facility] HospitalUrinalysis2020-11-05 04:27:00 Test Item Value Reference Range Interpretation Comments APPEARANCE (test code = Cloudy Clear A 2724663802) COLOR (test code = Yellow Yellow 9668195500) PH (test code = 4.8-8.0 4020578710) SP GRAVITY (test code = 1.003-1.030 2796007134) GLU U QUAL (test code = Normal Normal 5395993302) BLOOD (test code = Negative Negative 3715331968) KETONES (test code = Negative Negative 1571793572) PROTEIN (test code = 30 mg/dL Negative A 2887-8) UROBILIN (test code = Normal Normal 5197334790) BILIRUBIN (test code = Negative Negative 8466213002) NITRITE (test code = Negative Negative 7642535425) LEUK BREANA (test code = 250/uL Negative A 9184151425) RBC/HPF (test code = See_Comment H [Autom ated message] 9515221779) The system [employer] generated this result transmitted ref erence range: 0 - 3 HP F. The reference range was not used to int erpret this result as normal/abnormal . WBC/HPF (test code = See_Comment [Autom ated message] 9118835912) The system [employer] generated this result transmitted ref erence range: 0 - 5 HP F. The reference range was not used to int erpret this result as normal/abnormal . BACTERIA (test code = Few Negative A 4246270951) MUCOUS (test code = Marked Negative LPF A 9472174944) SQ EPITH (test code = See_Comment H [Auto mated message] 4025342894) The system [employer] generated this result transmitted ref erence range: <=2 HPF. The reference range was not used to int erpret this result as normal/abnormal . CA OXALATE (test code = See_Comment H [Au tomated message] 6750537750) The system [employer] generated this result transmitted ref erence range: <=1 HPF. The reference range was not used to int erpret this result as normal/abnormal . Lab Interpretation (test Abnormal code = 80489-3) [facility] with [id number] 04:12:00 Test Item Value Reference Range Interpretation Comments WBC (test code = See_Comment [Automated 9290-2) message] The sy stem which generated this result transmitted reference range : 4.30 - 11.10 10*3/?L. The reference range was not used to interpret this result as normal/abnormal . RBC (test code = See_Comment [Automated 789-8) message] The sy stem which generated this result transmitted reference range : 3.93 - 5.25 10*6/?L. The reference range was not used to interpret this result as normal/abnormal . HGB (test code = 11.5 g/dL 11.6-15 L 718-7) HCT (test code = 35.8 % 35.7-45.2 4544-3) MCV (test code = 88.8 fL 80.6-95.5 787-2) MCH (test code = 28.5 pg 25.9-32.8 785-6) MCHC (test code = 32.1 g/dL 31.6-35.1 786-4) RDW-SD (test code = 44.7 fL 39-49.9 58679-3) RDW-CV (test code = 13.8 % 12-15.5 788-0) PLT (test code = See_Comment [Automated 777-3) message] The sy stem which generated this result transmitted reference range : 166 - 358 10*3/ ?L. The reference r humberto was not used to interpret this result as normal/abnormal . MPV (test code = 9.6 fL 9.5-12.9 57011-9) NRBC/100 WBC (test See_Comment [Automat ed code = 0469555503) message] The system which generated this result transmitted reference range : 0.0 - 10.0 /100 WBCs. The refer ence range was not u sed to interpret th is result as normal/abnormal . NRBC x10^3 (test code <0.01 See_Comment [Auto mated = 6888531055) message] The s ystem which generated this result transmitted reference range : 10*3/?L. The reference range was not used to interpret this result as normal/abnormal . GRAN MAT (NEUT) % 65.1 % (test code = 770-8) IMM GRAN % (test code 0.30 % = 5960836444) LYMPH % (test code = 25.5 % 736-9) MONO % (test code = 6.1 % 5905-5) EOS % (test code = 2.8 % 713-8) BASO % (test code = 0.2 % 706-2) GRAN MAT x10^3(ANC) 5.95 10*3/uL 1.88-7.09 (test code = 4505382000) IMM GRAN x10^3 (test 0.03 10*3/uL 0-0.06 code = 8791873110) LYMPH x10^3 (test code 2.33 10*3/uL 1.32-3.29 = 731-0) MONO x10^3 (test code 0.56 10*3/uL 0.33-0.92 = 742-7) EOS x10^3 (test code = 0.26 10*3/uL 0.03-0.39 711-2) BASO x10^3 (test code <0.03 0.01-0.07 = 704-7) Lab Interpretation Abnormal (test code = 74477-8) [facility] HospitalProtein CREAT Ratio Urine [id number] 04:10:00 Test Item Value Reference Range Interpretation Comments T. PROT U (test code = 2888-6) 9 mg/dL CREAT U (test code = 3273594338) 244.8 mg/dL Protein/Creatinine Ratio Urine 0.0-2.0 (test code = 1054694174) [facility] HospitalCOVID-19 (ID NOW RAPID TESTING)2019-12-18 02:29:00 Test Item Value Reference Range Interpretation Comments SARS-CoV-2 Rapid ID NOW Not Detected Not Detected (test code = 08642-3) MYA (test code = MYA) ID NOW COVID-19 Assay is an isothermal nucleic acid amplification test intended for the qualitative detection of nucleic acid from SARS-CoV-2 viral RNA in nasopharyngeal (BAGGAGE AGENT) specimens. It is used under Emergency Use Authorization (EUA) by [facility]. The limit of detection (LOD) of the assay is 125 Genome Equivalents/mL. A positive result is indicative of the presence of SARS-CoV-2 RNA. ?Clinical correlation with patient history and other diagnostic information is necessary to determine patient infection status. A negative (Not Detected) result does not preclude SARS-CoV-2 infection. In patients with clinical symptoms and other tests that are consistent with SARS-CoV-2 infection, negative results should be treated as presumptive negative and a new specimen should be tested with alternative PCR molecular test. Invalid: Please collect a new specimen for repeat patient testing if clinically indicated. Lab Interpretation Normal (test code = 74415-0) [facility] HospitalCOVID[facility] (ID NOW RAPID TESTING)2019-12-01 04:50:00 Test Item Value Reference Range Interpretation Comments SARS-CoV-2 Rapid ID NOW Not Detected Not Detected (test code = 69629-6) MYA (test code = MYA) ID NOW COVID-19 Assay is an isothermal nucleic acid amplification test intended for the qualitative detection of nucleic acid from SARS-CoV-2 viral RNA in nasopharyngeal (B[employer]GAGE AGENT) specimens. It is used under Emergency Use Authorization (EUA) by [facility]. The limit of detection (LOD) of the assay is 125 Genome Equivalents/mL. A positive result is indicative of the presence of SARS-CoV-2 RNA. ?Clinical correlation with patient history and other diagnostic information is necessary to determine patient infection status. A negative (Not Detected) result does not preclude SARS-CoV-2 infection. In patients with clinical symptoms and other tests that are consistent with SARS-CoV-2 infection, negative results should be treated as presumptive negative and a new specimen should be tested with alternative PCR molecular test. Invalid: Please collect a new specimen for repeat patient testing if clinically indicated. Lab Interpretation Normal (test code = 17470-7) [facility] HospitalPOMT URINALYSIS W SPECIFIC [id number] 19:36:00 Test Item Value Reference Range Interpretation Comments POCT U SP GRAV (test code = . 1.005-1.025 3255) POCT PH U (test code = 3254) . 5-8 POCT U LEUK EST (test code = . Negative - Negative 3263) POCT U NIT (test code = 3262) . Negative - Negative POCT U PROT (test code = 3259) 1+ Negative - Negative POCT U GLU (test code = 3256) negative Negative - Negative POCT U KETONE (test code = 3258) . Negative - Negative POCT U UROBILI (test code = . 0.2-1 3260) POCT U BILI (test code = 3261) . Negative - Negative POCT U BLD (test code = 3257) . Negative - Negative POCT U COLOR (test code = 3266) POCT U APPEAR (test code = 3267) [facility] HospitalGAL ONLY - SYPHILIS [id number] 15:32:00 Test Item Value Reference Range Interpretation Comments Syphilis IgG/IgM (test Non-reactive Non-reactive code = 56969-3) MYA (test code = MYA) Non-reactive - No serologic evidence of T. pallidum infection. Cannot exclude incubating or early syphilis. Submit a second specimen in 2-4 weeks if syphilis is clinically suspected. Equivocal - Further testing to follow. Reactive - Further testing to follow. Lab Interpretation (test Normal code = 01560-3) [facility] HospitalHI 1/2 AG-AB WITH [id number] 05:12:00 Test Item Value Reference Range Interpretation Comments HIV Negative Negative Semi-quantitative (test code = 19116-2) MYA (test code = Non-reactive for HIV-1 MYA) antigen and HIV-1/HIV-2 antibodies. ?No laboratory evidence of HIV infection. ?Repeat in 2-4 weeks if acute HIV infection is suspected. [facility] HospitalHEPATITIS B SURFACE [id number] 03:31:00 Test Item Value Reference Range Interpretation Comments HBsAg Semi-Quantitative (test code = Negative Negative 5195-3) [facility] HospitalURINALYSIS2020-10-14 03:20:00 Test Item Value Reference Range Interpretation Comments APPEARANCE (test code = Cloudy Clear A 1322297733) COLOR (test code = Gudelia Yellow A 8844666698) PH (test code = 4.8-8.0 9854969405) SP GRAVITY (test code = 1.003-1.030 2852248680) GLU U QUAL (test code = Normal Normal 9633545565) BLOOD (test code = 1+ Negative A 1237850924) KETONES (test code = 20 mg/dL Negative A 4398851127) PROTEIN (test code = 100 mg/dL Negative A 2887-8) UROBILIN (test code = Normal Normal 3030348099) BILIRUBIN (test code = Negative Negative 7059062009) NITRITE (test code = Negative Negative 0125753379) LEUK BREANA (test code = 500/uL Negative A 0136644911) RBC/HPF (test code = See_Comment H [Autom ated message] 2876501324) The system [employer] generated this result transmit wilfredo reference range : 0 - 3 HPF. The refe rence range was not u sed to interpret th is result as normal/abnormal . WBC/HPF (test code = See_Comment H [Autom ated message] 6579105868) The system [employer] generated this result transmit wilfredo reference range : 0 - 5 HPF. The refe rence range was not u sed to interpret th is result as normal/abnormal . BACTERIA (test code = Many Negative A 9026773826) MUCOUS (test code = Slight Negative LPF A 9859717039) SQ EPITH (test code = See_Comment H [Auto mated message] 3590555930) The system [employer] generated this result transmit wilfredo reference range : <=2 HPF. The refere nce range was not u sed to interpret th is result as normal/abnormal . TRANS EPI (test code = See_Comment [Aut omated message] 7236848711) The system [employer] generated this result transmit wilfredo reference range : <=1 HPF. The refere nce range was not u sed to interpret th is result as normal/abnormal . Lab Interpretation (test Abnormal code = 62826-2) [facility]. METABOLIC PANEL (84197)2019-11-26 03:03:00 Test Item Value Reference Range Interpretation Comments NA (test code = 137 mmol/L 135-145 6253759057) K (test code = 4.4 mmol/L 3.5-5 4322614617) CL (test code = 107 mmol/L 98-108 1818539041) CO2 TOTAL (test code = 19 mmol/L 23-31 L 7953168064) AGAP (test code = 2-16 8033228159) BUN (test code = 7 mg/dL 7-23 1601730007) GLUCOSE (test code = 77 mg/dL 70-110 5423846487) CREATININE (test code = 0.56 mg/dL 0.5-1.04 6084579277) TOTAL BILI (test code = 0.4 mg/dL 0.1-1.9 5585376224) CALCIUM (test code = 9.6 mg/dL 8.6-10.6 4586861535) T PROTEIN (test code = 6.7 g/dL 6.3-8.2 9590157632) ALBUMIN (test code = 3.6 g/dL 3.5-5 3034094945) ALK PHOS (test code = 76 U/L 34-122 4228215380) ALTv (test code = 11 U/L 5-35 1742-6) AST(SGOT) (test code = 18 U/L 13-40 5892060491) eGFR Calculation mL/min/1.73m2 (Non-) (test code = 4115710515) eGFR Calculation mL/min/1.73m2 () (test code = 8592357981) MYA (test code = MYA) Association of Glomerular Filtration Rate (GFR) and Staging of Kidney Disease* + --+ --+ ------+| GFR (mL/min/1.73 m2) ?| With Kidney Damage ?| ?Without Kidney Damage+ --------+ --------+ +| ?>90 ?| ?Stage one ?| ? Normal ?+ ---+ ---+ -------+| ?60-89 ?| ?Stage two ?| ? Decreased GFR ? + --+ --+ ------+| ?30-59 ?| ?Stage three ?| ? Stage three ? + --+ --+ ------+| ?15-29 ?| ?Stage four ? | ? Stage four ?+ ---+ ---+ -------+| ?<15 (or dialysis) ? ?| ?Stage five ? | ? Stage five ?+ ---+ ---+ -------+ *Each stage assumes the associated GFR level has been in effect for at least three months. ?Stages 1 to 5, with or without kidney disease, indicate chronic kidney disease. Notes: Determination of stages one and two (with eGFR >59mL/min/1.73 m2) requires estimation of kidney damage for at least three months as defined by structural or functional abnormalities of the kidney, manifested by either:Pathological abnormalities or Markers of kidney damage (including abnormalities in the composition of the blood or urine or abnormalities in imaging tests). Lab Interpretation Abnormal (test code = 66652-8) [facility] HospitalLIPASE2020-10-14 03:03:00 Test Item Value Reference Range Interpretation Comments LIPASE (test code = 7638681495) 101 U/L 0-220 Lab Interpretation (test code = Normal 07709-3) [facility] HospitalType and Screen - ONCE [id number] 02:28:19 Test Item Value Reference Range Interpretation Comments ABO & RH (test code O POSITIVE Performe d at [facility] = 20) [facility] [place] [address]Feat Free: [phone] A No. [id number] IAT (test code = Negative Performed a t [facility] 1185) [facility] [address] [place] [address]Arxn Free: [phone] A No. [id number] [facility] HospitalCOVID-19 (ID NOW RAPID TESTING)2019-11-25 23:31:00 Test Item Value Reference Range Interpretation Comments SARS-CoV-2 Rapid ID NOW Not Detected Not Detected (test code = 08747-4) MYA (test code = MYA) ID NOW COVID-19 Assay is an isothermal nucleic acid amplification test intended for the qualitative detection of nucleic acid from SARS-CoV-2 viral RNA in nasopharyngeal (BAGGAGE AGENT) specimens. It is used under Emergency Use Authorization (EUA) by FDA. The limit of detection (LOD) of the assay is 125 Genome Equivalents/mL. A positive result is indicative of the presence of SARS-CoV-2 RNA. ?Clinical correlation with patient history and other diagnostic information is necessary to determine patient infection status. A negative (Not Detected) result does not preclude SARS-CoV-2 infection. In patients with clinical symptoms and other tests that are consistent with SARS-CoV-2 infection, negative results should be treated as presumptive negative and a new specimen should be tested with alternative PCR molecular test. Invalid: Please collect a new specimen for repeat patient testing if clinically indicated. Lab Interpretation Normal (test code = 19839-3) [facility] [id number] 03:43:00 Test Item Value Reference Range Interpretation Comments Streptococcus pyogenes (group A) Negative Negative antigen (test code = 35880-1) Lab Interpretation (test code = Normal 88699-9) [facility] HospitalURINALYSIS2020-09-15 06:38:00 Test Item Value Reference Range Interpretation Comments APPEARANCE (test code = Cloudy Clear A 2294822631) COLOR (test code = Yellow Yellow 6013379387) PH (test code = 4.8-8.0 6489332274) SP GRAVITY (test code = 1.003-1.030 4521967523) GLU U QUAL (test code = Normal Normal 4067023302) BLOOD (test code = Negative Negative 6954090183) KETONES (test code = 5 mg/dL Negative A 9717866939) PROTEIN (test code = 30 mg/dL Negative A 2887-8) UROBILIN (test code = Normal Normal 5013864569) BILIRUBIN (test code = Negative Negative 5502380098) NITRITE (test code = Negative Negative 0062812749) LEUK BREANA (test code = 75/uL Negative A 1164331550) RBC/HPF (test code = See_Comment H [Autom ated message] 4685036916) The system [employer] generated this result transmitted ref erence range: 0 - 3 HP F. The reference range was not used to int erpret this result as normal/abnormal . WBC/HPF (test code = See_Comment H [Autom ated message] 1051943290) The system [employer] generated this result transmitted ref erence range: 0 - 5 HP F. The reference range was not used to int erpret this result as normal/abnormal . BACTERIA (test code = Few Negative A 1142686366) MUCOUS (test code = Slight Negative LPF A 8864152571) SQ EPITH (test code = HPF 3436699433) Lab Interpretation (test Abnormal code = 17859-1) [facility] URINALYSIS W SPECIFIC [id number] 14:53:00 Test Item Value Reference Range Interpretation Comments POCT U SP GRAV (test code = 3255) . 1.005-1.025 POCT PH U (test code = 3254) . 5-8 POCT U LEUK EST (test code = 3263) . Negative - Negative POCT U NIT (test code = 3262) . Negative - Negative POCT U PROT (test code = 3259) trace Negative - Negative POCT U GLU (test code = 3256) neg Negative - Negative POCT U KETONE (test code = 3258) . Negative - Negative POCT U UROBILI (test code = 3260) . 0.2-1 POCT U BILI (test code = 3261) . Negative - Negative POCT U BLD (test code = 3257) . Negative - Negative POCT U COLOR (test code = 3266) POCT U APPEAR (test code = 3267) [facility] URINALYSIS W SPECIFIC [id number] 14:53:00 Test Item Value Reference Range Interpretation Comments POCT U SP GRAV (test code = 3255) . 1.005-1.025 POCT PH U (test code = 3254) . 5-8 POCT U LEUK EST (test code = 3263) . Negative - Negative POCT U NIT (test code = 3262) . Negative - Negative POCT U PROT (test code = 3259) trace Negative - Negative POCT U GLU (test code = 3256) neg Negative - Negative POCT U KETONE (test code = 3258) . Negative - Negative POCT U UROBILI (test code = 3260) . 0.2-1 POCT U BILI (test code = 3261) . Negative - Negative POCT U BLD (test code = 3257) . Negative - Negative POCT U COLOR (test code = 3266) POCT U APPEAR (test code = 3267) [facility] URINALYSIS W SPECIFIC [id number] 14:53:00 Test Item Value Reference Range Interpretation Comments POCT U SP GRAV (test code = 3255) . 1.005-1.025 POCT PH U (test code = 3254) . 5-8 POCT U LEUK EST (test code = 3263) . Negative - Negative POCT U NIT (test code = 3262) . Negative - Negative POCT U PROT (test code = 3259) trace Negative - Negative POCT U GLU (test code = 3256) neg Negative - Negative POCT U KETONE (test code = 3258) . Negative - Negative POCT U UROBILI (test code = 3260) . 0.2-1 POCT U BILI (test code = 3261) . Negative - Negative POCT U BLD (test code = 3257) . Negative - Negative POCT U COLOR (test code = 3266) POCT U APPEAR (test code = 3267) [facility] URINALYSIS W SPECIFIC [id number] 14:53:00 Test Item Value Reference Range Interpretation Comments POCT U SP GRAV (test code = 3255) . 1.005-1.025 POCT PH U (test code = 3254) . 5-8 POCT U LEUK EST (test code = 3263) . Negative - Negative POCT U NIT (test code = 3262) . Negative - Negative POCT U PROT (test code = 3259) trace Negative - Negative POCT U GLU (test code = 3256) neg Negative - Negative POCT U KETONE (test code = 3258) . Negative - Negative POCT U UROBILI (test code = 3260) . 0.2-1 POCT U BILI (test code = 3261) . Negative - Negative POCT U BLD (test code = 3257) . Negative - Negative POCT U COLOR (test code = 3266) POCT U APPEAR (test code = 3267) [facility] HospitalHIV 1/2 AG-AB WITH [id number] 06:07:00 Test Item Value Reference Range Interpretation Comments HIV Negative Negative Semi-quantitative (test code = 64166-3) MYA (test code = Non-reactive for HIV-1 MYA) antigen and HIV-1/HIV-2 antibodies. ?No laboratory evidence of HIV infection. ?Repeat in 2-4 weeks if acute HIV infection is suspected. [facility] HospitalPRENATAL WORKUP, BLOOD [id number] 05:40:10 Test Item Value Reference Range Interpretation Comments ABO & RH (test code O POSITIVE Performe d at [facility] = 20) Laboratory Serv [facility] [address] [facility] [address] [id number] Free: [phone] A No. [id number] IAT (test code = Negative Performed a t [facility] 1185) Laboratory Serv [facility] [address] [facility] [address] [address]Qkhy Free: [phone] A No. [id number] [facility] HospitalSARS-COV-2 [id number] 05:17:00 Test Item Value Reference Range Interpretation Comments CoV-2 IgG (test code Negative Negative Negativ e result = 81741-7) does not rule o fl acute SARS-CoV- 2 infection. Clinical correlation as well as molecul ar diagnostic test are recommended to rule out acu te infection if clinically indicated. MYA (test code = MYA) This test has been approved by FDA for emergency use. Lab Interpretation Normal (test code = 65257-3) [facility] HospitalHEPATITIS B SURFACE [id number] 04:39:00 Test Item Value Reference Range Interpretation Comments HBsAg Semi-Quantitative (test code = Negative Negative 5195-3) [facility] WITH [id number] 03:52:00 Test Item Value Reference Range Interpretation Comments WBC (test code = See_Comment [Automated 8271-2) message] The sy stem which generated this result transmitted reference range : 4.30 - 11.10 10*3/?L. The reference range was not used to interpret this result as normal/abnormal . RBC (test code = See_Comment [Automated 576-8) message] The sy stem which generated this result transmitted reference range : 3.93 - 5.25 10*6/?L. The reference range was not used to interpret this result as normal/abnormal . HGB (test code = 12.3 g/dL 11.6-15 718-7) HCT (test code = 40.2 % 35.7-45.2 4544-3) MCV (test code = 87.2 fL 80.6-95.5 787-2) MCH (test code = 26.7 pg 25.9-32.8 785-6) MCHC (test code = 30.6 g/dL 31.6-35.1 L 786-4) RDW-SD (test code = 46.1 fL 39-49.9 56967-6) RDW-CV (test code = 14.6 % 12-15.5 788-0) PLT (test code = See_Comment [Automated 777-3) message] The sy stem which generated this result transmitted reference range : 166 - 358 10*3/ ?L. The reference r humberto was not used to interpret this result as normal/abnormal . MPV (test code = 9.9 fL 9.5-12.9 96967-1) NRBC/100 WBC (test See_Comment [Automat ed code = 9761368061) message] The system which generated this result transmitted reference range : 0.0 - 10.0 /100 WBCs. The refer ence range was not u sed to interpret th is result as normal/abnormal . NRBC x10^3 (test code <0.01 See_Comment [Auto mated = 5003404198) message] The s ystem which generated this result transmitted reference range : 10*3/?L. The reference range was not used to interpret this result as normal/abnormal . GRAN MAT (NEUT) % 57.2 % (test code = 770-8) IMM GRAN % (test code 0.10 % = 2743279100) LYMPH % (test code = 32.0 % 736-9) MONO % (test code = 5.6 % 5905-5) EOS % (test code = 4.6 % 713-8) BASO % (test code = 0.5 % 706-2) GRAN MAT x10^3(ANC) 4.52 10*3/uL 1.88-7.09 (test code = 2703126253) IMM GRAN x10^3 (test <0.03 0-0.06 code = 4780739952) LYMPH x10^3 (test code 2.53 10*3/uL 1.32-3.29 = 731-0) MONO x10^3 (test code 0.44 10*3/uL 0.33-0.92 = 742-7) EOS x10^3 (test code = 0.36 10*3/uL 0.03-0.39 711-2) BASO x10^3 (test code 0.04 10*3/uL 0.01-0.07 = 704-7) Lab Interpretation Abnormal (test code = 83551-3) [facility] [id number] 20:01:00 Test Item Value Reference Range Interpretation Comments POCT PREG (test code = 1605) Positive On board controls acceptable with C Yes Line (test code = 3574) POCT PREG LOT # (test code = 3575) POCT PREG TEST DATE (test code = 3576) [facility] URINALYSIS W/O SPECIFIC [id number] 20:01:00 Test Item Value Reference Range Interpretation Comments POCT PH U (test code = 3254) 5 mg/dl 5-8 POCT U LEUK EST (test code = 1+ Negative - Negative 3263) POCT U NIT (test code = 3262) Neg Negative - Negative POCT U PROT (test code = 3259) Trace Negative - Negative POCT U GLU (test code = 3256) Neg Negative - Negative POCT U KETONE (test code = 3258) None Negative - Negative POCT U BLD (test code = 3257) Large Negative - Negative [facility]. METABOLIC PANEL (80156)2019-08-20 07:24:00 Test Item Value Reference Range Interpretation Comments NA (test code = 138 mmol/L 135-145 2575962069) K (test code = 4.3 mmol/L 3.5-5 0582993031) CL (test code = 110 mmol/L 98-108 H 7069051532) CO2 TOTAL (test code = 20 mmol/L 23-31 L 0874344633) AGAP (test code = 2-16 8249282683) BUN (test code = 10 mg/dL 7-23 1792025279) GLUCOSE (test code = 96 mg/dL 70-110 5928616929) CREATININE (test code = 0.69 mg/dL 0.5-1.04 0582421617) TOTAL BILI (test code = 0.1 mg/dL 0.1-1.4 7897003241) CALCIUM (test code = 9.2 mg/dL 8.6-10.6 2264564503) T PROTEIN (test code = 7.2 g/dL 6.3-8.2 3507491515) ALBUMIN (test code = 3.9 g/dL 3.5-5 1959528247) ALK PHOS (test code = 62 U/L 34-122 7254305550) ALTv (test code = 12 U/L 5-35 1742-6) AST(SGOT) (test code = 18 U/L 13-40 1140500629) eGFR Calculation mL/min/1.73m2 (Non-) (test code = 7375761396) eGFR Calculation mL/min/1.73m2 () (test code = 5456798337) MYA (test code = MYA) Association of Glomerular Filtration Rate (GFR) and Staging of Kidney Disease* + --+ --+ ------+| GFR (mL/min/1.73 m2) ?| With Kidney Damage ?| ?Without Kidney Damage+ --------+ --------+ +| ?>90 ?| ?Stage one ?| ? Normal ?+ ---+ ---+ -------+| ?60-89 ?| ?Stage two ?| ? Decreased GFR ? + --+ --+ ------+| ?30-59 ?| ?Stage three ?| ? Stage three ? + --+ --+ ------+| ?15-29 ?| ?Stage four ? | ? Stage four ?+ ---+ ---+ -------+| ?<15 (or dialysis) ? ?| ?Stage five ? | ? Stage five ?+ ---+ ---+ -------+ *Each stage assumes the associated GFR level has been in effect for at least three months. ?Stages 1 to 5, with or without kidney disease, indicate chronic kidney disease. Notes: Determination of stages one and two (with eGFR >59mL/min/1.73 m2) requires estimation of kidney damage for at least three months as defined by structural or functional abnormalities of the kidney, manifested by either:Pathological abnormalities or Markers of kidney damage (including abnormalities in the composition of the blood or urine or abnormalities in imaging tests). Lab Interpretation Abnormal (test code = 60482-8) [facility] [id number] 06:52:00 Test Item Value Reference Range Interpretation Comments BETA HCG (test See_Comment [Automated m essage] code = The system [employer] 7176449741) generated this result transmit wilfredo reference range : Non- fe male and male patien ts: <5 mIU/mL. The reference range was not used to interpret this result as normal/abnormal . MYA (test code Gestational Age ? ? = MYA) ?Range (mIU/mL) 1-10 ?Weeks ?91-18159500-33 Weeks ?54523-27236510-71 Weeks ?4870-06676627-27 Weeks ?2466-034102 Biotin has been reported to cause a negative bias, interpret results relative to patient's use of biotin. [facility] Test Item Value Reference Range Interpretation Comments APPEARANCE (test code = Clear Clear 7863217555) COLOR (test code = Yellow Yellow 6832286582) PH (test code = 4.8-8.0 5443902015) SP GRAVITY (test code = 1.003-1.030 9612259336) GLU U QUAL (test code = Normal Normal 6656535163) BLOOD (test code = 1+ Negative A 3793113877) KETONES (test code = Negative Negative 3360213729) PROTEIN (test code = Negative Negative 2887-8) UROBILIN (test code = Normal Normal 3645055666) BILIRUBIN (test code = Negative Negative 1699593561) NITRITE (test code = Negative Negative 8218146575) LEUK BREANA (test code = Negative Negative 1546714119) RBC/HPF (test code = See_Comment H [Autom ated message] 8518696816) The system [employer] generated this result transmitted ref erence range: 0 - 3 HP F. The reference range was not used to int erpret this result as normal/abnormal . WBC/HPF (test code = See_Comment [Autom ated message] 9279674108) The system [employer] generated this result transmitted ref erence range: 0 - 5 HP F. The reference range was not used to int erpret this result as normal/abnormal . BACTERIA (test code = Few Negative A 5982144156) MUCOUS (test code = Moderate Negative LPF A 6879162996) SQ EPITH (test code = HPF 9891965556) Lab Interpretation (test Abnormal code = 62477-2) [facility] WITH [id number] 05:31:00 Test Item Value Reference Range Interpretation Comments WBC (test code = See_Comment [Automated 0790-2) message] The sy stem which generated this result transmitted reference range : 4.30 - 11.10 10*3/?L. The reference range was not used to interpret this result as normal/abnormal . RBC (test code = See_Comment [Automated 789-8) message] The sy stem which generated this result transmitted reference range : 3.93 - 5.25 10*6/?L. The reference range was not used to interpret this result as normal/abnormal . HGB (test code = 12.6 g/dL 11.6-15 718-7) HCT (test code = 39.7 % 35.7-45.2 4544-3) MCV (test code = 85.6 fL 80.6-95.5 787-2) MCH (test code = 27.2 pg 25.9-32.8 785-6) MCHC (test code = 31.7 g/dL 31.6-35.1 786-4) RDW-SD (test code = 45.0 fL 39-49.9 55446-0) RDW-CV (test code = 14.5 % 12-15.5 788-0) PLT (test code = See_Comment [Automated 777-3) message] The sy stem which generated this result transmitted reference range : 166 - 358 10*3/ ?L. The reference r humberto was not used to interpret this result as normal/abnormal . MPV (test code = 9.7 fL 9.5-12.9 78469-8) NRBC/100 WBC (test See_Comment [Automat ed code = 8521363944) message] The system which generated this result transmitted reference range : 0.0 - 10.0 /100 WBCs. The refer ence range was not u sed to interpret th is result as normal/abnormal . NRBC x10^3 (test code <0.01 See_Comment [Auto mated = 2420629295) message] The s ystem which generated this result transmitted reference range : 10*3/?L. The reference range was not used to interpret this result as normal/abnormal . GRAN MAT (NEUT) % 55.7 % (test code = 770-8) IMM GRAN % (test code 0.30 % = 9980770660) LYMPH % (test code = 32.4 % 736-9) MONO % (test code = 5.8 % 5905-5) EOS % (test code = 5.4 % 713-8) BASO % (test code = 0.4 % 706-2) GRAN MAT x10^3(ANC) 5.12 10*3/uL 1.88-7.09 (test code = 0803642327) IMM GRAN x10^3 (test 0.03 10*3/uL 0-0.06 code = 5631600385) LYMPH x10^3 (test code 2.98 10*3/uL 1.32-3.29 = 731-0) MONO x10^3 (test code 0.53 10*3/uL 0.33-0.92 = 742-7) EOS x10^3 (test code = 0.50 10*3/uL 0.03-0.39 H 711-2) BASO x10^3 (test code 0.04 10*3/uL 0.01-0.07 = 704-7) Lab Interpretation Abnormal (test code = 60123-8) [facility] [id number] 05:17:00 Test Item Value Reference Range Interpretation Comments POCT PREG (test code = 1605) positive On board controls acceptable with present C Line (test code = 3574) POCT PREG LOT # (test code = 3575) [id number] POCT PREG TEST DATE (test 09-11-2020 code = 3576) Lab Interpretation (test code = Normal 19607-3) [facility] [id number] 19:17:00 Test Item Value Reference Range Interpretation Comments POCT PREG (test code = 1605) Negative On board controls acceptable with C Yes Line (test code = 3574) POCT PREG LOT # (test code = 3575) POCT PREG TEST DATE (test code = 3576) [facility] [id number] 19:17:00 Test Item Value Reference Range Interpretation Comments POCT PREG (test code = 1605) Negative On board controls acceptable with C Yes Line (test code = 3574) POCT PREG LOT # (test code = 3575) POCT PREG TEST DATE (test code = 3576) [facility] [id number] 19:17:00 Test Item Value Reference Range Interpretation Comments POCT PREG (test code = 1605) Negative On board controls acceptable with C Yes Line (test code = 3574) POCT PREG LOT # (test code = 3575) POCT PREG TEST DATE (test code = 3576) [facility] METABOLIC PANEL (NA, K, CL, CO2, GLUCOSE, BUN, CREATININE, CA)2019-02-27 06:17:00 Test Item Value Reference Range Interpretation Comments NA (test code = 140 mmol/L 135-145 5238849799) K (test code = 3.8 mmol/L 3.5-5 4100498826) CL (test code = 107 mmol/L 98-108 2658653202) CO2 TOTAL (test code = 22 mmol/L 23-31 L 3130518676) AGAP (test code = 2-16 4273299051) BUN (test code = 10 mg/dL 7-23 5283398110) GLUCOSE (test code = 94 mg/dL 70-110 5318892274) CREATININE (test code = 0.94 mg/dL 0.5-1.04 8186900327) CALCIUM (test code = 9.2 mg/dL 8.6-10.6 5570917698) eGFR Calculation mL/min/1.73m2 (Non-) (test code = 4607059816) eGFR Calculation mL/min/1.73m2 () (test code = 5160580059) MYA (test code = MYA) Association of Glomerular Filtration Rate (GFR) and Staging of Kidney Disease* + --+ --+ ------+| GFR (mL/min/1.73 m2) ?| With Kidney Damage ?| ?Without Kidney Damage+ --------+ --------+ +| ?>90 ?| ?Stage one ?| ? Normal ?+ ---+ ---+ -------+| ?60-89 ?| ?Stage two ?| ? Decreased GFR ? + --+ --+ ------+| ?30-59 ?| ?Stage three ?| ? Stage three ? + --+ --+ ------+| ?15-29 ?| ?Stage four ? | ? Stage four ?+ ---+ ---+ -------+| ?<15 (or dialysis) ? ?| ?Stage five ? | ? Stage five ?+ ---+ ---+ -------+ *Each stage assumes the associated GFR level has been in effect for at least three months. ?Stages 1 to 5, with or without kidney disease, indicate chronic kidney disease. Notes: Determination of stages one and two (with eGFR >59mL/min/1.73 m2) requires estimation of kidney damage for at least three months as defined by structural or functional abnormalities of the kidney, manifested by either:Pathological abnormalities or Markers of kidney damage (including abnormalities in the composition of the blood or urine or abnormalities in imaging tests). Lab Interpretation Abnormal (test code = 17499-0) [facility] WITH [id number] 06:06:00 Test Item Value Reference Range Interpretation Comments WBC (test code = See_Comment [Automated 1809-2) message] The sy stem which generated this result transmitted reference range : 4.30 - 11.10 10*3/?L. The reference range was not used to interpret this result as normal/abnormal . RBC (test code = See_Comment [Automated 450-8) message] The sy stem which generated this result transmitted reference range : 3.93 - 5.25 10*6/?L. The reference range was not used to interpret this result as normal/abnormal . HGB (test code = 12.3 g/dL 11.6-15 718-7) HCT (test code = 40.3 % 35.7-45.2 4544-3) MCV (test code = 85.4 fL 80.6-95.5 787-2) MCH (test code = 26.1 pg 25.9-32.8 785-6) MCHC (test code = 30.5 g/dL 31.6-35.1 L 786-4) RDW-SD (test code = 43.3 fL 39-49.9 14890-0) RDW-CV (test code = 13.8 % 12-15.5 788-0) PLT (test code = See_Comment [Automated 777-3) message] The sy stem which generated this result transmitted reference range : 166 - 358 10*3/ ?L. The reference r humberto was not used to interpret this result as normal/abnormal . MPV (test code = 9.8 fL 9.5-12.9 32362-6) NRBC/100 WBC (test See_Comment [Automat ed code = 6750076453) message] The system which generated this result transmitted reference range : 0.0 - 10.0 /100 WBCs. The refer ence range was not u sed to interpret th is result as normal/abnormal . NRBC x10^3 (test code <0.01 See_Comment [Auto mated = 2247808580) message] The s ystem which generated this result transmitted reference range : 10*3/?L. The reference range was not used to interpret this result as normal/abnormal . GRAN MAT (NEUT) % 74.7 % (test code = 770-8) IMM GRAN % (test code 0.30 % = 7197204075) LYMPH % (test code = 19.3 % 736-9) MONO % (test code = 4.8 % 5905-5) EOS % (test code = 0.7 % 713-8) BASO % (test code = 0.2 % 706-2) GRAN MAT x10^3(ANC) 6.40 10*3/uL 1.88-7.09 (test code = 7092696920) IMM GRAN x10^3 (test 0.03 10*3/uL 0-0.06 code = 9484059105) LYMPH x10^3 (test code 1.66 10*3/uL 1.32-3.29 = 731-0) MONO x10^3 (test code 0.41 10*3/uL 0.33-0.92 = 742-7) EOS x10^3 (test code = 0.06 10*3/uL 0.03-0.39 711-2) BASO x10^3 (test code <0.03 0.01-0.07 = 704-7) Lab Interpretation Abnormal (test code = 79239-6) [facility] [id number] 05:54:111. ?No acute intraabdominal pathology. 2. Small fat-containing umbilical hernia with some stranding of the fatnoted within the hernia. Correlate for symptoms of pain at this site. RL: 3901AFC: [id number] End of Report EXAM: CT ABDOMEN PELVIS WO CONTRAST ORDERING PHYSICIAN: ? ?LOW [place] HISTORY: Abdominal Pain. COMPARISON: none TECHNIQUE: CT of the abdomen and pelvis without IV contrast. Coronal andsagittal reformatted images were obtained. CT performed according to ALARAprinciples. CT OF THE ABDOMEN WITHOUT CONTRAST:Minimal left basilar atelectasis present. Evaluation of the solid organs islimited by the lack of IV contrast. ?Calcified granulomas are seen in theliver and the spleen. ?The gallbladder is normal. The pancreas is normal.The adrenals are normal. ?No renal or ureteral stone. No hydronephrosis.The intraabdominal largeand small bowel are normal. Appendix is notvisualized. The intra-abdominal vasculature is normal. There is no freeair, free fluid, or pathologic lymphadenopathy. CT OF THE PELVIS WITHOUT CONTRAST:The rectum and sigmoid are normal. The distal ureters and bladder arenormal. ?There is no free fluid or pathologic lymphadenopathy in thepelvis. Uterus and adnexa appear unremarkable. Fat-containing umbilical hernia with minimal stranding noted. There is somenonspecific soft tissue attenuation at the base of the hernia. Neck of thehernia measures approximately 14 mm in transverse diameter and 17 mm in thecraniocaudal dimension. Osseous structures are unremarkable. [facility], Radiant Results Inft User - 02/26/2019 11:55 PM CSTEXAM: CT ABDOMEN PELVIS WO CONTRASTORDERING PHYSICIAN: LOW PRICE HISTORY: Abdominal Pain.COMPARISON: noneTECHNIQUE: CT of the abdomen and pelvis without IV contrast. Coronal andsagittal reformatted images were obtained. CT performed according to ALARAprinciples.CT OF THE ABDOMENWITHOUT CONTRAST:Minimal left basilar atelectasis present. Evaluation of the solid organs islimited by the lack of IV contrast. Calcified granulomas are seen in theliver and the spleen. The gallbladder is normal. The pancreas is normal.The adrenals are normal. No renal or ureteral stone. No hydronephrosis.The intraabdominal large and small bowel are normal. Appendix is notvisualized. The intra-abdominal vasculature is normal. There is no freeair, free fluid, or pathologic lymphadenopathy.CT OF THE PELVIS WITHOUT CONTRAST:The rectum and sigmoid are normal. The distal ureters and bladder arenormal. There is no free fluid or pathologic lymphadenopathy in thepelvis. Uterus and adnexa appear unremarkable.Fat-containing umbilical hernia with minimal stranding noted. There is somenonspecific soft tissue attenuation at the base of the hernia. Neck of thehernia measures approximately 14 mm in transverse diameter and 17 mm in thecraniocaudal dimension. Osseous structures are unremarkable. IMPRESSION1. No acute intraabdominal pathology.2. Small fat-containing umbilical hernia with some stranding of the fatnoted within the hernia. Correlate for symptoms of pain at this site.RL: 3901AFC: [id number] of Report [facility] 2019-[facility] 04:40:00 Test Item Value Reference Range Interpretation Comments APPEARANCE (test code Slightly Cloudy Clear A = 5910512072) COLOR (test code = Yellow Yellow 4449087539) PH (test code = 4.8-8.0 3358487741) SP GRAVITY (test code 1.003-1.030 = 9230517395) GLU U QUAL (test code Negative Negative = 2027546058) BLOOD (test code = Large Negative A 6425722809) KETONES (test code = Negative Negative 1530930152) PROTEIN (test code = Trace Negative A 2887-8) UROBILIN (test code = 0.2 mg/dL See_Comment [Auto mated 0080223887) message] The system which generated this result transmit wilfredo reference range : 0-1.0 mg/dL. Th e reference range was not used to interpret this result as normal/abnormal . BILIRUBIN (test code Negative Negative = 0566639916) NITRITE (test code = Positive Negative A 3385838173) LEUK BREANA (test code Large Negative A = 9537760576) RBC/HPF (test code = See_Comment H [Autom ated 0125791916) message] The system which generated this result transmit wilfredo reference range : 0 - 3 HPF. The reference range was not used to interpret this result as normal/abnormal . WBC/HPF (test code = See_Comment H [Autom ated 5585577774) message] The system which generated this result transmit wilfredo reference range : 0 - 5 HPF. The reference range was not used to interpret this result as normal/abnormal . BACTERIA (test code = Many Negative A 7944528812) AMORPHOUS (test code Few Rare HPF A = 9495440700) Lab Interpretation Abnormal (test code = 52772-1) [facility] [id number] 04:07:00 Test Item Value Reference Range Interpretation Comments POCT PREG (test code = 1605) negative On board controls acceptable with present C Line (test code = 3574) POCT PREG LOT # (test code = 3575) [id number] POCT PREG TEST DATE (test 09/11/2020 code = 3576) Lab Interpretation (test code = Normal 83617-5) [facility] ABDOMEN PELVIS W [id number] 01:00:14CT Abdomen and Pelvis with intravenous contrast. CLINICAL HISTORY: Acute generalized abdominal pain.TECHNIQUE: Multidetector helical CT acquisition were obtained withintravenous injection Omnipaque 350 nonionic contrast medium. Sagittal andcoronal reformations were generated. FINDINGS:? Lower lungs: Clear. No pleural effusion or pericardial effusion. Liver, Gallbladder and Spleen: Liver is enlarged,20.9 cm in length. Spleenis also enlarged, measuring 15 x 4.8 cm in size. 16 mm nodule near theanterior edge of the spleen and 22 mm nodule in the left subdiaphragmaticleft side of the abdomen could beaccessory splenules. Calcified granulomasare seen in the left lobe of the liver. No calcified gallsto rachelle. Biliary ducts and the pancreatic duct appear to beof normal size. Peritoneum:?No free air or free fluid. No lymphadenopathy. Pancreas and Adrenals:?Unremarkable pancreas and adrenal glands. Kidneys and Ureters:?No visible calculi in the renal collecting systems. No hydroureter or hydronephrosis. No enhancing kidney lesions. Vessels: Normal. Retroperitoneum: No abnormal fluid or lymphadenopathy. Bowel: No acute findings. Bladder and Reproductive Organs: Small amount of free fluid in the pelviscould be physiologic. Left ovary contains multiple cysts, largest of 1.5 cmsize. Smaller cyst is seen in the right ovary, likely physiologic. Pelvic anatomy is suboptimal due to artifacts. No gross pathology is seenin the urinary bladder. Bones: No acute findings. Bone island noted in the neck of the left femur. Soft tissues: 5 cm size umbilical hernia containing intra-abdominal fat andblood vessels. CONCLUSION:1. No acute intra-abdominal or pelvic abnormalities.2. Hepatosplenomegaly.3. 5 cm size umbilical hernia containing fat and abdominal vessels.4. Bilateral ovarian cyst and small amount of fluid in the cul-de-sac,likely physiologic. . [facility], Radiant Results Inft User - 09/15/2018 8:02 PM CDTCT Abdomen and Pelvis with intravenous contrast.CLINICAL HISTORY: Acute generalized abdominal pain.TECHNIQUE: Multidetector helical CT acquisition were obtained withintravenous injection Omnipaque 350 nonionic contrast medium. Sagittal andcoronal reformations were generated.FINDINGS: Lower lungs: Clear. No pleural effusion or pericardial effusion.Liver, Gallbladder and Spleen: Liver is enlarged, 20.9 cm in length. Spleenis also enlarged, measuring 15 x 4.8 cm in size. 16 mm nodule near theanterior edge of the spleen and 22 mm nodule in the left subdiaphragmaticleft side of the abdomen could be accessory splenules. Calcified granulomasare seen in the left lobe of the liver.No calcified gallstones. Biliary ducts and the pancreatic duct appear to beof normal size.Peritoneum: No free air or free fluid. No lymphadenopathy.Pancreas and Adrenals: Unremarkable pancreas and adrenal glands.Kidneys and Ureters: No visible calculi in the renal collecting systems. No hydroureter or hydronephrosis. No enhancing kidney lesions. Vessels: Normal.Retroperitoneum: No abnormal fluid or lymphadenopathy.Bowel: Noacute findings.Bladder and Reproductive Organs: Small amount of free fluid in the pelviscould be phys iologic. Left ovary contains multiple cysts, largest of 1.5 cmsize. Smaller cyst is seen in the right ovary, likely physiologic.Pelvic anatomy is suboptimal due to artifacts. No gross pathology is seenin the urinary bladder.Bones: No acute findings. Bone island noted in the neck of the left femur.Softtissues: 5 cm size umbilical hernia containing intra-abdominal fat andblood vessels.CONCLUSION:1. Noacute intra-abdominal or pelvic abnormalities.2. Hepatosplenomegaly.3. 5 cm size umbilical hernia containing fat and abdominal vessels.4. Bilateral ovarian cyst and small amount of fluid in the cul-de-sac,likely physiologic..[facility]ysis[facility] 00:48:00 Test Item Value Reference Range Interpretation Comments APPEARANCE (test code Clear Clear = 3315212014) COLOR (test code = Yellow Yellow 8917803480) PH (test code = 4.8-8.0 7974671066) SP GRAVITY (test code 1.003-1.030 = 0460525014) GLU U QUAL (test code Negative Negative = 3893650553) BLOOD (test code = Negative Negative 7739705751) KETONES (test code = Negative Negative 4114277687) PROTEIN (test code = Negative Negative 2887-8) UROBILIN (test code = 0.2 mg/dL See_Comment [Auto mated message] 2790514043) The system [employer] generated this result transmitted ref erence range: 0-1.0 mg /dL. The reference r humberto was not used to interpret this result as normal/abnor mal. BILIRUBIN (test code = Negative Negative 0911643617) NITRITE (test code = Negative Negative 0712824135) LEUK BREANA (test code Negative Negative = 4047587569) RBC/HPF (test code = See_Comment [Autom ated message] 6929781357) The system [employer] generated this result transmitted ref erence range: 0 - 3 HP F. The reference range was not used to int erpret this result as normal/abnormal . WBC/HPF (test code = See_Comment [Autom ated message] 2888205165) The system [employer] generated this result transmitted ref erence range: 0 - 5 HP F. The reference range was not used to int erpret this result as normal/abnormal . BACTERIA (test code = Negative Negative 8562987410) SQ EPITH (test code = HPF 1236673885) [facility] WITH [id number] 00:27:00 Test Item Value Reference Range Interpretation Comments WBC (test code = See_Comment [Automated 6690-2) message] The sy stem which generated this result transmitted reference range : 4.30 - 11.10 10*3/?L. The reference range was not used to interpret this result as normal/abnormal . RBC (test code = See_Comment [Automated 789-8) message] The sy stem which generated this result transmitted reference range : 3.93 - 5.25 10*6/?L. The reference range was not used to interpret this result as normal/abnormal . HGB (test code = 12.2 g/dL 11.6-15 718-7) HCT (test code = 39.5 % 35.7-45.2 4544-3) MCV (test code = 86.1 fL 80.6-95.5 787-2) MCH (test code = 26.6 pg 25.9-32.8 785-6) MCHC (test code = 30.9 g/dL 31.6-35.1 L 786-4) RDW-SD (test code = 43.4 fL 39-49.9 91023-2) RDW-CV (test code = 14.0 % 12-15.5 788-0) PLT (test code = See_Comment [Automated 777-3) message] The sy stem which generated this result transmitted reference range : 166 - 358 10*3/ ?L. The reference r humberto was not used to interpret this result as normal/abnormal . MPV (test code = 10.0 fL 9.5-12.9 32018-3) NRBC/100 WBC (test See_Comment [Automat ed code = 4027168724) message] The system which generated this result transmitted reference range : 0.0 - 10.0 /100 WBCs. The refer ence range was not u sed to interpret th is result as normal/abnormal . NRBC x10^3 (test code <0.01 See_Comment [Auto mated = [id number]) message] The s ystem which generated this result transmitted reference range : 10*3/?L. The reference range was not used to interpret this result as normal/abnormal . GRAN MAT (NEUT) % 67.0 % (test code = 770-8) IMM GRAN % (test code 0.30 % = 7903459751) LYMPH % (test code = 24.3 % 736-9) MONO % (test code = 5.3 % 5905-5) EOS % (test code = 2.8 % 713-8) BASO % (test code = 0.3 % 706-2) GRAN MAT x10^3(ANC) 5.30 10*3/uL 1.88-7.09 (test code = 8150854679) IMM GRAN x10^3 (test <0.03 0-0.06 code = 1211145569) LYMPH x10^3 (test code 1.92 10*3/uL 1.32-3.29 = 731-0) MONO x10^3 (test code 0.42 10*3/uL 0.33-0.92 = 742-7) EOS x10^3 (test code = 0.22 10*3/uL 0.03-0.39 711-2) BASO x10^3 (test code <0.03 0.01-0.07 = 704-7) Lab Interpretation Abnormal (test code = 50277-1) [id number] Test Item Value Reference Range Interpretation Comments LIPASE (test code = 9101610332) 180 U/L 0-220 Lab Interpretation (test code = Normal 70743-6) [facility] (NA, K, CL, CO2, GLUCOSE, BUN, CREATININE, CA)2018-09-16 00:15:00 Test Item Value Reference Range Interpretation Comments NA (test code = 143 mmol/L 135-145 6509571030) K (test code = 4.1 mmol/L 3.5-5 2850964168) CL (test code = 110 mmol/L 98-108 H 0189929218) CO2 TOTAL (test code = 24 mmol/L 23-31 4488527878) AGAP (test code = 2-16 3079877210) BUN (test code = 15 mg/dL 7-23 5177887541) GLUCOSE (test code = 87 mg/dL 70-110 3281070617) CREATININE (test code = 1.11 mg/dL 0.5-1.04 H 8497147700) CALCIUM (test code = 9.1 mg/dL 8.6-10.6 7789818855) eGFR Calculation mL/min/1.73m2 (Non-) (test code = 9316329102) eGFR Calculation mL/min/1.73m2 () (test code = 9172063210) MYA (test code = MYA) Association of Glomerular Filtration Rate (GFR) and Staging of Kidney Disease*+ + + +| GFR (mL/min/1.73 m2)?| With Kidney Damage?|?Without Kidney Damage+ --------+ --------+ +|?>90?|?S tage one?|? Normal?+ ---------+ ---------+ +|?60-89? |?Stage two?|? Decreased GFR? + --+ --+ ------+|?30-59?|?Stage three?|? Stage three? + --+ --+ ------+|?15-29?|?Stage four? |? Stage four?+ -------+ -------+ +|?<15 (or dialysis)?|?Stage five? |? Stage five?+ -------+ -------+ +*Each stage assumes the associated GFR level has been in effect for at least three months.?Stages 1 to 5, with or without kidney disease, indicate chronic kidney disease.Notes: Determination of stages one and two (with eGFR >59mL/min/1.73 m2) requires estimation of kidney damage for at least three months as defined by structural or functional abnormalities of the kidney, manifested by either:Pathological abnormalities or Markers of kidney damage (including abnormalities in the composition of the blood or urine or abnormalities in imaging tests). Lab Interpretation Abnormal (test code = 27983-9) [facility] (ALB, T.PRO, BILI T, BU/BC, ALT, AST, ALK PHOS)2018-09-16 00:15:00 Test Item Value Reference Range Interpretation Comments TOTAL BILI (test code = 2941771069) 0.1 mg/dL 0.1-1.1 BILI UNCON (test code = 0788457153) 0.1 mg/dL 0.1-1.1 BILI CONJ (test code = 8074420881) 0.0 mg/dL 0-0.3 T PROTEIN (test code = 5634400626) 7.1 g/dL 6.3-8.2 ALBUMIN (test code = 0711913379) 3.8 g/dL 3.5-5 ALK PHOS (test code = 8044173674) 80 U/L 34-122 ALT(SGPT) (test code = 6840510290) 16 U/L 9-51 AST(SGOT) (test code = 7164585863) 18 U/L 13-40 Lab Interpretation (test code = Normal 43527-9) [facility], [id number] 23:33:00 Test Item Value Reference Range Interpretation Comments POCT PREG (test code = 1605) negative On board controls acceptable with present C Line (test code = 3574) POCT PREG LOT # (test code = 3575) [id number] POCT PREG TEST DATE (test 2020-02-12 code = 3576) Lab Interpretation (test code = Normal 74718-3) [facility]"
== END 2020-12-19 17:10 | disposition home or self-care (01) ==
LOC: ER 11:54
DX: K42.9 Umbilical hernia without obstruction or gangrene (principal); I10 Essential (primary) hypertension; Z91.040 Latex allergy status
CPT/HCPCS: 87088; 85025; 87086; 80048; 36415; 81025; 80076; 83690; 74177; 99284; Q9967; 81003; 81015

== ENCOUNTER 2022-04-15 02:27 | Emergency (ER) | payer OTHER ==
--- OUTSIDE RECORDS SUMMARY | 2022-04-15 02:31 | XMS REPORT | Continuity of Care Document ---
:1985 Author Organization [facility] t Address [address] [address] [place] [address] Care Team Providers Name Role Phone Alonzo Goyal Attending Clinician Problems Condition Condition Condition Status Onset Resolution Last Treating Co mments Source Name Details Category Date Date Treatment Clinician Date ABDOMINAL ABDOMINAL Diagnosis Active 2016-09-03 Mem[facility] PAIN PAIN 09-01 05:29:00 l Active 00:00: Ray[place] 09/01/2016 00 [facility] History of Past Illness Condition Condition Condition Status Onset Resolution Last Treating Co mments Source Name Details Category Date Date Treatment Clinician Date Abnormal Abnormal Problem 2016-09-04 2016-09-04 Memoria uterine uterine 09-01 05:32:09 05:32:09 l and and 05:00: [place] vaginal vaginal 00 bleeding, bleeding, unspecifie unspecifie d d 09/01/2016 09/04/2016 [facility] Unspecifie Unspecifi Problem 2016-09-04 2016-09-04 Memoria d ed 09-01 05:32:09 05:32:09 l abdominal abdominal 05:00: Herm flora pain pain 00 09/01/2016 09/04/2016 [facility] Allergies, Adverse Reactions, Alerts Allergy Allergy Status Severity Reaction(s) Onset Inactive Treating Comm ents Source Name Type Date Date Clinician Latex Latex Active Katherine Cade Social History Smoking Status Start Date Stop Date Source Social History [facility]o Medications This patient has no known medications. Immunizations Ordered Immunization Filled Immunization Date Status Commen ts Source Name Name measles/mumps/rubell 2010-09-27 Completed Kris rial a virus vaccine 04:57:00 [place] measles/mumps/rubell 2010-09-27 Completed Kris rial a virus vaccine 04:57:00 Rayo measles/mumps/rubell 2010-09-27 Completed Kris shawna a virus vaccine 04:57:00 [place] Vital Signs Vital Name Observation Time Observation Value Comments Source Temperature Oral (F) 2016-09-02 02:19:00 98.2 F [facility] Systolic (mm Hg) 2016-09-02 02:19:00 Kris rial [place] Diastolic (mm Hg) 2016-09-02 02:19:00 Mem orial [place] Heart Rate 2016-09-02 02:19:00 [facility] Respitory Rate 2016-09-02 02:19:00 Memori al [place] Weight 2016-09-02 00:00:00 [facility] Systolic (mm Hg) 2016-09-02 00:00:00 Kris rial [place] Diastolic (mm Hg) 2016-09-02 00:00:00 Mem orial [place] Temperature Oral (F) 2016-09-02 00:00:00 98.5 F [facility] Respitory Rate 2016-09-02 00:00:00 Memori al [place] Heart Rate 2016-09-02 00:00:00 [facility] Procedures This patient has no known procedures. Encounters Start End Encounter Admission Attending Care Care Encounter Source Date/Time Date/Time Type Type Clinicians Facility Department ID 2016-09-01 2016-09-02 Emergency [facility] [id number] Memoria 23:55:00 02:20:00 r [place] 00 [facility] 2016-09-01 2016-09-02 Emergency [facility] [id number] Memoria 23:55:00 02:20:00 r [place] 00 [facility] 2016-09-01 2016-09-01 Outpatient [facility] [id number] 18:55:00 21:20:00 Alonzo Ahmed 00 Results Test Description Test Time Test Comments Results Result Comments Source HEMATOLOGY 2016-09-02 01:16:00 Test Item Value Reference Range Interpretation Comme nts RDW (test code = RDW) 14.0 11.5-14.5 [id number] 01:16:00 Test Item Value Reference Range Interpretation Comments WBC (test code = WBC) 9.2 3.7-10.4 [facility]AiyovbsVYLPOUVYYB9957-93-72 01:16:00 Test Item Value Reference Range Interpretation Comments RBC (test code = RBC) 4.54 4.20-5.40 [facility]FhodlgfJKENKKJKAX6825-71-52 01:16:00 Test Item Value Reference Range Interpretation Comments Hgb (test code = Hgb) 12.6 12.0-16.0 [facility]RypydtaZWKKFAJMHG3696-01-03 01:16:00 Test Item Value Reference Range Interpretation Comments MCV (test code = MCV) 85.1 80.0-98.0 [facility]RdfmxojBTKLDMBKRK7373-04-41 01:16:00 Test Item Value Reference Range Interpretation Comments Hct (test code = Hct) 38.6 36.0-48.0 [facility]BbyvcmgBRRUNSDMEB9271-12-72 01:16:00 Test Item Value Reference Range Interpretation Comments MCHC (test code = MCHC) 32.6 32.0-36.0 [facility]aHveyjumKIFEHTXXAB8563-63-17 01:16:00 Test Item Value Reference Range Interpretation Comments MCH (test code = MCH) 27.7 pg 27.0-31.0 [facility]aJ[id number] 01:16:00 Test Item Value Reference Range Interpretation Comments RDW (test code = RDW) 14.0 11.5-14.5 [facility]PqreavrADABASBCAA1093-05-90 01:16:00 Test Item Value Reference Range Interpretation Comments Platelet (test code = Platelet) 238 133-450 [facility]aFtccefvJNRTPVRVXG4364-92-72 01:16:00 Test Item Value Reference Range Interpretation Comments Platelet (test code = Platelet) 238 133-450 [facility]aWkerxliRXENDIFJIS1787-66-10 01:16:00 Test Item Value Reference Range Interpretation Comments MPV (test code = MPV) 8.0 7.4-10.4 [facility]aSmtsbztUBPKASYSWB3240-67-22 01:16:00 Test Item Value Reference Range Interpretation Comments Monocytes (test code = Monocytes) 6.5 2.0-12.0 [id number] 01:16:00 Test Item Value Reference Range Interpretation Comments Basophils (test code = 0.4 See_Comment [Aut omated message] The Basophils) system which ge nerated this result tra nsmitted reference range : <=1.0. The reference r humberto was not used to int erpret this result as normal/abnormal . [place] [id number] 01:16:00 Test Item Value Reference Range Interpretation Comments Eosinophils (test code = 1.2 See_Comment [A utomated message] The Eosinophils) system which ge nerated this result tra nsmitted reference range : <=4.0. The reference r humberto was not used to int erpret this result as normal/abnormal . [facility]aRptnrqzYPCGEIMUUU0568-07-72 01:16:00 Test Item Value Reference Range Interpretation Comments Segs-Bands # (test code = Segs-Bands #) 6.0 1.5-8.1 [facility]aHbicodpHYWMFMLOFS9130-30-12 01:16:00 Test Item Value Reference Range Interpretation Comments Lymphocytes # (test code = Lymphocytes 2.4 1.0-5.5 #) [id number] 01:16:00 Test Item Value Reference Range Interpretation Comments Monocytes # (test code 0.6 See_Comment [Aut omated message] The = Monocytes #) system which generated this result tra nsmitted reference range : <=0.8. The reference r humberto was not used to int erpret this result as normal/abnormal . [id number] 01:16:00 Test Item Value Reference Range Interpretation Comments Eosinophils # (test code 0.1 See_Comment [A utomated message] The = Eosinophils #) system whic h generated this result tra nsmitted reference range : <=0.5. The reference r humberto was not used to int erpret this result as normal/abnormal . [facility]aUkbuaokGYGHFJTFVC5461-51-39 01:16:00 Test Item Value Reference Range Interpretation Comments Segs (test code = Segs) 65.5 45.0-75.0 [facility]aLrjlrcqTEZORBPRFV0149-07-29 01:16:00 Test Item Value Reference Range Interpretation Comments MPV (test code = MPV) 8.0 7.4-10.4 [facility]aZkzdktdUBNTUKBAYX1580-69-66 01:16:00 Test Item Value Reference Range Interpretation Comments Lymphocytes (test code = Lymphocytes) 26.4 20.0-40.0 [id number] 01:16:00 Test Item Value Reference Range Interpretation Comments Monocytes (test code = Monocytes) 6.5 2.0-12.0 [place] [id number] 01:16:00 Test Item Value Reference Range Interpretation Comments hCG Tot (test code = hCG Tot) 13 [facility]aFlpwatxOKUUZZPQGF4546-91-17 01:16:00 Test Item Value Reference Range Interpretation Comments Basophils (test code = 0.4 See_Comment [Aut omated message] The Basophils) system which ge nerated this result tra nsmitted reference range : <=1.0. The reference r humberto was not used to int erpret this result as normal/abnormal . [facility]aBhpuaslHSRYGAAQHT2627-28-94 01:16:00 Test Item Value Reference Range Interpretation Comments Eosinophils (test code = 1.2 See_Comment [A utomated message] The Eosinophils) system which ge nerated this result tra nsmitted reference range : <=4.0. The reference r humberto was not used to int erpret this result as normal/abnormal . [facility]aPhsnfrbTJCGJHNDRZ9304-36-97 01:16:00 Test Item Value Reference Range Interpretation Comments Segs-Bands # (test code = Segs-Bands #) 6.0 1.5-8.1 [facility]aGplgxseBULIGZPAWP7220-48-00 01:16:00 Test Item Value Reference Range Interpretation Comments Lymphocytes # (test code = Lymphocytes 2.4 1.0-5.5 #) [id number] 01:16:00 Test Item Value Reference Range Interpretation Comments Monocytes # (test code 0.6 See_Comment [Aut omated message] The = Monocytes #) system which generated this result tra nsmitted reference range : <=0.8. The reference r humberto was not used to int erpret this result as normal/abnormal . [facility]aYipblrzPYSQSBURMV3953-65-67 01:16:00 Test Item Value Reference Range Interpretation Comments Eosinophils # (test code 0.1 See_Comment [A utomated message] The = Eosinophils #) system whic h generated this result tra nsmitted reference range : <=0.5. The reference r humberto was not used to int erpret this result as normal/abnormal . [facility]aSwoztrvTNGONPWNEC9803-33-31 01:16:00 Test Item Value Reference Range Interpretation Comments Segs (test code = Segs) 65.5 45.0-75.0 [facility]aWjtdywmOGCRCNCPUE8067-27-12 01:16:00 Test Item Value Reference Range Interpretation Comments Lymphocytes (test code = Lymphocytes) 26.4 20.0-40.0 [facility]aKfzyayxJPEPARMTOH7705-99-53 01:16:00 Test Item Value Reference Range Interpretation Comments RBC (test code = RBC) 4.54 4.20-5.40 [facility]fQZSDHVNZFPGOB1531-99-41 01:16:00 Test Item Value Reference Range Interpretation Comments hCG Tot (test code = hCG Tot) 13 [facility]aCrydrfeAOSIGUIMLG1681-45-09 01:16:00 Test Item Value Reference Range Interpretation Comments WBC (test code = WBC) 9.2 3.7-10.4 [facility]aTetvxxcTCGEPAXQLP6970-69-36 01:16:00 Test Item Value Reference Range Interpretation Comments RBC (test code = RBC) 4.54 4.20-5.40 [id number] 01:16:00 Test Item Value Reference Range Interpretation Comments Hgb (test code = Hgb) 12.6 12.0-16.0 [facility]aP[id number] 01:16:00 Test Item Value Reference Range Interpretation Comments MCV (test code = MCV) 85.1 80.0-98.0 [facility]aTzquxipAPFEENGDZE8676-04-41 01:16:00 Test Item Value Reference Range Interpretation Comments Hct (test code = Hct) 38.6 36.0-48.0 [facility]aV[id number] 01:16:00 Test Item Value Reference Range Interpretation Comments MCHC (test code = MCHC) 32.6 32.0-36.0 [facility]aRwmwzozIKVKGLHDEO7294-43-33 01:16:00 Test Item Value Reference Range Interpretation Comments MCH (test code = MCH) 27.7 pg 27.0-31.0 [facility]aLrsavdxROLXKXSOQI1735-28-20 01:16:00 Test Item Value Reference Range Interpretation Comments RDW (test code = RDW) 14.0 11.5-14.5 [facility]aRdpzhjmPOBVYVLSPZ2326-58-78 01:16:00 Test Item Value Reference Range Interpretation Comments Platelet (test code = Platelet) 238 133-450 [facility]aKhwlephTPEPRCXAXV3407-84-57 01:16:00 Test Item Value Reference Range Interpretation Comments Hgb (test code = Hgb) 12.6 12.0-16.0 [facility]aVuilaknDISHSCDTRM9410-93-43 01:16:00 Test Item Value Reference Range Interpretation Comments MPV (test code = MPV) 8.0 7.4-10.4 [facility]aAgrpybyBFQYTSQPAF3065-60-39 01:16:00 Test Item Value Reference Range Interpretation Comments Monocytes (test code = Monocytes) 6.5 2.0-12.0 [id number] 01:16:00 Test Item Value Reference Range Interpretation Comments Basophils (test code = 0.4 See_Comment [Aut omated message] The Basophils) system which ge nerated this result tra nsmitted reference range : <=1.0. The reference r humberto was not used to int erpret this result as normal/abnormal . [facility]aLmhguseFOKDHDZDGA4716-56-26 01:16:00 Test Item Value Reference Range Interpretation Comments Eosinophils (test code = 1.2 See_Comment [A utomated message] The Eosinophils) system which ge nerated this result tra nsmitted reference range : <=4.0. The reference r humberto was not used to int erpret this result as normal/abnormal . [facility]aOemorpdGEENNDADJQ1485-30-76 01:16:00 Test Item Value Reference Range Interpretation Comments Segs-Bands # (test code = Segs-Bands #) 6.0 1.5-8.1 [id number] 01:16:00 Test Item Value Reference Range Interpretation Comments Lymphocytes # (test code = Lymphocytes 2.4 1.0-5.5 #) [id number] 01:16:00 Test Item Value Reference Range Interpretation Comments Monocytes # (test code 0.6 See_Comment [Aut omated message] The = Monocytes #) system which generated this result tra nsmitted reference range : <=0.8. The reference r humberto was not used to int erpret this result as normal/abnormal . [facility]aOsihehbYQBYKOOZYP0580-15-40 01:16:00 Test Item Value Reference Range Interpretation Comments Eosinophils # (test code 0.1 See_Comment [A utomated message] The = Eosinophils #) system whic h generated this result tra nsmitted reference range : <=0.5. The reference r humberto was not used to int erpret this result as normal/abnormal . [facility]aLzsiwzsXZQGOMNDIL9188-10-10 01:16:00 Test Item Value Reference Range Interpretation Comments Segs (test code = Segs) 65.5 45.0-75.0 [facility]aUoplurtRIULORZZHW2031-96-88 01:16:00 Test Item Value Reference Range Interpretation Comments Lymphocytes (test code = Lymphocytes) 26.4 20.0-40.0 [facility]aNdkczypTMDKCXCLFO6873-65-36 01:16:00 Test Item Value Reference Range Interpretation Comments MCV (test code = MCV) 85.1 80.0-98.0 [facility]ldjhqoIUZMAEGPMOZPK8514-60-02 01:16:00 Test Item Value Reference Range Interpretation Comments hCG Tot (test code = hCG Tot) 13 [facility]aOkyzsdeBTROMFDUJS8090-52-21 01:16:00 Test Item Value Reference Range Interpretation Comments Hct (test code = Hct) 38.6 36.0-48.0 [id number] 01:16:00 Test Item Value Reference Range Interpretation Comments WBC (test code = WBC) 9.2 3.7-10.4 [id number] 01:16:00 Test Item Value Reference Range Interpretation Comments MCHC (test code = MCHC) 32.6 32.0-36.0 [id number] 01:16:00 Test Item Value Reference Range Interpretation Comments MCH (test code = MCH) 27.7 pg 27.0-31.0 [facility] AND [id number] 01:00:00 Test Item Value Reference Range Interpretation Comments UA Sq Epi (test code = UA Sq Epi) Few /LPF [facility] AND [id number] 01:00:00 Test Item Value Reference Range Interpretation Comments UA WBC (test code = UA WBC) 6-10 /HPF [facility] AND [id number] 01:00:00 Test Item Value Reference Range Interpretation Comments UA RBC (test code = >100 /HPF See_Comment [Automa wilfredo message] The UA RBC) system which ge nerated this result tra nsmitted reference range : <=2. The reference range was not used to interpr et this result as normal/abnormal . [facility] AND [id number] 01:00:00 Test Item Value Reference Range Interpretation Comments UA Bacteria (test code = UA Occasional /HPF Bacteria) [facility] AND [id number] 01:00:00 Test Item Value Reference Range Interpretation Comments Micro? (test code = Performed (09/01/16 8:00 Micro?) PM) [facility] AND [id number] 01:00:00 Test Item Value Reference Range Interpretation Comments UA Color (test code = Yellow *NA*(09/01/16 UA Color) 8:00 PM) [facility] AND [id number] 01:00:00 Test Item Value Reference Range Interpretation Comments UA Spec Grav (test code = UA Spec 1.030 1 Grav) [facility] AND [id number] 01:00:00 Test Item Value Reference Range Interpretation Comments UA Turbidity (test code Cloudy *ABN*(09/01/16 = UA Turbidity) 8:00 PM) [facility] AND [id number] 01:00:00 Test Item Value Reference Range Interpretation Comments UA Leuk Est (test code Trace *ABN*(09/01/16 = UA Leuk Est) 8:00 PM) [facility] AND [id number] 01:00:00 Test Item Value Reference Range Interpretation Comments UA Nitrite (test code Negative (09/01/16 8:00 = UA Nitrite) PM) [facility] AND [id number] 01:00:00 Test Item Value Reference Range Interpretation Comments UA Urobilinogen (test code = UA 0.2 0.1-1.0 Urobilinogen) [facility] AND [id number] 01:00:00 Test Item Value Reference Range Interpretation Comments UA Ketones (test code Negative *NA*(09/01/16 = UA Ketones) 8:00 PM) [facility] AND [id number] 01:00:00 Test Item Value Reference Range Interpretation Comments UA Bili (test code = Small *ABN*(09/01/16 UA Bili) 8:00 PM) [facility] AND [id number] 01:00:00 Test Item Value Reference Range Interpretation Comments UA Blood (test code = Large *ABN*(09/01/16 UA Blood) 8:00 PM) [facility] AND [id number] 01:00:00 Test Item Value Reference Range Interpretation Comments UA pH (test code = UA pH) 6.0 1 5.0-8.0 [facility] AND [id number] 01:00:00 Test Item Value Reference Range Interpretation Comments UA Protein (test code = Trace *ABN*(09/01/16 UA Protein) 8:00 PM) [facility] AND [id number] 01:00:00 Test Item Value Reference Range Interpretation Comments UA Glucose (test code Negative (09/01/16 8:00 = UA Glucose) PM) [facility] [id number] 01:00:00 Test Item Value Reference Range Interpretation Comments U Preg (test code = U Negative (09/01/16 8:00 Preg) PM) [facility] AND [id number] 01:00:00 Test Item Value Reference Range Interpretation Comments UA Sq Epi (test code = UA Sq Epi) Few /LPF [facility] AND [id number] 01:00:00 Test Item Value Reference Range Interpretation Comments UA WBC (test code = UA WBC) 6-10 /HPF [facility] AND [id number] 01:00:00 Test Item Value Reference Range Interpretation Comments UA RBC (test code = >100 /HPF See_Comment [Automa wilfredo message] The UA RBC) system which ge nerated this result tra nsmitted reference range : <=2. The reference range was not used to interpr et this result as normal/abnormal . [facility] AND [id number] 01:00:00 Test Item Value Reference Range Interpretation Comments UA Bacteria (test code = UA Occasional /HPF Bacteria) [facility] AND [id number] 01:00:00 Test Item Value Reference Range Interpretation Comments Micro? (test code = Performed (09/01/16 8:00 Micro?) PM) [facility] AND [id number] 01:00:00 Test Item Value Reference Range Interpretation Comments UA Color (test code = Yellow *NA*(09/01/16 UA Color) 8:00 PM) [facility] AND [id number] 01:00:00 Test Item Value Reference Range Interpretation Comments UA Spec Grav (test code = UA Spec 1.030 1 Grav) [facility] AND [id number] 01:00:00 Test Item Value Reference Range Interpretation Comments UA Turbidity (test code Cloudy *ABN*(09/01/16 = UA Turbidity) 8:00 PM) [facility] AND [id number] 01:00:00 Test Item Value Reference Range Interpretation Comments UA Leuk Est (test code Trace *ABN*(09/01/16 = UA Leuk Est) 8:00 PM) [facility] AND [id number] 01:00:00 Test Item Value Reference Range Interpretation Comments UA Nitrite (test code Negative (09/01/16 8:00 = UA Nitrite) PM) [facility] AND [id number] 01:00:00 Test Item Value Reference Range Interpretation Comments UA Urobilinogen (test code = UA 0.2 0.1-1.0 Urobilinogen) [facility] AND [id number] 01:00:00 Test Item Value Reference Range Interpretation Comments UA Ketones (test code Negative *NA*(09/01/16 = UA Ketones) 8:00 PM) [facility] AND [id number] 01:00:00 Test Item Value Reference Range Interpretation Comments UA Bili (test code = Small *ABN*(09/01/16 UA Bili) 8:00 PM) [facility] AND [id number] 01:00:00 Test Item Value Reference Range Interpretation Comments UA Blood (test code = Large *ABN*(09/01/16 UA Blood) 8:00 PM) [facility] AND [id number] 01:00:00 Test Item Value Reference Range Interpretation Comments UA pH (test code = UA pH) 6.0 1 5.0-8.0 [facility] AND [id number] 01:00:00 Test Item Value Reference Range Interpretation Comments UA Protein (test code = Trace *ABN*(09/01/16 UA Protein) 8:00 PM) [facility] AND [id number] 01:00:00 Test Item Value Reference Range Interpretation Comments UA Glucose (test code Negative (09/01/16 8:00 = UA Glucose) PM) [facility] [id number] 01:00:00 Test Item Value Reference Range Interpretation Comments U Preg (test code = U Negative (09/01/16 8:00 Preg) PM) [facility] AND [id number] 01:00:00 Test Item Value Reference Range Interpretation Comments UA Sq Epi (test code = UA Sq Epi) Few /LPF [facility] AND [id number] 01:00:00 Test Item Value Reference Range Interpretation Comments UA WBC (test code = UA WBC) 6-10 /HPF [facility] AND [id number] 01:00:00 Test Item Value Reference Range Interpretation Comments UA RBC (test code = >100 /HPF See_Comment [Automa wilfredo message] The UA RBC) system which ge nerated this result tra nsmitted reference range : <=2. The reference range was not used to interpr et this result as normal/abnormal . [facility] AND [id number] 01:00:00 Test Item Value Reference Range Interpretation Comments UA Bacteria (test code = UA Occasional /HPF Bacteria) [facility] AND [id number] 01:00:00 Test Item Value Reference Range Interpretation Comments Micro? (test code = Performed (09/01/16 8:00 Micro?) PM) [facility] AND [id number] 01:00:00 Test Item Value Reference Range Interpretation Comments UA Color (test code = Yellow *NA*(09/01/16 UA Color) 8:00 PM) [facility] AND [id number] 01:00:00 Test Item Value Reference Range Interpretation Comments UA Spec Grav (test code = UA Spec 1.030 1 Grav) [facility] AND [id number] 01:00:00 Test Item Value Reference Range Interpretation Comments UA Turbidity (test code Cloudy *ABN*(09/01/16 = UA Turbidity) 8:00 PM) [facility] AND [id number] 01:00:00 Test Item Value Reference Range Interpretation Comments UA Leuk Est (test code Trace *ABN*(09/01/16 = UA Leuk Est) 8:00 PM) [facility] AND [id number] 01:00:00 Test Item Value Reference Range Interpretation Comments UA Nitrite (test code Negative (09/01/16 8:00 = UA Nitrite) PM) [facility] AND [id number] 01:00:00 Test Item Value Reference Range Interpretation Comments UA Urobilinogen (test code = UA 0.2 0.1-1.0 Urobilinogen) [facility] AND [id number] 01:00:00 Test Item Value Reference Range Interpretation Comments UA Ketones (test code Negative *NA*(09/01/16 = UA Ketones) 8:00 PM) [facility] AND [id number] 01:00:00 Test Item Value Reference Range Interpretation Comments UA Bili (test code = Small *ABN*(09/01/16 UA Bili) 8:00 PM) [facility] AND [id number] 01:00:00 Test Item Value Reference Range Interpretation Comments UA Blood (test code = Large *ABN*(09/01/16 UA Blood) 8:00 PM) [facility] AND [id number] 01:00:00 Test Item Value Reference Range Interpretation Comments UA pH (test code = UA pH) 6.0 1 5.0-8.0 [facility] AND [id number] 01:00:00 Test Item Value Reference Range Interpretation Comments UA Protein (test code = Trace *ABN*(09/01/16 UA Protein) 8:00 PM) [facility] AND [id number] 01:00:00 Test Item Value Reference Range Interpretation Comments UA Glucose (test code Negative (09/01/16 8:00 = UA Glucose) PM) [facility] [id number] 01:00:00 Test Item Value Reference Range Interpretation Comments U Preg (test code = U Negative (09/01/16 8:00 Preg) PM) [facility]
[2022-04-15 03:42] LABS: Urine Blood Negative (Negative); Urine Glucose Negative (Negative); Urine Protein Negative (Negative); Urine Specific Gravity >=1.030 (1.005-1.030)
[2022-04-15] MEDS ORDERED: CODEINE 30MG/APAP 300MG TAB ONE (03:42)
[2022-04-15] MEDS ORDERED: IBUPROFEN 400 MG TAB ONE (03:43)
[2022-04-15] MEDS ORDERED: DICYCLOMINE HCL 10 MG CAP ONE (03:43)
[2022-04-15 04:16] LABS: Urine Specific Gravity/Preg >1.030 (1.005-1.030)
--- NOTE | 2022-04-15 05:48 | ER ---
Nurse's Notes [facility] Name: Paola Castano Age: 36 yrs Sex: Female : 1985 Arrival Date: 04/15/2022 Time: 02:30 Bed 19 Private MD: Diagnosis: Pelvic and perineal pain;Lower abdominal pain, unspecified-Pelvic and abdominal cramps, uterine cramps, right lower quadrant abdominal pain, delayed menstrual period Presentation: 04/15 02:54 Chief complaint: Patient states: Lower abdomen cramps since 3 am yesterday getting ke1 worse, patient had chickenpox that resolved 3 weeks ago, and is 6 days late for her period. Coronavirus screen: Vaccine status: Patient reports being unvaccinated. Ebola Screen: No symptoms or risks identified at this time. Initial Sepsis Screen: Does the patient meet any 2 criteria? No. Patient's initial sepsis screen is negative. Does the patient have a suspected source of infection? No. Patient's initial sepsis screen is negative. Risk Assessment: Do you want to hurt yourself or someone else? Patient reports no desire to harm self or others. Onset of symptoms was April 14, 2022 at 03:00. 02:54 Method Of Arrival: Ambulatory ke1 02:54 Acuity: LEWIS 3 ke1 Triage Assessment: 02:57 General: Appears in no apparent distress. Behavior is appropriate for age. Pain: Denies ke1 pain. 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 - Social history:: Smoking status: Patient reports the use of cigarette tobacco products, smokes one-half pack cigarettes per day. - Family history:: not pertinent. - Hospitalizations: : No recent hospitalization is reported. Screenin:58 [facility] ED Fall Risk Assessment (Adult) History of falling in the last 3 months, ke1 including since admission No falls in past 3 months (0 pts) Confusion or Disorientation No (0 pts) Intoxicated or Sedated No (0 pts) Impaired Gait No (0 pts) Mobility Assist Device Used No (0 pt) Altered Elimination No (0 pt) Score/Fall Risk Level 0 - 2 = Low Risk. Abuse screen: Denies threats or abuse. Nutritional screening: No deficits noted. Tuberculosis screening: No symptoms or risk factors identified. Assessment: 03:31 Reassessment: Patient cannot handle IV insertion pain so refusing labs work, notify. ke1 05:34 Reassessment: Patient and/or family updated on plan of care and expected duration. Pain ke1 level reassessed. Patient is alert, oriented x 3, equal unlabored respirations, skin warm/dry/pink. Patient denies pain at this time. Vital Signs: 02:54 BP 138 / 79; Pulse 85; Resp 19; Temp 98.9; Pulse Ox 100% ; Weight 154.22 kg; Height 5 ke1 ft. 7 in. (170.18 cm); Pain 0/10; 02:54 Body Mass Index 53.25 (154.22 kg, 170.18 cm) ke1 ED Course: 02:30 Patient arrived in ED. jj6 02:35 Nj Santoyo MD is Attending Physician. sp4 02:54 Pierce Miranda RN is Primary Nurse. ke1 02:57 Triage completed. ke1 02:59 Arm band placed on left wrist. ke1 02:59 Bed in low position. ke1 06:00 No provider procedures requiring assistance completed. Patient did not have IV access ha1 during this emergency room visit. Administered Medications: 03:41 Drug: Bentyl (dicyclomine) 20 mg Route: PO; ke1 03:41 Drug: Ibuprofen 800 mg Route: PO; ke1 03:41 Drug: Tylenol #3 (300 mg-30 mg) 2 tablet Route: PO; ke1 04:30 Follow up: Response: Pain is decreased ke1 Medication: 06:00 VIS not applicable for this client. ha1 Outcome: 05:47 Discharge ordered by . sp4 06:00 Discharged to home ambulatory. ha1 06:00 Condition: stable 06:00 Discharge instructions given to patient, family, Instructed on discharge instructions, follow up and referral plans. medication usage, Demonstrated understanding of instructions, follow-up care, medications, Prescriptions given X 3. 06:01 Patient left the ED. ha1 Signatures: Marissa Gaitan jj6 Pierce Miranda RN RN ke1 Sharmin Lara RN RN ha1 Nj Santoyo MD MD sp4 Corrections: (The following items were deleted from the chart) 02:58 02:54 Chief complaint: Patient states: Lower abdomen cramps since 3 am yesterday ke1 getting worse ke1 02:59 02:54 Chief complaint: Patient states: Lower abdomen cramps since 3 am yesterday ke1 getting worse, patient had chickenpox that resolved 3 weeks ago ke1
--- NOTE | 2022-04-15 05:49 | EDPHYS ---
Physician Documentation [facility] Name: Paola Castano Age: 36 yrs Sex: Female : 1985 Arrival Date: 04/15/2022 Time: 02:30 Bed 19 Private MD: ED Physician Nj Santoyo HPI: 04/15 02:38 This 36 yrs old Black Female presents to ER via Unassigned with complaints of Pelvic sp4 Pain. 03:32 36-year-old female presents with pelvic cramps, more on the right side starting at 3 PM sp4 yesterday associated with nausea. Patient reports her last menstrual period is 03/13/2022. Patient denied any vaginal bleeding.. 05:44 Patient states that she is worried about . 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 - Social history:: Smoking status: Patient reports the use of cigarette tobacco products, smokes one-half pack cigarettes per day. - Family history:: not pertinent. - Hospitalizations: : No recent hospitalization is reported. ROS: 03:32 Constitutional: Negative for fever, chills, and weight loss, Eyes: Negative for injury, sp4 pain, redness, and discharge, ENT: Negative for injury, pain, and discharge, Neck: Negative for injury, pain, and swelling, Cardiovascular: Negative for chest pain, palpitations, and edema, Respiratory: Negative for shortness of breath, cough, wheezing, and pleuritic chest pain, Abdomen/GI: Negative vomiting, diarrhea, and constipation, patient reports crampy pelvic pain on the right side, patient reported nausea Back: Negative for injury and pain, : Negative for injury, bleeding, discharge, and swelling, patient reports right-sided pelvic cramps MS/Extremity: Negative for injury and deformity, Skin: Negative for injury, and discoloration, Neuro: Negative for headache, weakness, numbness, tingling, and seizure, Psych: Negative for depression, anxiety, suicide ideation, homicidal ideation, and hallucinations, Allergy/Immunology: Negative for hives, rash, and allergies, Endocrine: Negative for neck swelling, polydipsia, polyuria, polyphagia, and marked weight changes, Hematologic/Lymphatic: Negative for swollen nodes, abnormal bleeding, and unusual bruising. Exam: 03:32 Constitutional: This is a well developed, well nourished patient who is awake, alert, sp4 and in no acute distress. Overweight female nontoxic-appearing Head/Face: Normocephalic, atraumatic. Eyes: Pupils equal round and reactive to light, extra-ocular motions intact. Lids and lashes normal. Conjunctiva and sclera are non-icteric and not injected. Cornea within normal limits. Periorbital areas with no swelling, redness, or edema. ENT: Nares patent. No nasal discharge, no septal abnormalities noted. Tympanic membranes are normal and external auditory canals are clear. Oropharynx with no redness, swelling, or masses, exudates, or evidence of obstruction, uvula midline. Mucous membranes moist. Neck: Trachea midline, no thyromegaly or masses palpated, and no cervical lymphadenopathy. Supple, full range of motion without nuchal rigidity, or vertebral point tenderness. No Meningismus. Chest/axilla: Normal chest wall appearance and motion. Nontender with no deformity. No lesions are appreciated. Cardiovascular: Regular rate and rhythm with a normal S1 and S2. No gallops, murmurs, or rubs. Normal PMI, no JVD. No pulse deficits. Respiratory: Lungs have equal breath sounds bilaterally, clear to auscultation and percussion. No rales, rhonchi or wheezes noted. No increased work of breathing, no retractions or nasal flaring. Abdomen/GI: Soft, with normal bowel sounds. No distension or tympany. No guarding or rebound. No evidence of tenderness throughout. Overweight abdomen with truncal obesity, right lower quadrant abdominal tenderness. Back: No spinal tenderness. No costovertebral tenderness. Full range of motion. Skin: Warm, dry with normal turgor. Normal color with no lesions, and no evidence of cellulitis. Patient appears to have diffuse scaly rash consistent with psoriasis MS/ Extremity: Pulses equal, no cyanosis. Neurovascular intact. Full, normal range of motion. Neuro: Awake and alert, GCS 15, oriented to person, place, time, and situation. Cranial nerves II-XII grossly intact. Motor strength 5/5 in all extremities. Sensory grossly intact. Cerebellar exam normal. Normal gait. Psych: Awake, alert, with orientation to person, place and time. Behavior, mood, and affect are within normal limits. Vital Signs: 02:54 BP 138 / 79; Pulse 85; Resp 19; Temp 98.9; Pulse Ox 100% ; Weight 154.22 kg; Height 5 ke1 ft. 7 in. (170.18 cm); Pain 0/10; 02:54 Body Mass Index 53.25 (154.22 kg, 170.18 cm) ke1 MDM: 02:40 Patient medically screened. sp4 05:44 Differential Diagnosis flu, , pelvic cramps, appendicitis, ovarian cyst .. sp4 Data reviewed: vital signs, nurses notes, lab test result(s), urinalysis, radiologic studies, CT scan. ED course: Patient has not received medications as needed for pain and has improved. Patient was stuck several times for lab work but after some unsuccessful attempts she declined blood work. CT abdomen pelvis without contrast revealed no acute intra-abdominal or pelvic emergency. test is negative patient is stable for discharge home at this time with as needed medications. 04/15 02:40 Order name: Basic Metabolic Panel sp4 04/15 02:40 Order name: CBC with Diff sp4 / 02:40 Order name: NPO; Complete Time: 03:46 sp4 / 02:40 Order name: Urine Dipstick-Ancillary (obtain specimen); Complete Time: 03:44 sp4 04/15 02:40 Order name: Urine Test (obtain specimen); Complete Time: 03:45 sp4 04/15 02:40 Order name: LFT's sp4 / 03:32 Order name: CT Abd/Pelvis - Without Contrast sp4 04/15 03:42 Order name: Urine Dipstick-Ancillary; Complete Time: 05:38 EDMS 04/15 04:04 Order name: Urine --Ancillary (enter results) 04/15 04:16 Order name: Urine --Ancillary; Complete Time: 05:38 EDMS Administered Medications: 03:41 Drug: Bentyl (dicyclomine) 20 mg Route: PO; ke1 03:41 Drug: Ibuprofen 800 mg Route: PO; ke1 03:41 Drug: Tylenol #3 (300 mg-30 mg) 2 tablet Route: PO; ke1 04:30 Follow up: Response: Pain is decreased ke1 Disposition Summary: 04/15/22 05:47 Discharge Ordered Location: Home sp4 Problem: new sp4 Symptoms: have improved sp4 Condition: Stable sp4 Diagnosis - Pelvic and perineal pain sp4 - Lower abdominal pain, unspecified - Pelvic and abdominal cramps, uterine cramps, sp4 right lower quadrant abdominal pain, delayed menstrual period Followup: sp4 - With: Private Physician - When: 7 - 10 days - Reason: Continuance of care Discharge Instructions: - Discharge Summary Sheet sp4 - Pelvic Pain, Female sp4 Forms: - Medication Reconciliation Form sp4 - Thank You Letter sp4 Prescriptions: - Ibuprofen 800 mg Oral Tablet - take 1 tablet by ORAL route every 8 hours As needed take with food; 30 tablet; sp4 Refills: 0, Product Selection Permitted - Levsin 0.125 mg Oral Tablet - take 1 tablet by ORAL route every 6 hours; 40 tablet; Refills: 0, Product sp4 Selection Permitted - promethazine 25 mg Oral Tablet - take 1 tablet by ORAL route every 6 hours As needed; 20 tablet; Refills: 0, sp4 Product Selection Permitted Signatures: Dispatcher [employer] Pierce Burnham RN RN ke1 Nj Santoyo MD MD sp4
--- NOTE | 2022-04-15 12:40 | RAD REPORT ---
EXAM DESCRIPTION: CT - Abdomen Pelvis Wo Contrast - 04/15/2022 6:22 am CLINICAL HISTORY: LOWER ABD PAIN COMPARISON: None. 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 FINDINGS: Lower lungs are clear. Abdomen: The liver is normal in appearance. There is no biliary dilatation. Gallbladder is normally d istended. There is a multilobed moderate sized ventral hernia mostly in the supraumbilical region. Th e pancreas and spleen are normal in appearance. The adrenal glands and kidneys are unremarkable. Abdominal aorta is normal in course and caliber without aneurysm. There is no free air. There is no r etroperitoneal adenopathy. Pelvis: There is no bowel obstruction. Urinary bladder is unremarkable. There is no free fluid. Uteru s is normal in size. Appendix is normal. Skeleton: There are no acute osseous findings. No suspicious bony lesions. IMPRESSION: No definite acute process. Electronically signed by: Elieser Zimmerman MD 04/15/2022 5:24 AM ROLL SETTER Due to temporary technical issues with the PACS/Fluency reporting system, reports are being signed by the in house radiologists without review as a courtesy to insure prompt reporting. The interpreting radiologist is fully responsible for the content of the report.
== END 2022-04-15 06:01 | disposition home or self-care (01) ==
LOC: ER 02:27
DX: R10.2 Pelvic and perineal pain (principal); N91.0 Primary amenorrhea; R10.31 Right lower quadrant pain; N94.89 Other specified conditions associated with female genital organs and menstrual cycle; I10 Essential (primary) hypertension; F17.210 Nicotine dependence, cigarettes, uncomplicated; Z91.040 Latex allergy status; Z91.048 Other nonmedicinal substance allergy status
CPT/HCPCS: 74176; 81003; 81025; 99283

== ENCOUNTER → 2023-04-07 | Emergency (ER) | payer OTHER ==
[~2023-04-07] MED LIST: MAGNES/ALUMIN/SIMET 30ML UCUP ONE; NA CHLORIDE 0.9% 1,000 ML ONE; ONDANSETRON 4 MG/2 ML VIAL ONE
[2023-04-07 21:00] LABS: Absolute Lymphocytes (CBC) 1.5 K/uL (0.7-4.9); Hematocrit 34.4 % (36.0-45.0); Lymphocytes % 17.4 % (15.3-44.8); MCV 83.8 fL (80-100); MPV 7.5 fL (7.6-11.3); Platelets 268 thou/uL (152-406); RBC Red Blood Cell Count 4.11 M/uL (3.86-4.86)
[2023-04-07 21:18] LABS: Albumin 2.7 g/dL (3.4-5.0); Bilirubin Total 0.3 mg/dL (0.2-1.0); Protein, Total 7.2 g/dL (6.4-8.2)
[2023-04-07 21:26] LABS: Potassium 4.1 mEq/L (3.5-5.1); Troponin High Sensitivity 3.6 pg/mL (<58.9)
--- NOTE | 2023-04-07 21:37 | EDPHYS ---
Physician Documentation [facility] Name: Paola Castano Age: 37 yrs Sex: Female : 1985 Arrival Date: 04/07/2023 Time: 19:44 Bed 20 Private MD: ED Physician Thom Oh HPI: 04/07 20:09 This 37 yrs old Black Female presents to ER via EMS with complaints of Nausea/Vomiting. rt 20:09 Patient who is 21 weeks presents to the ED with nausea, vomiting starting this rt morning. This occurred after eating chili. She states that family members had eaten the same chili have similar symptoms. Denies any diarrhea. She does report a burning sensation to her chest that started this evening. Denies other acute complaints at this time, symptoms are moderate in severity, no other aggravating or alleviating factors.. Historical: - Allergies: 19:52 Latex; tm6 - PMHx: 19:52 Hypertension; Iron defeciency; tm6 - PSHx: 19:52 section; tm6 - Immunization history:: Adult Immunizations up to date, Client reports having NOT received the Covid vaccine. Flu vaccine is not up to date. - Social history:: Smoking status: Patient reports the use of cigarette tobacco products, denies chronic smoking, but will smoke occasionally, Patient/guardian denies using alcohol, street drugs. - Family history:: not pertinent. ROS: 20:09 Constitutional: Negative for fever, chills, and weight loss, Respiratory: Negative for rt shortness of breath, cough, wheezing, and pleuritic chest pain, MS/Extremity: Negative for injury and deformity, Skin: Negative for injury, rash, and discoloration, Neuro: Negative for headache, weakness, numbness, tingling, and seizure, Psych: Negative for depression, anxiety, suicide ideation, homicidal ideation, and hallucinations, 20:09 Cardiovascular: Positive for chest pain, Negative for edema, 20:09 Abdomen/GI: Positive for nausea and vomiting, Negative for abdominal pain, Exam: 20:09 Constitutional: This is a well developed, well nourished patient who is awake, alert, rt and in no acute distress. Head/Face: Normocephalic, atraumatic. Chest/axilla: Normal chest wall appearance and motion. Nontender with no deformity. No lesions are appreciated. Cardiovascular: Regular rate and rhythm with a normal S1 and S2. No gallops, murmurs, or rubs. Normal PMI, no JVD. No pulse deficits. Respiratory: Lungs have equal breath sounds bilaterally, clear to auscultation and percussion. No rales, rhonchi or wheezes noted. No increased work of breathing, no retractions or nasal flaring. Abdomen/GI: Soft, non-tender, with normal bowel sounds. No distension or tympany. No guarding or rebound. No evidence of tenderness throughout. Skin: Warm, dry with normal turgor. Normal color with no rashes, no lesions, and no evidence of cellulitis. MS/ Extremity: Pulses equal, no cyanosis. Neurovascular intact. Full, normal range of motion. Neuro: Awake and alert, GCS 15, oriented to person, place, time, and situation. Cranial nerves II-XII grossly intact. Motor strength 5/5 in all extremities. Sensory grossly intact. Cerebellar exam normal. Normal gait. Psych: Awake, alert, with orientation to person, place and time. Behavior, mood, and affect are within normal limits. 20:09 ECG was reviewed by the Attending Physician. Vital Signs: 19:49 BP 154 / 74; Pulse 88; Resp 20; Temp 98.3(O); Pulse Ox 99% on R/A; Weight 161.03 kg; tm6 Height 5 ft. 7 in. ; Pain 5/10; 20:47 BP 154 / 74; Pulse 83; Pulse Ox 97% on R/A; tm6 21:28 BP 115 / 49; Pulse 72; Pulse Ox 100% on R/A; Pain 0/10; tm6 19:49 Body Mass Index 55.60 (161.03 kg, 170.18 cm) tm6 19:49 Pain Scale: Adult tm6 21:28 Pain Scale: Adult tm6 MDM: 19:46 Patient medically screened. rt 04/07 19:46 Order name: CBC with Diff; Complete Time: 21:26 rt 04/07 19:46 Order name: CMP; Complete Time: 21:28 rt 04/07 19:46 Order name: Lipase; Complete Time: 21:28 rt 04/07 19:46 Order name: Troponin High Sensitivity; Complete Time: 21:28 rt 04/07 19:46 Order name: EKG; Complete Time: 19:47 rt 04/07 19:46 Order name: EKG - Nurse/Tech; Complete Time: 20:09 rt EC: Rate is 80 beats/min. Rhythm is regular, Normal Sinus Rhythm with No ectopy. QRS [place] rt is Normal. AR interval is normal. QRS interval is normal. QT interval is normal. No Q waves. T waves are Normal. No ST changes noted. Interpreted by me. Administered Medications: 20:45 Drug: Alum-Mag Hydroxide-Simeth PO Suspension (200 mg-200 mg-20 mg/5 mL) 30 ml PO once tm6 Route: PO; 20:54 Drug: NS 0.9% IV 1000 ml IV at 1 bolus Per protocol; 1000 mL bolus Route: IV; Rate: 1 mb9 bolus; Site: left antecubital; 21:55 Follow up: IV Status: Completed infusion; IV Intake: 1000ml tm6 20:54 Drug: Ondansetron IVP 4 mg IVP once; over 2 minutes Route: IVP; Site: left antecubital; mb9 Disposition Summary: 04/07/23 21:36 Discharge Ordered Notes: Location: Home rt Problem: new rt Symptoms: have improved rt Condition: Stable rt Diagnosis - Nausea with vomiting, unspecified rt Followup: rt - With: Private Physician - When: 2 - 3 days - Reason: Discharge Instructions: - Discharge Summary Sheet rt - Nausea and Vomiting, Adult rt Forms: - Medication Reconciliation Form rt - Thank You Letter rt - Antibiotic Education rt - Prescription Opioid Use rt - Patient Portal Instructions rt - Leadership Thank You Letter rt Prescriptions: - ondansetron 4 mg Oral Tablet,disintegrating - take 1 tablet ORAL route every 6 hours As needed for nausea; 15 tablet; rt Refills: 0, Product Selection Permitted Signatures: Dispatcher [employer] Shruthi Marshall RN RN mb9 Thom hO MD MD rt Toy Choudhury RN RN tm6
--- NOTE | 2023-04-07 21:37 | ER ---
Nurse's Notes [facility] Name: Paola Castano Age: 37 yrs Sex: Female : 1985 Arrival Date: 04/07/2023 Time: 19:44 Bed 20 Private MD: Diagnosis: Nausea with vomiting, unspecified Presentation: 04/07 19:49 Chief complaint: EMS states: 21 weeks , had chili for breakfast. Experiencing tm6 nausea, vomiting, and chest pain throughout the day. Chest pain is center left 5/10, intermittent, sharp pain. Chest hurts to touch. Coronavirus screen: Vaccine status: Patient reports being unvaccinated. Ebola Screen: Patient negative for fever greater than or equal to 101.5 degrees Fahrenheit, and additional compatible Ebola Virus Disease symptoms Patient denies exposure to infectious person. Patient denies travel to an Ebola-affected area in the 21 days before illness onset. No symptoms or risks identified at this time. Initial Sepsis Screen: Does the patient meet any 2 criteria? No. Patient's initial sepsis screen is negative. Does the patient have a suspected source of infection? No. Patient's initial sepsis screen is negative. Risk Assessment: Do you want to hurt yourself or someone else? Patient reports no desire to harm self or others. Onset of symptoms was April 07, 2023. 19:49 Method Of Arrival: EMS: [facility] tm6 19:49 Acuity: LEWIS 3 tm6 Triage Assessment: 19:52 General: Appears uncomfortable, Behavior is calm, cooperative. Pain: Complains of pain tm6 in chest Pain currently is 5 out of 10 on a pain scale. Quality of pain is described as sharp, Is intermittent. EENT: No signs and/or symptoms were reported regarding the EENT system. Neuro: Level of Consciousness is awake, alert, obeys commands, Oriented to person, place, time, situation. Cardiovascular: Reports chest pain. Respiratory: Airway is patent Respiratory effort is even, unlabored, Respiratory pattern is regular, symmetrical. GI: Abdomen is round non-distended, Abd is soft and non tender X 4 quads. Reports nausea, vomiting. : No signs and/or symptoms were reported regarding the genitourinary system. Derm: No signs and/or symptoms reported regarding the dermatologic system. Musculoskeletal: No signs and/or symptoms reported regarding the musculoskeletal system. Historical: - Allergies: 19:52 Latex; tm6 - PMHx: 19:52 Hypertension; Iron defeciency; tm6 - PSHx: 19:52 section; tm6 - Immunization history:: Adult Immunizations up to date, Client reports having NOT received the Covid vaccine. Flu vaccine is not up to date. - Social history:: Smoking status: Patient reports the use of cigarette tobacco products, denies chronic smoking, but will smoke occasionally, Patient/guardian denies using alcohol, street drugs. - Family history:: not pertinent. Screenin:54 [facility] ED Fall Risk Assessment (Adult) History of falling in the last 3 months, tm6 including since admission No falls in past 3 months (0 pts) Confusion or Disorientation No (0 pts) Intoxicated or Sedated No (0 pts) Impaired Gait No (0 pts) Mobility Assist Device Used No (0 pt) Altered Elimination No (0 pt) Score/Fall Risk Level 0 - 2 = Low Risk Oriented to surroundings, Maintained a safe environment. Abuse screen: Denies threats or abuse. Denies injuries from another. Nutritional screening: No deficits noted. Tuberculosis screening: No symptoms or risk factors identified. Assessment: 19:54 Reassessment: see triage assessment. GI: Abdomen is round non-distended, Abd is soft tm6 and non tender Reports nausea, vomiting. 20:48 Reassessment: Patient appears in no apparent distress at this time. No changes from tm6 previously documented assessment. Patient is alert, oriented x 3, equal unlabored respirations, skin warm/dry/pink. 21:27 Reassessment: Patient and/or family updated on plan of care and expected duration. Pain tm6 level reassessed. Patient is alert, oriented x 3, equal unlabored respirations, skin warm/dry/pink. Patient states feeling better. Patient states symptoms have improved. 21:54 Reassessment: Patient appears in no apparent distress at this time. No changes from tm6 previously documented assessment. Patient and/or family updated on plan of care and expected duration. Pain level reassessed. Patient is alert, oriented x 3, equal unlabored respirations, skin warm/dry/pink. Patient states feeling better. Patient states symptoms have improved. Vital Signs: 19:49 BP 154 / 74; Pulse 88; Resp 20; Temp 98.3(O); Pulse Ox 99% on R/A; Weight 161.03 kg; tm6 Height 5 ft. 7 in. ; Pain 5/10; 20:47 BP 154 / 74; Pulse 83; Pulse Ox 97% on R/A; tm6 21:28 BP 115 / 49; Pulse 72; Pulse Ox 100% on R/A; Pain 0/10; tm6 19:49 Body Mass Index 55.60 (161.03 kg, 170.18 cm) tm6 19:49 Pain Scale: Adult tm6 21:28 Pain Scale: Adult tm6 ED Course: 19:45 Patient arrived in ED. jj6 19:46 Thom Oh MD is Attending Physician. rt 19:49 Toy Choudhury, RN is Primary Nurse. tm6 19:52 Triage completed. tm6 19:52 Arm band placed on right wrist. tm6 19:54 Patient has correct armband on for positive identification. Bed in low position. Call tm6 light in reach. Side rails up X 1. Provided Education on: plan of care. Client placed on continuous cardiac and pulse oximetry monitoring. NIBP monitoring applied. youth nutritional monitor on. Door closed. Noise minimized. Warm blanket given. 20:54 Inserted saline lock: 22 gauge in left antecubital area, using aseptic technique. mb9 21:54 No provider procedures requiring assistance completed. IV discontinued, intact, tm6 bleeding controlled, No redness/swelling at site. Pressure dressing applied. Administered Medications: 20:45 Drug: Alum-Mag Hydroxide-Simeth PO Suspension (200 mg-200 mg-20 mg/5 mL) 30 ml PO once tm6 Route: PO; 20:54 Drug: NS 0.9% IV 1000 ml IV at 1 bolus Per protocol; 1000 mL bolus Route: IV; Rate: 1 mb9 bolus; Site: left antecubital; 21:55 Follow up: IV Status: Completed infusion; IV Intake: 1000ml tm6 20:54 Drug: Ondansetron IVP 4 mg IVP once; over 2 minutes Route: IVP; Site: left antecubital; mb9 Medication: 19:54 VIS not applicable for this client. tm6 Intake: 21:55 IV: 1000ml; Total: 1000ml. tm6 Outcome: 21:36 Discharge ordered by . rt 21:54 Discharged to home ambulatory, tm6 21:54 Condition: stable 21:54 Discharge instructions given to patient, Instructed on discharge instructions, follow up and referral plans. medication usage, Demonstrated understanding of instructions, follow-up care, medications, Prescriptions given X 1, 21:55 Patient left the ED. tm6 Signatures: Marissa Gaitan jj6 Shruthi Hawkins RN RN mb9 Thom Oh MD MD rt Toy Choudhury RN RN tm6 Corrections: (The following items were deleted from the chart) 21:31 21:28 Pulse 75bpm; Pulse Ox 97% RA; Pain 0/10, Adult; tm6 tm6
[2023-04-07 22:58] VITALS: BP 115/49; TEMP 98.3; O2SAT 100
--- NOTE | 2023-04-09 14:32 | EKG ---
Test Date: 2023-04-07 Test Time: 20:05:33 Crm Campaign Manager: ALLIE MEASUREMENT RESULTS: Intervals: Rate: 80 IA: 132 QRSD: 92 QT: 368 QTc: 424 [place]: P: 56 IA: 132 QRS: -7 T: 20 INTERPRETIVE STATEMENTS: Normal sinus rhythm Normal ECG Compared to ECG 07/02/2020 20:29:39 T-wave abnormality no longer present Electronically Signed On 04-09-23 14:27:45 HOSPICE CLINICAL SUPERVISOR by Warren Campbell
== END ==
LOC: ER 19:44
DX: O21.9 Vomiting of pregnancy, unspecified (principal); O99.332 Smoking (tobacco) complicating pregnancy, second trimester; F17.210 Nicotine dependence, cigarettes, uncomplicated; Z3A.21 21 weeks gestation of pregnancy; Z91.040 Latex allergy status
CPT/HCPCS: 93005; 85025; 36415; 84484; 83690; 80053; J2405; J7030; 96361; 96374; 99285

== ENCOUNTER 2023-05-23 22:43 | Emergency (ER) | payer OTHER ==
[2023-05-23] MEDS ORDERED: NA CHLORIDE 0.9% 1,000 ML ONE (23:46)
[2023-05-23 23:52] LABS: Absolute Eosinophils 0.1 K/uL (0-0.5); Absolute Lymphocytes (CBC) 1.5 K/uL (0.7-4.9); Absolute Monocytes 0.5 K/uL (0.1-1.3); Absolute Neutrophil 6.3 K/uL (1.8-8.0); Basophils % 0.2 % (0-1.3); Eosinophils % 0.7 % (0-4.4); Hematocrit 32.9 % (36.0-45.0); Hemoglobin 10.9 g/dL (12.0-15.0); Lymphocytes % 18.3 % (15.3-44.8); MCH 28.4 pg (27.0-35.0); MCHC 33.2 g/dL (32.0-36.0); MCV 85.4 fL (80-100); MPV 7.5 fL (7.6-11.3); Monocytes % 6.1 % (3.3-12.3); Neutrophils % 74.7 % (41.7-73.7); Nucleated Red Blood Cells % 0.1 % (0-0); Platelets 265 thou/uL (152-406); RBC Red Blood Cell Count 3.86 M/uL (3.86-4.86); Red Cell Distribution Width 15.5 % (12.1-15.2)
[2023-05-24 00:11] LABS: ALT/SGPT 12 U/L (13-56); AST/SGOT 8 U/L (15-37); Albumin 2.7 g/dL (3.4-5.0); Albumin/Globulin Ratio 0.6 (1.1-1.8); Alkaline Phosphatase 75 U/L (45-117); Anion Gap 8.2 mEq/L (5.0-15.0); BUN Blood Urea Nitrogen 4 mg/dL (7-18); Bicarbonate 24 mEq/L (21-32); Bilirubin Total 0.2 mg/dL (0.2-1.0); Globulin 4.3 g/dL (2.3-3.5); Glomerular Filtration Rate 121 ml/min (=/>90); Glucose Level 88 mg/dL (74-106); Potassium 3.2 mEq/L (3.5-5.1); Sodium Level 136 mEq/L (136-145)
[2023-05-24 00:12] LABS: Bilirubin Direct < 0.1 mg/dL (0-0.2); Bilirubin Indirect, Calculated ND mg/dL (0.2-0.8)
[2023-05-24] MEDS ORDERED: ACETAMINOPHEN 500 MG TAB ONE (00:33)
--- NOTE | 2023-05-24 01:24 | ER ---
Nurse's Notes [facility] Name: Paola Castano Age: 37 yrs Sex: Female : 1985 Arrival Date: 05/23/2023 Time: 22:43 Bed 6 Private MD: Diagnosis: Dizziness and giddiness; at 27 weeks EGA, Acute dizziness, acute anxiety attack, acute vomiting Presentation: 05/22 22:51 Chief complaint: Patient states: I was at [facility] and felt like I was going to pass jb4 out, so I laid on the ground. I have been vomiting for the past hour. Coronavirus screen: At this time, the client does not indicate any symptoms associated with coronavirus-19. Ebola Screen: No symptoms or risks identified at this time. Initial Sepsis Screen: Does the patient meet any 2 criteria? No. Patient's initial sepsis screen is negative. Does the patient have a suspected source of infection? No. Patient's initial sepsis screen is negative. Risk Assessment: Do you want to hurt yourself or someone else? Patient reports no desire to harm self or others. Onset of symptoms was May 23, 2023. Transition of care: patient was not received from another setting of care. 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 - Infectious Disease History:: Denies. - Social history:: Smoking status: Patient reports the use of cigarette tobacco products, 3-4 cigarettes per day.. - Family history:: not pertinent. Screenin/11 01:36 [facility] ED Fall Risk Assessment (Adult) History of falling in the last 3 months, jb4 including since admission No falls in past 3 months (0 pts) Confusion or Disorientation No (0 pts) Intoxicated or Sedated No (0 pts) Impaired Gait No (0 pts) Mobility Assist Device Used No (0 pt) Altered Elimination No (0 pt) Score/Fall Risk Level 0 - 2 = Low Risk Oriented to surroundings, Maintained a safe environment. Abuse screen: Denies threats or abuse. Nutritional screening: No deficits noted. Tuberculosis screening: No symptoms or risk factors identified. Assessment: 05/22 23:00 General: Appears in no apparent distress. comfortable, Behavior is calm, cooperative. jb4 Pain: Denies pain. Neuro: Level of Consciousness is awake, alert, obeys commands, Oriented to person, place, time, situation. Cardiovascular: Patient's skin is warm and dry. Respiratory: Airway is patent Respiratory effort is even, unlabored, Respiratory pattern is regular, symmetrical. GI: No signs and/or symptoms were reported involving the gastrointestinal system. : No signs and/or symptoms were reported regarding the genitourinary system. EENT: No signs and/or symptoms were reported regarding the EENT system. Derm: Skin is intact, Skin is pink, warm \T\ dry. Musculoskeletal: Circulation, motion, and sensation intact. Range of motion: intact in all extremities. 05/23 00:00 Reassessment: Patient appears in no apparent distress at this time. Patient and/or jb4 family updated on plan of care and expected duration. Pain level reassessed. Patient is alert, oriented x 3, equal unlabored respirations, skin warm/dry/pink. 00:43 Reassessment: Patient appears in no apparent distress at this time. Patient and/or jb4 family updated on plan of care and expected duration. Pain level reassessed. Patient is alert, oriented x 3, equal unlabored respirations, skin warm/dry/pink. 01:36 Reassessment: Patient appears in no apparent distress at this time. Patient and/or jb4 family updated on plan of care and expected duration. Pain level reassessed. Patient is alert, oriented x 3, equal unlabored respirations, skin warm/dry/pink. Vital Signs: 05/22 22:51 BP 131 / 69; Pulse 81; Resp 16; Pulse Ox 99% on R/A; Weight 159 kg (M); Height 5 ft. 7 jb4 in. (R); Pain 0/10; 23:15 BP 134 / 65; Pulse 88; Resp 16; Pulse Ox 100% on R/A; jb4 05/23 00:30 BP 144 / 87; Pulse 81; Resp 16; Pulse Ox 97% on R/A; jb4 01:36 BP 108 / 53; Pulse 71; Resp 16; Pulse Ox 100% on R/A; jb4 05/22 22:51 Body Mass Index 54.90 (159.00 kg, 170.18 cm) jb4 05/22 22:51 Pain Scale: Adult jb4 Mj Coma Score: 01:15 Eye Response: spontaneous(4). Motor Response: obeys commands(6). Verbal Response: sp4 oriented(5). Total: 15. ED Course: 05/22 22:50 Patient arrived in ED. jb4 22:52 Nj Santoyo MD is Attending Physician. sp4 22:53 Triage completed. jb4 22:53 Arm band placed on right wrist. jb4 23:42 US OB Limited In Process Unspecified. EDMS 05/23 00:41 Milad Israel, RN is Primary Nurse. jb4 01:36 Patient has correct armband on for positive identification. Bed in low position. Call jb4 light in reach. Side rails up X 1. Provided Education on: discharge instructions.. 01:36 No provider procedures requiring assistance completed. IV discontinued, intact, jb4 bleeding controlled, No redness/swelling at site. Pressure dressing applied. Administered Medications: 05/22 23:48 Drug: NS 0.9% IV 1000 ml IV at 1 bolus Per protocol; 1000 mL bolus Route: IV; Rate: 1 jb4 bolus; Site: right antecubital; 05/23 01:38 Follow up: Response: No adverse reaction; IV Status: Completed infusion; IV Intake: jb4 900ml 01:00 Drug: Acetaminophen PO 1000 mg PO once Route: PO; jb4 Medication: 01:36 VIS not applicable for this client. jb4 Intake: 01:38 IV: 900ml; Total: 900ml. jb4 Outcome: 01:24 Discharge ordered by . sp4 01:36 Discharged to home ambulatory, with friend, jb4 01:36 Condition: stable 01:36 Discharge instructions given to patient, Instructed on discharge instructions, follow up and referral plans. Demonstrated understanding of instructions, follow-up care, 01:39 Patient left the ED. jb4 Signatures: Dispatcher [employer] EDRI Milad Israel RN RN jb4 Nj Santoyo MD MD sp4
--- NOTE | 2023-05-24 01:24 | EDPHYS ---
Physician Documentation [facility] Name: Paola Castano Age: 37 yrs Sex: Female : 1985 Arrival Date: 05/23/2023 Time: 22:43 Bed 6 Private MD: ED Physician Nj Santoyo HPI: 05/22 22:52 This 37 yrs old Black Female presents to ER via Unassigned with complaints of sp4 dizziness, . 05/23 01:15 37 year old female at 27 weeks 1 day EGA presents with EMS for acute onset of sp4 dizziness and vomiting at the [facility] today. Patient states she is feeling anxious . She had to lay down on the floor at [facility] and was crying for several minutes. She reports history of anxiety attacks. Denied vaginal bleeding.. PIANO SOUNDING BOARD MATCHER is Dr. Heller from [place] . [employer]ES: 05/22 22:53 Verified jb4 Historical: - Allergies: 22:53 Latex; jb4 - PMHx: 22:53 Hypertension; Iron defeciency; jb4 - PSHx: 22:53 section; jb4 - Immunization history:: Adult Immunizations up to date. - Infectious Disease History:: Denies. - Social history:: Smoking status: Patient reports the use of cigarette tobacco products, 3-4 cigarettes per day.. - Family history:: not pertinent. ROS: 05/23 01:15 Constitutional: Negative for fever, chills, and weight loss, Positive anxiety , sp4 Positive dizziness, Positive nausea and vomiting All other systems are negative, Exam: 01:15 Constitutional: This is a well developed, well nourished patient who is awake, alert, sp4 and in no acute distress. Overweight female Head/Face: Normocephalic, atraumatic. Eyes: Pupils equal round and reactive to light, extra-ocular motions intact. Lids and lashes normal. Conjunctiva and sclera are not injected. Cornea within normal limits. Periorbital areas with no swelling, redness, or edema. ENT: Nares patent. No nasal discharge, no septal abnormalities noted. Tympanic membranes are normal and external auditory canals are clear. Oropharynx with no redness, swelling, or masses, exudates, or evidence of obstruction, uvula midline. Mucous membranes moist. Neck: Trachea midline, no thyromegaly or masses palpated, and no cervical lymphadenopathy. Supple, full range of motion without nuchal rigidity, or vertebral point tenderness. Chest/axilla: Normal chest wall appearance and motion. Nontender with no deformity. No lesions are appreciated. Cardiovascular: Regular rate and rhythm with a normal S1 and S2. No gallops, murmurs, or rubs. Normal PMI, no JVD. No pulse deficits. Respiratory: Lungs have equal breath sounds bilaterally, clear to auscultation and percussion. No rales, rhonchi or wheezes noted. No increased work of breathing, no retractions or nasal flaring. Abdomen/GI: Soft, with normal bowel sounds. No distension or tympany. No guarding or rebound. No evidence of tenderness throughout. Back: No spinal tenderness. No costovertebral tenderness. Skin: Warm, dry with normal turgor. Normal color with no rashes, no lesions, and no evidence of cellulitis. MS/ Extremity: Pulses equal, no cyanosis. Neurovascular intact. Full, normal range of motion. Neuro: Awake and alert, GCS 15, oriented to person, place, time, and situation. Cranial nerves II-XII grossly intact. Motor strength 5/5 in all extremities. Sensory grossly intact. Psych: Awake, alert, with orientation to person, place and time. Behavior, mood, and affect are within normal limits Vital Signs: 05/22 22:51 BP 131 / 69; Pulse 81; Resp 16; Pulse Ox 99% on R/A; Weight 159 kg (M); Height 5 ft. 7 jb4 in. (R); Pain 0/10; 23:15 BP 134 / 65; Pulse 88; Resp 16; Pulse Ox 100% on R/A; jb4 05/23 00:30 BP 144 / 87; Pulse 81; Resp 16; Pulse Ox 97% on R/A; jb4 01:36 BP 108 / 53; Pulse 71; Resp 16; Pulse Ox 100% on R/A; jb4 05/22 22:51 Body Mass Index 54.90 (159.00 kg, 170.18 cm) jb4 05/22 22:51 Pain Scale: Adult jb4 [place] Coma Score: 01:15 Eye Response: spontaneous(4). Motor Response: obeys commands(6). Verbal Response: sp4 oriented(5). Total: 15. MDM: 05/22 23:14 Patient medically screened. sp4 05/23 01:15 Differential Diagnosis altered mental status, sepsis, flu. Data reviewed: vital signs, sp4 nurses notes, EMS record, old medical records, lab test result(s), radiologic studies, ultrasound. ED course: Ultrasound of the ED with single intrauterine . - EXAM DESCRIPTION: OB Limited RadLex: US PREGNANCYLIMITED CLINICAL HISTORY: 27 weeks ; Bed Name: 6 TECHNIQUE: Transabdominal limited obstetrical ultrasound was performed. COMPARISON: None. FINDINGS: Number of fetuses: Single position: Cephalic FL: 4.96 cm corresponding to a gestational age of 26 weeks and 5 days HR: 145 bpm Anatomy: anatomy not evaluated on this examination. Amniotic fluid:DELIO was not measured. Cervix:Suboptimally visualized Placenta:Posterior IMPRESSION: 1. Single viable intrauterine in cephalic presentation. 2. Femur length corresponds to a gestational age of 26 weeks and 5 days. 3. Limited examination. . 05/22 22:53 Order name: Basic Metabolic Panel; Complete Time: 01:05 sp4 05/22 22:53 Order name: CBC with Diff; Complete Time: 01:05 sp4 05/22 22:53 Order name: LFT's; Complete Time: 01:05 sp4 05/22 22:53 Order name: US OB Limited sp4 05/22 22:53 Order name: IV Saline Lock; Complete Time: 23:37 sp4 05/22 22:53 Order name: Labs collected and sent; Complete Time: 23:37 sp4 05/22 22:53 Order name: O2 Per Protocol; Complete Time: 23:37 sp4 05/22 22:53 Order name: O2 Sat Monitoring; Complete Time: 23:37 sp4 Administered Medications: 05/22 23:48 Drug: NS 0.9% IV 1000 ml IV at 1 bolus Per protocol; 1000 mL bolus Route: IV; Rate: 1 jb4 bolus; Site: right antecubital; 05/23 01:38 Follow up: Response: No adverse reaction; IV Status: Completed infusion; IV Intake: jb4 900ml 01:00 Drug: Acetaminophen PO 1000 mg PO once Route: PO; jb4 Disposition Summary: 05/24/23 01:24 Discharge Ordered Notes: Location: Home sp4 Problem: new sp4 Symptoms: have improved sp4 Condition: Stable sp4 Diagnosis - Dizziness and giddiness sp4 - at 27 weeks EGA, Acute dizziness, acute anxiety attack, acute vomiting sp4 Followup: sp4 - With: Private Physician - When: 7 - 10 days - Reason: Recheck today's complaints Discharge Instructions: - Discharge Summary Sheet sp4 - Third Trimester of , [id number] sp4 Forms: - Patient Portal Instructions sp4 Signatures: Dispatcher [employer] Milad Kessler RN RN jb4 Nj Santoyo MD MD sp4 Corrections: (The following items were deleted from the chart) 05/22 22:54 22:53 BASIC METABOLIC PANEL+C.LAB.BRZ ordered. EDMS EDMS 22:54 22:53 CBC+H.LAB.BRZ ordered. EDMS EDMS 22:54 22:53 HEPATIC FUNCTION+C.LAB.BRZ ordered. EDMS EDMS
[2023-05-24 09:31] VITALS: BP 108/53; O2SAT 100
--- NOTE | 2023-05-24 13:24 | RAD REPORT ---
EXAM DESCRIPTION: US - OB Limited - 05/23/2023 11:40 pm CLINICAL HISTORY: 27 weeks ; Bed Name: 6 TECHNIQUE: Transabdominal limited obstetrical ultrasound was performed. COMPARISON: None. FINDINGS: Number of fetuses: Single position: Cephalic FL: 4.96 cm corresponding to a gestational age of 26 weeks and 5 days HR: 145 bpm Anatomy: anatomy not evaluated on this examination. Amniotic fluid: DELIO was not measured. Cervix: Suboptimally visualized Placenta: Posterior IMPRESSION: 1. Single viable intrauterine in cephalic presentation. 2. Femur length corresponds to a gestational age of 26 weeks and 5 days. 3. Limited examination. Electronically signed by: Edilson Mckeon MD 05/24/2023 12:02 AM CDT Due to temporary technical issues with the PACS/Fluency reporting system, reports are being signed by the in house radiologist without review as a courtesy to ensure prompt reporting. The interpreting r adiologist is fully responsible for the content of the report.
== END 2023-05-24 01:39 | disposition home or self-care (01) ==
LOC: ER 22:43
DX: O99.342 Other mental disorders complicating pregnancy, second trimester (principal); F41.0 Panic disorder [episodic paroxysmal anxiety]; O99.332 Smoking (tobacco) complicating pregnancy, second trimester; F17.210 Nicotine dependence, cigarettes, uncomplicated; Z3A.27 27 weeks gestation of pregnancy; Z91.040 Latex allergy status
CPT/HCPCS: 96361; 85025; 80048; 36415; 80076; 76815; 96360; 99284; J7030

== ENCOUNTER 2023-06-02 04:36 | Emergency (ER) | payer OTHER ==
[2023-06-02] MEDS ORDERED: ONDANSETRON 4 MG (ODT) TAB ONE (05:09)
[2023-06-02] MEDS ORDERED: ACETAMINOPHEN 500 MG TAB ONE (05:09)
[2023-06-02] MEDS ORDERED: LIDOCAINE VISCOUS 2% 10ML ORAL SOLN ONE (05:10)
--- NOTE | 2023-06-02 05:38 | EDPHYS ---
Physician Documentation [facility] Name: Paola Castano Age: 37 yrs Sex: Female : 1985 Arrival Date: 06/02/2023 Time: 04:36 Bed 20 Private MD: ED Physician Josef Hernandez HPI: 06/01 05:02 This 37 yrs old Black Female presents to ER via Unassigned with complaints of Sore ec2 Throat. 05:02 Patient arrives today for evaluation of sore throat. Patient complaining of 2 days of ec2 sore throat. Patient reports no fevers or chills. Denies any cough or cold symptoms or productive sputum. Patient does report some nausea, denies vomiting or diarrhea.. 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 - Infectious Disease History:: Denies. - Social history:: Smoking status: Patient denies any tobacco usage or history of. ROS: 05:03 Constitutional: as per hpi ec2 Exam: 05:03 Constitutional: GEN: NAD Head: atraumatic Eyes: EOMI Ears: External ears are normal. ec2 Mouth: Posterior pharyngeal erythema without exudates appreciated. Minimal anterior cervical lymphadenopathy noted. CV: regular rate LUNGS: no respiratory distress ABD: non-distended SKIN: no evidence of rashes MSK: no evidence of trauma NEURO: moves all extremities equally Vital Signs: 05:11 BP 145 / 86; Pulse 97; Resp 16; Pulse Ox 100% on R/A; Weight 158.76 kg (R); Height 5 jb4 ft. 7 in. (R); 05:40 BP 135 / 81; Pulse 92; Resp 17; Temp 98.1; Pulse Ox 100% ; Pain 2/10; bm8 05:11 Body Mass Index 54.82 (158.76 kg, 170.18 cm) jb4 05:40 Pain Scale: Adult bm8 [place] Coma Score: 05:40 Eye Response: spontaneous(4). Motor Response: obeys commands(6). Verbal Response: bm8 oriented(5). Total: 15. MDM: 04:56 Patient medically screened. ec2 05:03 Data reviewed: vital signs, nurses notes. ED course: Patient arrives today for ec2 evaluation of sore throat. Examination remarkable for HEENT findings as noted above. Will obtain strep swab, treat patient evidence and reassess. Concern for strep pharyngitis as well as viral infection. Doubt decrease infection given the patient's well appearance and lack of systemic symptoms. Accordingly will forego any lab work such as CBC or BMP or CT scan of the neck.. 05:33 ED course: Strep negative, suspect viral infection. Will prescribe patient viscous ec2 lidocaine for throat pain.. 06/01 05:01 Order name: Strep ec2 06/01 05:34 Order name: Throat Culture EDMS Administered Medications: 05:15 Drug: Acetaminophen PO 1000 mg PO once Route: PO; jb4 05:39 Follow up: Response: No adverse reaction bm8 05:15 Drug: Ondansetron PO 4 mg PO once Route: PO; jb4 05:38 Follow up: Response: No adverse reaction bm8 05:16 Drug: Viscous Lidocaine Mucous Membrane Liquid (4 %) 10 ml Mucous Membrane once Route: jb4 Mucous Membrane; 05:39 Follow up: Response: No adverse reaction bm8 Disposition Summary: 06/02/23 05:37 Discharge Ordered Notes: Location: Home ec2 Condition: Stable ec2 Diagnosis - Sore Throat ec2 Followup: ec2 - With: Private Physician - When: - Reason: Re-evaluation by your physician Discharge Instructions: - Discharge Summary Sheet ec2 - Sore Throat, [id number] ec2 Forms: - Medication Reconciliation Form ec2 - Thank You Letter ec2 - Antibiotic Education ec2 - Prescription Opioid Use ec2 - Patient Portal Instructions ec2 - Leadership Thank You Letter ec2 Prescriptions: - Lidocaine Viscous - take 10 milliliter ORAL route 4 times per day; 150 milliliter; Refills: 0, ec2 Product Selection Permitted Signatures: Dispatcher [employer] Milad Kessler, FRANCIA RN jb4 Josef Hernandez MD MD ec2 Dioni Stoll RN bm8
--- NOTE | 2023-06-02 05:38 | ER ---
Nurse's Notes [facility] Name: Paola Castano Age: 37 yrs Sex: Female : 1985 Arrival Date: 06/02/2023 Time: 04:36 Bed 20 Private MD: Diagnosis: Sore Throat Presentation: 06/01 05:11 Chief complaint: Patient states: I have been having a soar throat for the past 2 days. jb4 Coronavirus screen: At this time, the client does not indicate any symptoms associated with coronavirus-19. Ebola Screen: No symptoms or risks identified at this time. Initial Sepsis Screen: Does the patient meet any 2 criteria? No. Patient's initial sepsis screen is negative. Does the patient have a suspected source of infection? No. Patient's initial sepsis screen is negative. Risk Assessment: Do you want to hurt yourself or someone else? Patient reports no desire to harm self or others. Onset of symptoms was June 02, 2023. Transition of care: patient was not received from another setting of care. 05:11 Method Of Arrival: Ambulatory jb4 05:11 Acuity: LEWIS 4 jb4 Triage Assessment: 05:14 General: Appears in no apparent distress. comfortable, Behavior is calm, cooperative, jb4 appropriate for age. Pain: Denies pain. EENT: Throat is clear is reddened with gag reflex present. Neuro: Level of Consciousness is awake, alert, obeys commands, Oriented to person, place, time, situation. Cardiovascular: Patient's skin is warm and dry. Respiratory: Airway is patent Respiratory effort is even, unlabored, Respiratory pattern is regular, symmetrical. Derm: Skin is intact, Skin is pink, warm \T\ dry. SALT GRINDER: 05:14 Verified jb4 Historical: - Allergies: 05:14 Latex; jb4 - PMHx: 05:14 Iron defeciency; Hypertension; jb4 - PSHx: 05:14 section; jb4 - Immunization history:: Adult Immunizations up to date. - Infectious Disease History:: Denies. - Social history:: Smoking status: Patient denies any tobacco usage or history of. Screenin:40 [facility] ED Fall Risk Assessment (Adult) History of falling in the last 3 months, bm8 including since admission No falls in past 3 months (0 pts) Confusion or Disorientation No (0 pts) Intoxicated or Sedated No (0 pts) Impaired Gait No (0 pts) Mobility Assist Device Used No (0 pt) Altered Elimination No (0 pt) Score/Fall Risk Level 0 - 2 = Low Risk Oriented to surroundings, Maintained a safe environment, Educated pt \T\ family on fall prevention, incl call for assistance when getting out of bed. Abuse screen: Denies threats or abuse. Nutritional screening: No deficits noted. Tuberculosis screening: No symptoms or risk factors identified. Assessment: 05:39 Respiratory: Airway is patent Respiratory effort is even, unlabored, Respiratory bm8 pattern is regular, symmetrical, Breath sounds are clear bilaterally. 05:40 Reassessment: Patient appears in no apparent distress at this time. Patient and/or bm8 family updated on plan of care and expected duration. Pain level reassessed. Patient is alert, oriented x 3, equal unlabored respirations, skin warm/dry/pink. Patient states feeling better. General: Appears in no apparent distress. comfortable, Behavior is calm, cooperative, appropriate for age. EENT: Throat is clear is reddened bilaterally with gag reflex present. Vital Signs: 05:11 BP 145 / 86; Pulse 97; Resp 16; Pulse Ox 100% on R/A; Weight 158.76 kg (R); Height 5 jb4 ft. 7 in. (R); 05:40 BP 135 / 81; Pulse 92; Resp 17; Temp 98.1; Pulse Ox 100% ; Pain 2/10; bm8 05:11 Body Mass Index 54.82 (158.76 kg, 170.18 cm) jb4 05:40 Pain Scale: Adult bm8 Mj Coma Score: 05:40 Eye Response: spontaneous(4). Motor Response: obeys commands(6). Verbal Response: bm8 oriented(5). Total: 15. ED Course: 04:39 Patient arrived in ED. jj6 04:39 Josef Hernandez MD is Attending Physician. ec2 05:14 Triage completed. jb4 05:14 Arm band placed on right wrist. jb4 05:20 Strep Sent. kmf 05:20 Strep swab sent to lab. kmf 05:38 Dioni Stoll, RN is Primary Nurse. bm8 05:40 Patient has correct armband on for positive identification. Call light in reach. Side bm8 rails up X 1. Adult w/ patient. Provided Education on: post er care. Pulse ox on. NIBP on. Door closed. Noise minimized. Warm blanket given. Verbal reassurance given. 05:40 No provider procedures requiring assistance completed. Patient did not have IV access bm8 during this emergency room visit. 05:42 Josef Hernandez MD is Attending Physician. bm8 Administered Medications: 05:15 Drug: Acetaminophen PO 1000 mg PO once Route: PO; jb4 05:39 Follow up: Response: No adverse reaction bm8 05:15 Drug: Ondansetron PO 4 mg PO once Route: PO; jb4 05:38 Follow up: Response: No adverse reaction bm8 05:16 Drug: Viscous Lidocaine Mucous Membrane Liquid (4 %) 10 ml Mucous Membrane once Route: jb4 Mucous Membrane; 05:39 Follow up: Response: No adverse reaction bm8 Medication: 05:40 VIS not applicable for this client. bm8 Outcome: 05:37 Discharge ordered by . ec2 05:40 Discharged to home ambulatory, 8 05:40 Condition: stable 05:40 Discharge instructions given to patient, Instructed on discharge instructions, follow up and referral plans. medication usage, safety practices, Demonstrated understanding of instructions, follow-up care, medications, Prescriptions given X 1, 05:43 Patient left the ED. bm8 Signatures: Milad Israel, RN RN jb4 Marissa Gaitan6 Josef Hernandez MD MD ec2 Huong Williamson Dioni Schofield RN RN bm8
[2023-06-02 05:50] VITALS: BP 135/81; TEMP 98.1; O2SAT 100
== END 2023-06-02 05:43 | disposition home or self-care (01) ==
LOC: ER 04:36
DX: J02.9 Acute pharyngitis, unspecified (principal); Z91.040 Latex allergy status
CPT/HCPCS: 87070; 87081; 99284; Q0162